=== PATIENT | male | born 1940 | race Caucasian/White ===

== ENCOUNTER 2017-01-07 20:17 | Inpatient (IN) | payer MEDICARE ==
[2017-01-07] VITALS (8 sets, daily range): BP systolic 143–178; BP diastolic 76–97; PULSE 92–111; RESP 24–38; TEMP 98.6; O2SAT 91–100
[~2017-01-07] VITALS: Ht 175.3 cm; Wt 88.6 kg
[~2017-01-07 20:17] MED LIST: 1-ME1LIQ PO; ASPI81TA82 PO; ATOR40TA49 PO; BUME1TAB PO; CARV12.52 PO; COUM2.5T PO; DIOV320T PO; GABA100C4 PO; GEMF600T PO; SPIR25TA PO
[2017-01-07] MEDS ORDERED: RESP: ALBUTEROL 2.5 MG/IPRATROPIUM 0.5 MG NEB (PRN) ONE (20:25)
[2017-01-07] MEDS ORDERED: SODIUM CHLORIDE 0.9% FLUSH 5 ML FLUSH IVF PRN ×2 (20:30)
[2017-01-07] MEDS ORDERED: DILTIAZEM INJ 125 MG in SODIUM CHLORIDE 0.9% INJ 100 ML IV SCH (20:30)
[2017-01-07] MEDS ORDERED: FUROSEMIDE 100 MG/10 ML VIAL IVP ONE (20:30)
[2017-01-07] MEDS ORDERED: NITROGLYCERIN 2% OINT 1 GM PACKET TOPICAL ONE (20:30)
[2017-01-07] MEDS: RESP: ALBUTEROL 2.5 MG/IPRATROPIUM 0.5 MG NEB (SCH) INH ×2 (20:36→20:37)
--- NOTE | 2017-01-07 20:37 | PD ---
HPI Chief Complaint: Respiratory Distress Time Seen by Provider: 20:25 Travel History International Travel<30 days: No Contact w/Intl Traveler<30days: No Traveled to known affect area: No History of Present Illness HPI The patient is a 76 year old male who presents to the [facility] emergency department with a history of shortness of breath that began abruptly 45 minutes prior to arrival. Upon ambulance services arrival the patient's O2 saturations were noted to be in the 70s. They attempted to place the patient on CPAP. They also attempted to place IV access. IV access was difficult to obtain, therefore a left intraosseous access was placed in his tibia. The patient after placement on CPAP had his O2 saturations improve up into the upper 80s. The patient was noted to have A. fib with RVR prior to arrival. The patient was given Cardizem 20 mg IV and his intraosseous access. The patient was also noted to have elevated blood pressure with a systolic in the 200s and was given sublingual nitroglycerin 2. According to ambulance services the patient did take his aspirin today as well as his anticoagulant. The patient arrives dyspneic, tripoding, mottled appearing with diaphoresis that according to ambulance services is improving. The patient is however awake and alert and able to move himself from the ambulance gurney to the hospital bed with assistance. The patient is having difficulty providing much history due to his conversational dyspnea, therefore his record was reviewed for further assistance. The patient's blood sugar prior to arrival was reportedly 207. PFSH Past Medical History Narrative Medical The patient's past medical history is significant for congestive heart failure, coronary artery disease status post coronary artery bypass grafting, history of cardiac stent placement, history of cerebrovascular accident, hyperlipidemia, history of chronically being anticoagulated on warfarin, history of COPD, history of prior tobacco use-with quitting 15 years ago, history of prostate cancer. Hx Anticoagulant Therapy: Yes Arthritis: No Asthma: No Autoimmune Disease: No Blood Disorders: No Anxiety: No Depression: No Heart Rhythm Problems: Yes Cancer: Yes (PROSTATE) Cardiac Catheterization: Yes Cardiovascular Problems: Yes High Cholesterol: Yes Chemotherapy: No Chest Pain: No Congestive Heart Failure: Yes COPD: Yes Cerebrovascular Accident: Yes (2014 - TIA) Diabetes: No Diminished Hearing: No Endocrine: No Gastrointestinal Disorders: No GERD: No Genitourinary: Yes (PROSTATE CA) Hepatitis: No Hiatal Hernia: No Hypertension: Yes Immune Disorder: No Kidney Stones: Yes (1960) Musculoskeletal: No Neurologic: Yes (DIZZY, STROKE) Psychiatric: No Reproductive: No Respiratory: Yes (COPD) Migraines: No Myocardial Infarction: Yes Radiation Therapy: Yes (prostate cancer 45 treatments) Renal Failure: No Seizures: No Sickle Cell Disease: No Sleep Apnea: No Thyroid Disease: No Ulcer: No Tetanus Vaccination: Unknown Influenza Vaccination: Yes Past Surgical History Narrative Surgical The patient's past surgical history is significant for prostate seed implants, hernia repair, stents placed in bilateral lower extremities related to peripheral arterial disease, coronary artery bypass grafting in 2007, history of coronary stent placement, bilateral Cataract surgery, history of dental extractions Abdominal Surgery: Yes AICD: No Arteriovenous Shunt: Yes (shunts placed in BLE for DVT) Cardiac Surgery: Yes (CABG) Coronary Stent: Yes Ear Surgery: No Endocrine Surgery: No Eye Surgery: Yes (BILAT CATARACT SX) Genitourinary Surgery: Yes (PROSTATE SEED IMPLANTS) Gynecologic Surgery: No Insulin Pump: No Joint Replacement: No Neurologic Surgery: No Oral Surgery: Yes (TEETH EXTRACTED) Pacemaker: No Thoracic Surgery: No Other Surgery: Yes Social History Alcohol Use: Yes (2 BEERS DAILY) Tobacco Use: No Substance Use: No Allergies-Medications (Allergen,Severity, Reaction): Coded Allergies: No Known Allergies (Verified , 01/07/17) Reported Meds & Prescriptions Reported Meds & Active Scripts Active Reported Warfarin 4 Mg Tab 4 Mg PO DAILY David Aspirin EC Low Dose (Aspirin) 81 Mg Tabdr Amlodipine (Amlodipine Besylate) 10 Mg Tab 10 Mg PO DAILY Carvedilol 25 Mg Tab 25 Mg PO BID Bumetanide 1 Mg Tab 1 Mg PO BID Uloric (Febuxostat) 80 Mg Tab Gemfibrozil 600 Mg Tab 600 Mg PO BIDAC Take 30 minutes prior to breakfast and dinner. Gabapentin 100 Mg Cap 100 Mg PO TID Valsartan 320 Mg Tab 320 Mg PO DAILY Atorvastatin (Atorvastatin Calcium) 40 Mg Tab 40 Mg PO HS Review of Systems Except as stated in HPI: all other systems reviewed are Neg General / Constitutional: No: Fever Eyes: No: Visual changes HENT: No: Headaches Cardiovascular: Positive: Chest Pain or Discomfort (chest tightness), Diaphoresis, Dyspnea on exertion Respiratory: Positive: Cough, Shortness of Breath Gastrointestinal: No: Abdominal Pain Genitourinary: No: Dysuria Musculoskeletal: No: Pain Skin: No Rash Neurologic: No: Weakness, Focal Abnormalities, Change in Mentation, Slurred Speech, Sensory Disturbance Psychiatric: No: Depression Endocrine: No: Polydipsia Hematologic/Lymphatic: No: Easy Bruising Physical Exam Narrative General: The patient is a well-developed well-nourished male, short of breath on arrival , tripoding, diaphoretic, conversational dyspnea noted. Head and Neck exam: Head is normocephalic atraumatic. Eyes: Pupils are equal round and reactive to light. Nose: Midline septum with pink mucous membranes Mouth: Dentition unremarkable. Moist mucus membranes. Posterior oropharynx is not erythematous. No tonsillar hypertrophy. Uvula midline. Airway patent. Neck: No palpable lymphadenopathy. No nuchal rigidity. No thyromegaly. Cardiovascular: Irregularly irregular with a rate in the low 100s, no murmurs, gallops, or rubs. The patient has intermittent pulse deficit to his extremity noted consistent with atrial fibrillation on simultaneous auscultation of heart and radial artery with palpation. Lungs: Crackles audible two thirds up the bases bilaterally with scattered rhonchi anteriorly, no wheezes are audible. He has retractions noted. He is tripoding. He has paroxysmal abdominal breathing. Abdomen: Soft, without tenderness to palpation in all 4 quadrants of the abdomen. No guarding, rebound, or rigidity. Normal bowel sounds are audible. Extremities: No clubbing or cyanosis. The patient has 1+ pitting edema bilateral lower extremities. 2+ pulses in all 4 extremities. Back: No costovertebral angle tenderness to palpation. Neurologic Exam: Cranial nerves 2-12 were intact on exam. Strength is 5/5 in all 4 extremities. No sensory deficits noted. Skin Exam: No rash noted. Intact skin that is moist related to diaphoresis. The patient's skin is slightly mottled. Data Data Last Documented VS Vital Signs Date Time Temp Pulse Resp B/P Pulse Ox O2 Delivery O2 Flow Rate FiO2 01/07/17 22:00 92 24 143/76 100 CPAP 100 01/07/17 20:24 98.6 Orders Albuterol-Ipratropium Neb (Duoneb Neb) (01/07/17 20:25) Complete Blood Count With Diff (01/07/17 20:25) Comprehensive Metabolic Panel (01/07/17 20:25) B-Type Natriuretic Peptide (01/07/17 20:25) Act Partial Throm Time (Ptt) (01/07/17 20:25) Prothrombin Time / Inr (Pt) (01/07/17 20:25) Magnesium (Mg) (01/07/17 20:25) Ckmb (Isoenzyme) Profile (01/07/17 20:25) Troponin I (01/07/17 20:25) Arterial Blood Gas (Abg) (01/07/17 20:25) Urinalysis - C+S If Indicated (01/07/17 20:25) Blood Culture (01/07/17 20:25) Iv Access Insert/Monitor (01/07/17 20:25) Electrocardiogram (01/07/17 20:25) Ecg Monitoring (01/07/17 20:25) Oximetry (01/07/17 20:25) Oxygen Administration (01/07/17 20:25) Chest, Single Ap (01/07/17 20:25) Urinary Catheter Insert/Apply (01/07/17 20:25) Sodium Chloride 0.9% Flush (Ns Flush) (01/07/17 20:30) Albuterol-Ipratropium Neb (Duoneb Neb) (01/07/17 20:30) Furosemide Inj (Lasix Inj) (01/07/17 20:30) Resp Bipap / Cpap Non Invas Vt (01/07/17 20:25) Lactic Acid (01/07/17 20:25) Diltiazem Inj (Cardizem Inj) (01/07/17 20:30) Sodium Chloride 0.9% Flush (Ns Flush) (01/07/17 20:30) Nitroglycerin 2% Oint (Nitroglycerin 2% (01/07/17 20:30) CKMB (01/07/17 20:30) CKMB% (01/07/17 20:30) Ceftriaxone Inj (Rocephin Inj) (01/07/17 22:30) Azithromycin Inj (Zithromax Inj) (01/07/17 22:30) Admit To Inpatient (01/07/17 ) Vital Signs (Adult) Q4H (01/07/17 22:52) Activity Oob With Assistance (01/07/17 22:52) Route Sales Specialist / Telemetry .CONTINUOUS (01/07/17 22:52) Intake + Output ANDREA.QSHIFT (01/07/17 22:52) Diet Heart Healthy (01/08/17 Breakfast) Sodium Chloride 0.9% Flush (Ns Flush) (01/07/17 23:00) Sodium Chloride 0.9% Flush (Ns Flush) (01/08/17 09:00) Comprehensive Metabolic Panel (01/08/17 06:00) Complete Blood Count With Diff (01/08/17 06:00) Creatine Kinase (Cpk) (01/08/17 02:30) Creatine Kinase (Cpk) (01/08/17 08:30) Troponin I (01/08/17 02:30) Troponin I (01/08/17 08:30) Electrocardiogram (01/08/17 02:30) Pt Request For Service (01/07/17 22:52) Case Management Consult (01/07/17 22:52) Naloxone Inj (Narcan Inj) (01/07/17 23:00) Inpatient Certification (01/07/17 ) Admit Order (Ed Use Only) (01/07/17 22:52) Labs Laboratory Tests Test 01/07/17 01/07/17 01/07/17 20:30 20:45 21:02 White Blood Count 12.9 TH/MM3 Red Blood Count 4.63 MIL/MM3 Hemoglobin 14.8 GM/DL Hematocrit 45.4 % Mean Corpuscular Volume 98.0 FL Mean Corpuscular Hemoglobin 31.9 PG Mean Corpuscular Hemoglobin 32.6 % Concent Red Cell Distribution Width 15.3 % Platelet Count 185 TH/MM3 Mean Platelet Volume 9.2 FL Neutrophils (%) (Auto) 62.4 % Lymphocytes (%) (Auto) 27.2 % Monocytes (%) (Auto) 8.4 % Eosinophils (%) (Auto) 1.3 % Basophils (%) (Auto) 0.7 % Neutrophils # (Auto) 8.0 TH/MM3 Lymphocytes # (Auto) 3.5 TH/MM3 Monocytes # (Auto) 1.1 TH/MM3 Eosinophils # (Auto) 0.2 TH/MM3 Basophils # (Auto) 0.1 TH/MM3 CBC Comment DIFF FINAL Differential Comment Prothrombin Time 14.0 SEC Prothromb Time International 1.3 RATIO Ratio Activated Partial 26.8 SEC Thromboplast Time Sodium Level 139 MEQ/L Potassium Level 4.2 MEQ/L Chloride Level 104 MEQ/L Carbon Dioxide Level 19.9 MEQ/L Anion Gap 15 MEQ/L Blood Urea Nitrogen 25 MG/DL Creatinine 2.12 MG/DL Estimat Glomerular Filtration 31 ML/MIN Rate Random Glucose 210 MG/DL Lactic Acid Level 6.8 mmol/L Calcium Level 9.3 MG/DL Magnesium Level 2.2 MG/DL Total Bilirubin 0.6 MG/DL Aspartate Amino Transf 23 U/L (AST/SGOT) Alanine Aminotransferase 25 U/L (ALT/SGPT) Alkaline Phosphatase 92 U/L Total Creatine Kinase 186 U/L Creatine Kinase MB 4.4 NG/ML Troponin I 0.04 NG/ML B-Type Natriuretic Peptide 761 PG/ML Total Protein 8.6 GM/DL Albumin 3.6 GM/DL Urine Color YELLOW Urine Turbidity HAZY Urine pH 6.0 Urine Specific [place] 1.012 Urine Protein 300 mg/dL Urine Glucose (UA) NEG mg/dL Urine Ketones NEG mg/dL Urine Occult Blood MOD Urine Nitrite NEG Urine Bilirubin NEG Urine Urobilinogen LESS THAN 2.0 MG/DL Urine Leukocyte Esterase NEG Urine RBC 36 /hpf Urine WBC 2 /hpf Urine Hyaline Casts 1 /lpf Microscopic Urinalysis Comment CULT NOT INDICATED Blood Gas Puncture Site LT RADIAL Blood Gas Patient Temperature 98.6 Blood Gas HCO3 18 mmol/L Blood Gas Base Excess -6.8 mmol/L Blood Gas Oxygen Saturation 95 % Arterial Blood pH 7.31 Arterial Blood Partial 38 mmHg Pressure CO2 Arterial Blood Partial 140 mmHG Pressure O2 Arterial Blood Oxygen Content 20.1 Vol % Arterial Blood 1.5 % Carboxyhemoglobin Arterial Blood Methemoglobin 2.1 % Blood Gas Hemoglobin 15.0 G/DL Oxygen Delivery Device NPPV Blood Gas Ventilator Setting IPAP14/[id number] Blood Gas Inspired Oxygen 100 % MDM Medical Decision Making Medical Screen Exam Complete: Yes Emergency Medical Condition: Yes Medical Record Reviewed: Yes Interpretation(s) Last Impressions Chest X-Ray 01/07/172024 Signed Impressions: Service Date/Time: Saturday, January 07, 2017 20:42 - CONCLUSION: Mild failure. Jose Rubio MD Differential Diagnosis Congestive heart failure exacerbation, versus COPD exacerbation versus combination of respiratory disorder, versus acute coronary syndrome, versus flash pulmonary edema, versus pulmonary embolism Narrative Course During the course of the patients emergency department visit, the patients history, examination, and differential diagnosis were reviewed with the patient. The patient had IV access obtained and blood work sent for analysis. The patient was placed on a gambling monitor with oximetry and blood pressure monitoring. An EKG was done on arrival. Respiratory therapy was available at the bedside to assist with this patient's care. The patient was placed on BiPAP at 14 over 5, 100% in order to increase his FiO2. This will be weaned as tolerated to maintain his O2 saturations at greater than or equal to 92%. The patient's heart rate was in the low 100s. The patient will have a Lopez catheter placed to gravity. The EKG done on arrival shows atrial fibrillation with RVR heart rate of 108 with intraventricular conduction delay that appears consistent with a left bundle branch block. From reviewing the patient's electronic medical record he does have a history of left bundle branch block. The patient was provided Lasix 60 mg IV, nitroglycerin 1 inch the chest wall, DuoNeb times. An ABG will be done. The patients laboratory studies were reviewed and remarkable for a CBC that shows a white count 12.9, hemoglobin 14.8, platelets 185 with 8.4 monocytes, CMP is remarkable for CO2 of 19.9, BUN 25, creatinine 2.12, glucose 210, CPK 186 , troponin I 0.04, BNP is 761, lactic acid is 6.8. Given the patient's fluid overload on examination, the patient was not started on any fluid bolus for this elevated lactic acid which I suspect is not related to sepsis but related to hypoxemia on room air prior to arrival. Therefore, this should improve with oxygenation. However given the patient's elevated white count which could also be related to a stress reaction from his hypoxemia the patient was given a one- time dose of Rocephin 1 g IV, Zithromax 500 IV for possible pneumonia. PT 14, INR 1.3, PTT 26.8, urinalysis shows 300 protein and moderate occult blood 36 RBCs, otherwise unremarkable Radiology studies were reviewed and remarkable for a chest x-ray that shows mild congestive heart failure. The patient was repeatedly reevaluated and had improvement in his oxygenation on BiPAP. The patient was slowly being weaned down on the BiPAP settings. His initial ABG on BiPAP shows a pH of 7.31, PCO2 38, PO2 140, methemoglobin 2.1, bicarbonate 18, base excess -6.8. The patients results were discussed with the patient, including the plan of care. I explained that further testing and/ or monitoring is indicated based on the patients history, examination, and/ or laboratory findings. Therefore, I recommended admission for additional evaluation. The patient expressed understanding and was agreeable with this plan. The patient was admitted to the hospital in guarded condition and [facility] Critical Care Narrative Aggregate critical care time was37 minutes. Time to perform other separately billable procedures was not included in the critical care time. My time did not include minutes spent treating any other patients simultaneously or on activities that did not directly contribute to the patient's treatment. The services I provided to this patient were to treat and/or prevent clinically significant deterioration that could result in: Respiratory failure, hypoxic encephalopathy, acute coronary syndrome I provided critical care services requiring my management, as noted below: Chart data review, documentation time, medication orders and management, vital sign assessments/reviewing monitor data, ordering and reviewing lab tests, ordering and interpreting/reviewing x-rays and diagnostic studies, care of the patient and discussion of the patient with the admitting physicians. Sepsis Criteria SIRS Criteria (2 or more): Heart rate over 90, RR > 20 or PaCO2 < 32, WBC > 95593, < 4000 or > 10% bands Severe Sepsis (+one): Lactate >2 Physician Communication Physician Communication The patient's case will be discussed with Dr. Barksdale. The patient's case was discussed with her. She did agree to admit the patient for further evaluation and treatment at this time. Diagnosis Primary Impression: CHF exacerbation Qualified Code: I50.9 - Acute on chronic congestive heart failure, unspecified congestive heart failure type Additional Impression: Hypoxemia Admitting Information Admitting Physician Requests: Admit Stephanie Encinas MD Jan 07, 2017 20:37
[2017-01-07 20:48] LABS: BASOPHIL # 0.1 TH/MM3 (0-0.2); BASOPHIL % 0.7 % (0.0-2.0); EOSINOPHIL # 0.2 TH/MM3 (0-0.4); EOSINOPHIL % 1.3 % (0.0-4.0); HEMATOCRIT 45.4 % (39.0-51.0); HEMO FLAGS DIFF FINAL; LYMPH % 27.2 % (9.0-44.0); LYMPHOCYTE # 3.5 TH/MM3 (1.0-4.8); MEAN CORPUSCULAR HEMOGLOBIN 31.9 PG (27.0-34.0); MEAN CORPUSCULAR HGB CONC 32.6 % (32.0-36.0); MONO % 8.4 % (0.0-8.0); NEUT % 62.4 % (16.0-70.0); PLATELET COUNT 185 TH/MM3 (150-450); RED BLOOD COUNT 4.63 MIL/MM3 (4.50-5.90); RED CELL DISTRIBUTION WIDTH 15.3 % (11.6-17.2); WHITE BLOOD COUNT 12.9 TH/MM3 (4.0-11.0)
[2017-01-07 21:00] LABS: APTT (PATIENT) 26.8 SEC (24.3-30.1); INTERNATIONAL NORMALIZED RATIO 1.3 RATIO
--- NOTE | 2017-01-07 21:03 | RADRPT ---
EXAM DATE/TIME: 01/07/2017 20:42 [facility] COMPARISON: CHEST SINGLE AP, July 04, 2016, 6:05. INDICATIONS : Shortness of breath. MEDICAL HISTORY : Hypertension. Hypercholesterolemia. Myocardial infarction. Prostate cancer. SURGICAL HISTORY : CABG. Coronary artery stent. Cardiac stent. ENCOUNTER: Initial ACUITY: 1 day PAIN SCORE: 0/10 LOCATION: Bilateral chest FINDINGS: Hazy opacities are seen of both mid and lower lungs with mild cardiomegaly. Mild failure is suspected . Small, bilateral pleural effusions are likely. I don't see a pneumothorax. Patient has had previous median sternotomy. CONCLUSION: Mild failure. Jose Rubio MD on January 07, 2017 at 21:01 Board Certified Radiologist. This report was verified electronically.
[2017-01-07 21:16] LABS: BLOOD, URINE MOD (NEG); COMMENT (UR) CULT NOT INDICATED; CULTURE IF INDICATED CULT NOT INDICATED; GLUCOSE,URINE NEG (NEG); HYALINE CAST, URINE 1 /lpf (RARE); KETONE, URINE NEG (NEG); NITRITE,URINE NEG (NEG); URINE COLOR YELLOW (YELLW/STRAW)
[2017-01-07 21:18] LABS: BLOOD GAS BASE EXCESS -6.8 mmol/L (-2-2); BLOOD GAS CARBOXYHEMOGLOBIN 1.5 % (0-4); BLOOD GAS HCO3 18 mmol/L (22-26); BLOOD GAS METHEMOGLOBIN 2.1 % (0-2); BLOOD GAS O2 HGB SATURATION 95 % (90-100); BLOOD GAS OXYGEN CONTENT 20.1 Vol % (12.0-20.0); BLOOD GAS PCO2 38 mmHg (38-42); BLOOD GAS PO2 140 mmHG (61-120); CRITICAL VALUE NO; FIO2 100 %; OXYGEN DEVICE NPPV; TEMP CORR TO 98.6; VENT SETTINGS IPAP14/EPAP5
[2017-01-07 21:19] LABS: DRAW SITE LT RADIAL; NUMBER OF ARTERIAL PUNCTURES 1; STAT YES; ULNAR PULSE PRESENT
[2017-01-07 21:37] LABS: ALKALINE PHOSPHATASE 92 U/L (45-117); ALT (GPT) 25 U/L (12-78); ANION GAP 15 MEQ/L (5-15); AST (GOT) 23 U/L (15-37); BICARBONATE 19.9 MEQ/L (21.0-32.0); BLOOD UREA NITROGEN 25 MG/DL (7-18); CHLORIDE 104 MEQ/L (98-107); CREATINE KINASE 186 U/L (39-308); GLOMERULAR FILTRATION RATE 31 ML/MIN (>89); MAGNESIUM 2.2 MG/DL (1.5-2.5); POTASSIUM 4.2 MEQ/L (3.5-5.1); SODIUM (NA) 139 MEQ/L (136-145); TOTAL BILIRUBIN ADULT 0.6 MG/DL (0.2-1.0)
[2017-01-07 21:49] LABS: CKMB 4.4 NG/ML (0.5-3.6)
[2017-01-07] MEDS ORDERED: cefTRIAXone INJ 1,000 MG in SODIUM CHLORIDE 0.9% INJ 100 ML IV ONE (22:30)
[2017-01-07] MEDS ORDERED: AZITHROMYCIN INJ 500 MG in SODIUM CHLOR 0.9% 250 ML INJ 250 ML IV ONE (22:30)
[2017-01-07] MEDS ORDERED: ASPI1TAB73 PO (22:34)
[2017-01-07] MEDS ORDERED: GABA100C4 PO (22:34)
[2017-01-07] MEDS ORDERED: BUME1TAB PO (22:34)
[2017-01-07] MEDS ORDERED: WARF-20 PO (22:34)
[2017-01-07] MEDS ORDERED: ULOR80TA2 (22:34)
[2017-01-07] MEDS ORDERED: CARV25TA PO (22:34)
[2017-01-07] MEDS ORDERED: VALS1TAB70 PO (22:34)
[2017-01-07] MEDS ORDERED: ATOR40TA16 PO (22:34)
[2017-01-07] MEDS ORDERED: AMLO10TA2 PO (22:34)
[2017-01-07] MEDS ORDERED: GEMF600T PO (22:34)
[2017-01-07] MEDS ORDERED: NALOXONE HCL 0.4 MG/ML AMP IV PRN (23:00)
[2017-01-08] VITALS (16 sets, daily range): BP systolic 74–149; BP diastolic 43–85; PULSE 34–120; RESP 12–30; TEMP 98–98.7; O2SAT 86–100
--- NOTE | 2017-01-08 02:57 | HHI.HP ---
[facility] Peng Weir MD Admission Diagnosis CHF exacerbation, Afib with RVR Diagnoses: Chief Complaint: Shortness of breath Travel History International Travel<30 Days: No Contact w/Intl Traveler <30 Da: No Traveled to Known Affected Are: No History of Present Illness History from patient, ER physician, ER physician, and review of medical records. Patient reported that he came to the hospital because he was severely short of breath yesterday. He states it was starting in the evening and he thought that taking a shower would make the breathing better so he went to the bathroom to take a shower. He status and as he got out of shower, he just was not able to catch her breath. He told his to call 911. Upon arrival by EMS, patient was in acute respiratory distress with hypoxia in the 80s. He was placed on C Pap, and was given Cardizem 20 mg IV by intraosseous for going into A. fib with RVR. Patient reports history of A. fib. also reports of history of CHF. He is requesting for home oxygen because this is likely third time this has happened. Patient states that he is compliant with his medications, salt intake, and water pills. He usually sees Dr. Madison for cardiology. He states that his doctor had retired and is now seen another physician at the same office. He reports he has not had any stress test or angiogram in the past 1 year. Patient also has history of COPD. However he quit smoking in [address] Madison advised him to do so prior to his CABG. Apart from the above, patient denies any recent fever/nausea/vomiting/diarrhea/ urinary burning or pain on urination. He denies any hematemesis/vomiting/melena/hematuria. Denies any syncopal episodes. Denies any palpitations in the past few days. He did have palpitations during this acute episode of respiratory distress. Denies any chest pains. However did report of ongoing chest tightness every time he exerts himself and walk around which is usually associated with shortness of breath on exertion as well. Review of Systems Except as stated in HPI: all other systems reviewed are Neg Past Family Social History Past Medical History Hypertension Hyperlipidemia CADstatus post CABG in 1999 Atrial fibrillation CHFEF of 35% COPD Chronic kidney disease History of CVA History of prostate CA Past Surgical History Cataract surgery CABG Bilateral lower extremity stents Radiation seed implants for prostate cancer Reported Medications Patient's medications listed in EMRreviewed. He stated that his did bring a list and this was gone through with the . Allergies: Coded Allergies: No Known Allergies (Verified , 01/07/17) Family History Reports family history of lung cancer in 3 of his brothers. Also reports of [place] which resulted in in 2 brothers. Social History Used to smoke cigarettes, quit in 1999. Denies any alcohol abuse or drug abuse. He does drink socially 1 or 2 shots of hard liquor small shots a day. Physical Exam Vital Signs Vital Signs Date Time Temp Pulse Resp B/P Pulse Ox O2 Delivery O2 Flow Rate FiO2 01/07/17 23:51 94 Nasal Cannula 4.00 01/07/17 22:00 92 24 143/76 100 CPAP 100 01/07/17 21:21 98 70 01/07/17 20:45 100 26 159/97 100 CPAP 100 01/07/17 20:33 106 36 178/91 96 CPAP 96 01/07/17 20:31 97 CPAP 100 01/07/17 20:31 38 96 CPAP 100 01/07/17 20:27 109 34 97 CPAP 100 01/07/17 20:24 98.6 111 36 91 01/07/17 20:20 96 100 Physical Exam GENERAL: This is a well-nourished, well-developed patient, still in somewhat of mild distress from acute dyspnea. Able to complete sentences although clearly has dyspnea during minimal exertion. SKIN: No rashes, ecchymoses or lesions. Cool and dry. HEAD: Atraumatic. Normocephalic. No temporal or scalp tenderness. EYES:No scleral icterus. No injection or drainage. ENT: Nose without bleeding, purulent drainage or septal hematoma. . Airway patent. NECK: Trachea midline. No JVD CARDIOVASCULAR: Regular rate and rhythm without murmurs, gallops, or rubs. RESPIRATORY: Clear to auscultation. Breath sounds equal bilaterally. No wheezes , rales, or rhonchi. GASTROINTESTINAL: Abdomen soft, non-tender, nondistended. No guarding. MUSCULOSKELETAL: Extremities without clubbing, cyanosis, or edema. . No calf tenderness. NEUROLOGICAL: Awake and alert. Motor and sensory grossly within normal limits. Normal speech. Laboratory Laboratory Tests Test 01/07/17 01/07/17 01/07/17 20:30 20:45 21:02 White Blood Count 12.9 Red Blood Count 4.63 Hemoglobin 14.8 Hematocrit 45.4 Mean Corpuscular Volume 98.0 Mean Corpuscular Hemoglobin 31.9 Mean Corpuscular Hemoglobin 32.6 Concent Red Cell Distribution Width 15.3 Platelet Count 185 Mean Platelet Volume 9.2 Neutrophils (%) (Auto) 62.4 Lymphocytes (%) (Auto) 27.2 Monocytes (%) (Auto) 8.4 Eosinophils (%) (Auto) 1.3 Basophils (%) (Auto) 0.7 Neutrophils # (Auto) 8.0 Lymphocytes # (Auto) 3.5 Monocytes # (Auto) 1.1 Eosinophils # (Auto) 0.2 Basophils # (Auto) 0.1 CBC Comment DIFF FINAL Differential Comment Prothrombin Time 14.0 Prothromb Time International 1.3 Ratio Activated Partial 26.8 Thromboplast Time Sodium Level 139 Potassium Level 4.2 Chloride Level 104 Carbon Dioxide Level 19.9 Anion Gap 15 Blood Urea Nitrogen 25 Creatinine 2.12 Estimat Glomerular Filtration 31 Rate Random Glucose 210 Lactic Acid Level 6.8 Calcium Level 9.3 Magnesium Level 2.2 Total Bilirubin 0.6 Aspartate Amino Transf 23 (AST/SGOT) Alanine Aminotransferase 25 (ALT/SGPT) Alkaline Phosphatase 92 Total Creatine Kinase 186 Creatine Kinase MB 4.4 Troponin I 0.04 B-Type Natriuretic Peptide 761 Total Protein 8.6 Albumin 3.6 Urine Color YELLOW Urine Turbidity HAZY Urine pH 6.0 Urine Specific [place] 1.012 Urine Protein 300 Urine Glucose (UA) NEG Urine Ketones NEG Urine Occult Blood MOD Urine Nitrite NEG Urine Bilirubin NEG Urine Urobilinogen LESS THAN 2.0 Urine Leukocyte Esterase NEG Urine RBC 36 Urine WBC 2 Urine Hyaline Casts 1 Microscopic Urinalysis Comment CULT NOT INDICATED Blood Gas Puncture Site LT RADIAL Blood Gas Patient Temperature 98.6 Blood Gas HCO3 18 Blood Gas Base Excess -6.8 Blood Gas Oxygen Saturation 95 Arterial Blood pH 7.31 Arterial Blood Partial 38 Pressure CO2 Arterial Blood Partial 140 Pressure O2 Arterial Blood Oxygen Content 20.1 Arterial Blood 1.5 Carboxyhemoglobin Arterial Blood Methemoglobin 2.1 Blood Gas Hemoglobin 15.0 Oxygen Delivery Device NPPV Blood Gas Ventilator Setting IPAP14/EPAP5 Blood Gas Inspired Oxygen 100 Date/Time Procedure Status Source Growth 01/07/17 20:30 Aerobic Blood Culture Received Blood Peripheral Pending 01/07/17 20:30 Anaerobic Blood Culture Received Blood Peripheral Pending Result Diagram: 01/07/17202901/07/172029 Imaging Last 48 hours Impressions Chest X-Ray 01/07/172024 Signed Impressions: Service Date/Time: Saturday, January 07, 2017 20:42 - CONCLUSION: Mild failure. Jose Rubio MD Assessment and Plan Problem List: (1) CHF exacerbation ICD Code: I50.9 Status: Acute (2) Hypoxemia ICD Code: R09.02 Status: Acute (3) Acute respiratory failure ICD Code: J96.00 Status: Acute Assessment and Plan Impression: Acute on chronic systolic heart failure Hypoxic respiratory failuresecondary to above Subtherapeutic INR Lactic acid acidosislikely due to respiratory distress from acute hypoxia and overload. No evidence of sepsis or bowel ischemia. Elevated BNP Hypertension Hyperlipidemia CADstatus post CABG in 1999 Atrial fibrillation CHFEF of 35% COPD Chronic kidney disease History of CVA History of prostate CA Plan: Patient was given Lasix 60 mg IV in ER. He was immediately placed on BiPAP upon arrival to ER as he was not doing well on C Pap. Continue Lasix at 40 mg IV every 12 hours. Input/output. Given that patient has chronic kidney disease, he may not diurese well. He might need additional BiPAP support. We'll continue to monitor. Nebulizers when necessary. Patient was also given Rocephin and azithromycin in ER. However his clinical picture is that of CHF exacerbation rather than sepsis. His lactic acid of 6.8 isn't highly due to respiratory distress causing demand ischemia. We will therefore not continue any antibiotics at this point. Repeat lactic acid in a.m. Serial cardiac enzymes and EKGs to rule out ischemic etiology. Yet again, expect that troponin will elevate due to his acute respiratory distress. Consult cardiology for possible ischemic workup. Start on Lovenox therapeutic dose 1 mg/kg subcutaneous every 24 hours given his renal function.. Continue Coumadin at home dose. Continue Cardizem drip. Adjust and taper off the dose once heart rate is controlled. Resume rest of his home medications. DVT prophylaxison Coumadin/Lovenox. GI prophylaxison pantoprazole. Discussed Condition With patient, ER MD, ACADEMIC PHYSICIAN Physician Certification 2 Midnight Certification Type: Admission for Inpatient Services Order for Inpatient Services The services are ordered in accordance with Medicare regulations or non- Medicare payer requirements, as applicable. In the case of services not specified as inpatient-only, they are appropriately provided as inpatient services in accordance with the 2-midnight benchmark. Estimated LOS (days): 2 days is the estimated time the patient will need to remain in the hospital, assuming treatment plan goals are met and no additional complications. Post-Hospital Plan: Home Problem Qualifiers (1) CHF exacerbation: Qualified Code: I50.9 - Acute on chronic congestive heart failure, unspecified congestive heart failure type Whitney Barksdale MD Jan 08, 2017 02:57
[2017-01-08 03:40] LABS: ALT (GPT) 20 U/L (12-78); ANION GAP 13 MEQ/L (5-15); AST (GOT) 13 U/L (15-37); BICARBONATE 21.2 MEQ/L (21.0-32.0); CHLORIDE 104 MEQ/L (98-107); GLOMERULAR FILTRATION RATE 27 ML/MIN (>89); POTASSIUM 4.4 MEQ/L (3.5-5.1); SODIUM (NA) 138 MEQ/L (136-145)
[2017-01-08 03:42] LABS: ALKALINE PHOSPHATASE 73 U/L (45-117); TOTAL BILIRUBIN ADULT 0.5 MG/DL (0.2-1.0)
[2017-01-08 04:05] LABS: BLOOD UREA NITROGEN 31 MG/DL (7-18)
[2017-01-08 04:15] LABS: AUTOMATED NEUTROPHIL # 9.8 TH/MM3 (1.8-7.7); BASOPHIL # 0.1 TH/MM3 (0-0.2); BASOPHIL % 0.6 % (0.0-2.0); HEMATOCRIT 41.4 % (39.0-51.0); HEMO FLAGS DIFF FINAL; LYMPH % 7.5 % (9.0-44.0); LYMPHOCYTE # 0.9 TH/MM3 (1.0-4.8); MEAN CELL VOLUME 94.6 FL (80.0-100.0); MEAN CORPUSCULAR HEMOGLOBIN 31.9 PG (27.0-34.0); MEAN CORPUSCULAR HGB CONC 33.7 % (32.0-36.0); MONO % 6.1 % (0.0-8.0); NEUT % 85.8 % (16.0-70.0); PLATELET COUNT 192 TH/MM3 (150-450); RED BLOOD COUNT 4.38 MIL/MM3 (4.50-5.90); RED CELL DISTRIBUTION WIDTH 15.2 % (11.6-17.2); WHITE BLOOD COUNT 11.4 TH/MM3 (4.0-11.0)
[2017-01-08] MEDS: GEMFIBROZIL 600 MG TAB PO SCH ×2 (07:51→16:00)
[2017-01-08] MEDS: ENOXAPARIN SODIUM 100 MG/ML SYRINGE SQ SCH (07:51)
[2017-01-08] MEDS ORDERED: CARVEDILOL 12.5 MG TAB PO SCH (09:00)
[2017-01-08] MEDS ORDERED: PANTOPRAZOLE SOD 40 MG DELAYED RELEASE TAB PO SCH (09:00)
--- NOTE | 2017-01-08 10:09 | EKG ---
Date Performed: 01/08/2017 Time Performed: 04:02:57 PTAGE: 76 years EKG: ATRIAL FIBRILLATION WITH RAPID VENTRICULAR RESPONSE LEFT BUNDLE BRANCH BLOCK ABNORMAL ECG PREVIOUS TRACING : 01/07/2017 20.24 No significant change from previous tracing noted. DOCTOR: Grant Yoder Interpretating Date/Time 01/08/2017 10:07:27
--- NOTE | 2017-01-08 11:39 | EKG ---
Date Performed: 01/07/2017 Time Performed: 20:24:59 PTAGE: 76 years EKG: ATRIAL FIBRILLATION WITH RAPID VENTRICULAR RESPONSE WITH ABERRANT CONDUCTION OR VENTRICULAR PREMATURE COMPLEXES LEFT BUNDLE BRANCH BLOCK ABNORMAL ECG PREVIOUS TRACING : 07/02/2016 21.08 Compared to previous tracing, atrial fibrillation has repla brittny Sinus rhythm . DOCTOR: Grant Yoder Interpretating Date/Time 01/08/2017 11:38:57
[2017-01-08] MEDS: FUROSEMIDE 40 MG/4 ML VIAL IV PUSH SCH ×2 (11:52→18:00)
[2017-01-08] MEDS: GABAPENTIN 100 MG CAP PO SCH ×3 (11:54→18:00)
[2017-01-08] MEDS: SODIUM CHLORIDE 0.9% FLUSH 5 ML FLUSH FLUSH SCH ×2 (11:55→21:00)
[2017-01-08] MEDS ORDERED: ATROPINE SULFATE 1 MG/10 ML SYRINGE ONE ×2 (13:29→14:05)
[2017-01-08] MEDS ORDERED: DOPamine INJ PREMIX 500 ML ONE (13:29)
--- NOTE | 2017-01-08 13:42 | HHI.PR ---
Subjective Remarks I saw the patient earlier as a follow up on CHF patient was feeling fatigue, he is on O2 nasal cannula, No chest pain, afebrile Patient is on bridging into coagulation with Coumadin and Lovenox, as well as twice a day iv Lasix Later on I was called patient is having severe hypotension systolic blood pressure 60 I wanted to stop Cardizem drip, hold all other antihypertensive as well as Lasix , and give to 250 cc bolus NS and transferred to ICU Objective Vitals Vital Signs Date Time Temp Pulse Resp B/P Pulse Ox O2 Delivery O2 Flow Rate FiO2 01/08/17 11:45 95 Nasal Cannula 2.00 01/08/17 11:45 98.7 96 20 135/85 96 01/08/17 09:30 97 Nasal Cannula 3.00 01/08/17 09:15 98.0 96 22 129/72 95 01/08/17 09:15 74 17 97 Nasal Cannula 3 01/08/17 09:15 95 Nasal Cannula 2.00 01/08/17 06:00 114 20 149/76 96 Nasal Cannula 4 01/08/17 04:00 99 20 140/73 95 Nasal Cannula 4 01/08/17 02:00 110 20 122/70 95 Nasal Cannula 4 01/08/17 00:00 112 22 116/68 100 CPAP 100 01/07/17 23:51 94 Nasal Cannula 4.00 01/07/17 22:00 92 24 143/76 100 CPAP 100 01/07/17 21:21 98 70 01/07/17 20:45 100 26 159/97 100 CPAP 100 01/07/17 20:33 106 36 178/91 96 CPAP 96 01/07/17 20:31 97 CPAP 100 01/07/17 20:31 38 96 CPAP 100 01/07/17 20:27 109 34 97 CPAP 100 01/07/17 20:24 98.6 111 36 91 01/07/17 20:20 96 100 Result Diagram: 01/08/1725401/08/17254 Imaging Last Impressions Chest X-Ray 01/07/172024 Signed Impressions: Service Date/Time: Saturday, January 07, 2017 20:42 - CONCLUSION: Mild failure. Jose Rubio MD Objective Remarks GENERAL: 76 years old male well-developed patient, in moderate distress due to low blood pressure dizziness and diaphoresis CARDIOVASCULAR: Regular tachycardia. RESPIRATORY: Fair entry bilaterally. No wheezes, rales, or rhonchi. GASTROINTESTINAL: Abdomen soft, non-tender, nondistended. Normal active bowel sounds MUSCULOSKELETAL: Extremities without clubbing, cyanosis, or edema. NEURO: Alert & Oriented x4 to person, place, time, situation. Moves all ext x4 A/P Problem List: (1) CHF exacerbation ICD Code: I50.9 Status: Acute (2) Hypoxemia ICD Code: R09.02 Status: Acute (3) Acute respiratory failure ICD Code: J96.00 Status: Acute Assessment and Plan Acute on chronic systolic heart failure Hypoxic respiratory failuresecondary to above Subtherapeutic INR Lactic acid acidosislikely due to respiratory distress from acute hypoxia and overload. No evidence of sepsis or bowel ischemia. Elevated BNP Hypertension Hyperlipidemia CADstatus post CABG in 1999 Atrial fibrillation CHFEF of 35% COPD Chronic kidney disease History of CVA History of prostate CA Plan: Patient initially started yesterday on Lasix iv, nebulizer o2 cardiac enzyme showed increase troponin from 0.04-0.2 He was on Cardizem drip and bridging Lovenox Coumadin for A. fib Also started on Rocephin and Zithromax for lobar pneumonia Patient initially had lactic acidosis level of 8 which is chronic to 2.7 today Severe hypertension dizziness and diaphoresis >> stop Cardizem drip, whole Lasix , amlodipine and Coreg. 250 cc bolus ns , transfer to ICU for close monitoring Patient seen by Dr. Page union organiser in the ICU, he started him on to Padmini in drip I consulted hangersmith and discussed with him, he graciously will take over care. Also discussed with the nurse on the [facility] Problem Qualifiers (1) CHF exacerbation: Qualified Code: I50.9 - Acute on chronic congestive heart failure, unspecified congestive heart failure type Zac David MD Jan 08, 2017 13:42
[2017-01-08] MEDS ORDERED: GLUCAGON 1 MG/ML VIAL ONE (14:11)
[2017-01-08] MEDS ORDERED: GLUCAGON 1 MG/ML VIAL IV PUSH STA (14:16)
[2017-01-08] MEDS ORDERED: INSULIN HUMAN REGULAR 1,000 UNITS/10 ML VIAL IV PUSH STA (14:18)
[2017-01-08] MEDS ORDERED: DEXTROSE 50% IN WATER 50 ML VIAL(D50) IV PUSH ONE (14:30)
[2017-01-08] MEDS ORDERED: CALCIUM GLUCONATE INJ 2 GM in DEXTROSE 5% IN WATER 100ML INJ 100 ML IV ONE ×2 (14:30)
--- NOTE | 2017-01-08 15:51 | PD.CONS ---
[facility] Service Critical Care Medicine Consult Requested By Dr. David Reason for Consult Hypotension, bradycardia Primary Care Physician Peng Weir MD History of Present Illness History of Present Illness 76-year-old male with a medical history significant for coronary artery disease status post previous CABG, CHF with EF 30-35%, atrial fibrillation, COPD who was brought to the ER on 01/07/17 with shortness of breath going on for about a day which had progressively gotten worse. He was brought to the ER by EMS with O2 sats in the 80s. He was placed on C Pap given 20 mg intraosseous Cardizem as he was in A. fib with RVR. He was a patient of Dr. Madison who is currently retired. He quit smoking in 1999 prior to his CABG. A she was admitted by hospitalist service started on a Cardizem for rate control and his Coreg was continued at 25 mg twice a day. He was also initiated on Lovenox 1 mg per KG every 24 hourly for anticoagulation in view of renal insufficiency. This afternoon patient became bradycardic with heart rate dropping to the 20s and hypotension for which he was evaluated by Dr. Page from cardiology, Cardizem drip was stopped and he was immediately transferred to the ICU. Critical care consult was requested by Dr. David, I evaluated the patient immediately on being notified. He had transcutaneous pacer pads on and was being paced at the time with the pacer rate set at 70/m which I subsequently decreased to 50/m. He was started on dopamine which I increased to 15 mics per KG per minute. I also ordered 5 units of glucose gone IV stat, 50 mL of 50% dextrose and 10 units of regular insulin IV stat as well as 2 g of IV calcium gluconate and a DuoNeb nebulizer treatment. His heart rate came up to the 70s A. fib. Spoke with Dr. Page from cardiology who felt that the bradycardia was possibly related to his medications including Coreg and Cardizem which were held. Patient was on a nonrebreather facemask. Apart from the above, patient denies any recent fever/nausea/vomiting/diarrhea/ urinary burning or pain on urination. He denied any hematemesis/vomiting/melena/hematuria. Denied any syncopal episodes. Denied any palpitations in the past few days. He did have palpitations during this acute episode of respiratory distress. Denied any chest pains. However did report of ongoing chest tightness every time he exerts himself and walk around which is usually associated with shortness of breath on exertion as well. ROS - General Review of Systems Except as stated in HPI: all other systems reviewed are Neg PFSH Past Family Social History Past Medical History Hypertension Hyperlipidemia CADstatus post CABG in 1999 Atrial fibrillation CHFEF of 35% COPD Chronic kidney disease History of CVA History of prostate CA Past Surgical History Cataract surgery CABG Bilateral lower extremity stents Radiation seed implants for prostate cancer Reported Medications Patient's medications listed in EMRreviewed. Current Medications Albuterol/ Ipratropium (Duoneb Neb) 2 ampule STK-MED ONCE .ROUTE ; Start at 20:25; Stop 01/07/17 at 20:26; Status DC IV Flush (NS Flush) 2 ml UNSCH PRN IVF FLUSH AFTER USING IV ACCESS; Start at 20:30; Stop 01/07/17 at 22:57; Status DC Albuterol/ Ipratropium (Duoneb Neb) 1 ampule Q15M INH Last administered on 20:37; Start 01/07/17 at 20:30; Stop 01/07/17 at 20:46; Status DC Furosemide 60 mg 60 mg ONCE ONCE IVP Last administered on 01/07/17 20:53; Start 01/07/17 at 20:30; Stop 01/07/17 at 20:31; Status DC Diltiazem HCl/ Sodium Chloride (Cardizem Inj/NS Inj) 125 ml @ 0 mls/hr TITRATE IV Last administered on 01/07/17 20:53; Start 01/07/17 at 20:30 IV Flush (NS Flush) 2 ml UNSCH PRN IVF FLUSH AFTER USING IV ACCESS; Start at 20:30; Stop 01/07/17 at 22:57; Status DC Nitroglycerin 1 inch 1 inch ONCE ONCE TOPICAL Last administered on 01/07/17 20 :53; Start 01/07/17 at 20:30; Stop 01/07/17 at 20:31; Status DC Ceftriaxone Sodium 1000 mg/ Sodium Chloride 100 ml @ 200 mls/hr ONCE ONCE IV Last administered on 01/07/17 23:09; Start 01/07/17 at 22:30; Stop 01/07/17 at 22: 59; Status DC Azithromycin/ Sodium Chloride (Zithromax Inj/ NS 250 ml Inj) 250 ml @ 250 mls/ hr ONCE ONCE IV Last administered on 01/07/17 23:10; Start 01/07/17 at 22:30; Stop 01/07/17 at 23:29; Status DC IV Flush (NS Flush) 2 ml UNSCH PRN FLUSH FLUSH AFTER USING IV ACCESS; Start 01/07/17 at 23:00 IV Flush (NS Flush) 2 ml BID FLUSH Last administered on 01/08/17 11:55; Start 01/08/17 at 09:00 Naloxone HCl (Narcan Inj) 0.4 mg UNSCH PRN IV SEE LABEL COMMENTS; Start at 23:00 Amlodipine Besylate (Norvasc) 10 mg DAILY PO Last administered on 01/08/17 11: 54; Start 01/08/17 at 09:00; Status Hold Atorvastatin Calcium (Lipitor) 40 mg HS PO ; Start 01/08/17 at 21:00 Carvedilol (Coreg) 25 mg BID PO Last administered on 01/08/17 11:53; Start 01/08 at 09:00; Status Hold Gabapentin (Neurontin) 100 mg TID PO Last administered on 01/08/17 11:54; Start 01/08/17 at 09:00 Gemfibrozil (Lopid) 600 mg BIDAC PO Last administered on 01/08/17 07:51; Start 01/08/17 at 07:00 Valsartan (Diovan) 320 mg DAILY PO ; Start 01/08/17 at 09:00; Status Hold Warfarin Sodium (Coumadin) 4 mg DAILY@16 PO ; Start 01/08/17 at 16:00 Furosemide (Lasix Inj) 40 mg BID@09,18 IV PUSH Last administered on 01/08/17 11 :52; Start 01/08/17 at 09:00; Status Hold Enoxaparin Sodium (Lovenox Inj) 90 mg Q24H SQ Last administered on 01/08/17 07: 51; Start 01/08/17 at 08:00 Pantoprazole Sodium (Protonix) 40 mg DAILY PO Last administered on 3/7/17at 11: 53; Start 01/08/17 at 09:00 Atropine Sulfate 1 mg 1 mg STK-MED ONCE .ROUTE ; Start 01/08/17 at 13:29; Stop at 13:30; Status DC Dopamine HCl/ Dextrose (DOPamine INJ PREMIX) 500 ml @ As Directed STK-MED ONCE .ROUTE ; Start 01/08/17 at 13:29; Stop 01/08/17 at 13:30; Status DC Atropine Sulfate (Atropine Inj) 1 mg STK-MED ONCE .ROUTE ; Start 01/08/17 at 14: 05; Stop 01/08/17 at 14:06; Status DC Glucagon (Glucagon Inj) 1 mg STK-MED ONCE .ROUTE ; Start 01/08/17 at 14:11; Stop 01/08/17 at 14:12; Status DC Glucagon (Glucagon Inj) 5 mg BOLUS STAT IV PUSH ; Start 01/08/17 at 14:16; Stop 01/08/17 at 14:19; Status DC Insulin Human Regular (NovoLIN R INJ) 10 units ONCE STAT IV PUSH ; Start at 14:18; Stop 01/08/17 at 14:22; Status DC Dextrose 50 ml 50 ml ONCE ONCE IV PUSH ; Start 01/08/17 at 14:30; Stop 01/08/17 at 14:31 Calcium Gluconate/ Dextrose (Calcium Gluconate Inj/D5W 100 ml Inj) 120 ml @ 120 mls/hr ONCE ONCE IV ; Start 01/08/17 at 14:30; Stop 01/08/17 at 15:29 Allergies: Coded Allergies: No Known Allergies (Verified , 01/07/17) Family History Reports family history of lung cancer in 3 of his brothers. Also reports of GA which resulted in in 2 brothers. Social History Used to smoke cigarettes, quit in 1999. Denies any alcohol abuse or drug abuse. He does drink socially 1 or 2 shots of hard liquor small shots a day. Physical Exam Vital Signs Vital Signs Date Time Temp Pulse Resp B/P Pulse Ox O2 Delivery O2 Flow Rate FiO2 01/08/17 11:45 95 Nasal Cannula 2.00 01/08/17 11:45 98.7 96 20 135/85 96 01/08/17 09:30 97 Nasal Cannula 3.00 01/08/17 09:15 98.0 96 22 129/72 95 01/08/17 09:15 74 17 97 Nasal Cannula 3 01/08/17 09:15 95 Nasal Cannula 2.00 01/08/17 06:00 114 20 149/76 96 Nasal Cannula 4 01/08/17 04:00 99 20 140/73 95 Nasal Cannula 4 01/08/17 02:00 110 20 122/70 95 Nasal Cannula 4 01/08/17 00:00 112 22 116/68 100 CPAP 100 01/07/17 23:51 94 Nasal Cannula 4.00 01/07/17 22:00 92 24 143/76 100 CPAP 100 01/07/17 21:21 98 70 01/07/17 20:45 100 26 159/97 100 CPAP 100 01/07/17 20:33 106 36 178/91 96 CPAP 96 01/07/17 20:31 97 CPAP 100 01/07/17 20:31 38 96 CPAP 100 01/07/17 20:27 109 34 97 CPAP 100 01/07/17 20:24 98.6 111 36 91 01/07/17 20:20 96 100 Physical Exam HEENT/Neuro: No pallor or icterus, tongue moist, MARCO, Awake alert oriented 3 , nonfocal grossly, moving all 4 extremities Neck: No JVD Chest/pulmonary: Good air entry bilaterally, scattered rhonchi, no wheezing Cardiovascular: S1-S2 irregularly irregular, no gallop or murmur GI/abdomen: Soft, nontender, bowel sounds present Extremities: Warm bilaterally, trace edema Laboratory Laboratory Tests Test 01/07/17 01/07/17 01/07/17 01/08/17 20:30 20:45 21:02 02:55 White Blood Count 12.9 11.4 Red Blood Count 4.63 4.38 Hemoglobin 14.8 13.9 Hematocrit 45.4 41.4 Mean Corpuscular Volume 98.0 94.6 Mean Corpuscular Hemoglobin 31.9 31.9 Mean Corpuscular Hemoglobin 32.6 33.7 Concent Red Cell Distribution Width 15.3 15.2 Platelet Count 185 192 Mean Platelet Volume 9.2 8.6 Neutrophils (%) (Auto) 62.4 85.8 Lymphocytes (%) (Auto) 27.2 7.5 Monocytes (%) (Auto) 8.4 6.1 Eosinophils (%) (Auto) 1.3 0.0 Basophils (%) (Auto) 0.7 0.6 Neutrophils # (Auto) 8.0 9.8 Lymphocytes # (Auto) 3.5 0.9 Monocytes # (Auto) 1.1 0.7 Eosinophils # (Auto) 0.2 0.0 Basophils # (Auto) 0.1 0.1 CBC Comment DIFF FINAL DIFF FINAL Differential Comment Prothrombin Time 14.0 Prothromb Time International 1.3 Ratio Activated Partial 26.8 Thromboplast Time Sodium Level 139 138 Potassium Level 4.2 4.4 Chloride Level 104 104 Carbon Dioxide Level 19.9 21.2 Anion Gap 15 13 Blood Urea Nitrogen 25 31 Creatinine 2.12 2.36 Estimat Glomerular Filtration 31 27 Rate Random Glucose 210 141 Lactic Acid Level 6.8 Calcium Level 9.3 9.3 Magnesium Level 2.2 Total Bilirubin 0.6 0.5 Aspartate Amino Transf 23 13 (AST/SGOT) Alanine Aminotransferase 25 20 (ALT/SGPT) Alkaline Phosphatase 92 73 Total Creatine Kinase 186 144 Creatine Kinase MB 4.4 Troponin I 0.04 0.21 B-Type Natriuretic Peptide 761 Total Protein 8.6 7.4 Albumin 3.6 3.4 Urine Color YELLOW Urine Turbidity HAZY Urine pH 6.0 Urine Specific [place] 1.012 Urine Protein 300 Urine Glucose (UA) NEG Urine Ketones NEG Urine Occult Blood MOD Urine Nitrite NEG Urine Bilirubin NEG Urine Urobilinogen LESS THAN 2.0 Urine Leukocyte Esterase NEG Urine RBC 36 Urine WBC 2 Urine Hyaline Casts 1 Microscopic Urinalysis Comment CULT NOT INDICATED Blood Gas Puncture Site LT RADIAL Blood Gas Patient Temperature 98.6 Blood Gas HCO3 18 Blood Gas Base Excess -6.8 Blood Gas Oxygen Saturation 95 Arterial Blood pH 7.31 Arterial Blood Partial 38 Pressure CO2 Arterial Blood Partial 140 Pressure O2 Arterial Blood Oxygen Content 20.1 Arterial Blood 1.5 Carboxyhemoglobin Arterial Blood Methemoglobin 2.1 Blood Gas Hemoglobin 15.0 Oxygen Delivery Device NPPV Blood Gas Ventilator Setting IPAP14/[id number] Blood Gas Inspired Oxygen 100 Test 01/08/17 11:29 Lactic Acid Level 2.6 Total Creatine Kinase 156 Troponin I 0.20 Date/Time Procedure Status Source Growth 01/07/17 20:30 Aerobic Blood Culture - Preliminary Resulted Blood Peripheral NO GROWTH IN 1 DAY 01/07/17 20:30 Anaerobic Blood Culture - Preliminary Resulted Blood Peripheral NO GROWTH IN 1 DAY Result Diagram: 01/08/1725401/08/17254 Imaging Last Impressions Chest X-Ray 01/07/172024 Signed Impressions: Service Date/Time: Saturday, January 07, 2017 20:42 - CONCLUSION: Mild failure. Jose Rubio MD Assessment and Plan Assessment and Plan 76-year-old male with: Acute respiratory failure Decompensated CHF A. fib with RVR on presentation Bradycardia Hypotension CAD COPD with possible exacerbation History of hypertension History of hyperlipidemia Chronic kidney disease History of CVA History of prostate CA Plan: Neuro: Follow neuro status. Avoid sedatives Cardiovascular: Hold all antihypertensives, Cardizem and Coreg. Patient given calcium gluconate 2 g IV piggyback, 5 units iv, d50 and 10 units of regular insulin iv push in view of bradycardia and hypotension thought to be secondary to Cardizem/Coreg. Also given DuoNeb nebulizer treatment to reverse bradycardia. Started on dopamine at 15 mics per KG per minute. Dr. Page from cardiology following. Received Lovenox 1 mg per KG subcutaneously this morning and ordered daily for anticoagulation for A. fib in the setting of renal insufficiency. Coumadin held in anticipation of procedures. Continue Lipitor and Lopid. Cycle cardiac enzymes. Pulmonary: Continue nonrebreather facemask O2. May require BiPAP if respiratory status declines and possibly endotracheal intubation if needed. DuoNeb nebulizer treatments as needed. We'll initiate Solu-Medrol 80 mg IV now and every 8 hourly. GI/liver: By mouth diet as tolerated Renal/: Strict intake output, monitor and replete electro lites, follow BUN/ creatinine. Diurese if blood pressure permits. ID: No antibiotics at this time. Endocrine: SSI for glycemic control Prophylaxis: PPI/SCDs. Lovenox 1 mg per KG subcutaneously every 24 hourly for anticoagulation and setting of renal insufficiency. Condition critical. Time spent on critical care excluding procedures 60 minutes Shant Teixeira MD Jan 08, 2017 15:47
[2017-01-08] MEDS ORDERED: WARFARIN SOD 4 MG TAB PO SCH (16:00)
[2017-01-08] MEDS ORDERED: ONDANSETRON HCL 4 MG/2 ML VIAL IV PUSH PRN (16:00)
--- NOTE | 2017-01-08 16:17 | RADRPT ---
EXAM DATE/TIME: 01/08/2017 15:44 [facility] COMPARISON: CHEST SINGLE AP, January 07, 2017, 20:42. INDICATIONS : Respiratory failure. MEDICAL HISTORY : Hypertension. Hypercholesterolemia. Myocardial infarction. Prostate cancer. SURGICAL HISTORY : CABG. Coronary artery stent. Cardiac stent. ENCOUNTER: Subsequent ACUITY: 2 weeks PAIN SCORE: 0/10 LOCATION: Bilateral chest FINDINGS: A single view of the chest demonstrates cardiomegaly with increased pulmonary vascularity and interst itial edema. Pulmonary edema has resolved. The cardiomediastinal contours are unremarkable. Osseous structures are intact. CONCLUSION: Cardiomegaly with interstitial edema. Floyd Khan MD on January 08, 2017 at 16:15 Board Certified Radiologist. This report was verified electronically.
--- NOTE | 2017-01-08 16:21 | MB ---
cc: DRISS TORRES DATE OF CONSULTATION January 08, 2017 REASON FOR CONSULTATION Heart failure exacerbation. HISTORY OF PRESENT ILLNESS 76-year-old male with a past medical history significant for ischemic cardiomyopathy, EF of 35%, CAD status post CABG and stents in the past, atrial fibrillation on chronic oral anticoagulation, hypertension, hyperlipidemia. He was admitted overnight with acute on chronic systolic heart failure exacerbation in the setting of dietary indiscretions. The patient reports he was in his usual state of health until yesterday when he developed acute onset of shortness of breath. He called EMS who found him with an oxygen sedation in the 70%. He was placed on C-PAP and was transferred to the emergency department. In the emergency department he was treated IV diuresis improvement of symptoms. He was also found in atrial fibrillation with RVR and was started on a Cardizem drip. This afternoon patient had episode of unresponsiveness and hypotension in the setting of severe bradycardia while standing up, ? vasovagal syncope, no signs of trauma. Rapid Response activated and the patient was transferred to the ICU. Currently he remains in afib rate control however, blood pressure in the low 70s. The patient was mentating appropriately. He is alert and oriented x 3. REVIEW OF SYSTEMS He denies chest pain, palpitations, shortness of breath, PND, diaphoresis, lightheadedness, nausea, vomiting, diarrhea, fever, abdominal pain. PAST MEDICAL HISTORY 1. Ischemic cardiomyopathy. LV systolic dysfunction with EF of 35%. Coronary artery disease status post coronary artery bypass grafting, history of stent placement. 2. CVA. 3. Hyperlipidemia. 4. Obesity. 5. Atrial fibrillation on chronic oral anticoagulation. 6. History of sick COPD. 7. Prostate cancer. PAST SURGICAL HISTORY 1. Hernia repair. 2. Coronary stents. 3. Coronary artery bypass grafting. 4. Cataract surgery. SOCIAL HISTORY He drinks two beers daily. He denies illicit drug use or tobacco abuse. ALLERGIES No known drug allergies. CARDIAC HOME MEDICATIONS 1. Norvasc 10 mg p.o. daily. 2. Aspirin 81 mg p.o. daily. 3. Lipitor 40 mg p.o. daily. 4. Bumex 1 mg p.o. daily. 5. Coreg 25 mg p.o. b.i.d. 6. Gemfibrozil 600 mg p.o. b.i.d. 7. Valsartan 320 mg p.o. daily. 8. Warfarin 4 mg p.o. daily. PHYSICAL EXAMINATION VITAL SIGNS: Temperature 98.6, respiratory rate 20, heart rate 96, blood pressure of 80/60. O2 sat 100% on NRB GENERAL: He is alert, awake, oriented x 3, in no acute distress. NECK: There is positive JVD, no carotid bruits. HEART: Irregularly irregular. No murmurs, rubs or gallops appreciated. LUNGS: Decreased inspiratory effort bilaterally with rales at bases. ABDOMEN: Soft, with positive bowel sounds. Distended. EXTREMITIES: There is +1 edema. Pulses throughout. DATA CBC - Hemoglobin 13, hematocrit 41, platelet count 192. INR of 1.3. Chemistries - Sodium 138, potassium 4.4, BUN 31 and creatinine 2.3 trending up from 2.1, lactic acid 2.3 down from 6.8 Troponin 0.21 and 0.20. BNP 761. Microbiology - Blood cultures with no growth to date. CHEST X-RAY Shows mild vascular congestion. Echocardiogram done on June of 2016 shows an EF of 35-40% with mild to moderate mitral regurgitation and pulmonary hypertension. ASSESSMENT AND PLAN 76-year-old male with known coronary artery disease, ischemic cardiomyopathy, low EF, presented with acute on chronic systolic heart failure in the setting of dietary indiscretions and uncontrolled blood pressure. He had an episode of what appears to be a vasovagal syncope. Heart rate controlled on the Cardizem drip. Currently he remains with low blood pressure; however, he is mentating appropriately. He has been transferred to the ICU for further management and evaluation. Troponin's have remained flat at 0.04 and 0.02 level, BNP of 761 and lactic acid now trending down. He does have apparently chronic kidney disease with a creatinine of 2.36. Continue rate control for afib and Coumadin; goal INR 2-3. Regarding his mildly elevated troponin's this is most likely due to the acute on chronic kidney disease and afib with RVR. I would not recommend any invasive cardiac test at this time. RECOMMENDATIONS 1. Agree with ICU care 2. Continue IV hydration and hemodynamic support with Dopamine given hypotension. 3. Strict input and outputs. 4. Daily weights. 5. Low-salt diet. 6. Discontinue Cardizem drip and Coreg . Resume Coreg when BP permits 7. Continue oral anticoagulation with warfarin, goal INR 2 to 3. 8. Hold ARB and Norvasc 9. Lexiscan stress test before discharge 10. LifeVest upon discharge, ICD placement in the near future 11. Consider PE work up Thank you for the opportunity to take part in the care of this patient. We will be available on a PRN basis further questions or concerns. Driss Torres MD APARTMENT PROPERTY MANAGER/SSB /1:39 PM /3:55 PM [email or web address]
[2017-01-08] MEDS: methylPREDNISolone SOD SUCC 40 MG/1 ML VIAL IV PUSH SCH ×2 (16:38→21:03)
[2017-01-08] MEDS ORDERED: RESP: ALBUTEROL 2.5 MG/IPRATROPIUM 0.5 MG NEB (PRN) NEB (17:00)
--- NOTE | 2017-01-08 17:04 | EC ---
Study Study Date:01/08/2017 STUDY CONCLUSIONS SUMMARY - Left ventricle: The cavity size was normal. Wall thickness was normal. Systolic function was moderately to severely reduced. The estimated ejection fraction was in the range of 30% to 35%. Diffuse hypokinesis. Akinesis of the apical myocardium. - Mitral valve: Mild regurgitation. - Tricuspid valve: Moderate regurgitation. - Pulmonary arteries: PA peak pressure: 43mm Hg (S). If LV function is below 40, please consider prescribing an ACEI or ARB or document rationale for non-use. PROCEDURE DATA STUDY STATUS: Elective. Procedure: Transthoracic echocardiography. Image quality was good. Scanning was performed from the parasternal, apical, and subcostal acoustic windows. Study completion: The patient tolerated the procedure well. Transthoracic echocardiography. M-mode, complete 2D, complete spectral Doppler, and color Doppler. Height: Height: 69in. Weight: Weight: 197.6lb. Body mass index: BMI: 29.2kg/m^2. Body surface area: BSA: 2.06m^2. Patient status: Inpatient. CARDIAC ANATOMY LEFT VENTRICLE: The cavity size was normal. Wall thickness was normal. Systolic function was moderately to severely reduced. The estimated ejection fraction was in the range of 30% to 35%. Diffuse hypokinesis. Regional wall motion abnormalities: Akinesis of the apical myocardium. AORTIC VALVE: Trileaflet; normal thickness leaflets. Doppler: Transvalvular velocity was within the normal range. There was no stenosis. No regurgitation. AORTA: Aortic root: The aortic root was normal in size. MITRAL VALVE: Structurally normal valve. Doppler: Transvalvular velocity was within the normal range. There was no evidence for stenosis. Mild regurgitation. Peak gradient: 5mm Hg (D). LEFT ATRIUM: The atrium was normal in size. RIGHT VENTRICLE: The cavity size was normal. Wall thickness was normal. PULMONIC VALVE: Doppler: Transvalvular velocity was within the normal range. There was no evidence for stenosis. No regurgitation. TRICUSPID VALVE: Structurally normal valve. Doppler: Transvalvular velocity was within the normal range. Moderate regurgitation. PULMONARY ARTERY: The main pulmonary artery was normal-sized. Systolic pressure was within the normal range. RIGHT ATRIUM: The atrium was normal in size. PERICARDIUM: There was no pericardial effusion. SYSTEMIC VEINS: Inferior vena cava: The vessel was normal in size. Patient weight: 197.6lb _Ejection fraction:_ 65-75% _Fractional shortening:_ 32% up to 5Kg 5-11.5Kg 11.6-22.9Kg 23-45Kg 45-57Kg Aortic Root 7-13 <17 13-22 17-27 17-27 LA diam 6-13 <23 24-38 33-47 37-40 RVID 10-17 7-15 7-15 7-18 8-17 LVIDd 12-22 <32 24-38 33-47 37-40 LVPW 2-4 3-6 5-7 6-8 7-8 IVS 2-4 3-6 5-7 6-8 7-8 BASIC MEASUREMENTS ADULT Normal Left ventricle LV internal dimension, ED, chordal level, *56 mm 43-52 PLAX LV internal dimension, ES, chordal level, *47.7 mm 23-38 PLAX Fractional shortening, chordal level, PLAX *15 % >29 LV posterior wall thickness, ED 9.66 mm IVS/LVPW ratio, ED 1.01 <1.3 Ventricular septum Septal thickness, ED 9.73 mm Aortic valve Leaflet separation 16 mm 15-26 Aorta Root diameter, ED 30 mm Left atrium Anterior-posterior dimension 44 mm Anterior-posterior dimension index 2.14 cm/m^2 <2.2 BASIC MEASUREMENTS ADULT Normal Aortic valve Leaflet separation 16 mm 15-26 DOPPLER MEASUREMENTS ADULT Normal Main pulmonary artery Pressure, S *43 mm Hg =30 Mitral valve Peak E-wave velocity 116 cm/s Deceleration time *98 ms 150-230 Peak gradient, D 5 mm Hg Tricuspid valve Regurgitant peak velocity 247 cm/s Peak RV-RA gradient, S 24 mm Hg Maximal regurgitant velocity 247 cm/s Systemic veins Estimated CVP 10 mm Hg Right ventricle RV pressure, S *46 mm Hg <30 Pulmonic valve Peak velocity, S 80.9 cm/s LEGEND: Mean values are shown as u=mean value. Asterisk (*) perez values outside specified normal range. Prepared and signed by Abraham Wiley [id number]
[2017-01-08 20:19] LABS: ALKALINE PHOSPHATASE 68 U/L (45-117); ALT (GPT) 22 U/L (12-78); ANION GAP 14 MEQ/L (5-15); AST (GOT) 24 U/L (15-37); BICARBONATE 17.7 MEQ/L (21.0-32.0); BLOOD UREA NITROGEN 39 MG/DL (7-18); CHLORIDE 103 MEQ/L (98-107); GLOMERULAR FILTRATION RATE 20 ML/MIN (>89); SODIUM (NA) 135 MEQ/L (136-145)
[2017-01-08 20:27] LABS: BLOOD GAS BASE EXCESS -5.9 mmol/L (-2-2); BLOOD GAS CARBOXYHEMOGLOBIN 1.1 % (0-4); BLOOD GAS HCO3 19 mmol/L (22-26); BLOOD GAS METHEMOGLOBIN 0.9 % (0-2); BLOOD GAS O2 HGB SATURATION 87 % (90-100); BLOOD GAS OXYGEN CONTENT 16.4 Vol % (12.0-20.0); BLOOD GAS PCO2 38 mmHg (38-42); BLOOD GAS PO2 64 mmHg (61-120); BLOOD GAS TOTAL HGB 13.4 G/DL (12.0-16.0); TEMP CORR TO 98.6
[2017-01-08 20:31] LABS: CRITICAL VALUE YES; DRAW SITE LT RADIAL; FIO2 100 %; LITER FLOW 15 L/M; NUMBER OF ARTERIAL PUNCTURES 1; OXYGEN DEVICE NONE REBREATHER; STAT YES; ULNAR PULSE PRESENT
[2017-01-08] MEDS: ATORVASTATIN 40 MG TAB PO SCH (21:00)
[2017-01-08] MEDS ORDERED: FUROSEMIDE 100 MG/10 ML VIAL IV PUSH ONE (22:15)
[2017-01-08] MEDS: DOBUTamine INJ 500 MG in DEXTROSE 5% IN WATER INJ 210 ML IV SCH ×2 (22:18)
[2017-01-09] VITALS (19 sets, daily range): BP systolic 103–129; BP diastolic 59–66; PULSE 101–120; RESP 14–31; TEMP 96.6–98; O2SAT 97–100
[2017-01-09] MEDS ORDERED: DOPamine INJ PREMIX 500 ML ONE (01:24)
[2017-01-09] MEDS ORDERED: DOPamine 800 MG/D5W PREMIX 500 ML IV SCH (01:45)
[2017-01-09 04:50] LABS: AUTOMATED NEUTROPHIL # 7.9 TH/MM3 (1.8-7.7); BASOPHIL % 0.5 % (0.0-2.0); EOSINOPHIL % 0.1 % (0.0-4.0); HEMATOCRIT 36.3 % (39.0-51.0); HEMO FLAGS DIFF FINAL; LYMPH % 6.7 % (9.0-44.0); LYMPHOCYTE # 0.6 TH/MM3 (1.0-4.8); MEAN CELL VOLUME 94.1 FL (80.0-100.0); MEAN CORPUSCULAR HEMOGLOBIN 31.7 PG (27.0-34.0); MEAN CORPUSCULAR HGB CONC 33.7 % (32.0-36.0); MONO % 1.5 % (0.0-8.0); NEUT % 91.2 % (16.0-70.0); PLATELET COUNT 132 TH/MM3 (150-450); RED BLOOD COUNT 3.85 MIL/MM3 (4.50-5.90); RED CELL DISTRIBUTION WIDTH 15.5 % (11.6-17.2); WHITE BLOOD COUNT 8.7 TH/MM3 (4.0-11.0)
[2017-01-09 04:59] LABS: ALKALINE PHOSPHATASE 60 U/L (45-117); ALT (GPT) 21 U/L (12-78); ANION GAP 12 MEQ/L (5-15); AST (GOT) 24 U/L (15-37); BICARBONATE 19.6 MEQ/L (21.0-32.0); BLOOD UREA NITROGEN 46 MG/DL (7-18); CHLORIDE 102 MEQ/L (98-107); GLOMERULAR FILTRATION RATE 22 ML/MIN (>89); SODIUM (NA) 134 MEQ/L (136-145); TOTAL BILIRUBIN ADULT 0.8 MG/DL (0.2-1.0)
[2017-01-09] MEDS: methylPREDNISolone SOD SUCC 40 MG/1 ML VIAL IV PUSH SCH ×3 (06:27→20:46)
[2017-01-09] MEDS: GEMFIBROZIL 600 MG TAB PO SCH ×2 (07:00→15:45)
[2017-01-09] MEDS: ENOXAPARIN SODIUM 100 MG/ML SYRINGE SQ SCH (08:00)
[2017-01-09] MEDS ORDERED: ROCURONIUM INJ 50 MG/5 ML VIAL ONE ×2 (08:27→08:28)
[2017-01-09] MEDS ORDERED: ETOMIDATE 40 MG/20 ML VIAL IV PUSH ONE (09:00)
[2017-01-09] MEDS ORDERED: SODIUM CHLOR 0.9% 1000 ML INJ 1,000 ML IV ONE (09:00)
[2017-01-09] MEDS: SODIUM CHLORIDE 0.9% FLUSH 5 ML FLUSH FLUSH SCH ×2 (09:00→20:47)
[2017-01-09] MEDS ORDERED: ROCURONIUM INJ 100 MG/10 ML VIAL IV ONE (09:00)
--- NOTE | 2017-01-09 09:27 | PD.PROCEDR ---
Procedure Note Procedure DATE: 01/09/2017 PROCEDURE: Orotracheal intubation INDICATION: Acute respiratory failure DETAILS OF PROCEDURE The patient was placed in optimal position and preoxygenated with 100% FiO2 via bag valve mask. At the start oxygen saturation was 100%. The patient was administered 100 g fentanyl IV and 20 mg etomidate IV and 50 mg rocuronium IV. I entered the oropharynx with a size 4 GVL glidescope blade and obtained a grade 2 view of the airway. On single attempt a size 8.0 cuffed endotracheal tube was passed through the vocal cords. Correct tube location was confirmed with end tidal CO2 detector and by auscultating over bilateral lung odom. The endotracheal tube was secured with adhesive tape at a depth of 24 cm at the lips. The patient was connected to the ventilator. The patient tolerated the procedure well without any apparent complications. Oxygen saturations were maintained greater than 95% all times. STAT chest x-ray pending at time of dictation. Del Jones MD Jan 09, 2017 09:27
--- NOTE | 2017-01-09 09:29 | PD.PROCEDR ---
Central Line Procedure REASON FOR PROCEDURE Central venous access PROCEDURE PERFORMED Central line placement: Right IJ CVL. Failed left IJ CVL CONSENT Informed consent for procedure was obtained. The risks and benefits of the procedure were discussed to include but limited to bleeding, clot formation, infection, and even . ANESTHESIA Local injection of 1% Lidocaine DESCRIPTION OF THE PROCEDURE The patient was placed in supine, mild Trendelenburg position. The area was exposed and cleansed with ChloraPrep, times two. Large sterile drape was used to cover the patient, with the site exposed, under sterile conditions including cap, face mask, sterile gown, and sterile gloves. On single attempt, the introducer needle was inserted with negative pressure in syringe and venous flash was obtained. The guide wire was then advanced to about 20 cm however unable to advance further. Procedure was stopped and pressure was placed for 5 minutes without hematoma. Right IJ was exposed and cleansed with ChloraPrep 3. Large sterile drape was used to cover the patient in the site exposed under sterile conditions using, face mask, sterile gown and gloves. On single attemp the introducer needle was inserted with negative pressure in syringe and venous flash was obtained. The guidewire was advanced without any restriction and the needle was removed. The dilator was used without any complications. Using Seldinger technique the triple-lumen catheter was advanced over the guide wire to a depth of 16 centimeters. The guide wire was removed. All ports were aspirated with dark venous blood return and flushed easily with sterile saline. All ports were capped. Antibiotic disc was placed around central line at puncture site. The central line was secured to the skin with two interrupted 2.0 silk sutures. The area was bandaged with sterile see-through central line bandage. RADIOLOGICAL DATA Ultrasound guidance was used to locate right IJ CVL. Doppler/color flow was used to confirm venous flow. COMPLICATIONS: No apparent complications ESTIMATED BLOOD LOSS: Less than 1 cc. Del Jones MD Jan 09, 2017 09:29
[2017-01-09] MEDS ORDERED: SODIUM CHLORIDE 0.9% FLUSH 5 ML FLUSH IVF PRN (09:30)
--- NOTE | 2017-01-09 09:37 | HHI.CCPN ---
Subjective Remarks/Hospital Course 76-year-old male with a medical history significant for coronary artery disease status post previous CABG, CHF with EF 30-35%, atrial fibrillation, COPD who was brought to the ER on 01/07/17 with shortness of breath going on for about a day which had progressively gotten worse. He was brought to the ER by EMS with O2 sats in the 80s. He was placed on C Pap given 20 mg intraosseous Cardizem as he was in A. fib with RVR. He was a patient of Dr. Madison who is currently retired. He quit smoking in 1999 prior to his CABG. A she was admitted by hospitalist service started on a Cardizem for rate control and his Coreg was continued at 25 mg twice a day. He was also initiated on Lovenox 1 mg per KG every 24 hourly for anticoagulation in view of renal insufficiency. This afternoon patient became bradycardic with heart rate dropping to the 20s and hypotension for which he was evaluated by Dr. Page from cardiology, Cardizem drip was stopped and he was immediately transferred to the ICU. Critical care consult was requested by Dr. David, I evaluated the patient immediately on being notified. He had transcutaneous pacer pads on and was being paced at the time with the pacer rate set at 70/m which I subsequently decreased to 50/m. He was started on dopamine which I increased to 15 mics per KG per minute. I also ordered 5 units of glucose gone IV stat, 50 mL of 50% dextrose and 10 units of regular insulin IV stat as well as 2 g of IV calcium gluconate and a DuoNeb nebulizer treatment. His heart rate came up to the 70s A. fib. Spoke with Dr. Page from cardiology who felt that the bradycardia was possibly related to his medications including Coreg and Cardizem which were held. Patient was on a nonrebreather facemask. Apart from the above, patient denies any recent fever/nausea/vomiting/diarrhea/ urinary burning or pain on urination. He denied any hematemesis/vomiting/melena/hematuria. Denied any syncopal episodes. Denied any palpitations in the past few days. He did have palpitations during this acute episode of respiratory distress. Denied any chest pains. However did report of ongoing chest tightness every time he exerts himself and walk around which is usually associated with shortness of breath on exertion as well. Subjective 01/09: Placed on dobutamine currently at 5 mcg/kg/m by overnight housefellow at reviewing echocardiogram. Somewhat diuresed. Currently with high O2 requirements hence electively intubated. CVP will be checked after central line placed. Objective Vital Signs Date Time Temp Pulse Resp B/P Pulse Ox O2 Delivery O2 Flow Rate FiO2 01/09/17 08:56 98 100 01/09/17 06:00 113 01/09/17 04:00 Bi-Pap 01/09/17 04:00 97.8 31 129/65 01/08/17 19:00 15.00 Intake and Output 01/08/17 01/08/17 01/09/17 08:00 16:00 00:00 Intake Total 150 ml 1181 ml Output Total 300 ml 250 ml Balance -150 ml 931 ml Result Diagram: 01/09/17 0348 01/09/17 0348 Other Results Microbiology Date/Time Procedure Status Source Growth 01/07/17 20:30 Aerobic Blood Culture - Preliminary Resulted Blood Peripheral NO GROWTH IN 1 DAY 01/07/17 20:30 Anaerobic Blood Culture - Preliminary Resulted Blood Peripheral NO GROWTH IN 1 DAY Imaging Last Impressions Chest X-Ray 01/08/17 0000 Signed Impressions: Service Date/Time: Sunday, January 08, 2017 15:44 - CONCLUSION: Cardiomegaly with interstitial edema. Floyd Khan MD Objective Remarks GENERAL: 76-year-old male, critically ill currently orotracheally intubated SKIN: Warm and dry. No rash HEAD: Atraumatic. Normocephalic. EYES: Pupils equal and round about 3 mm bilaterally and reactive. No scleral icterus. No injection or drainage. ENT: No nasal bleeding or discharge. Mucous membranes pink and moist. NECK: Trachea midline. No JVD. CARDIOVASCULAR: Tachycardia, IR. S1, S2 no S4.. RESPIRATORY: Diminished breath sounds in bases bilateral. Few crackles appreciated. Breath sounds equal bilaterally. GASTROINTESTINAL: Abdomen soft, non-tender, slightly protuberant. Hypoactive bowel sounds are appreciated MUSCULOSKELETAL: Extremities with trace lower extremity nonpitting edema NEUROLOGICAL: Currently seen after intubation. Prior was awake and alert and oriented 3. Moving all 4 x-rays to command. Strength equal symmetric. 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 Neuropathy Acetaminophen for fever Cardiovascular: Symptomatically bradycardia likely medication induced Acute systolic heart failure/ischemic cardiopathy - EF 30% History of hypertension History dyslipidemia Coronary artery disease status post CABG 1999 History bilateral lower extremity since secondary DVT Echocardiogram reveals EF 30-35%. Akinesis of the apical myocardium. EDEL 43 mmHg. Moderate TR. Hold all antihypertensives, Cardizem (on Norvasc 10 mg daily at home) and Coreg home dose 25 mg by mouth daily. Yesterday, Patient given calcium gluconate 2 g IV piggyback, 5 units iv, d50 and 10 units of regular insulin iv push in view of bradycardia and hypotension thought to be secondary to Cardizem/Coreg. Also given DuoNeb nebulizer treatment to reverse bradycardia. Started on dopamine at 15 mics per KG per minute. This was switched dobutamine currently at 5 mcg/kg/m which will be continued. Dr. Page from cardiology following. Recommended cessation of chest. Resume cord when clinically indicated. Will receive Lexiscan prior to discharge with likely LifeVest placement Received Lovenox 1 mg per KG subcutaneously this morning and ordered daily for anticoagulation for A. fib in the setting of renal insufficiency. Coumadin held in anticipation of procedures. Continue Lipitor at 40 mg daily and Lopid. Cycle cardiac enzymes currently trending downward. Likely demand ischemia in light of respiratory failure. Pulmonary: Acute hypoxemic respiratory failure COPD ACV 14/600/5/100 Ventilator bundle Bronchodilator therapy every 6 hours and as needed Spontaneous breathing trials daily Continue Solu-Medrol 80 mg IV now and every 8 hourly. Follow-up chest x-ray in a.m. GI/liver: Start tube feeds with Nepro goal 60 cc an hour Protonix for GI prophylaxis Colace/as needed Senokot for bowel regimen Renal/: Acute on chronic kidney disease stage IV History of nephrolithiasis History of prostate cancer status post radiation beads Strict intake output, monitor and replete electro lites, follow BUN/creatinine. 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 Monitor trends. Currently on full anticoagulated renal dosed Lovenox ID: No antibiotics at this time. Monitor for infection Endocrine: Gout SSI for glycemic control Holding Uloric 80 milligrams daily for gout MSK Morbid obesity Weight loss encouraged FEN Replace electrolytes as clinically indicated Prophylaxis: PPI/SCDs. Lovenox 1 mg per KG subcutaneously every 24 hourly for anticoagulation and setting of renal insufficiency. Critical Care: The total critical care time was 55 minutes. Time to perform other separately billable procedures was not included in the critical care time. Del Jones MD Jan 09, 2017 09:37 Prophylaxis: PPI/SCDs. Lovenox 1 mg per KG subcutaneously every 24 hourly for anticoagulation and setting of renal insufficiency. Del Jones MD Jan 09, 2017 09:37
[2017-01-09] MEDS ORDERED: ONDANSETRON HCL 4 MG/2 ML VIAL IV PRN (10:00)
[2017-01-09] MEDS ORDERED: CHLORHEXIDINE GLUCONATE 2 % 1 PACK (2 CLOTHS) TOP PRN (10:00)
[2017-01-09] MEDS ORDERED: MISCELLANEOUS NURSING INFORMATION XX SCH (10:00)
[2017-01-09] MEDS: FUROSEMIDE 40 MG/4 ML VIAL IV PUSH SCH ×2 (10:19→15:45)
[2017-01-09] MEDS: PANTOPRAZOLE SODIUM 40 MG VIAL IV PUSH SCH (10:20)
[2017-01-09] MEDS: PROPOFOL 1000 MG/100 ML INJ 100 ML IV SCH (10:20)
[2017-01-09] MEDS: fentaNYL DRIP 250 ML IV SCH (10:20)
[2017-01-09] MEDS: GABAPENTIN 100 MG CAP PO SCH ×3 (10:21→18:00)
[2017-01-09] MEDS: CHLORHEXIDINE 0.12% (ORAL KIT) 15 ML CUP MT SCH ×2 (10:21→20:00)
[2017-01-09] MEDS ORDERED: GLUCAGON 1 MG/ML VIAL OTHER PRN (10:30)
[2017-01-09] MEDS ORDERED: DEXTROSE 50% IN WATER 50 ML VIAL(D50) IV PUSH PRN (10:30)
--- NOTE | 2017-01-09 10:34 | RADRPT ---
EXAM DATE/TIME: 01/09/2017 09:34 [facility] COMPARISON: CHEST SINGLE AP, January 08, 2017, 15:44. INDICATIONS : Post intubation and central line placement. MEDICAL HISTORY : Hypertension. Hypercholesterolemia. Myocardial infarction. Prostate cancer. SURGICAL HISTORY : CABG. Coronary artery stent. ENCOUNTER: Initial ACUITY: 1 day PAIN SCORE: Non-responsive. LOCATION: Bilateral chest FINDINGS: Mild bibasilar consolidation and small pleural effusions again noted, not significantly changed. No p neumothorax. Patient is now intubated. Endotracheal tube tip is a 3 cm above the emilia. There is a right internal jugular central venous catheter now present as well, tip in the superior vena cava. Changes of median sternotomy and CABG again noted. Heart size stable, upper limits of normal. CONCLUSION: 1. Appropriate endotracheal tube and right IJ central venous catheter positions as above. No pneumoth orax or other acute complication. 2. Mild bibasilar consolidation and small effusions not significantly changed. Jose Rubio MD on January 09, 2017 at 10:31 Board Certified Radiologist. This report was verified electronically.
[2017-01-09] MEDS: INSULIN NovoLIN REGULAR SUPPLEMENTAL SCALE SQ SCH ×3 (11:00→20:56)
[2017-01-09] MEDS ORDERED: RESP: ALBUTEROL 2.5 MG/IPRATROPIUM 0.5 MG NEB (PRN) NEB (11:00)
[2017-01-09] MEDS ORDERED: SENNOSIDES SYRUP 8.8 MG/5 ML CUP G-TUBE PRN (11:00)
[2017-01-09 11:43] LABS: BLOOD GAS BASE EXCESS -6.7 mmol/L (-2-2); BLOOD GAS CARBOXYHEMOGLOBIN 0.8 % (0-4); BLOOD GAS HCO3 18 mmol/L (22-26); BLOOD GAS METHEMOGLOBIN 0.8 % (0-2); BLOOD GAS O2 HGB SATURATION 98 % (90-100); BLOOD GAS OXYGEN CONTENT 15.9 Vol % (12.0-20.0); BLOOD GAS PCO2 34 mmHg (38-42); BLOOD GAS PO2 322 mmHg (61-120); BLOOD GAS TOTAL HGB 10.9 G/DL (12.0-16.0); CRITICAL VALUE NO; DRAW SITE RT RADIAL; FIO2 100 %; NUMBER OF ARTERIAL PUNCTURES 1; OXYGEN DEVICE VENTILATOR; STAT NO; TEMP CORR TO 98.6; ULNAR PULSE PRESENT
[2017-01-09] MEDS: RESP: ALBUTEROL 2.5 MG/IPRATROPIUM 0.5 MG NEB (SCH) NEB ×3 (11:57→19:34)
--- NOTE | 2017-01-09 13:10 | RADRPT ---
EXAM DATE/TIME: 01/09/2017 11:34 [facility] COMPARISON: No previous studies available for comparison. INDICATIONS : Increased BUN/Creatinine. MEDICAL HISTORY : Myocardial infarction. Hypercholesterolemia. Chronic obstructive pulmonary disease. CHF. Hypertension . Emphysema. Kidney stones. Prostate cancer. Measles. Radiation therapy. SURGICAL HISTORY : CABG. Coronary artery stent. Cardiac cath. ENCOUNTER: Initial ACUITY: 1 day PAIN SCORE: Nonresponsive. LOCATION: Bilateral flank MEASUREMENTS: RIGHT KIDNEY: 13.2 x 4.8 x 7.1 cm LEFT KIDNEY: 12.0 x 5.1 x 6.2 cm FINDINGS: RIGHT KIDNEY: Renal cortex is normal in thickness and echotexture. No hydronephrosis, stone, or mass. LEFT KIDNEY: Renal cortex is normal in thickness and echotexture. 2 cm cyst upper pole. No hydronephrosis, stone, or solid mass. BLADDER: Decompressed with a Lopez catheter, grossly unremarkable. CONCLUSION: 1. No obstructive uropathy or other acute abnormality seen of either kidney. No perceptible parenchym al changes. 2. Simple, benign appearing left renal cyst. 3. Urinary bladder decompressed with a Lopez catheter and is grossly unremarkable. Jose Rubio MD on January 09, 2017 at 13:08 Board Certified Radiologist. This report was verified electronically.
[2017-01-09] MEDS: DOBUTamine INJ 500 MG in DEXTROSE 5% IN WATER INJ 210 ML IV SCH ×2 (13:16)
--- NOTE | 2017-01-09 17:24 | PD.CARD.PN ---
Subjective Subjective Remarks overnight events noted hypoxic and tachypneic this am intubated CVP 5 Telemetry afib Objective Medications Current Medications Medications (Trade) Dose Ordered Sig/Ximena Route Start Time Stop Time Status Last Admin (Cardizem Inj/NS Inj) 125 ml @ 0 mls/hr TITRATE IV 01/07/17 20:30 Hold 01/07/17 20:53 (NS Flush) 2 ml UNSCH PRN FLUSH 01/07/17 23:00 (NS Flush) 2 ml BID FLUSH 01/08/17 09:00 01/08/17 21:00 (Narcan Inj) 0.4 mg UNSCH PRN IV 01/07/17 23:00 (Norvasc) 10 mg DAILY PO 01/08/17 09:00 Hold 01/08/17 11:54 (Lipitor) 40 mg HS PO 01/08/17 21:00 (Coreg) 25 mg BID PO 01/08/17 09:00 Hold 01/08/17 11:53 (Neurontin) 100 mg TID PO 01/08/17 09:00 01/09/17 15:45 (Lopid) 600 mg BIDAC PO 01/08/17 07:00 01/09/17 15:45 (Diovan) 320 mg DAILY PO 01/08/17 09:00 Hold (Lasix Inj) 40 mg BID@09,18 IV PUSH 01/08/17 09:00 01/09/17 15:45 (Lovenox Inj) 90 mg Q24H SQ 01/08/17 08:00 01/09/17 08:00 Methylprednisolone Sodium Succinate 80 mg 80 mg Q8HR IV PUSH 01/08/17 17:00 01/09/17 15:44 Dobutamine HCl 500 mg/Dextrose 250 ml @ 6.75 mls/hr CONTINUOUS IV 01/08/17 22:00 01/09/17 13:16 (DOPamine INJ PREMIX) 500 ml @ 0 mls/hr TITRATE IV 01/09/17 01:45 01/09/17 01:52 Chlorhexidine Gluconate 15 ml 15 ml BID@08,20 MT 01/09/17 09:00 01/09/17 10:21 Propofol 100 ml @ 0 mls/hr TITRATE IV 01/09/17 09:00 01/09/17 10:20 (fentaNYL DRIP) 250 ml @ 0 mls/hr TITRATE IV 01/09/17 09:00 01/09/17 10:20 (NS Flush) DAILY IVF 01/10/17 09:00 (NS Flush) UNSCH PRN IVF 01/09/17 09:30 (Protonix Inj) 40 mg Q24H IV PUSH 01/09/17 11:00 01/09/17 10:20 (Zofran Inj) 4 mg Q6H PRN IV 01/09/17 10:00 (Colace) 100 mg BID PO 01/09/17 21:00 (Senna Liq) 17.6 mg Q12H PRN G-TUBE 01/09/17 11:00 Miscellaneous Information 1 Q361D XX 01/09/17 10:00 01/09/17 10:00 (Chlorhexidine 2% Cloth) 3 pack Taper DAILY@04 TOP 01/10/17 04:00 01/06/18 03:59 (Chlorhexidine 2% Cloth) 3 pack UNSCH PRN TOP 01/09/17 10:00 (D50w (Vial) Inj) 25 ml UNSCH PRN IV PUSH 01/09/17 10:30 (Glucagon Inj) 1 mg UNSCH PRN OTHER 01/09/17 10:30 Vital Signs / I&O Vital Signs Date Time Temp Pulse Resp B/P Pulse Ox O2 Delivery O2 Flow Rate FiO2 01/09/17 16:47 99 80 01/09/17 16:00 115 01/09/17 16:00 98.0 113 14 103/64 100 01/09/17 16:00 80 01/09/17 15:00 104 01/09/17 14:00 120 01/09/17 12:00 80 01/09/17 12:00 106 01/09/17 12:00 97.9 110 14 123/60 01/09/17 11:55 99 80 01/09/17 10:00 118 01/09/17 09:00 116 01/09/17 09:00 100 01/09/17 08:56 98 100 01/09/17 08:00 Bi-Pap 50 01/09/17 08:00 98.0 110 22 125/66 100 01/09/17 08:00 110 01/09/17 06:00 113 01/09/17 04:00 Bi-Pap 50 01/09/17 04:00 114 01/09/17 04:00 97.8 114 31 129/65 99 01/09/17 02:00 110 01/09/17 00:00 99 60 01/09/17 00:00 Bi-Pap 60 01/09/17 00:00 101 01/09/17 00:00 97.7 101 24 128/59 100 01/08/17 22:00 99 01/08/17 21:30 95 100 01/08/17 21:00 Bi-Pap 85 01/08/17 20:00 98.3 103 30 118/74 89 01/08/17 20:00 114 01/08/17 19:00 89 Non-Rebreather 15.00 100 01/08/17 18:00 98.1 120 24 112/57 91 I/O 01/08/17 01/08/17 01/08/17 01/09/17 01/09/17 01/09/17 07:00 15:00 23:00 07:00 15:00 23:00 Intake Total 1331 ml 320 ml 1263 ml Output Total 550 ml 800 ml 450 ml Balance 781 ml -480 ml 813 ml Intake Oral 240 ml 100 ml IV Total 1091 ml 220 ml 1263 ml Output Urine Total 550 ml 800 ml 450 ml Stool Total 0 ml Physical Exam GENERAL: Sedated, intubated, in no acute distress SKIN: Warm and dry. HEAD: Normocephalic. EYES: No scleral icterus. No injection or drainage. NECK: Supple, trachea midline. No JVD or lymphadenopathy. CARDIOVASCULAR: Irregular rate and rhythm without murmurs, gallops, or rubs. RESPIRATORY: Vented. Breath sounds equal bilaterally GASTROINTESTINAL: Abdomen soft, non-tender, nondistended. EXTREMITIES: No cyanosis, or edema. Laboratory Laboratory Tests Test 01/08/17 01/08/17 01/08/17 01/09/17 19:40 20:13 21:07 03:48 Sodium Level 135 MEQ/L 134 MEQ/L Potassium Level 5.0 MEQ/L 5.0 MEQ/L Chloride Level 103 MEQ/L 102 MEQ/L Carbon Dioxide Level 17.7 MEQ/L 19.6 MEQ/L Anion Gap 14 MEQ/L 12 MEQ/L Blood Urea Nitrogen 39 MG/DL 46 MG/DL Creatinine 3.10 MG/DL 2.83 MG/DL Estimat Glomerular Filtration 20 ML/MIN 22 ML/MIN Rate Random Glucose 157 MG/DL 160 MG/DL Calcium Level 8.9 MG/DL 9.0 MG/DL Total Bilirubin 1.0 MG/DL 0.8 MG/DL Aspartate Amino Transf 24 U/L 24 U/L (AST/SGOT) Alanine Aminotransferase 22 U/L 21 U/L (ALT/SGPT) Alkaline Phosphatase 68 U/L 60 U/L Troponin I 0.13 NG/ML B-Type Natriuretic Peptide 182 PG/ML Total Protein 7.4 GM/DL 7.3 GM/DL Albumin 3.2 GM/DL 3.0 GM/DL Blood Gas Puncture Site LT RADIAL Blood Gas Patient Temperature 98.6 Blood Gas HCO3 19 mmol/L Blood Gas Base Excess -5.9 mmol/L Blood Gas Oxygen Saturation 87 % Arterial Blood pH 7.32 Arterial Blood Partial 38 mmHg Pressure CO2 Arterial Blood Partial 64 mmHg Pressure O2 Arterial Blood Oxygen Content 16.4 Vol % Arterial Blood 1.1 % Carboxyhemoglobin Arterial Blood Methemoglobin 0.9 % Blood Gas Hemoglobin 13.4 G/DL Oxygen Delivery Device NONE REBREATHER Blood Gas Liter Flow 15 L/M Blood Gas Inspired Oxygen 100 % Nasal Screen MRSA (PCR) NEGATIVE White Blood Count 8.7 TH/MM3 Red Blood Count 3.85 MIL/MM3 Hemoglobin 12.2 GM/DL Hematocrit 36.3 % Mean Corpuscular Volume 94.1 FL Mean Corpuscular Hemoglobin 31.7 PG Mean Corpuscular Hemoglobin 33.7 % Concent Red Cell Distribution Width 15.5 % Platelet Count 132 TH/MM3 Mean Platelet Volume 9.0 FL Neutrophils (%) (Auto) 91.2 % Lymphocytes (%) (Auto) 6.7 % Monocytes (%) (Auto) 1.5 % Eosinophils (%) (Auto) 0.1 % Basophils (%) (Auto) 0.5 % Neutrophils # (Auto) 7.9 TH/MM3 Lymphocytes # (Auto) 0.6 TH/MM3 Monocytes # (Auto) 0.1 TH/MM3 Eosinophils # (Auto) 0.0 TH/MM3 Basophils # (Auto) 0.0 TH/MM3 CBC Comment DIFF FINAL Differential Comment Hematology Comments Test 01/09/17 01/09/17 11:30 14:02 Blood Gas Puncture Site RT RADIAL Blood Gas Patient Temperature 98.6 Blood Gas HCO3 18 mmol/L Blood Gas Base Excess -6.7 mmol/L Blood Gas Oxygen Saturation 98 % Arterial Blood pH 7.34 Arterial Blood Partial 34 mmHg Pressure CO2 Arterial Blood Partial 322 mmHg Pressure O2 Arterial Blood Oxygen Content 15.9 Vol % Arterial Blood 0.8 % Carboxyhemoglobin Arterial Blood Methemoglobin 0.8 % Blood Gas Hemoglobin 10.9 G/DL Oxygen Delivery Device VENTILATOR Blood Gas Inspired Oxygen 100 % Urine Eosinophils NONE SEEN /HPF Urine Random Creatinine 75.4 MG/DL Urine Random Sodium 61 MEQ/L Imaging Last Impressions Chest X-Ray 01/09/17 0925 Signed Impressions: Service Date/Time: Monday, January 09, 2017 09:34 - CONCLUSION: 1. Appropriate endotracheal tube and right IJ central venous catheter positions as above. No pneumothorax or other acute complication. 2. Mild bibasilar consolidation and small effusions not significantly changed. Jose Rubio MD Renal Ultrasound 01/09/17 0000 Signed Impressions: Service Date/Time: Monday, January 09, 2017 11:34 - CONCLUSION: 1. No obstructive uropathy or other acute abnormality seen of either kidney. No perceptible parenchymal changes. 2. Simple, benign appearing left renal cyst. 3. Urinary bladder decompressed with a Lopez catheter and is grossly unremarkable. Jose Rubio MD Assessment and Plan Problem List: (1) Hypoxia Assessment and Plan: Critically ill Respiratory status worsen this AM CVP-5 Chest Xray not much congestion ? PE. Consider LE venous US to r/o DVT and V/Q scan to r/o PE Restart Coreg 25mg PO BID (2) SIRS (systemic inflammatory response syndrome) (3) Coronary artery disease (4) Hypertension (5) RAQUEL (acute kidney injury) (6) CHF (congestive heart failure) Abraham Wiley MD Jan 09, 2017 17:24
--- NOTE | 2017-01-09 18:46 | EKG ---
Date Performed: 01/08/2017 Time Performed: 14:14:30 PTAGE: 76 years EKG: atrial fibrillation LBBB Inferior/lateral ST-T changes are probably due to ventricular hype rtrophy Abnormal ECG PREVIOUS TRACING : 01/08/2017 04.02 DOCTOR: Abraham Wiley Interpretating Date/Time 01/09/2017 18:41:36
--- NOTE | 2017-01-09 19:12 | RADRPT ---
EXAM DATE/TIME: 01/09/2017 17:44 [facility] COMPARISON: No previous studies available for comparison. INDICATIONS : Bilateral leg edema. MEDICAL HISTORY : Myocardial infarction. Congestive heart failure. Hypercholesterolemia. CAD. Carcinoma, prostate. CVA. Irregular heartbeat. HTN. COPD. Emphysema. Dyspnea. Renal calculi. DVT. Anxiety. Substance use. Anti coagulant therapy. SURGICAL HISTORY : CABGCoronary artery stent. Bilateral cataract surgery. AV shunt. Cardiac cath. Radiation therapy. Pro state seed implants. ENCOUNTER: Subsequent ACUITY: 1 day PAIN SCORE: Non-responsive LOCATION: Bilateral leg. TECHNIQUE: Venous ultrasound of the left and right leg was performed from the inguinal ligament to the proximal calf. Real-time, color Doppler and spectral tracing, compression and augmentation techniques were us ed. FINDINGS: RIGHT LEG: There is normal compressibility of the deep venous system from the inguinal region to the proximal ca lf. No echogenic clot is seen in the lumen of the common femoral, femoral, popliteal, and posterior tibial veins. LEFT LEG: There is normal compressibility of the deep venous system from the inguinal region to the proximal ca lf. No echogenic clot is seen in the lumen of the common femoral, femoral, popliteal, and posterior tibial veins. CONCLUSION: No DVT in either lower extremity. Floyd Khan MD on January 09, 2017 at 19:10 Board Certified Radiologist. This report was verified electronically.
[2017-01-09] MEDS: DOCUSATE SODIUM 100 MG CAP PO SCH (20:45)
[2017-01-09] MEDS: ATORVASTATIN 40 MG TAB PO SCH (20:46)
[2017-01-09 21:00] LABS: BLOOD GAS VENOUS BASE EXCESS -4.1 mmol/L (-2-2); BLOOD GAS VENOUS HCO3 21 mmol/L (22-26); BLOOD GAS VENOUS O2 CONTENT 12.1 Vol % (9.0-17.0); BLOOD GAS VENOUS O2 HGB SAT 75 % (70-76); BLOOD GAS VENOUS PCO2 43 mmHg (44-48); BLOOD GAS VENOUS PO2 48 mmHg (35-40); BLOOD GAS VENOUS pH 7.31 (7.360-7.400); TEMP CORR TO 98.6
[2017-01-09] MEDS ORDERED: CARVEDILOL 12.5 MG TAB PO SCH (21:00)
[2017-01-09 21:01] LABS: CRITICAL VALUE YES; OXYGEN DEVICE VENTILATOR
[2017-01-09 21:02] LABS: DRAW SITE LINE; FIO2 60 %; STAT NO
[2017-01-09] MEDS ORDERED: TERBUTALINE INJ 1 MG/ML AMP SQ PRN (23:15)
[2017-01-09] MEDS ORDERED: PHENYLEPHRINE 40 MG/D5W 496 ML ADMIX IV SCH ×2 (23:15)
[2017-01-10] VITALS (19 sets, daily range): BP systolic 91–128; BP diastolic 51–59; PULSE 75–114; RESP 14–17; TEMP 96.8–98.3; O2SAT 92–100
[2017-01-10] MEDS: PROPOFOL 1000 MG/100 ML INJ 100 ML IV SCH ×5 (02:14→16:04)
[2017-01-10] MEDS: DOBUTamine INJ 500 MG in DEXTROSE 5% IN WATER INJ 210 ML IV SCH ×2 (02:14)
[2017-01-10] MEDS: CHLORHEXIDINE GLUCONATE 2 % 1 PACK (2 CLOTHS) TOP SCH (03:27)
[2017-01-10] MEDS: RESP: ALBUTEROL 2.5 MG/IPRATROPIUM 0.5 MG NEB (SCH) NEB ×3 (03:30→20:58)
[2017-01-10 04:16] LABS: AUTOMATED NEUTROPHIL # 9.5 TH/MM3 (1.8-7.7); BASOPHIL % 0.1 % (0.0-2.0); HEMATOCRIT 33.6 % (39.0-51.0); HEMO FLAGS DIFF FINAL; INTERNATIONAL NORMALIZED RATIO 1.6 RATIO; LYMPHOCYTE # 0.3 TH/MM3 (1.0-4.8); MEAN CELL VOLUME 94.4 FL (80.0-100.0); MEAN CORPUSCULAR HGB CONC 33.8 % (32.0-36.0); MONO % 2.9 % (0.0-8.0); PLATELET COUNT 142 TH/MM3 (150-450); PROTHROMBIN TIME - PATIENT 17.7 SEC (9.8-11.6); RED BLOOD COUNT 3.55 MIL/MM3 (4.50-5.90); RED CELL DISTRIBUTION WIDTH 15.1 % (11.6-17.2); WHITE BLOOD COUNT 10.1 TH/MM3 (4.0-11.0)
[2017-01-10 04:49] LABS: ALKALINE PHOSPHATASE 52 U/L (45-117); ALT (GPT) 15 U/L (12-78); ANION GAP 12 MEQ/L (5-15); AST (GOT) 10 U/L (15-37); BLOOD UREA NITROGEN 56 MG/DL (7-18); CHLORIDE 102 MEQ/L (98-107); GLOMERULAR FILTRATION RATE 22 ML/MIN (>89); MAGNESIUM 2.2 MG/DL (1.5-2.5); POTASSIUM 4.3 MEQ/L (3.5-5.1); SODIUM (NA) 136 MEQ/L (136-145); TOTAL BILIRUBIN ADULT 0.3 MG/DL (0.2-1.0)
[2017-01-10 04:50] LABS: CREATINE KINASE 77 U/L (39-308)
[2017-01-10] MEDS: methylPREDNISolone SOD SUCC 40 MG/1 ML VIAL IV PUSH SCH ×3 (05:39→23:09)
[2017-01-10] MEDS: GEMFIBROZIL 600 MG TAB PO SCH ×2 (05:40→16:03)
[2017-01-10] MEDS: INSULIN NovoLIN REGULAR SUPPLEMENTAL SCALE SQ SCH ×4 (05:40→23:21)
--- NOTE | 2017-01-10 07:10 | HHI.CCPN ---
Subjective Remarks/Hospital Course 76-year-old male with a medical history significant for coronary artery disease status post previous CABG, CHF with EF 30-35%, atrial fibrillation, COPD who was brought to the ER on 01/07/17 with shortness of breath going on for about a day which had progressively gotten worse. He was brought to the ER by EMS with O2 sats in the 80s. He was placed on C Pap given 20 mg intraosseous Cardizem as he was in A. fib with RVR. He was a patient of Dr. Madsion who is currently retired. He quit smoking in 1999 prior to his CABG. A she was admitted by hospitalist service started on a Cardizem for rate control and his Coreg was continued at 25 mg twice a day. He was also initiated on Lovenox 1 mg per KG every 24 hourly for anticoagulation in view of renal insufficiency. This afternoon patient became bradycardic with heart rate dropping to the 20s and hypotension for which he was evaluated by Dr. Page from cardiology, Cardizem drip was stopped and he was immediately transferred to the ICU. Critical care consult was requested by Dr. David, I evaluated the patient immediately on being notified. He had transcutaneous pacer pads on and was being paced at the time with the pacer rate set at 70/m which I subsequently decreased to 50/m. He was started on dopamine which I increased to 15 mics per KG per minute. I also ordered 5 units of glucose gone IV stat, 50 mL of 50% dextrose and 10 units of regular insulin IV stat as well as 2 g of IV calcium gluconate and a DuoNeb nebulizer treatment. His heart rate came up to the 70s A. fib. Spoke with Dr. Page from cardiology who felt that the bradycardia was possibly related to his medications including Coreg and Cardizem which were held. Patient was on a nonrebreather facemask. Apart from the above, patient denies any recent fever/nausea/vomiting/diarrhea/ urinary burning or pain on urination. He denied any hematemesis/vomiting/melena/hematuria. Denied any syncopal episodes. Denied any palpitations in the past few days. He did have palpitations during this acute episode of respiratory distress. Denied any chest pains. However did report of ongoing chest tightness every time he exerts himself and walk around which is usually associated with shortness of breath on exertion as well. 01/09: Placed on dobutamine currently at 5 mcg/kg/m by overnight supervisor rough end at reviewing echocardiogram. Somewhat diuresed. Currently with high O2 requirements hence electively intubated. CVP will be checked after central line placed. Subjective 01/10: Afebrile. Dopamine currently at 2.5 mcg/kg/m. CVP around 10. FiO2 down to 50%. We'll try spontaneous breathing trial today. VQ scan pending. Dopplers legs negative DVT Objective Vital Signs Date Time Temp Pulse Resp B/P Pulse Ox O2 Delivery O2 Flow Rate FiO2 01/10/17 06:00 114 01/10/17 04:44 94 60 01/10/17 04:00 97.9 14 117/57 01/09/17 08:00 Bi-Pap 01/08/17 19:00 15.00 Intake and Output 01/09/17 01/09/17 01/10/17 08:00 16:00 00:00 Intake Total 320 ml 1263 ml 273 ml Output Total 800 ml 450 ml 585.0 ml Balance -480 ml 813 ml -312.0 ml Result Diagram: 01/10/17 0355 01/10/17 0355 Other Results Microbiology Date/Time Procedure Status Source Growth 01/07/17 20:30 Aerobic Blood Culture - Preliminary Resulted Blood Peripheral NO GROWTH IN 2 DAYS 01/07/17 20:30 Anaerobic Blood Culture - Preliminary Resulted Blood Peripheral NO GROWTH IN 2 DAYS Imaging Last Impressions Chest X-Ray 01/09/17 0925 Signed Impressions: Service Date/Time: Monday, January 09, 2017 09:34 - CONCLUSION: 1. Appropriate endotracheal tube and right IJ central venous catheter positions as above. No pneumothorax or other acute complication. 2. Mild bibasilar consolidation and small effusions not significantly changed. Jose Rubio MD Renal Ultrasound 01/09/17 0000 Signed Impressions: Service Date/Time: Monday, January 09, 2017 11:34 - CONCLUSION: 1. No obstructive uropathy or other acute abnormality seen of either kidney. No perceptible parenchymal changes. 2. Simple, benign appearing left renal cyst. 3. Urinary bladder decompressed with a Lopez catheter and is grossly unremarkable. Jose Rubio MD Lower Extremity Ultrasound 01/09/17 0000 Signed Impressions: Service Date/Time: Monday, January 09, 2017 17:44 - CONCLUSION: No DVT in either lower extremity. Floyd Khan MD Objective Remarks GENERAL: 76-year-old male, critically ill currently orotracheally intubated SKIN: Warm and dry. No rash HEAD: Atraumatic. Normocephalic. EYES: Pupils equal and round about 3 mm bilaterally and reactive. No scleral icterus. No injection or drainage. ENT: No nasal bleeding or discharge. Mucous membranes pink and moist. NECK: Trachea midline. No JVD. CARDIOVASCULAR: Tachycardia, IR. S1, S2 no S4. Without appreciable murmur. RESPIRATORY: Diminished breath sounds in bases bilaterally. Few crackles appreciated. Breath sounds equal bilaterally. GASTROINTESTINAL: Abdomen soft, non-tender, slightly protuberant. Hypoactive bowel sounds are appreciated MUSCULOSKELETAL: Extremities with trace lower extremity nonpitting edema NEUROLOGICAL: Arousable on the ventilator. Squeezes and command. Vascular Central Line Catheter: Yes Assessment to: Continue Date of Insertion: Jan 09, 2017 Line: Central Venous Catheter Side: Right Location: Internal, Jugular A/P Assessment and Plan Neuro/Psych: History of CVA/TIA 2013 without residual effect Peripheral neuropathy Currently in propofol at 35 mcg/kg/m/fentanyl 75 g an hour drips for sedation/ analgesia while intubated Goal of RASS -2 Daily sedation vacation Continue Neurontin 100 mg by mouth 3 times a day. Neuropathy Acetaminophen for fever Cardiovascular: Symptomatically bradycardia likely medication induced Acute systolic heart failure/ischemic cardiopathy - EF 30% History of hypertension History dyslipidemia Coronary artery disease status post CABG 1999 History bilateral lower extremity since secondary DVT Echocardiogram reveals EF 30-35%. Akinesis of the apical myocardium. EDEL 43 mmHg. Moderate TR. RV normal Cardizem (on Norvasc 10 mg daily at home) currently on hold Coreg home dose 25 mg by mouth daily has been switched 12.5 mg twice a day by cardiology yesterday. We'll start on 6.25 twice a day today with borderline blood pressures 3/7, Patient given calcium gluconate 2 g IV piggyback, 5 units iv, d50 and 10 units of regular insulin iv push in view of bradycardia and hypotension thought to be secondary to Cardizem/Coreg. Also given DuoNeb nebulizer treatment to reverse bradycardia. Initially Started on dopamine at 15 mics per KG per minute. This was switched dobutamine currently at 2. 5 mcg/kg/m which will be weaned off and Cosmo- Synephrine will be used if needed to maintain MAP greater than 65 Dr. Page from cardiology following. Recommended cessation of Cardizem. Resume cord when indicated. Will receive Lexiscan prior to discharge with likely LifeVest placement Received Lovenox 1 mg per KG subcutaneously this morning and ordered daily for anticoagulation for A. fib in the setting of renal insufficiency. Coumadin held in anticipation of procedures. INR currently 1.6 Continue Lipitor at 40 mg daily and Lopid 60 mg twice a day. Cycle cardiac enzymes currently trending downward. Likely demand ischemia in light of respiratory failure. Pulmonary: Acute hypoxemic respiratory failure COPD ACV 14/600/5/100 Ventilator bundle Bronchodilator therapy every 6 hours and as needed Spontaneous breathing trials daily Continue Solu-Medrol 60 mg IV now and every 8 hourly. VQ scan ordered for today. Negative Dopplers for thrombus and lower extremities. Check upper extremities today GI/liver: Start tube feeds with Nepro goal 60 cc an hour currently at 20 cc an hour Protonix for GI prophylaxis Colace/as needed Senokot for bowel regimen Reglan prokinetic agent 5 every 8 Renal/: Acute on chronic kidney disease stage IV History of nephrolithiasis History of prostate cancer status post radiation beads Strict intake output, monitor and replete electro lites, follow BUN/creatinine. Currently on Lasix 40 mg IV twice a day Renal ultrasound negative hydronephrosis. Negative urine eosinophils HEME: Normocytic anemia Thrombocytopenia History bilateral lower extremity DVT on chronic Coumadin 4 mill grams daily History of prostate cancer Follow CBC daily. Monitor trends. Currently on full anticoagulated renal dosed Lovenox ID: No antibiotics at this time. Monitor for infection Endocrine: Gout SSI for glycemic control Holding Uloric 80 milligrams daily for gout MSK Morbid obesity Weight loss encouraged FEN Replace electrolytes as clinically indicated Prophylaxis: PPI/SCDs. Lovenox 1 mg per KG subcutaneously every 24 hourly for anticoagulation and setting of renal insufficiency. Critical Care: The total critical care time was 35 minutes. Time to perform other separately billable procedures was not included in the critical care time. Del Jones MD Jan 10, 2017 07:10
[2017-01-10] MEDS: CARVEDILOL 6.25 MG TAB PO SCH ×2 (07:54→19:49)
[2017-01-10] MEDS: GABAPENTIN 100 MG CAP PO SCH ×3 (07:54→18:12)
[2017-01-10] MEDS: FUROSEMIDE 40 MG/4 ML VIAL IV PUSH SCH ×2 (07:54→18:13)
[2017-01-10] MEDS: METOCLOPRAMIDE HCL 10 MG/2 ML VIAL IV PUSH SCH ×3 (07:57→23:09)
[2017-01-10] MEDS: CHLORHEXIDINE 0.12% (ORAL KIT) 15 ML CUP MT SCH ×2 (07:58→20:00)
[2017-01-10] MEDS: SODIUM CHLORIDE 0.9% FLUSH 5 ML FLUSH FLUSH SCH ×2 (07:58→19:50)
[2017-01-10] MEDS: ENOXAPARIN SODIUM 100 MG/ML SYRINGE SQ SCH (07:58)
[2017-01-10] MEDS: SODIUM CHLORIDE 0.9% FLUSH 5 ML FLUSH IVF SCH (07:59)
[2017-01-10] MEDS: POLYETHYLENE GLYCOL 17 GM PKG PO SCH (08:01)
[2017-01-10] MEDS: DOCUSATE SODIUM 100 MG CAP PO SCH ×2 (08:01→19:49)
[2017-01-10] MEDS: fentaNYL DRIP 250 ML IV SCH (08:16)
[2017-01-10] MEDS: PANTOPRAZOLE SODIUM 40 MG VIAL IV PUSH SCH (10:38)
[2017-01-10] MEDS: SENNOSIDES SYRUP 8.8 MG/5 ML CUP G-TUBE SCH ×2 (10:38→23:09)
--- NOTE | 2017-01-10 11:56 | RADRPT ---
EXAM DATE/TIME: 01/10/2017 11:06 [facility] COMPARISON: No previous studies available for comparison. INDICATIONS : Dyspnea. Atrial fibrillation. Patient vented. DOSE: 8.6 mCi Tc99m MAA IV 1.4 mCi Tc99m DTPA aerosol MEDICAL HISTORY : Chronic obstructive pulmonary disease. Myocardial infarction. Congestive heart failure. SURGICAL HISTORY : CABG Coronary artery stent. ENCOUNTER: Initial ACUITY: 1 day PAIN SCALE: 0/10 LOCATION: chest TECHNIQUE: Following five minutes of tidal breathing of DTPA aerosol, planar images of the lungs were performed in eight projections. The patient was then injected with MAA, and eight-view perfusion scan was perf ormed. FINDINGS: There is a homogeneous pattern of aerosol delivery to the periphery of both lungs except for some celia nting at the costophrenic angles The perfusion lung scan demonstrates a homogenous pattern of uptake in both lungs, except for some bl unting at the costophrenic angles. No segmental or subsegmental defects are seen. CONCLUSION: 1. Low probability for pulmonary embolus. Tommy Page MD on January 10, 2017 at 11:53 Board Certified Radiologist. This report was verified electronically.
--- NOTE | 2017-01-10 12:34 | EKG ---
Date Performed: 01/09/2017 Time Performed: 22:28:32 PTAGE: 76 years EKG: Ventricular response is excellerated since prior tracing Abnormal ECG PREVIOUS TRACING : 01/08/2017 14.14 DOCTOR: Reinier Encinas Interpretating Date/Time 01/10/2017 12:33:15
[2017-01-10] MEDS: ATORVASTATIN 40 MG TAB PO SCH (19:49)
--- NOTE | 2017-01-10 21:39 | RADRPT ---
EXAM DATE/TIME: 01/10/2017 16:47 [facility] COMPARISON: No previous studies available for comparison. INDICATIONS : Bilateral upper extremity edema. MEDICAL HISTORY : Myocardial infarction. Hypercholesterolemia. Chronic obstructive pulmonary disease. Transient ischemi c attack. Coronary artery disease. Congestive heart failure. Anticoagulant therapy. Hypertension. Emp hysema. Prostate cancer. SURGICAL HISTORY : CABG Shunts in legs. Cardiac catheterization. Coronary stent. ENCOUNTER: Initial ACUITY: 1 day PAIN SCORE: Non-responsive LOCATION: Bilateral arms. FINDINGS: RIGHT UPPER EXTREMITY: Clot is seen in the right cephalic vein proximal to the PIC line insertion. Other venous tributaries of the right upper extremity are patent. LEFT UPPER EXTREMITY: There is spontaneous flow documented in the brachial, basilic, cephalic, axillary, and subclavian vei ns. The vessels are compressible and augmentation response is documented. No filling defects are se en. The flow is phasic with respiration. Direction of flow in the jugular vein is caudal. CONCLUSION: Right cephalic vein thrombosis. Negative on the left. Jose Rubio MD on January 10, 2017 at 21:36 Board Certified Radiologist. This report was verified electronically.
[2017-01-11] VITALS (18 sets, daily range): BP systolic 99–125; BP diastolic 59–71; PULSE 77–96; RESP 14; TEMP 96.3–98.3; O2SAT 93–95
[2017-01-11] MEDS: RESP: ALBUTEROL 2.5 MG/IPRATROPIUM 0.5 MG NEB (SCH) NEB ×3 (03:07→15:51)
[2017-01-11] MEDS: CHLORHEXIDINE GLUCONATE 2 % 1 PACK (2 CLOTHS) TOP SCH (04:00)
--- NOTE | 2017-01-11 04:33 | RADRPT ---
EXAM DATE/TIME: 01/11/2017 03:31 [facility] COMPARISON: CHEST SINGLE AP, January 09, 2017, 9:34. INDICATIONS : Evaluate for respiratory failure. MEDICAL HISTORY : Hypertension. Hypercholesterolemia. Myocardial infarction. SURGICAL HISTORY : CABG. Coronary artery stent. ENCOUNTER: Subsequent ACUITY: 4 - 6 days PAIN SCORE: Non-responsive. LOCATION: chest FINDINGS: Endotracheal tube tip is 1.2 cm above the emilia. Gastric tube traverses the [id number]. Right i nternal jugular catheter tip projects over the mid superior vena cava. Hazy bilateral lower lung [place] with loss of delineation of the right hemidiaphragm. There is also consolidation in the media l left lower lobe. Prior median sternotomy. CONCLUSION: 1. ET tube is 1.2 cm above the emilia and needs to be withdrawn at least 1 cm. 2. Increased prominence of consolidative infiltrates left lower lobe and right pleural effusion. Abimael Del Toro MD on January 11, 2017 at 4:30 Board Certified Radiologist. This report was verified electronically.
[2017-01-11 04:47] LABS: AUTOMATED NEUTROPHIL # 7.3 TH/MM3 (1.8-7.7); BASOPHIL % 0.1 % (0.0-2.0); HEMATOCRIT 34.7 % (39.0-51.0); HEMO FLAGS DIFF FINAL; LYMPH % 4.2 % (9.0-44.0); LYMPHOCYTE # 0.3 TH/MM3 (1.0-4.8); MEAN CELL VOLUME 95.1 FL (80.0-100.0); MEAN CORPUSCULAR HEMOGLOBIN 31.4 PG (27.0-34.0); MONO % 2.8 % (0.0-8.0); NEUT % 92.9 % (16.0-70.0); PLATELET COUNT 142 TH/MM3 (150-450); RED BLOOD COUNT 3.65 MIL/MM3 (4.50-5.90); RED CELL DISTRIBUTION WIDTH 15.3 % (11.6-17.2); WHITE BLOOD COUNT 7.8 TH/MM3 (4.0-11.0)
[2017-01-11 05:15] LABS: BICARBONATE 25.4 MEQ/L (21.0-32.0); MAGNESIUM 2.6 MG/DL (1.5-2.5)
[2017-01-11] MEDS: SODIUM CHLORIDE 0.9% FLUSH 5 ML FLUSH FLUSH PRN (05:15)
[2017-01-11] MEDS: methylPREDNISolone SOD SUCC 40 MG/1 ML VIAL IV PUSH SCH ×3 (05:15→21:45)
[2017-01-11] MEDS: INSULIN NovoLIN REGULAR SUPPLEMENTAL SCALE SQ SCH ×3 (05:34→17:56)
[2017-01-11] MEDS: METOCLOPRAMIDE HCL 10 MG/2 ML VIAL IV PUSH SCH ×3 (06:30→22:42)
[2017-01-11] MEDS: GEMFIBROZIL 600 MG TAB PO SCH ×2 (06:30→17:00)
[2017-01-11] MEDS: FUROSEMIDE 40 MG/4 ML VIAL IV PUSH SCH ×3 (07:49→21:45)
[2017-01-11] MEDS: CARVEDILOL 6.25 MG TAB PO SCH ×2 (07:50→20:43)
[2017-01-11] MEDS: GABAPENTIN 100 MG CAP PO SCH ×3 (07:50→17:39)
--- NOTE | 2017-01-11 07:50 | HHI.CCPN ---
Subjective Remarks/Hospital Course 76-year-old male with a medical history significant for coronary artery disease status post previous CABG, CHF with EF 30-35%, atrial fibrillation, COPD who was brought to the ER on 01/07/17 with shortness of breath going on for about a day which had progressively gotten worse. He was brought to the ER by EMS with O2 sats in the 80s. He was placed on C Pap given 20 mg intraosseous Cardizem as he was in A. fib with RVR. He was a patient of Dr. Madison who is currently retired. He quit smoking in 1999 prior to his CABG. A she was admitted by hospitalist service started on a Cardizem for rate control and his Coreg was continued at 25 mg twice a day. He was also initiated on Lovenox 1 mg per KG every 24 hourly for anticoagulation in view of renal insufficiency. This afternoon patient became bradycardic with heart rate dropping to the 20s and hypotension for which he was evaluated by Dr. Page from cardiology, Cardizem drip was stopped and he was immediately transferred to the ICU. Critical care consult was requested by Dr. David, I evaluated the patient immediately on being notified. He had transcutaneous pacer pads on and was being paced at the time with the pacer rate set at 70/m which I subsequently decreased to 50/m. He was started on dopamine which I increased to 15 mics per KG per minute. I also ordered 5 units of glucose gone IV stat, 50 mL of 50% dextrose and 10 units of regular insulin IV stat as well as 2 g of IV calcium gluconate and a DuoNeb nebulizer treatment. His heart rate came up to the 70s A. fib. Spoke with Dr. Page from cardiology who felt that the bradycardia was possibly related to his medications including Coreg and Cardizem which were held. Patient was on a nonrebreather facemask. Apart from the above, patient denies any recent fever/nausea/vomiting/diarrhea/ urinary burning or pain on urination. He denied any hematemesis/vomiting/melena/hematuria. Denied any syncopal episodes. Denied any palpitations in the past few days. He did have palpitations during this acute episode of respiratory distress. Denied any chest pains. However did report of ongoing chest tightness every time he exerts himself and walk around which is usually associated with shortness of breath on exertion as well. 01/09: Placed on dobutamine currently at 5 mcg/kg/m by overnight cpc at reviewing echocardiogram. Somewhat diuresed. Currently with high O2 requirements hence electively intubated. CVP will be checked after central line placed. 01/10: Afebrile. Dobutamine currently at 2.5 mcg/kg/m. CVP around 10. FiO2 down to 50%. We'll try spontaneous breathing trial today. VQ scan pending. Dopplers legs negative DVT Subjective 01/11: Afebrile. Off dobutamine. CVP normal. FiO2 down to 50%. Will reattempt spontaneous pain trials today. VQ scan negative. Doppler right extremity with cephalic vein thrombosis. Objective Vital Signs Date Time Temp Pulse Resp B/P Pulse Ox O2 Delivery O2 Flow Rate FiO2 01/11/17 07:23 94 45 01/11/17 06:00 77 01/11/17 04:00 96.3 14 100/64 01/09/17 08:00 Bi-Pap 01/08/17 19:00 15.00 Intake and Output 01/10/17 01/10/17 01/11/17 08:00 16:00 00:00 Intake Total 409 ml 358 ml 322 ml Output Total 560.0 ml 825.0 ml 500.0 ml Balance -151.0 ml -467.0 ml -178.0 ml Result Diagram: 01/11/17 0415 01/11/17 0415 Other Results Microbiology Date/Time Procedure Status Source Growth 01/07/17 20:30 Aerobic Blood Culture - Preliminary Resulted Blood Peripheral NO GROWTH IN 3 DAYS 01/07/17 20:30 Anaerobic Blood Culture - Preliminary Resulted Blood Peripheral NO GROWTH IN 3 DAYS Imaging Last Impressions Chest X-Ray 01/11/17 0600 Signed Impressions: Service Date/Time: Wednesday, January 11, 2017 03:31 - CONCLUSION: 1. ET tube is 1.2 cm above the emilia and needs to be withdrawn at least 1 cm. 2. Increased prominence of consolidative infiltrates left lower lobe and right pleural effusion. Abimael Del Toro MD Upper Extremity Ultrasound 01/10/17 0000 Signed Impressions: Service Date/Time: January 16:47 - CONCLUSION: Right cephalic vein thrombosis. Negative on the left. Jose Rubio MD Renal Ultrasound 01/09/17 Signed Impressions: Service Date/Time: Monday, January 09, 2017 11:34 - CONCLUSION: 1. No obstructive uropathy or other acute abnormality seen of either kidney. No perceptible parenchymal changes. 2. Simple, benign appearing left renal cyst. 3. Urinary bladder decompressed with a Lopez catheter and is grossly unremarkable. Jose Rubio MD Lung Scan-V Nuclear Medicine 01/09/17 Signed Impressions: Service Date/Time: January 11:06 - CONCLUSION: 1. Low probability for pulmonary embolus. Tommy Page MD Lower Extremity Ultrasound 01/09/17 Signed Impressions: Service Date/Time: Monday, January 09, 2017 17:44 - CONCLUSION: No DVT in either lower extremity. Floyd Khan MD Objective Remarks GENERAL: 76-year-old male, critically ill currently orotracheally intubated SKIN: Warm and dry. No rash HEAD: Atraumatic. Normocephalic. EYES: Pupils equal and round about 3 mm bilaterally and reactive. No scleral icterus. No injection or drainage. ENT: No nasal bleeding or discharge. Mucous membranes pink and moist. NECK: Trachea midline. No JVD. CARDIOVASCULAR: IRR. S1, S2 no S4. Without appreciable murmur. RESPIRATORY: Diminished breath sounds in bases bilaterally. Few crackles appreciated. Breath sounds equal bilaterally. GASTROINTESTINAL: Abdomen soft, non-tender, slightly protuberant. Hypoactive bowel sounds are appreciated MUSCULOSKELETAL: Extremities with trace lower extremity nonpitting edema NEUROLOGICAL: Arousable on the ventilator. Squeezes and command. Urinary Catheter: Yes Assessment to: Continue Lopez insert reason: Prolonged Immobilization Vascular Central Line Catheter: Yes Assessment to: Continue Date of Insertion: Jan 09, 2017 Line: Central Venous Catheter Side: Right Location: Internal, Jugular A/P Assessment and Plan Neuro/Psych: History of CVA/TIA 2013 without residual effect Peripheral neuropathy Currently in propofol at 30 mcg/kg/m/fentanyl 75 g an hour drips for sedation/ analgesia while intubated Goal of RASS -2 Daily sedation vacation Continue Neurontin 100 mg by mouth 3 times a day. Neuropathy Acetaminophen for fever Cardiovascular: Symptomatically bradycardia likely medication induced - resolved Acute systolic heart failure/ischemic cardiopathy - EF 30% History of hypertension History dyslipidemia Coronary artery disease status post CABG 1999 History bilateral lower extremity since secondary DVT Echocardiogram reveals EF 30-35%. Akinesis of the apical myocardium. EDEL 43 mmHg. Moderate TR. RV normal Cardizem (on Norvasc 10 mg daily at home) currently on hold Coreg home dose 25 mg by mouth daily has been switched 12.5 mg twice a day by cardiology yesterday. Continue on 6.25 twice a day today with borderline blood pressures 01/08, Patient given calcium gluconate 2 g IV piggyback, 5 units iv, d50 and 10 units of regular insulin iv push in view of bradycardia and hypotension thought to be secondary to Cardizem/Coreg. Also given DuoNeb nebulizer treatment to reverse bradycardia. Initially Started on dopamine at 15 mics per KG per minute. This was switched dobutamine currently at 2. 5 mcg/kg/m which will be weaned off and Cosmo- Synephrine will be used if needed to maintain MAP greater than 65. This is been weaned to off. Dr. Page from cardiology following. Recommended cessation of Cardizem. Resume Coreg when indicated. Will receive Lexiscan prior to discharge with likely LifeVest placement Received Lovenox 1 mg per KG subcutaneously and ordered daily for anticoagulation for A. fib in the setting of renal insufficiency. Switched to heparin drip today 01/11 Coumadin held in anticipation of procedures. INR currently 1.6. Will restart Coumadin today. Continue Lipitor at 40 mg daily and Lopid 60 mg twice a day for dyslipidemia. Cycle cardiac enzymes currently trending downward. Likely demand ischemia in light of respiratory failure. Pulmonary: Acute hypoxemic respiratory failure COPD [facility] /11/08/44 Ventilator bundle Bronchodilator therapy every 6 hours and as needed Spontaneous breathing trials daily Continue Solu-Medrol 60 mg IV now and every 8 hourly. VQ scan hourly for PE negative Dopplers for thrombus in lower lower extremities. Right upper extremity with cephalic vein thrombus/superficial We'll consult pulmonology as this does not seem to be exclusively cardiac etiology for his hypoxemic respiratory failure. Negative PE. No signs of infection. Continue diuresis GI/liver: Continue tube feeds with Nepro goal 60 cc an hour Protonix for GI prophylaxis Colace and Senokot twice a day for bowel regimen Add MiraLAX and lactulose today. 1 dose Relistor. Reglan prokinetic agent 5 every 8 Renal/: Acute on chronic kidney disease stage IV History of nephrolithiasis History of prostate cancer status post radiation beads Strict intake output, monitor and replete electro lites, follow BUN/creatinine. Currently on Lasix 40 mg IV 3 times a day Renal ultrasound negative hydronephrosis. Negative urine eosinophils HEME: Normocytic anemia Thrombocytopenia History bilateral lower extremity DVT on chronic Coumadin 4 mill grams daily History of prostate cancer Follow CBC daily. Monitor trends. Currently on full anticoagulated renal dosed Lovenox ID: No antibiotics at this time. Monitor for infection Endocrine: Gout SSI for glycemic control Holding Uloric 80 milligrams daily for gout MSK Morbid obesity Weight loss encouraged FEN Replace electrolytes as clinically indicated Prophylaxis: PPI/SCDs. Lovenox 1 mg per KG subcutaneously every 24 hourly for anticoagulation and setting of renal insufficiency secondary to heparin drip and resume Coumadin Critical Care: The total critical care time was 35 minutes. Time to perform other separately billable procedures was not included in the critical care time. Del Jones MD Jan 11, 2017 07:50
[2017-01-11] MEDS: POLYETHYLENE GLYCOL 17 GM PKG PO SCH ×3 (07:51→20:42)
[2017-01-11] MEDS: PROPOFOL 1000 MG/100 ML INJ 100 ML IV SCH ×3 (07:51→20:43)
[2017-01-11] MEDS: DOCUSATE SODIUM 100 MG CAP PO SCH ×2 (07:51→20:43)
[2017-01-11] MEDS: fentaNYL DRIP 250 ML IV SCH (07:52)
[2017-01-11] MEDS: SODIUM CHLORIDE 0.9% FLUSH 5 ML FLUSH FLUSH SCH ×2 (07:52→20:43)
[2017-01-11] MEDS: SODIUM CHLORIDE 0.9% FLUSH 5 ML FLUSH IVF SCH (07:52)
[2017-01-11] MEDS: CHLORHEXIDINE 0.12% (ORAL KIT) 15 ML CUP MT SCH ×2 (07:52→20:00)
[2017-01-11] MEDS ORDERED: METHYLNALTREXONE BROMIDE 12 MG/0.6 ML VIAL SQ ONE (08:00)
[2017-01-11 09:27] LABS: MEAN CELL VOLUME 95.8 FL (80.0-100.0); MEAN CORPUSCULAR HEMOGLOBIN 31.9 PG (27.0-34.0); MEAN CORPUSCULAR HGB CONC 33.3 % (32.0-36.0); PLATELET COUNT 144 TH/MM3 (150-450); RED BLOOD COUNT 3.65 MIL/MM3 (4.50-5.90); RED CELL DISTRIBUTION WIDTH 15.1 % (11.6-17.2); REVIEW FLAG FINAL; WHITE BLOOD COUNT 7.5 TH/MM3 (4.0-11.0)
[2017-01-11 09:35] LABS: APTT (PATIENT) 30.8 SEC (24.3-30.1); INTERNATIONAL NORMALIZED RATIO 1.5 RATIO; PROTHROMBIN TIME - PATIENT 16.8 SEC (9.8-11.6)
[2017-01-11] MEDS: HEPARIN-D5W INJ 250 ML IV SCH (10:08)
[2017-01-11] MEDS: LACTULOSE SYRUP 20 GM/30 ML CUP PO SCH ×4 (10:09→20:42)
[2017-01-11] MEDS: SENNOSIDES SYRUP 8.8 MG/5 ML CUP G-TUBE SCH ×2 (10:26→22:42)
[2017-01-11] MEDS: PANTOPRAZOLE SODIUM 40 MG VIAL IV PUSH SCH (10:27)
[2017-01-11] MEDS ORDERED: RESP: ALBUTEROL 2.5 MG/IPRATROPIUM 0.5 MG NEB (SCH) NEB (14:00)
[2017-01-11] MEDS ORDERED: WARFARIN SOD 4 MG TAB PO SCH (16:00)
[2017-01-11] MEDS: AZITHROMYCIN INJ 500 MG in SODIUM CHLOR 0.9% 250 ML INJ 250 ML IV SCH (18:32)
[2017-01-11] MEDS: ATORVASTATIN 40 MG TAB PO SCH (20:43)
--- NOTE | 2017-01-11 20:47 | MB ---
cc: LUIS DANIEL GOLDMAN DATE OF CONSULTATION: 01/11/2017. REASON FOR CONSULTATION: Respiratory distress with pulmonary edema. HISTORY OF PRESENT ILLNESS: This is a 76-year-old white male with a past history of coronary artery disease, previous CABG and history of atrial fibrillation as well as COPD who was brought to the emergency room with shortness of breath and orthopnea. The patient apparently had low oxygen saturations and was placed on C-PAP but failed to improve. The patient was then seen by the hospitalist and was also started on a Cardizem drip for atrial fibrillation with rapid ventricular response. He however became bradycardic and hypotensive and was seen by critical care. He had to have a transcutaneous pacer placed and he was started on dopamine and had be given calcium gluconate and IV insulin. The patient went into progressive respiratory failure in spite of being on BiPAP and now has been intubated and placed on ventilator support which he has been on for the past 48 hours. He is sedated but he is still awake and somewhat restless. His chest x-ray following intubation had shown bilateral patchy infiltrates. His O2 sats have improved to 95% on 45% FIO2. The patient is also receiving IV Lasix 40 mg every 8 hours and has been placed on Solu-Medrol 60 mg IV every 8 hours and on antibiotic coverage as well. He is not running any fevers. The ET tube is in good position. PAST MEDICAL HISTORY: The patient's past history has been significant for: 1. Coronary artery disease as mentioned above. 2. History of hypertension. 3. Atrial fibrillation. 4. COPD. 5. Chronic kidney disease. 6. History of CVA. 7. Past history of prostate cancer. 8. Coronary artery bypass grafting in 1999. 9. He has peripheral vascular disease with stenting. 10. He received radiation therapy for prostate cancer. HABITS: The patient was a prior smoker of one pack per day for over 25 years and drinks alcohol moderately. FAMILY HISTORY: His family history is significant for lung cancer in three brothers as well as heart disease. REVIEW OF SYSTEMS: The patient is intubated and on ventilator support. He is unable to respond. PHYSICAL EXAMINATION: GENERAL: This is a moderately obese elderly man is intubated and somewhat restless but awake. VITAL SIGNS: Blood pressure is 145/80, pulse 96, respirations 20, temperature 98.6. HEAD, EYES, EARS, NOSE, THROAT: Head normocephalic. The pupils are reactive and equal. Tongue is clear. Ears have no inflammation. NECK: The neck is supple. No venous distention. No thyromegaly. CHEST: Distant breath sounds with scattered basilar crackles with wheezes bilaterally. HEART: Heart sounds are regular. S1 and S2. No murmur. ABDOMEN: Abdomen soft and obese without masses. No organomegaly or tenderness. The bowel sounds are active. EXTREMITIES: Decreased pulses. No edema. NEUROLOGIC: Reflexes are 1+. The patient does withdraw. He is partially sedated and the neuro exam is not completed. SKIN: Dry and warm. IMPRESSION: 1. Chronic systolic heart failure. 2. Respiratory failure with probable basilar pneumonia. 3. He has hypertension. 4. Hyperlipidemia. 5. Atrial fibrillation with rapid ventricular response. 6. COPD with chronic bronchitis and emphysema. 7. History of CVA. PLAN: 1. The patient has been started on Lasix every 8 hours which we will continue. 2. Nebulized DuoNeb solution added q.6 h while awake and Solu-Medrol will be continued at 60 mg every 8 hours. 3. We will also get a culture and Gram stain from the tracheal aspirate. 4. Place him on Zithromax 500 milligrams daily. 5. Repeat chest x-ray to be done. 6. If his clinical condition is stabilized, we could wean him to C-PAP over the next 24 hours and consider extubation. Thank you Dr. Jones for this consultation. MD VIDA Quinn/PATRICIA /5:59 PM /8:33 PM
[2017-01-11 23:02] LABS: APTT (PATIENT) 79.1 SEC (24.3-30.1)
[2017-01-11 23:26] LABS: BLOOD, URINE NEG (NEG); GLUCOSE,URINE NEG (NEG); HYALINE CAST, URINE 2 /lpf (RARE); KETONE, URINE NEG (NEG); MUCUS URINE FEW /lpf (OCC); NITRITE,URINE NEG (NEG); URINE COLOR LIGHT-YELLOW (YELLW/STRAW)
[2017-01-11 23:27] LABS: COMMENT (UR) CATH-CULT NOT IND; CULTURE IF INDICATED CATH CULTURE NOT IND
[2017-01-12] VITALS (18 sets, daily range): BP systolic 99–150; BP diastolic 55–73; PULSE 74–108; RESP 14; TEMP 97.6–98.3; O2SAT 90–95
[2017-01-12] MEDS: HEPARIN-D5W INJ 250 ML IV SCH (00:19)
[2017-01-12] MEDS: PROPOFOL 1000 MG/100 ML INJ 100 ML IV SCH ×5 (02:43→20:11)
[2017-01-12] MEDS: CHLORHEXIDINE GLUCONATE 2 % 1 PACK (2 CLOTHS) TOP SCH (04:00)
[2017-01-12] MEDS: methylPREDNISolone SOD SUCC 40 MG/1 ML VIAL IV PUSH SCH ×3 (04:49→21:13)
[2017-01-12] MEDS: FUROSEMIDE 40 MG/4 ML VIAL IV PUSH SCH ×3 (04:49→21:13)
[2017-01-12 05:21] LABS: PROTHROMBIN TIME - PATIENT 22.4 SEC (9.8-11.6)
[2017-01-12 05:25] LABS: AUTOMATED NEUTROPHIL # 7.5 TH/MM3 (1.8-7.7); BASOPHIL % 0.1 % (0.0-2.0); LYMPH % 2.7 % (9.0-44.0); LYMPHOCYTE # 0.2 TH/MM3 (1.0-4.8); MEAN CORPUSCULAR HEMOGLOBIN 31.7 PG (27.0-34.0); MEAN CORPUSCULAR HGB CONC 33.3 % (32.0-36.0); MONO % 4.8 % (0.0-8.0); NEUT % 92.4 % (16.0-70.0); PLATELET COUNT 158 TH/MM3 (150-450); RED BLOOD COUNT 3.79 MIL/MM3 (4.50-5.90); RED CELL DISTRIBUTION WIDTH 15.4 % (11.6-17.2); WHITE BLOOD COUNT 8.1 TH/MM3 (4.0-11.0)
[2017-01-12 05:33] LABS: HEMO FLAGS DIFF FINAL
[2017-01-12] MEDS: GEMFIBROZIL 600 MG TAB PO SCH ×2 (05:50→16:37)
[2017-01-12] MEDS: METOCLOPRAMIDE HCL 10 MG/2 ML VIAL IV PUSH SCH ×3 (05:50→23:19)
[2017-01-12] MEDS: INSULIN NovoLIN REGULAR SUPPLEMENTAL SCALE SQ SCH ×5 (06:00→23:19)
--- NOTE | 2017-01-12 06:04 | RADRPT ---
EXAM DATE/TIME: 01/12/2017 03:38 [facility] COMPARISON: CHEST SINGLE AP, January 11, 2017, 3:31. INDICATIONS : Respiratory failure. MEDICAL HISTORY : Hypertension. Hypercholesterolemia. Myocardial infarction. SURGICAL HISTORY : CABG. Carotid stent. ENCOUNTER: Subsequent ACUITY: 4 - 6 days PAIN SCORE: Non-responsive. LOCATION: Bilateral chest FINDINGS: Endotracheal tube tip well above the emilia. Gastric tube versus the [id number]. Right internal jugular catheter tip projects over the proximal superior vena cava. There is persistent infiltrates in the lower lungs, left greater than right, similar in appearance to prior examination. The upper l ungs are clear. CONCLUSION: Persistent bilateral lower lung infiltrates. Abimael Del Toro MD on January 12, 2017 at 6:02 Board Certified Radiologist. This report was verified electronically.
[2017-01-12 06:08] LABS: ALKALINE PHOSPHATASE 62 U/L (45-117); ALT (GPT) 16 U/L (12-78); ANION GAP 13 MEQ/L (5-15); AST (GOT) 14 U/L (15-37); BLOOD UREA NITROGEN 72 MG/DL (7-18); CHLORIDE 105 MEQ/L (98-107); CREATINE KINASE 402 U/L (39-308); GLOMERULAR FILTRATION RATE 31 ML/MIN (>89); MAGNESIUM 2.6 MG/DL (1.5-2.5); SODIUM (NA) 142 MEQ/L (136-145); TOTAL BILIRUBIN ADULT 0.3 MG/DL (0.2-1.0)
[2017-01-12 06:27] LABS: APTT (PATIENT) 96.6 SEC (24.3-30.1)
[2017-01-12] MEDS: RESP: ALBUTEROL 2.5 MG/IPRATROPIUM 0.5 MG NEB (SCH) NEB ×3 (07:31→19:34)
[2017-01-12 07:32] LABS: CKMB 1.7 NG/ML (0.5-3.6)
[2017-01-12] MEDS: CHLORHEXIDINE 0.12% (ORAL KIT) 15 ML CUP MT SCH ×2 (08:00→20:00)
[2017-01-12] MEDS: GABAPENTIN 100 MG CAP PO SCH ×3 (08:27→16:36)
[2017-01-12] MEDS: DOCUSATE SODIUM 100 MG CAP PO SCH ×2 (08:27→20:12)
[2017-01-12] MEDS: CARVEDILOL 6.25 MG TAB PO SCH ×2 (08:27→20:12)
[2017-01-12] MEDS: LACTULOSE SYRUP 20 GM/30 ML CUP PO SCH ×4 (08:31→20:12)
[2017-01-12] MEDS: POLYETHYLENE GLYCOL 17 GM PKG PO SCH ×2 (08:31→20:12)
[2017-01-12] MEDS: SODIUM CHLORIDE 0.9% FLUSH 5 ML FLUSH FLUSH SCH ×2 (09:00→20:12)
[2017-01-12] MEDS: SODIUM CHLORIDE 0.9% FLUSH 5 ML FLUSH IVF SCH (09:00)
[2017-01-12] MEDS: SENNOSIDES SYRUP 8.8 MG/5 ML CUP G-TUBE SCH ×2 (11:00→23:00)
[2017-01-12] MEDS: PANTOPRAZOLE SODIUM 40 MG VIAL IV PUSH SCH (11:34)
[2017-01-12 13:38] LABS: APTT (PATIENT) 81.2 SEC (24.3-30.1)
--- NOTE | 2017-01-12 14:17 | HHI.CCPN ---
Subjective Remarks/Hospital Course 76-year-old male with a medical history significant for coronary artery disease status post previous CABG, CHF with EF 30-35%, atrial fibrillation, COPD who was brought to the ER on 01/07/17 with shortness of breath going on for about a day which had progressively gotten worse. He was brought to the ER by EMS with O2 sats in the 80s. He was placed on C Pap given 20 mg intraosseous Cardizem as he was in A. fib with RVR. He was a patient of Dr. Madison who is currently retired. He quit smoking in 1999 prior to his CABG. A she was admitted by hospitalist service started on a Cardizem for rate control and his Coreg was continued at 25 mg twice a day. He was also initiated on Lovenox 1 mg per KG every 24 hourly for anticoagulation in view of renal insufficiency. This afternoon patient became bradycardic with heart rate dropping to the 20s and hypotension for which he was evaluated by Dr. Page from cardiology, Cardizem drip was stopped and he was immediately transferred to the ICU. Critical care consult was requested by Dr. David, I evaluated the patient immediately on being notified. He had transcutaneous pacer pads on and was being paced at the time with the pacer rate set at 70/m which I subsequently decreased to 50/m. He was started on dopamine which I increased to 15 mics per KG per minute. I also ordered 5 units of glucose gone IV stat, 50 mL of 50% dextrose and 10 units of regular insulin IV stat as well as 2 g of IV calcium gluconate and a DuoNeb nebulizer treatment. His heart rate came up to the 70s A. fib. Spoke with Dr. Page from cardiology who felt that the bradycardia was possibly related to his medications including Coreg and Cardizem which were held. Patient was on a nonrebreather facemask. Apart from the above, patient denies any recent fever/nausea/vomiting/diarrhea/ urinary burning or pain on urination. He denied any hematemesis/vomiting/melena/hematuria. Denied any syncopal episodes. Denied any palpitations in the past few days. He did have palpitations during this acute episode of respiratory distress. Denied any chest pains. However did report of ongoing chest tightness every time he exerts himself and walk around which is usually associated with shortness of breath on exertion as well. 01/09: Placed on dobutamine currently at 5 mcg/kg/m by overnight rate manager at reviewing echocardiogram. Somewhat diuresed. Currently with high O2 requirements hence electively intubated. CVP will be checked after central line placed. 01/10: Afebrile. Dobutamine currently at 2.5 mcg/kg/m. CVP around 10. FiO2 down to 50%. We'll try spontaneous breathing trial today. VQ scan pending. Dopplers legs negative DVT 01/11: Afebrile. Off dobutamine. CVP normal. FiO2 down to 50%. Will reattempt spontaneous breathing trials today. VQ scan negative. Doppler right extremity with cephalic vein thrombosis. Subjective 01/12: FiO2 of 45%. Lasted 15 minutes on spontaneous breathing trials today. Becomes tachycardic and tachypnea. 3 bowel movements last night. Tolerating tube feeds Objective Vital Signs Date Time Temp Pulse Resp B/P Pulse Ox O2 Delivery O2 Flow Rate FiO2 01/12/17 13:12 91 45 01/12/17 12:00 86 01/12/17 12:00 97.7 14 150/73 01/09/17 08:00 Bi-Pap 01/08/17 19:00 15.00 Intake and Output 01/11/17 01/11/17 01/12/17 08:00 16:00 00:00 Intake Total 622 ml 856 ml 975 ml Output Total 550.0 ml 750.0 ml 725 ml Balance 72.0 ml 106.0 ml 250 ml Result Diagram: 01/12/17 0455 01/12/17 0455 Other Results Microbiology Date/Time Procedure Status Source Growth 01/12/17 05:02 Stool Occult Blood ([facility]) Received Stool Stool Pending 01/11/17 11:47 Aerobic Blood Culture - Preliminary Resulted Blood Peripheral NO GROWTH IN 1 DAY 01/11/17 11:47 Anaerobic Blood Culture - Preliminary Resulted Blood Peripheral NO GROWTH IN 1 DAY 01/07/17 20:30 Aerobic Blood Culture - Final Complete Blood Peripheral NO GROWTH IN 5 DAYS 01/07/17 20:30 Anaerobic Blood Culture - Final Complete Blood Peripheral NO GROWTH IN 5 DAYS Imaging Last Impressions Chest X-Ray 01/11/17 0600 Signed Impressions: Service Date/Time: Wednesday, January 11, 2017 03:31 - CONCLUSION: 1. ET tube is 1.2 cm above the emilia and needs to be withdrawn at least 1 cm. 2. Increased prominence of consolidative infiltrates left lower lobe and right pleural effusion. Abimael Del Toro MD Upper Extremity Ultrasound 01/10/17 Signed Impressions: Service Date/Time: January 16:47 - CONCLUSION: Right cephalic vein thrombosis. Negative on the left. Jose Rubio MD Renal Ultrasound 01/09/17 Signed Impressions: Service Date/Time: Monday, January 09, 2017 11:34 - CONCLUSION: 1. No obstructive uropathy or other acute abnormality seen of either kidney. No perceptible parenchymal changes. 2. Simple, benign appearing left renal cyst. 3. Urinary bladder decompressed with a Lopez catheter and is grossly unremarkable. Jose Rubio MD Lung Scan-V Nuclear Medicine 01/09/17 Signed Impressions: Service Date/Time: January 11:06 - CONCLUSION: 1. Low probability for pulmonary embolus. Tommy Page MD Lower Extremity Ultrasound 01/09/17 Signed Impressions: Service Date/Time: Monday, January 09, 2017 17:44 - CONCLUSION: No DVT in either lower extremity. Floyd Khan MD Objective Remarks GENERAL: 76-year-old male, critically ill currently orotracheally intubated SKIN: Warm and dry. No rash HEAD: Atraumatic. Normocephalic. EYES: Pupils equal and round about 3 mm bilaterally and reactive. No scleral icterus. No injection or drainage. ENT: No nasal bleeding or discharge. Mucous membranes pink and moist. NECK: Trachea midline. No JVD. CARDIOVASCULAR: IRR. S1, S2 no S4. Without appreciable murmur. RESPIRATORY: Diminished breath sounds in bases bilaterally. Few crackles appreciated. Breath sounds equal bilaterally. GASTROINTESTINAL: Abdomen soft, non-tender, slightly protuberant. Hypoactive bowel sounds are appreciated MUSCULOSKELETAL: Extremities with trace lower extremity nonpitting edema NEUROLOGICAL: Arousable on the ventilator. Squeezes hand to command. Date of Insertion: Jan 09, 2017 Line: Central Venous Catheter Side: Right Location: Internal, Jugular A/P Assessment and Plan Neuro/Psych: History of CVA/TIA 2013 without residual effect Peripheral neuropathy Currently in propofol at 30 mcg/kg/m/fentanyl 75 g an hour drips for sedation/ analgesia while intubated Goal of RASS -2 Daily sedation vacation Continue Neurontin 100 mg by mouth 3 times a day. Neuropathy Acetaminophen for fever Cardiovascular: Symptomatically bradycardia likely medication induced - resolved Acute systolic heart failure/ischemic cardiopathy - EF 30% History of hypertension History dyslipidemia Coronary artery disease status post CABG 1999 History bilateral lower extremity since secondary DVT Echocardiogram reveals EF 30-35%. Akinesis of the apical myocardium. EDEL 43 mmHg. Moderate TR. RV normal Cardizem (on Norvasc 10 mg daily at home) currently on hold Coreg home dose 25 mg by mouth daily has been switched 12.5 mg twice a day by cardiology yesterday. Continue on 6.25 twice a day today with borderline blood pressures 01/08, Patient given calcium gluconate 2 g IV piggyback, 5 units iv, d50 and 10 units of regular insulin iv push in view of bradycardia and hypotension thought to be secondary to Cardizem/Coreg. Also given DuoNeb nebulizer treatment to reverse bradycardia. Initially Started on dopamine at 15 mics per KG per minute. This was switched dobutamine currently at 2. 5 mcg/kg/m which will be weaned off and Cosmo- Synephrine will be used if needed to maintain MAP greater than 65. This is been weaned to off as well Dr. Page from cardiology following. Recommended cessation of Cardizem. Resume Coreg when indicated. Will receive Lexiscan prior to discharge with likely LifeVest placement Received Lovenox 1 mg per KG subcutaneously and ordered daily for anticoagulation for A. fib in the setting of renal insufficiency. Switched to heparin drip 01/11 in discontinued 01/12 Coumadin held in anticipation of procedures. Restarted Coumadin last night. It INR currently 2.0 Continue Lipitor at 40 mg daily and Lopid 60 mg twice a day for dyslipidemia. Cycle cardiac enzymes currently trending downward. Likely demand ischemia in light of respiratory failure. Pulmonary: Acute hypoxemic respiratory failure COPD [facility] /11/08/44 Ventilator bundle Bronchodilator therapy every 6 hours and as needed Spontaneous breathing trials daily Continue Solu-Medrol 40 mg IV now and every 8 hourly. VQ scan hourly for PE negative Dopplers for thrombus in lower lower extremities. Right upper extremity with cephalic vein thrombus/superficial We'll consult pulmonology as this does not seem to be exclusively cardiac etiology for his hypoxemic respiratory failure. Negative PE. No signs of infection. Continue diuresis GI/liver: Continue tube feeds with Nepro goal 60 cc an hour Protonix for GI prophylaxis Colace and Senokot twice a day for bowel regimen Added MiraLAX and lactulose Reglan prokinetic agent 5 every 8 Renal/: Acute on chronic kidney disease stage IV History of nephrolithiasis History of prostate cancer status post radiation beads Strict intake output, monitor and replete electro lites, follow BUN/creatinine. Currently on Lasix 40 mg IV 3 times a day Renal ultrasound negative hydronephrosis. Negative urine eosinophils HEME: Normocytic anemia Thrombocytopenia History bilateral lower extremity DVT on chronic Coumadin 4 mill grams daily History of prostate cancer Follow CBC daily. Monitor trends. Currently on full anticoagulated renal dosed Lovenox ID: No antibiotics at this time. Monitor for infection Endocrine: Gout SSI for glycemic control Holding Uloric 80 milligrams daily for gout MSK Morbid obesity Weight loss encouraged FEN Hypokalemia Replace electrolytes as clinically indicated Prophylaxis: PPI/SCDs. Coumadin 2 mg daily. INR currently therapeutic Critical Care: The total critical care time was 35 minutes. Time to perform other separately billable procedures was not included in the critical care time. Del Jones MD Jan 12, 2017 14:17
[2017-01-12] MEDS: POTASSIUM CHLOR 40 MEQ PREMIX 100 ML IV SCH ×2 (14:49→17:49)
[2017-01-12] MEDS: AZITHROMYCIN INJ 500 MG in SODIUM CHLOR 0.9% 250 ML INJ 250 ML IV SCH (16:37)
[2017-01-12] MEDS: WARFARIN SOD 2 MG TAB PO SCH (16:37)
--- NOTE | 2017-01-12 18:57 | HHI.PR ---
Subjective Remarks Sedated and on vent support . Failed T bar trial. On FIO2 45 %. Objective Vital Signs Date Time Temp Pulse Resp B/P Pulse Ox O2 Delivery O2 Flow Rate FiO2 01/12/17 18:00 86 01/12/17 17:59 93 40 01/12/17 16:00 45 01/12/17 16:00 86 01/12/17 16:00 98.3 74 14 99/58 90 01/12/17 14:00 86 01/12/17 13:12 91 45 01/12/17 12:00 86 01/12/17 12:00 45 01/12/17 12:00 97.7 86 14 150/73 91 01/12/17 11:38 45 01/12/17 10:00 95 01/12/17 08:00 97.6 94 14 119/55 94 01/12/17 08:00 45 01/12/17 08:00 94 01/12/17 07:40 94 45 01/12/17 06:00 98 01/12/17 04:31 94 45 01/12/17 04:00 45 01/12/17 04:00 97.9 108 14 115/65 93 01/12/17 04:00 108 01/12/17 02:00 108 01/12/17 00:43 95 45 01/12/17 00:00 45 01/12/17 00:00 98.1 98 14 106/63 94 01/12/17 00:00 98 01/11/17 22:00 94 01/11/17 21:13 94 45 01/11/17 20:00 98.1 96 14 99/68 95 01/11/17 20:00 45 01/11/17 20:00 96 I/O 01/11/17 01/11/17 01/11/17 01/12/17 01/12/17 01/12/17 07:00 15:00 23:00 07:00 15:00 23:00 Intake Total 622 ml 856 ml 975 ml 948 ml 1082 ml Output Total 550 ml 750 ml 725 ml 1000 ml 900 ml Balance 72 ml 106 ml 250 ml -52 ml 182 ml IV Total 169 ml 239 ml 522 ml 302 ml 385 ml Tube Feeding 333 ml 497 ml 393 ml 526 ml 577 ml Other 120 ml 120 ml 60 ml 120 ml 120 ml Output Urine Total 550 ml 750 ml 725 ml 1000 ml 900 ml Tube Feeding Residual Discard 0 ml 0 ml 0 ml # Bowel Movements 0 0 1 2 0 Result Diagram: 01/12/175 01/12/175 Objective Remarks GENERAL: This is a moderately obese elderly man is intubated and somewhat restless but awake. HEAD, EYES, EARS, NOSE, THROAT: Head normocephalic. The pupils are reactive and equal. Tongue is clear. Ears have no inflammation. NECK: The neck is supple. No venous distention. No thyromegaly. CHEST: Distant breath sounds with scattered basilar crackles with wheezes bilaterally. HEART: Heart sounds are Irregular. S1 and S2. No murmur. ABDOMEN: Abdomen soft and obese without masses. No organomegaly or tenderness. The bowel sounds are active. EXTREMITIES: Decreased pulses. No edema. NEUROLOGIC: Reflexes are 1+. The patient does withdraw. He is partially sedated and the neuro exam is not completed. SKIN: Dry and warm. Assessment and Plan Assessment and Plan IMPRESSION: 1. Chronic systolic heart failure. 2. Respiratory failure with probable basilar pneumonia. 3. He has hypertension. 4. Hyperlipidemia. 5. Atrial fibrillation with rapid ventricular response. 6. COPD with chronic bronchitis and emphysema. 7. History of CVA. Plan : 1. Cont Weaning FIo2 and increase PEEP to 8. 2. Nebs qid , Duoneb. 3. Antibiotics as ordered. 4. Reduce sedation. 5. CPAP in am. 6. Tube feeds at 55 CC. 7. CBC,BMP,ABG in am Gin Tran MD Jan 12, 2017 18:57
[2017-01-12] MEDS: ATORVASTATIN 40 MG TAB PO SCH (20:12)
[2017-01-13] VITALS (18 sets, daily range): BP systolic 14–181; BP diastolic 68–96; PULSE 92–129; RESP 14–25; TEMP 97.7–98.3; O2SAT 91–97
[2017-01-13] MEDS: fentaNYL DRIP 250 ML IV SCH (00:42)
[2017-01-13] MEDS: PROPOFOL 1000 MG/100 ML INJ 100 ML IV SCH (00:42)
[2017-01-13] MEDS: CHLORHEXIDINE GLUCONATE 2 % 1 PACK (2 CLOTHS) TOP SCH (03:27)
[2017-01-13] MEDS: RESP: ALBUTEROL 2.5 MG/IPRATROPIUM 0.5 MG NEB (SCH) NEB ×4 (03:36→19:57)
[2017-01-13] MEDS: methylPREDNISolone SOD SUCC 40 MG/1 ML VIAL IV PUSH SCH ×3 (04:20→20:57)
[2017-01-13] MEDS: FUROSEMIDE 40 MG/4 ML VIAL IV PUSH SCH ×3 (04:20→20:58)
[2017-01-13 04:48] LABS: INTERNATIONAL NORMALIZED RATIO 3.4 RATIO; PROTHROMBIN TIME - PATIENT 39.9 SEC (9.8-11.6)
[2017-01-13 04:49] LABS: AUTOMATED NEUTROPHIL # 7.2 TH/MM3 (1.8-7.7); BASOPHIL % 0.3 % (0.0-2.0); HEMATOCRIT 35.8 % (39.0-51.0); HEMO FLAGS DIFF FINAL; LYMPH % 3.9 % (9.0-44.0); LYMPHOCYTE # 0.3 TH/MM3 (1.0-4.8); MEAN CELL VOLUME 95.3 FL (80.0-100.0); MEAN CORPUSCULAR HEMOGLOBIN 31.7 PG (27.0-34.0); MEAN CORPUSCULAR HGB CONC 33.3 % (32.0-36.0); MONO % 4.4 % (0.0-8.0); NEUT % 91.4 % (16.0-70.0); PLATELET COUNT 151 TH/MM3 (150-450); RED BLOOD COUNT 3.76 MIL/MM3 (4.50-5.90); RED CELL DISTRIBUTION WIDTH 15.5 % (11.6-17.2); WHITE BLOOD COUNT 7.9 TH/MM3 (4.0-11.0)
[2017-01-13 05:30] LABS: ALKALINE PHOSPHATASE 60 U/L (45-117); ALT (GPT) 18 U/L (12-78); ANION GAP 11 MEQ/L (5-15); AST (GOT) 12 U/L (15-37); BICARBONATE 27.2 MEQ/L (21.0-32.0); BLOOD UREA NITROGEN 80 MG/DL (7-18); CHLORIDE 107 MEQ/L (98-107); GLOMERULAR FILTRATION RATE 32 ML/MIN (>89); MAGNESIUM 2.7 MG/DL (1.5-2.5); SODIUM (NA) 145 MEQ/L (136-145); TOTAL BILIRUBIN ADULT 0.2 MG/DL (0.2-1.0)
[2017-01-13] MEDS: INSULIN NovoLIN REGULAR SUPPLEMENTAL SCALE SQ SCH ×3 (05:37→17:23)
[2017-01-13] MEDS: GEMFIBROZIL 600 MG TAB PO SCH ×2 (05:37→16:17)
[2017-01-13] MEDS: METOCLOPRAMIDE HCL 10 MG/2 ML VIAL IV PUSH SCH ×3 (05:37→21:36)
--- NOTE | 2017-01-13 06:06 | RADRPT ---
EXAM DATE/TIME: 01/13/2017 03:55 [facility] COMPARISON: CHEST SINGLE AP, January 12, 2017, 3:38. INDICATIONS : Evaluate for pneumonia. MEDICAL HISTORY : Hypertension. Hypercholesterolemia. Myocardial infarction. SURGICAL HISTORY : CABG. Carotid stent. ENCOUNTER: Subsequent ACUITY: 4 - 6 days PAIN SCORE: Non-responsive. LOCATION: Bilateral chest FINDINGS: Endotracheal tube tip well above the emilia. Gastric tube traverses the [id number]. There is per sistent lower lung infiltrates with increasing consolidation at the left base and partial consolidati on in the right lower lung. There is loss of delineation of both hemidiaphragms. CONCLUSION: Persistent bilateral lower lung infiltrates, increased when compared to prior. Abimael Del Toro MD on January 13, 2017 at 6:04 Board Certified Radiologist. This report was verified electronically.
--- NOTE | 2017-01-13 07:32 | HHI.CCPN ---
Subjective Remarks/Hospital Course 76-year-old male with a medical history significant for coronary artery disease status post previous CABG, CHF with EF 30-35%, atrial fibrillation, COPD who was brought to the ER on 01/07/17 with shortness of breath going on for about a day which had progressively gotten worse. He was brought to the ER by EMS with O2 sats in the 80s. He was placed on C Pap given 20 mg intraosseous Cardizem as he was in A. fib with RVR. He was a patient of Dr. Madison who is currently retired. He quit smoking in 1999 prior to his CABG. A she was admitted by hospitalist service started on a Cardizem for rate control and his Coreg was continued at 25 mg twice a day. He was also initiated on Lovenox 1 mg per KG every 24 hourly for anticoagulation in view of renal insufficiency. This afternoon patient became bradycardic with heart rate dropping to the 20s and hypotension for which he was evaluated by Dr. Page from cardiology, Cardizem drip was stopped and he was immediately transferred to the ICU. Critical care consult was requested by Dr. David, I evaluated the patient immediately on being notified. He had transcutaneous pacer pads on and was being paced at the time with the pacer rate set at 70/m which I subsequently decreased to 50/m. He was started on dopamine which I increased to 15 mics per KG per minute. I also ordered 5 units of glucose gone IV stat, 50 mL of 50% dextrose and 10 units of regular insulin IV stat as well as 2 g of IV calcium gluconate and a DuoNeb nebulizer treatment. His heart rate came up to the 70s A. fib. Spoke with Dr. Page from cardiology who felt that the bradycardia was possibly related to his medications including Coreg and Cardizem which were held. Patient was on a nonrebreather facemask. Apart from the above, patient denies any recent fever/nausea/vomiting/diarrhea/ urinary burning or pain on urination. He denied any hematemesis/vomiting/melena/hematuria. Denied any syncopal episodes. Denied any palpitations in the past few days. He did have palpitations during this acute episode of respiratory distress. Denied any chest pains. However did report of ongoing chest tightness every time he exerts himself and walk around which is usually associated with shortness of breath on exertion as well. 01/09: Placed on dobutamine currently at 5 mcg/kg/m by overnight deputy head at reviewing echocardiogram. Somewhat diuresed. Currently with high O2 requirements hence electively intubated. CVP will be checked after central line placed. 01/10: Afebrile. Dobutamine currently at 2.5 mcg/kg/m. CVP around 10. FiO2 down to 50%. We'll try spontaneous breathing trial today. VQ scan pending. Dopplers legs negative DVT 01/11: Afebrile. Off dobutamine. CVP normal. FiO2 down to 50%. Will reattempt spontaneous breathing trials today. VQ scan negative. Doppler right extremity with cephalic vein thrombosis. Subjective 01/12: FiO2 of 45%. Lasted 15 minutes on spontaneous breathing trials today. Becomes tachycardic and tachypnea. 3 bowel movements last night. Tolerating tube feeds 01/13: Increase Coreg to 25 po bid. Add po cardizem,. Objective Vital Signs Date Time Temp Pulse Resp B/P Pulse Ox O2 Delivery O2 Flow Rate FiO2 01/13/17 07:18 40 01/13/17 07:18 92 01/13/17 06:00 104 01/13/17 04:00 97.7 14 118/72 01/09/17 08:00 Bi-Pap Intake and Output 01/12/17 01/12/17 01/13/17 08:00 16:00 00:00 Intake Total 948 ml 1082 ml 1211 ml Output Total 1000 ml 900 ml 450 ml Balance -52 ml 182 ml 761 ml Result Diagram: 01/13/17 0428 01/13/17 0428 Other Results Microbiology Date/Time Procedure Status Source Growth 01/12/17 05:02 Stool Occult Blood ([facility]) - Final Complete Stool Stool HEMOCCULT NEGATIVE 01/12/17 17:35 Influenza Types A,B Antigen ([facility]) - Final Complete Nasal Aspirate NEGATIVE FOR FLU A AND B ANTIGEN.... Imaging Last Impressions Chest X-Ray 01/11/17 0600 Signed Impressions: Service Date/Time: Wednesday, January 11, 2017 03:31 - CONCLUSION: 1. ET tube is 1.2 cm above the emilia and needs to be withdrawn at least 1 cm. 2. Increased prominence of consolidative infiltrates left lower lobe and right pleural effusion. Abimael Del Toro MD Upper Extremity Ultrasound 01/10/17 Signed Impressions: Service Date/Time: January 16:47 - CONCLUSION: Right cephalic vein thrombosis. Negative on the left. Jose Rubio MD Renal Ultrasound 01/09/17 Signed Impressions: Service Date/Time: Monday, January 09, 2017 11:34 - CONCLUSION: 1. No obstructive uropathy or other acute abnormality seen of either kidney. No perceptible parenchymal changes. 2. Simple, benign appearing left renal cyst. 3. Urinary bladder decompressed with a Lopez catheter and is grossly unremarkable. Jose Rubio MD Lung Scan-V Nuclear Medicine 01/09/17 Signed Impressions: Service Date/Time: January 11:06 - CONCLUSION: 1. Low probability for pulmonary embolus. Tommy Page MD Lower Extremity Ultrasound 01/09/17 Signed Impressions: Service Date/Time: Monday, January 09, 2017 17:44 - CONCLUSION: No DVT in either lower extremity. Floyd Khan MD Objective Remarks GENERAL: 76-year-old male, critically ill currently orotracheally intubated SKIN: Warm and dry. No rash HEAD: Atraumatic. Normocephalic. EYES: Pupils equal and round about 3 mm bilaterally and reactive. No scleral icterus. No injection or drainage. ENT: No nasal bleeding or discharge. Mucous membranes pink and moist. NECK: Trachea midline. No JVD. CARDIOVASCULAR: IRR. S1, S2 no S4. Without appreciable murmur. RESPIRATORY: Diminished breath sounds in bases bilaterally. Few crackles appreciated. Breath sounds equal bilaterally. GASTROINTESTINAL: Abdomen soft, non-tender, slightly protuberant. Hypoactive bowel sounds are appreciated MUSCULOSKELETAL: Extremities with trace lower extremity nonpitting edema NEUROLOGICAL: Arousable on the ventilator. Squeezes hand to command. Date of Insertion: Jan 09, 2017 Line: Central Venous Catheter Side: Right Location: Internal, Jugular A/P Assessment and Plan Neuro/Psych: History of CVA/TIA 2013 without residual effect Peripheral neuropathy Currently in propofol at 30 mcg/kg/m/fentanyl 75 g an hour drips for sedation/ analgesia while intubated Goal of RASS -2 Daily sedation vacation Continue Neurontin 100 mg by mouth 3 times a day. Neuropathy Acetaminophen for fever Cardiovascular: Symptomatically bradycardia likely medication induced - resolved Acute systolic heart failure/ischemic cardiopathy - EF 30% History of hypertension History dyslipidemia Coronary artery disease status post CABG 1999 History bilateral lower extremity since secondary DVT Echocardiogram reveals EF 30-35%. Akinesis of the apical myocardium. EDEL 43 mmHg. Moderate TR. RV normal Cardizem (on Norvasc 10 mg daily at home) currently on hold Coreg home dose 25 mg by mouth daily has been switched 12.5 mg twice a day by cardiology yesterday. Continue on 6.25 twice a day today with borderline blood pressures 01/08, Patient given calcium gluconate 2 g IV piggyback, 5 units iv, d50 and 10 units of regular insulin iv push in view of bradycardia and hypotension thought to be secondary to Cardizem/Coreg. Also given DuoNeb nebulizer treatment to reverse bradycardia. Initially Started on dopamine at 15 mics per KG per minute. This was switched dobutamine currently at 2. 5 mcg/kg/m which will be weaned off and Cosmo- Synephrine will be used if needed to maintain MAP greater than 65. This is been weaned to off as well Dr. Page from cardiology following. Recommended cessation of Cardizem. Resume Coreg when indicated. Will receive Lexiscan prior to discharge with likely LifeVest placement Received Lovenox 1 mg per KG subcutaneously and ordered daily for anticoagulation for A. fib in the setting of renal insufficiency. Switched to heparin drip 01/11 in discontinued 01/12 Coumadin held in anticipation of procedures. Restarted Coumadin last night. It INR currently 2.0 Continue Lipitor at 40 mg daily and Lopid 60 mg twice a day for dyslipidemia. Cycle cardiac enzymes currently trending downward. Likely demand ischemia in light of respiratory failure. Pulmonary: Acute hypoxemic respiratory failure COPD [facility] 14500/11/08/44 Ventilator bundle Bronchodilator therapy every 6 hours and as needed Spontaneous breathing trials daily Continue Solu-Medrol 40 mg IV now and every 8 hourly. VQ scan hourly for PE negative Dopplers for thrombus in lower lower extremities. Right upper extremity with cephalic vein thrombus/superficial We'll consult pulmonology as this does not seem to be exclusively cardiac etiology for his hypoxemic respiratory failure. Negative PE. No signs of infection. Continue diuresis GI/liver: Continue tube feeds with Nepro goal 60 cc an hour Protonix for GI prophylaxis Colace and Senokot twice a day for bowel regimen Added MiraLAX and lactulose Reglan prokinetic agent 5 every 8 Renal/: Acute on chronic kidney disease stage IV History of nephrolithiasis History of prostate cancer status post radiation beads Strict intake output, monitor and replete electro lites, follow BUN/creatinine. Currently on Lasix 40 mg IV 3 times a day Renal ultrasound negative hydronephrosis. Negative urine eosinophils HEME: Normocytic anemia Thrombocytopenia History bilateral lower extremity DVT on chronic Coumadin 4 mill grams daily History of prostate cancer Follow CBC daily. Monitor trends. Currently on full anticoagulated renal dosed Lovenox ID: No antibiotics at this time. Monitor for infection Endocrine: Gout SSI for glycemic control Holding Uloric 80 milligrams daily for gout MSK Morbid obesity Weight loss encouraged FEN Hypokalemia Replace electrolytes as clinically indicated Prophylaxis: PPI/SCDs. Coumadin 2 mg daily. INR currently therapeutic Overall impression: REmains in heart failure. Critically ill with poor rate control. Critical Care 34 mins Domingo Milligan MD Jan 13, 2017 07:31
[2017-01-13] MEDS: CARVEDILOL 12.5 MG TAB PO SCH ×2 (08:00→20:58)
[2017-01-13] MEDS: CHLORHEXIDINE 0.12% (ORAL KIT) 15 ML CUP MT SCH ×2 (08:00→20:00)
[2017-01-13] MEDS: SODIUM CHLORIDE 0.9% FLUSH 5 ML FLUSH IVF SCH (09:00)
[2017-01-13] MEDS: POLYETHYLENE GLYCOL 17 GM PKG PO SCH ×2 (09:00→20:59)
[2017-01-13] MEDS: GABAPENTIN 100 MG CAP PO SCH ×3 (09:00→16:17)
[2017-01-13] MEDS: DOCUSATE SODIUM 100 MG CAP PO SCH ×2 (09:00→20:59)
[2017-01-13] MEDS: LACTULOSE SYRUP 20 GM/30 ML CUP PO SCH ×4 (09:00→20:59)
[2017-01-13] MEDS ORDERED: CARVEDILOL 12.5 MG TAB PO SCH (09:00)
[2017-01-13] MEDS: DILTIAZEM HCL 30 MG TAB PO SCH ×4 (09:00→20:58)
[2017-01-13] MEDS: SODIUM CHLORIDE 0.9% FLUSH 5 ML FLUSH FLUSH SCH ×2 (09:00→20:58)
[2017-01-13] MEDS: SENNOSIDES SYRUP 8.8 MG/5 ML CUP G-TUBE SCH ×2 (11:00→22:24)
[2017-01-13] MEDS: METOPROLOL TARTRATE 5 MG/5 ML VIAL IV PUSH PRN ×3 (11:00→21:36)
[2017-01-13] MEDS: PANTOPRAZOLE SODIUM 40 MG VIAL IV PUSH SCH (11:39)
[2017-01-13] MEDS ORDERED: DIGOXIN 0.5 MG/2 ML VIAL IV PUSH ONE ×2 (13:00→15:00)
--- NOTE | 2017-01-13 16:20 | HHI.PR ---
Subjective Remarks Extubated and on o2 40 % FIO2. No resp distress. Objective Vital Signs Date Time Temp Pulse Resp B/P Pulse Ox O2 Delivery O2 Flow Rate FiO2 01/13/17 14:00 129 01/13/17 12:00 129 01/13/17 12:00 98.1 127 20 135/96 97 01/13/17 10:11 92 01/13/17 10:00 129 01/13/17 09:51 92 Partial Rebreather 01/13/17 08:00 98.0 126 15 144/83 92 01/13/17 08:00 104 01/13/17 08:00 40 01/13/17 07:18 40 01/13/17 07:18 92 40 01/13/17 06:00 104 01/13/17 04:09 93 40 01/13/17 04:00 45 01/13/17 04:00 100 01/13/17 04:00 97.7 100 14 118/72 94 01/13/17 02:00 104 01/13/17 01:24 93 40 01/13/17 00:00 97.8 104 14 117/68 94 01/13/17 00:00 45 01/13/17 00:00 104 01/12/17 22:00 96 01/12/17 20:00 45 01/12/17 20:00 100 01/12/17 20:00 97.8 100 14 101/59 92 01/12/17 19:20 92 40 01/12/17 18:00 86 01/12/17 17:59 93 40 I/O 01/12/17 01/12/17 01/12/17 01/13/17 01/13/17 01/13/17 07:00 15:00 23:00 07:00 15:00 23:00 Intake Total 948 ml 1082 ml 1211 ml 801 ml 199 ml Output Total 1000 ml 900 ml 450 ml 800 ml 1150 ml Balance -52 ml 182 ml 761 ml 1 ml -951 ml IV Total 302 ml 385 ml 640 ml 186 ml 19 ml Tube Feeding 526 ml 577 ml 511 ml 495 ml 60 ml Other 120 ml 120 ml 60 ml 120 ml 120 ml Output Urine Total 1000 ml 900 ml 450 ml 800 ml 1150 ml # Bowel Movements 2 0 1 0 3 Result Diagram: 01/13/178 01/13/17427 Objective Remarks GENERAL: This is a moderately obese elderly man is awake.On a ventimask. HEAD, EYES, EARS, NOSE, THROAT: Head normocephalic. The pupils are reactive and equal. Tongue is clear. Ears clear. NECK: The neck is supple. No venous distention. No thyromegaly. CHEST: Distant breath sounds with scattered basilar crackles with wheezes bilaterally. HEART: Heart sounds are Irregular. S1 and S2. No murmur. ABDOMEN: Abdomen soft and obese without masses. No organomegaly or tenderness. The bowel sounds are active. EXTREMITIES: Decreased pulses. No edema. NEUROLOGIC: Reflexes are 1+. No gross deficits. SKIN: Dry and warm. Assessment and Plan Assessment and Plan IMPRESSION: 1. Chronic systolic heart failure. 2. Respiratory failure with probable basilar pneumonia. 3. He has hypertension. 4. Hyperlipidemia. 5. Atrial fibrillation with rapid ventricular response. 6. COPD with chronic bronchitis and emphysema. 7. History of CVA. Plan : 1. Cont Weaning FIo2 and switch to N/C 5L. 2. Nebs qid , Duoneb. 3. Antibiotics as ordered. 4. Reduce sedation. 5. Bipap at HS 12/5 if he desats. 6. Tube feeds at 55 CC. 7. CBC,BMP CXR in am 8. Taper solumedrol to 40 mg bid Gin Tran MD Jan 13, 2017 16:20
[2017-01-13] MEDS: AZITHROMYCIN INJ 500 MG in SODIUM CHLOR 0.9% 250 ML INJ 250 ML IV SCH (17:24)
[2017-01-13] MEDS: ATORVASTATIN 40 MG TAB PO SCH (20:58)
[2017-01-14] VITALS (13 sets, daily range): BP systolic 155–166; BP diastolic 69–85; PULSE 78–115; RESP 18–26; TEMP 97.3–98.6; O2SAT 92–98
[2017-01-14] MEDS: RESP: ALBUTEROL 2.5 MG/IPRATROPIUM 0.5 MG NEB (SCH) NEB ×4 (03:20→21:03)
[2017-01-14] MEDS: CHLORHEXIDINE GLUCONATE 2 % 1 PACK (2 CLOTHS) TOP SCH (03:26)
[2017-01-14 04:24] LABS: MEAN CELL VOLUME 94.6 FL (80.0-100.0); MEAN CORPUSCULAR HEMOGLOBIN 31.6 PG (27.0-34.0); MEAN CORPUSCULAR HGB CONC 33.4 % (32.0-36.0); PLATELET COUNT 166 TH/MM3 (150-450); RED BLOOD COUNT 4.22 MIL/MM3 (4.50-5.90); RED CELL DISTRIBUTION WIDTH 15.2 % (11.6-17.2); REVIEW FLAG FINAL; WHITE BLOOD COUNT 8.6 TH/MM3 (4.0-11.0)
[2017-01-14 04:35] LABS: INTERNATIONAL NORMALIZED RATIO 2.9 RATIO; PROTHROMBIN TIME - PATIENT 33.4 SEC (9.8-11.6)
[2017-01-14 04:50] LABS: BICARBONATE 28.3 MEQ/L (21.0-32.0); POTASSIUM 4.1 MEQ/L (3.5-5.1)
[2017-01-14] MEDS: FUROSEMIDE 40 MG/4 ML VIAL IV PUSH SCH ×3 (05:15→21:03)
[2017-01-14] MEDS: INSULIN NovoLIN REGULAR SUPPLEMENTAL SCALE SQ SCH ×5 (05:44→23:13)
[2017-01-14] MEDS: GEMFIBROZIL 600 MG TAB PO SCH ×2 (05:45→16:06)
[2017-01-14] MEDS: METOCLOPRAMIDE HCL 10 MG/2 ML VIAL IV PUSH SCH ×3 (05:45→23:13)
[2017-01-14] MEDS: METOPROLOL TARTRATE 5 MG/5 ML VIAL IV PUSH PRN (07:44)
[2017-01-14] MEDS: GABAPENTIN 100 MG CAP PO SCH ×3 (08:18→17:33)
[2017-01-14] MEDS: CARVEDILOL 12.5 MG TAB PO SCH ×2 (08:18→21:02)
[2017-01-14] MEDS: methylPREDNISolone SOD SUCC 40 MG/1 ML VIAL IV PUSH SCH (08:18)
[2017-01-14] MEDS: DILTIAZEM HCL 30 MG TAB PO SCH ×4 (08:18→21:02)
[2017-01-14] MEDS: CHLORHEXIDINE 0.12% (ORAL KIT) 15 ML CUP MT SCH ×2 (08:19→20:00)
[2017-01-14] MEDS: SODIUM CHLORIDE 0.9% FLUSH 5 ML FLUSH FLUSH SCH ×2 (08:19→21:00)
[2017-01-14] MEDS: LACTULOSE SYRUP 20 GM/30 ML CUP PO SCH ×4 (08:19→21:00)
[2017-01-14] MEDS: SODIUM CHLORIDE 0.9% FLUSH 5 ML FLUSH IVF SCH (08:19)
[2017-01-14] MEDS: POLYETHYLENE GLYCOL 17 GM PKG PO SCH ×2 (08:19→21:00)
[2017-01-14] MEDS ORDERED: DIGOXIN 0.5 MG/2 ML VIAL IV PUSH SCH (08:45)
--- NOTE | 2017-01-14 08:52 | PD.TRANSFR ---
Transfer Summary Admission Date Jan 07, 2017 at 22:55 Transfer Date: Jan 15, 2017 Admitting Diagnosis CHF exacerbation, Afib with RVR Diagnoses: (1) CHF exacerbation Diagnosis: Principal (2) Hypoxemia Diagnosis: Principal (3) Acute respiratory failure Diagnosis: Principal Significant Findings Admitted with fluid overload. Chronic systolic heaert failure, made worse by RVR. Required intubation. Extubated 01/13. Nimodipine continued at 10 mg/day. Coreg continued, now at 25 mg bid. Coumadin continued for a-fib. Valsartan restarted 01/14. Digoxin added for rate control - not scheduled. Cardizem added for rate control 30 mg qid. GNR in sputum, but no fever or wbc elevation. Dr. Aleshia Krishnamurthy following. Check with Cardiology about possible need for Lexiscan and Lifevest arrangements prior to discharge due to low EF, CAD. Objective Vital Signs Date Time Temp Pulse Resp B/P Pulse Ox O2 Delivery O2 Flow Rate FiO2 01/14/17 08:30 96 Venturi Mask 50 01/14/17 06:00 100 01/14/17 04:00 97.6 26 166/69 01/13/17 19:57 6.00 Intake and Output 01/13/17 01/13/17 01/14/17 08:00 16:00 00:00 Intake Total 801 ml 199 ml 150 ml Output Total 800 ml 1150 ml 1900 ml Balance 1 ml -951 ml -1750 ml Result Diagram: 01/14/17 0411 01/14/17 0411 Other Results Microbiology Date/Time Procedure Status Source Growth 01/12/17 05:02 Stool Occult Blood ([facility]) - Final Complete Stool Stool HEMOCCULT NEGATIVE 01/12/17 16:15 Legionella Antigen - Final Complete Urine Catheterized Urine PRESUMPTIVE NEGATIVE FOR LEGIONELLA P... 01/12/17 16:15 Streptococcus pneumoniae Antigen (M - Final Complete Urine Catheterized Urine PRESUMPTIVE NEGATIVE FOR STREPTOCOCCU... 01/12/17 17:35 Influenza Types A,B Antigen ([facility]) - Final Complete Nasal Aspirate NEGATIVE FOR FLU A AND B ANTIGEN.... Imaging Last Impressions Chest X-Ray 01/11/17 0600 Signed Impressions: Service Date/Time: Wednesday, January 11, 2017 03:31 - CONCLUSION: 1. ET tube is 1.2 cm above the emilia and needs to be withdrawn at least 1 cm. 2. Increased prominence of consolidative infiltrates left lower lobe and right pleural effusion. Abimael Del Toro MD Upper Extremity Ultrasound 01/10/17 Signed Impressions: Service Date/Time: January 16:47 - CONCLUSION: Right cephalic vein thrombosis. Negative on the left. Jose Rubio MD Renal Ultrasound 01/09/17 Signed Impressions: Service Date/Time: Monday, January 09, 2017 11:34 - CONCLUSION: 1. No obstructive uropathy or other acute abnormality seen of either kidney. No perceptible parenchymal changes. 2. Simple, benign appearing left renal cyst. 3. Urinary bladder decompressed with a Lopez catheter and is grossly unremarkable. Jose Rubio MD Lung Scan-V Nuclear Medicine 01/09/17 Signed Impressions: Service Date/Time: January 11:06 - CONCLUSION: 1. Low probability for pulmonary embolus. Tommy Page MD Lower Extremity Ultrasound 01/09/17 Signed Impressions: Service Date/Time: Monday, January 09, 2017 17:44 - CONCLUSION: No DVT in either lower extremity. Floyd Khan MD Objective Remarks GENERAL: 76-year-old male, critically ill currently orotracheally intubated SKIN: Warm and dry. No rash HEAD: Atraumatic. Normocephalic. EYES: Pupils equal and round about 3 mm bilaterally and reactive. No scleral icterus. No injection or drainage. ENT: No nasal bleeding or discharge. Mucous membranes pink and moist. NECK: Trachea midline. No JVD. CARDIOVASCULAR: IRR. S1, S2 no S4. Without appreciable murmur. RESPIRATORY: Diminished breath sounds in bases bilaterally. Few crackles appreciated. Breath sounds equal bilaterally. GASTROINTESTINAL: Abdomen soft, non-tender, slightly protuberant. Hypoactive bowel sounds are appreciated MUSCULOSKELETAL: Extremities with trace lower extremity nonpitting edema NEUROLOGICAL: Arousable on the ventilator. Squeezes hand to command. Date of Insertion: Jan 09, 2017 Line: Central Venous Catheter Side: Right Location: Internal, Jugular A/P Assessment and Plan Neuro/Psych: History of CVA/TIA 2013 without residual effect Peripheral neuropathy Currently in propofol at 30 mcg/kg/m/fentanyl 75 g an hour drips for sedation/ analgesia while intubated Goal of RASS -2 Daily sedation vacation Continue Neurontin 100 mg by mouth 3 times a day. Neuropathy Acetaminophen for fever Cardiovascular: Symptomatically bradycardia likely medication induced - resolved Acute systolic heart failure/ischemic cardiopathy - EF 30% History of hypertension History dyslipidemia Coronary artery disease status post CABG 1999 History bilateral lower extremity since secondary DVT Echocardiogram reveals EF 30-35%. Akinesis of the apical myocardium. EDEL 43 mmHg. Moderate TR. RV normal Cardizem (on Norvasc 10 mg daily at home) currently on hold Coreg home dose 25 mg by mouth daily has been switched 12.5 mg twice a day by cardiology yesterday. Continue on 6.25 twice a day today with borderline blood pressures 01/08, Patient given calcium gluconate 2 g IV piggyback, 5 units iv, d50 and 10 units of regular insulin iv push in view of bradycardia and hypotension thought to be secondary to Cardizem/Coreg. Also given DuoNeb nebulizer treatment to reverse bradycardia. Initially Started on dopamine at 15 mics per KG per minute. This was switched dobutamine currently at 2. 5 mcg/kg/m which will be weaned off and Cosmo- Synephrine will be used if needed to maintain MAP greater than 65. This is been weaned to off as well Dr. Page from cardiology following. Recommended cessation of Cardizem. Resume Coreg when indicated. Will receive Lexiscan prior to discharge with likely LifeVest placement Received Lovenox 1 mg per KG subcutaneously and ordered daily for anticoagulation for A. fib in the setting of renal insufficiency. Switched to heparin drip 01/11 in discontinued 01/12 Coumadin held in anticipation of procedures. Restarted Coumadin last night. It INR currently 2.0 Continue Lipitor at 40 mg daily and Lopid 60 mg twice a day for dyslipidemia. Cycle cardiac enzymes currently trending downward. Likely demand ischemia in light of respiratory failure. Pulmonary: Acute hypoxemic respiratory failure COPD [facility] 14/11/08/44 Ventilator bundle Bronchodilator therapy every 6 hours and as needed Spontaneous breathing trials daily Continue Solu-Medrol 40 mg IV now and every 8 hourly. VQ scan hourly for PE negative Dopplers for thrombus in lower lower extremities. Right upper extremity with cephalic vein thrombus/superficial We'll consult pulmonology as this does not seem to be exclusively cardiac etiology for his hypoxemic respiratory failure. Negative PE. No signs of infection. Continue diuresis GI/liver: Continue tube feeds with Nepro goal 60 cc an hour Protonix for GI prophylaxis Colace and Senokot twice a day for bowel regimen Added MiraLAX and lactulose Reglan prokinetic agent 5 every 8 Renal/: Acute on chronic kidney disease stage IV History of nephrolithiasis History of prostate cancer status post radiation beads Strict intake output, monitor and replete electro lites, follow BUN/creatinine. Currently on Lasix 40 mg IV 3 times a day Renal ultrasound negative hydronephrosis. Negative urine eosinophils HEME: Normocytic anemia Thrombocytopenia History bilateral lower extremity DVT on chronic Coumadin 4 mill grams daily History of prostate cancer Follow CBC daily. Monitor trends. Currently on full anticoagulated renal dosed Lovenox ID: No antibiotics at this time. Monitor for infection Endocrine: Gout SSI for glycemic control Holding Uloric 80 milligrams daily for gout MSK Morbid obesity Weight loss encouraged FEN Hypokalemia Replace electrolytes as clinically indicated Prophylaxis: PPI/SCDs. Coumadin 2 mg daily. INR currently therapeutic Overall impression: REmains in heart failure. Critically ill with poor rate control. Critical Care 34 mins Domingo Milligan MD Jan 14, 2017 08:52
[2017-01-14] MEDS: DOCUSATE SODIUM 100 MG CAP PO SCH ×2 (09:00→21:00)
[2017-01-14] MEDS: VALSARTAN 160 MG TAB PO SCH (09:48)
[2017-01-14] MEDS: SENNOSIDES SYRUP 8.8 MG/5 ML CUP G-TUBE SCH ×2 (09:48→21:03)
--- NOTE | 2017-01-14 11:19 | PD.CARD.PN ---
Subjective Subjective Remarks no complaints no overnight events Objective Medications Current Medications Medications (Trade) Dose Ordered Sig/Ximena Route Start Time Stop Time Status Last Admin (Cardizem Inj/NS Inj) 125 ml @ 0 mls/hr TITRATE IV 01/07/17 20:30 Hold 01/07/17 20:53 (NS Flush) 2 ml UNSCH PRN FLUSH 01/07/17 23:00 01/11/17 05:15 (NS Flush) 2 ml BID FLUSH 01/08/17 09:00 01/14/17 08:19 (Narcan Inj) 0.4 mg UNSCH PRN IV 01/07/17 23:00 (Norvasc) 10 mg DAILY PO 01/08/17 09:00 Hold 01/08/17 11:54 (Lipitor) 40 mg HS PO 01/08/17 21:00 01/13/17 20:58 (Neurontin) 100 mg TID PO 01/08/17 09:00 01/14/17 08:18 (Lopid) 600 mg BIDAC PO 01/08/17 07:00 01/14/17 05:45 (Diovan) 320 mg DAILY PO 01/08/17 09:00 01/14/17 09:48 Chlorhexidine Gluconate 15 ml 15 ml BID@08,20 MT 01/09/17 09:00 01/14/17 08:19 Propofol 100 ml @ 0 mls/hr TITRATE IV 01/09/17 09:00 01/13/17 00:42 (fentaNYL DRIP) 250 ml @ 0 mls/hr TITRATE IV 01/09/17 09:00 01/13/17 00:42 (NS Flush) DAILY IVF 01/10/17 09:00 01/14/17 08:19 (NS Flush) UNSCH PRN IVF 01/09/17 09:30 (Protonix Inj) 40 mg Q24H IV PUSH 01/09/17 11:00 01/13/17 11:39 (Zofran Inj) 4 mg Q6H PRN IV 01/09/17 10:00 (Colace) 100 mg BID PO 01/09/17 21:00 01/11/17 07:51 Miscellaneous Information 1 Q361D XX 01/09/17 10:00 01/09/17 10:00 (Chlorhexidine 2% Cloth) 3 pack Taper DAILY@04 TOP 01/10/17 04:00 01/06/18 03:59 01/14/17 03:26 (Chlorhexidine 2% Cloth) 3 pack UNSCH PRN TOP 01/09/17 10:00 (D50w (Vial) Inj) 25 ml UNSCH PRN IV PUSH 01/09/17 10:30 Glucagon 1 mg 1 mg UNSCH PRN OTHER 01/09/17 10:30 (Neosynephrine Inj/D5W 500 ml Inj) 500 ml @ 0 mls/hr TITRATE IV 01/09/17 23:15 01/10/17 10:16 (Brethine Inj) 1 mg UNSCH PRN SQ 01/09/17 23:15 (Senna Liq) 17.6 mg Q12H G-TUBE 01/10/17 11:00 01/11/17 22:42 (Reglan Inj) 5 mg Q8H IV PUSH 01/10/17 07:00 01/14/17 05:45 Insulin Human Regular 1 1 Q6HR SQ 01/10/17 12:00 01/14/17 05:44 (Coumadin Consult Pharmacy) 0 ml @ 0 mls/hr UNSCH OTHER 01/11/17 07:45 (Lasix Inj) 40 mg Q8HR IV PUSH 01/11/17 14:00 01/14/17 05:15 (Miralax) 17 gm BID PO 01/11/17 09:00 01/11/17 20:42 Lactulose 30 ml 30 ml QID PO 01/11/17 09:00 01/11/17 20:42 (Zithromax Inj/ NS 250 ml Inj) 250 ml @ 250 mls/hr Q24H IV 01/11/17 18:15 01/13/17 17:24 (Coumadin) 2 mg DAILY@1600 PO 01/12/17 16:00 Hold 01/12/17 16:37 (Cardizem) 30 mg QID PO 01/13/17 09:00 01/14/17 08:18 (Coreg) 25 mg Q12HR PO 01/13/17 08:00 01/14/17 08:18 (Lopressor Inj) 5 mg Q4H PRN IV PUSH 01/13/17 10:30 01/14/17 07:44 (SoluMEDROL INJ) 40 mg BID IV PUSH 01/13/17 21:00 01/14/17 08:18 (Lanoxin Inj) 0.125 mg ONCE IV PUSH 01/14/17 08:45 01/15/17 08:44 01/14/17 09:48 Vital Signs / I&O Vital Signs Date Time Temp Pulse Resp B/P Pulse Ox O2 Delivery O2 Flow Rate FiO2 01/14/17 10:00 96 01/14/17 08:30 96 Venturi Mask 50 01/14/17 08:00 115 01/14/17 08:00 97.9 92 25 157/85 95 01/14/17 06:00 100 01/14/17 04:00 91 01/14/17 04:00 97.6 91 26 166/69 96 01/14/17 02:00 78 01/14/17 00:00 97.7 96 20 156/81 92 01/14/17 00:00 96 01/13/17 22:00 92 01/13/17 20:00 112 01/13/17 20:00 98.3 112 16 181/90 91 01/13/17 19:57 91 Venturi Mask 6.00 50 01/13/17 18:00 129 01/13/17 16:00 129 01/13/17 16:00 98.3 104 25 156/89 92 01/13/17 14:00 129 01/13/17 12:00 129 01/13/17 12:00 98.1 127 20 135/96 97 I/O 01/13/17 01/13/17 01/13/17 01/14/17 01/14/17 01/14/17 07:00 15:00 23:00 07:00 15:00 23:00 Intake Total 801 ml 199 ml 150 ml 600 ml Output Total 800 ml 1150 ml 1900 ml 1875 ml Balance 1 ml -951 ml -1750 ml -1275 ml Intake Oral 150 ml 600 ml IV Total 186 ml 19 ml 0 ml 0 ml Tube Feeding 495 ml 60 ml Other 120 ml 120 ml Output Urine Total 800 ml 1150 ml 1900 ml 1875 ml # Bowel Movements 0 3 5 0 Physical Exam GENERAL: Awake, alert, oriented in no acute distress SKIN: Warm and dry. HEAD: Normocephalic. EYES: No scleral icterus. No injection or drainage. NECK: Supple, trachea midline. No JVD or lymphadenopathy. CARDIOVASCULAR: Irregular rate and rhythm without murmurs, gallops, or rubs. RESPIRATORY: Breath sounds equal bilaterally GASTROINTESTINAL: Abdomen soft, non-tender, nondistended. EXTREMITIES: No cyanosis, or edema. Laboratory Laboratory Tests Test 01/14/17 04:11 White Blood Count 8.6 TH/MM3 Red Blood Count 4.22 MIL/MM3 Hemoglobin 13.3 GM/DL Hematocrit 40.0 % Mean Corpuscular Volume 94.6 FL Mean Corpuscular Hemoglobin 31.6 PG Mean Corpuscular Hemoglobin 33.4 % Concent Red Cell Distribution Width 15.2 % Platelet Count 166 TH/MM3 Mean Platelet Volume 9.4 FL Prothrombin Time 33.4 SEC Prothromb Time International 2.9 RATIO Ratio Sodium Level 146 MEQ/L Potassium Level 4.1 MEQ/L Chloride Level 106 MEQ/L Carbon Dioxide Level 28.3 MEQ/L Anion Gap 12 MEQ/L Blood Urea Nitrogen 92 MG/DL Creatinine 2.05 MG/DL Estimat Glomerular Filtration 32 ML/MIN Rate Random Glucose 158 MG/DL Calcium Level 7.6 MG/DL Imaging Last Impressions Chest X-Ray 01/13/17 0600 Signed Impressions: Service Date/Time: Friday, January 13, 2017 03:55 - CONCLUSION: Persistent bilateral lower lung infiltrates, increased when compared to prior. Abimael Del Toro MD Upper Extremity Ultrasound 01/10/17 0000 Signed Impressions: Service Date/Time: January 16:47 - CONCLUSION: Right cephalic vein thrombosis. Negative on the left. Jose Rubio MD Renal Ultrasound 01/09/17 0000 Signed Impressions: Service Date/Time: Monday, January 09, 2017 11:34 - CONCLUSION: 1. No obstructive uropathy or other acute abnormality seen of either kidney. No perceptible parenchymal changes. 2. Simple, benign appearing left renal cyst. 3. Urinary bladder decompressed with a Lopez catheter and is grossly unremarkable. Jose Rubio MD Lung Scan- Nuclear Medicine 01/09/17 0000 Signed Impressions: Service Date/Time: January 11:06 - CONCLUSION: 1. Low probability for pulmonary embolus. Tommy Page MD Lower Extremity Ultrasound 01/09/17 0000 Signed Impressions: Service Date/Time: Monday, January 09, 2017 17:44 - CONCLUSION: No DVT in either lower extremity. Floyd Khan MD Assessment and Plan Problem List: (1) Coronary artery disease Assessment and Plan: Afebrile and hemodynamically stable Extubated Creat trending down however not optimal. Not a [facility] candidate as this time Continue medical management Outpatient follow up. Sign off (2) Hypoxia (3) SIRS (systemic inflammatory response syndrome) (4) Hypertension (5) RAQUEL (acute kidney injury) (6) CHF (congestive heart failure) Abraham Wiley MD Jan 14, 2017 11:19
[2017-01-14] MEDS: PANTOPRAZOLE SODIUM 40 MG VIAL IV PUSH SCH (12:02)
[2017-01-14] MEDS: AZITHROMYCIN INJ 500 MG in SODIUM CHLOR 0.9% 250 ML INJ 250 ML IV SCH (17:25)
--- NOTE | 2017-01-14 19:05 | HHI.PR ---
Subjective Remarks Extubated and now on N/C at 5L.. No resp distress. Has some cough . Good output. Objective Vital Signs Date Time Temp Pulse Resp B/P Pulse Ox O2 Delivery O2 Flow Rate FiO2 01/14/17 16:00 97.9 85 20 155/70 97 01/14/17 15:23 98 Nasal Cannula 5.00 01/14/17 14:00 86 01/14/17 12:00 98.6 87 18 165/74 97 01/14/17 12:00 87 01/14/17 10:00 96 01/14/17 08:30 96 Venturi Mask 50 01/14/17 08:00 115 01/14/17 08:00 97.9 92 25 157/85 95 01/14/17 06:00 100 01/14/17 04:00 91 01/14/17 04:00 97.6 91 26 166/69 96 01/14/17 02:00 78 01/14/17 00:00 97.7 96 20 156/81 92 01/14/17 00:00 96 01/13/17 22:00 92 01/13/17 20:00 112 01/13/17 20:00 98.3 112 16 181/90 91 01/13/17 19:57 91 Venturi Mask 6.00 50 I/O 01/13/17 01/13/17 01/13/17 01/14/17 01/14/17 01/14/17 07:00 15:00 23:00 07:00 15:00 23:00 Intake Total 801 ml 199 ml 150 ml 600 ml 700 ml Output Total 800 ml 1150 ml 1900 ml 1875 ml 1575 ml Balance 1 ml -951 ml -1750 ml -1275 ml -875 ml Intake Oral 150 ml 600 ml 700 ml IV Total 186 ml 19 ml 0 ml 0 ml 0 ml Tube Feeding 495 ml 60 ml Other 120 ml 120 ml Output Urine Total 800 ml 1150 ml 1900 ml 1875 ml 1575 ml # Bowel Movements 0 3 5 0 0 Result Diagram: 01/14/1741001/14/17410 Objective Remarks GENERAL: This is a moderately obese elderly man is awake.On O2. HEAD, EYES, EARS, NOSE, THROAT: Head normocephalic. The pupils are reactive and equal. Ears clear. NECK: The neck is supple. No venous distention. No thyromegaly. CHEST: Distant breath sounds with scattered basilar crackles with wheezes bilaterally. HEART: Heart sounds are Irregular. S1 and S2. No murmur. ABDOMEN: Abdomen soft and obese without masses. No organomegaly or tenderness. The bowel sounds are active. EXTREMITIES: Decreased pulses. Mild edema. NEUROLOGIC: Reflexes are 1+. No gross deficits. SKIN: Dry and warm. Assessment and Plan Assessment and Plan IMPRESSION: 1. Chronic systolic heart failure. 2. Respiratory failure with probable basilar pneumonia. 3. He has hypertension. 4. Hyperlipidemia. 5. Atrial fibrillation with rapid ventricular response. 6. COPD with chronic bronchitis and emphysema. 7. History of CVA. Plan : 1. Cont Weaning FIo2 to N/C 4 L. 2. Nebs qid , Duoneb. 3. Antibiotics as ordered. 4. Up with help. 5. D/C Bipap 6. Soft diet. 7. CBC,BMP in am 8.D/C graysonumedrGin Munson MD Jan 14, 2017 19:05
[2017-01-14] MEDS: predniSONE 10 MG TAB PO SCH (21:02)
[2017-01-14] MEDS: ATORVASTATIN 40 MG TAB PO SCH (21:02)
[2017-01-14] MEDS ORDERED: ZOLPIDEM TARTRATE 5 MG TAB PO ONE (23:45)
[2017-01-15] VITALS (11 sets, daily range): BP systolic 107–162; BP diastolic 60–78; PULSE 79–101; RESP 12–22; TEMP 96.4–98.6; O2SAT 94–98
[2017-01-15] MEDS: RESP: ALBUTEROL 2.5 MG/IPRATROPIUM 0.5 MG NEB (SCH) NEB ×4 (03:34→21:28)
[2017-01-15] MEDS: CHLORHEXIDINE GLUCONATE 2 % 1 PACK (2 CLOTHS) TOP SCH (04:00)
[2017-01-15] MEDS: INSULIN NovoLIN REGULAR SUPPLEMENTAL SCALE SQ SCH ×4 (06:00→23:06)
[2017-01-15] MEDS: GEMFIBROZIL 600 MG TAB PO SCH ×2 (06:29→16:02)
[2017-01-15] MEDS: METOCLOPRAMIDE HCL 10 MG/2 ML VIAL IV PUSH SCH ×3 (06:29→22:00)
[2017-01-15] MEDS: FUROSEMIDE 40 MG/4 ML VIAL IV PUSH SCH ×3 (06:29→22:00)
[2017-01-15] MEDS: CHLORHEXIDINE 0.12% (ORAL KIT) 15 ML CUP MT SCH ×2 (08:00→20:00)
[2017-01-15] MEDS: VALSARTAN 160 MG TAB PO SCH (08:16)
[2017-01-15] MEDS: GABAPENTIN 100 MG CAP PO SCH ×3 (08:16→17:35)
[2017-01-15] MEDS: LACTULOSE SYRUP 20 GM/30 ML CUP PO SCH ×4 (08:16→21:00)
[2017-01-15] MEDS: DOCUSATE SODIUM 100 MG CAP PO SCH ×2 (08:16→21:00)
[2017-01-15] MEDS: POLYETHYLENE GLYCOL 17 GM PKG PO SCH ×2 (08:16→21:00)
[2017-01-15] MEDS: DILTIAZEM HCL 30 MG TAB PO SCH ×4 (08:17→21:00)
[2017-01-15] MEDS: predniSONE 10 MG TAB PO SCH (08:17)
[2017-01-15] MEDS: CARVEDILOL 12.5 MG TAB PO SCH ×2 (08:18→21:00)
[2017-01-15] MEDS: SODIUM CHLORIDE 0.9% FLUSH 5 ML FLUSH IVF SCH (08:18)
[2017-01-15] MEDS: SODIUM CHLORIDE 0.9% FLUSH 5 ML FLUSH FLUSH SCH ×2 (08:19→21:00)
[2017-01-15 09:18] LABS: INTERNATIONAL NORMALIZED RATIO 1.8 RATIO; PROTHROMBIN TIME - PATIENT 20.5 SEC (9.8-11.6)
[2017-01-15] MEDS: SENNOSIDES SYRUP 8.8 MG/5 ML CUP G-TUBE SCH ×2 (11:00→21:31)
[2017-01-15] MEDS: PANTOPRAZOLE SODIUM 40 MG VIAL IV PUSH SCH (11:37)
--- NOTE | 2017-01-15 14:47 | HHI.PR ---
Subjective Remarks f/u for respiratory failure patient's niece at bedside. patient continues to feel SOB but stated he has improved some. Denied any cough. remains afebrile. per patient worked with PT in AM and could not get up. Objective Vitals Vital Signs Date Time Temp Pulse Resp B/P Pulse Ox O2 Delivery O2 Flow Rate FiO2 01/15/17 12:00 97.4 89 16 140/63 97 01/15/17 09:36 101 01/15/17 09:19 95 Nasal Cannula 5.00 01/15/17 08:00 96.4 90 20 162/67 97 01/15/17 05:23 98.2 88 22 127/78 96 01/15/17 03:36 98 Nasal Cannula 5.00 01/15/17 00:41 98.6 79 20 129/73 94 01/14/17 22:26 97.3 82 20 158/72 97 01/14/17 20:00 87 01/14/17 16:00 97.9 85 20 155/70 97 01/14/17 15:23 98 Nasal Cannula 5.00 I/O 01/14/17 01/14/17 01/14/17 01/15/17 01/15/17 01/15/17 07:00 15:00 23:00 07:00 15:00 23:00 Intake Total 600 ml 700 ml 840 ml 850 ml Output Total 1875 ml 1575 ml 2400 ml 2200 ml Balance -1275 ml -875 ml -1560 ml -1350 ml Intake Oral 600 ml 700 ml 840 ml 850 ml IV Total 0 ml 0 ml Output Urine Total 1875 ml 1575 ml 2400 ml 2200 ml # Bowel Movements 0 0 0 0 Result Diagram: 01/14/17 04101/14/17 041 Objective Remarks GENERAL: NAD but does have increase WOB NECK: Supple, trachea midline. No JVD or lymphadenopathy. CARDIOVASCULAR: Regular rate and rhythm without murmurs, gallops, or rubs. RESPIRATORY: Breath sounds equal bilaterally. No accessory muscle use. GASTROINTESTINAL: Abdomen soft, non-tender, nondistended. Medications and IVs Current Medications Albuterol/ Ipratropium (Duoneb Neb) 2 ampule STK-MED ONCE .ROUTE ; Start at 20:25; Stop 01/07/17 at 20:26; Status DC IV Flush (NS Flush) 2 ml UNSCH PRN IVF FLUSH AFTER USING IV ACCESS; Start at 20:30; Stop 01/07/17 at 22:57; Status DC Albuterol/ Ipratropium (Duoneb Neb) 1 ampule Q15M INH Last administered on 20:37; Start 01/07/17 at 20:30; Stop 01/07/17 at 20:46; Status DC Furosemide 60 mg 60 mg ONCE ONCE IVP Last administered on 01/07/17 20:53; Start 01/07/17 at 20:30; Stop 01/07/17 at 20:31; Status DC Diltiazem HCl/ Sodium Chloride (Cardizem Inj/NS Inj) 125 ml @ 0 mls/hr TITRATE IV Last administered on 01/07/17 20:53; Start 01/07/17 at 20:30; Status Hold IV Flush (NS Flush) 2 ml UNSCH PRN IVF FLUSH AFTER USING IV ACCESS; Start at 20:30; Stop 01/07/17 at 22:57; Status DC Nitroglycerin 1 inch 1 inch ONCE ONCE TOPICAL Last administered on 01/07/17 20 :53; Start 01/07/17 at 20:30; Stop 01/07/17 at 20:31; Status DC Ceftriaxone Sodium 1000 mg/ Sodium Chloride 100 ml @ 200 mls/hr ONCE ONCE IV Last administered on 01/07/17 23:09; Start 01/07/17 at 22:30; Stop 01/07/17 at 22: 59; Status DC Azithromycin/ Sodium Chloride (Zithromax Inj/ NS 250 ml Inj) 250 ml @ 250 mls/ hr ONCE ONCE IV Last administered on 01/07/17 23:10; Start 01/07/17 at 22:30; Stop 01/07/17 at 23:29; Status DC IV Flush (NS Flush) 2 ml UNSCH PRN FLUSH FLUSH AFTER USING IV ACCESS Last administered on 01/11/17 05:15; Start 01/07/17 at 23:00 IV Flush (NS Flush) 2 ml BID FLUSH Last administered on 01/14/17 21:00; Start 01/08/17 at 09:00 Naloxone HCl (Narcan Inj) 0.4 mg UNSCH PRN IV SEE LABEL COMMENTS; Start at 23:00 Amlodipine Besylate (Norvasc) 10 mg DAILY PO Last administered on 01/08/17 11: 54; Start 01/08/17 at 09:00; Status Hold Atorvastatin Calcium (Lipitor) 40 mg HS PO Last administered on 01/14/17 21:02 ; Start 01/08/17 at 21:00 Carvedilol (Coreg) 25 mg BID PO Last administered on 01/08/17 11:53; Start 01/08 at 09:00; Stop 01/09/17 at 17:34; Status DC Gabapentin (Neurontin) 100 mg TID PO Last administered on 01/15/17 12:44; Start 01/08/17 at 09:00 Gemfibrozil (Lopid) 600 mg BIDAC PO Last administered on 01/15/17 06:29; Start 01/08/17 at 07:00 Valsartan (Diovan) 320 mg DAILY PO Last administered on 01/15/17 08:16; Start 01/08/17 at 09:00 Warfarin Sodium (Coumadin) 4 mg DAILY@16 PO ; Start 01/08/17 at 16:00; Stop at 16:00; Status DC Furosemide (Lasix Inj) 40 mg BID@09,18 IV PUSH Last administered on 01/11/17 07:49; Start 01/08/17 at 09:00; Stop 01/11/17 at 07:58; Status DC Enoxaparin Sodium (Lovenox Inj) 90 mg Q24H SQ Last administered on 01/10/17 07: 58; Start 01/08/17 at 08:00; Stop 01/11/17 at 07:46; Status DC Pantoprazole Sodium (Protonix) 40 mg DAILY PO Last administered on 01/08/17 11: 53; Start 01/08/17 at 09:00; Stop 01/09/17 at 09:36; Status DC Atropine Sulfate 1 mg 1 mg STK-MED ONCE .ROUTE ; Start 01/08/17 at 13:29; Stop at 13:30; Status DC Dopamine HCl/ Dextrose (DOPamine INJ PREMIX) 500 ml @ As Directed STK-MED ONCE .ROUTE ; Start 01/08/17 at 13:29; Stop 01/08/17 at 13:30; Status DC Atropine Sulfate (Atropine Inj) 1 mg STK-MED ONCE .ROUTE ; Start 01/08/17 at 14: 05; Stop 01/08/17 at 14:06; Status DC Glucagon (Glucagon Inj) 1 mg STK-MED ONCE .ROUTE ; Start 01/08/17 at 14:11; Stop 01/08/17 at 14:12; Status DC Glucagon (Glucagon Inj) 5 mg BOLUS STAT IV PUSH Last administered on 01/08/17 14:16; Start 01/08/17 at 14:16; Stop 01/08/17 at 14:19; Status DC Insulin Human Regular (NovoLIN R INJ) 10 units ONCE STAT IV PUSH Last administered on 01/08/17 14:18; Start 01/08/17 at 14:18; Stop 01/08/17 at 14:22; Status DC Dextrose 50 ml 50 ml ONCE ONCE IV PUSH Last administered on 01/08/17 14:30; Start 01/08/17 at 14:30; Stop 01/08/17 at 14:31; Status DC Calcium Gluconate/ Dextrose (Calcium Gluconate Inj/D5W 100 ml Inj) 120 ml @ 120 mls/hr ONCE ONCE IV Last administered on 01/08/17 14:30; Start 01/08/17 at 14:30; Stop 01/08/17 at 15:29; Status DC Ondansetron HCl (Zofran Inj) 4 mg Q6HR PRN IV PUSH nausea/ vomiting; Start 01/08 at 16:00; Stop 01/09/17 at 10:17; Status DC Methylprednisolone Sodium Succinate (SoluMEDROL INJ) 80 mg Q8HR IV PUSH Last administered on 01/10/17 05:39; Start 01/08/17 at 17:00; Stop 01/10/17 at 07:36; Status DC Albuterol/ Ipratropium 1 ampule 1 ampule Q4HR NEB PRN NEB wheezing; Start at 17:00; Stop 01/12/17 at 14:15; Status DC Dobutamine HCl/ Dextrose (Dobutrex Inj/ D5W Inj) 250 ml @ 6.75 mls/hr CONTINUOUS IV Last administered on 01/10/17 02:14; Start 01/08/17 at 22:00; Stop 01/11/17 at 07:58; Status DC Furosemide 80 mg 80 mg ONCE ONCE IV PUSH Last administered on 01/09/17 00:32; Start 01/08/17 at 22:15; Stop 01/08/17 at 22:16; Status DC Dopamine HCl/ Dextrose 500 ml @ As Directed STK-MED ONCE .ROUTE ; Start at 01:24; Stop 01/09/17 at 01:25; Status DC Dopamine HCl/ Dextrose (DOPamine INJ PREMIX) 500 ml @ 0 mls/hr TITRATE IV Last administered on 01/09/17 01:52; Start 01/09/17 at 01:45; Stop 01/11/17 at 07:59; Status DC Fentanyl Citrate (fentaNYL INJ) 100 mcg ONCE ONCE IV PUSH Last administered on 01/09/17 10:12; Start 01/09/17 at 09:00; Stop 01/09/17 at 09:01; Status DC Etomidate (Amidate Inj) 40 mg ONCE ONCE IV PUSH Last administered on 01/09/17 10:11; Start 01/09/17 at 09:00; Stop 01/09/17 at 09:01; Status DC Rocuronium [place] (Zemuron Inj) 100 mg BOLUS ONCE IV ; Start 01/09/17 at 09:00 ; Stop 01/09/17 at 09:01; Status DC Chlorhexidine Gluconate 15 ml 15 ml BID@08,20 MT Last administered on 08:19; Start 01/09/17 at 09:00 Propofol 100 ml @ 0 mls/hr TITRATE IV Last administered on 01/13/17 00:42; Start 01/09/17 at 09:00 Fentanyl Citrate 250 ml @ 0 mls/hr TITRATE IV Last administered on 01/13/17 00 :42; Start 01/09/17 at 09:00 Sodium Chloride (NS 1000 ml Inj) 1,000 ml @ 999 mls/hr BOLUS ONCE IV Last administered on 01/09/17 10:20; Start 01/09/17 at 09:00; Stop 01/09/17 at 10:00; Status DC Rocuronium [place] (Zemuron Inj) 50 mg STK-MED ONCE .ROUTE Last administered on 01/09/17 10:11; Start 01/09/17 at 08:27; Stop 01/09/17 at 08:28; Status DC Rocuronium [place] (Zemuron Inj) 50 mg STK-MED ONCE .ROUTE ; Start 01/09/17 at 08 :28; Stop 01/09/17 at 08:29; Status DC IV Flush (NS Flush) DAILY IVF Last administered on 01/15/17 08:18; Start 01/10 at 09:00 IV Flush (NS Flush) UNSCH PRN IVF SEE PROTOCOL; Start 01/09/17 at 09:30 Pantoprazole Sodium (Protonix Inj) 40 mg Q24H IV PUSH Last administered on 01/15 11:37; Start 01/09/17 at 11:00 Albuterol/ Ipratropium (Duoneb Neb) 1 ampule Q6HR NEB NEB Last administered on 01/15/17 09:17; Start 01/09/17 at 11:00 Albuterol/ Ipratropium (Duoneb Neb) 1 ampule Q2HR NEB PRN NEB dyspnea; Start at 11:00 Ondansetron HCl (Zofran Inj) 4 mg Q6H PRN IV NAUSEA OR VOMITING Last administered on 01/14/17 17:21; Start 01/09/17 at 10:00 Docusate Sodium (Colace) 100 mg BID PO Last administered on 01/15/17 08:16; Start 01/09/17 at 21:00 Sennosides (Senna Liq) 17.6 mg Q12H PRN G-TUBE CONSTIPATION; Start 01/09/17 at 11:00; Stop 01/10/17 at 06:57; Status DC Miscellaneous Information 1 Q361D XX Last administered on 01/09/17 10:00; Start 01/09/17 at 10:00 Chlorhexidine Gluconate (Chlorhexidine 2% Cloth) Taper DAILY@04 TOP Last administered on 01/14/17 03:26; Start 01/10/17 at 04:00; Stop 01/06/18 at 03:59 Chlorhexidine Gluconate (Chlorhexidine 2% Cloth) 3 pack UNSCH PRN TOP HYGIENIC CARE; Start 01/09/17 at 10:00 Dextrose (D50w (Vial) Inj) 25 ml UNSCH PRN IV PUSH HYPOGLYCEMIA-SEE COMMENTS; Start 01/09/17 at 10:30 Glucagon (Glucagon Inj) 1 mg UNSCH PRN OTHER HYPOGLYCEMIA-SEE COMMENTS; Start 01/09/17 at 10:30 Insulin Human Regular (NovoLIN R SUPPLEMENTAL SCALE) 1 ACHS SLIDING SCALE SQ Last administered on 01/10/17 05:40; Start 01/09/17 at 11:00; Stop 01/10/17 at 07: 12; Status DC Carvedilol 12.5 mg 12.5 mg Q12HR PO Last administered on 01/09/17 20:46; Start 01/09/17 at 21:00; Stop 01/10/17 at 07:12; Status DC Phenylephrine HCl/ Dextrose (Neosynephrine Inj/D5W 500 ml Inj) 500 ml @ 0 mls/ hr TITRATE IV Last administered on 01/10/17 10:16; Start 01/09/17 at 23:15 Terbutaline Sulfate (Brethine Inj) 1 mg UNSCH PRN SQ FOR EXTRAVASATION PROTOCOL ; Start 01/09/17 at 23:15 Sennosides (Senna Liq) 17.6 mg Q12H G-TUBE Last administered on 01/11/17 22: 42; Start 01/10/17 at 11:00 Metoclopramide HCl (Reglan Inj) 5 mg Q8H IV PUSH Last administered on 06:29; Start 01/10/17 at 07:00 Polyethylene Glycol (Miralax) 17 gm DAILY PO Last administered on 01/11/17 07: 51; Start 01/10/17 at 09:00; Stop 01/11/17 at 07:59; Status DC Carvedilol (Coreg) 6.25 mg Q12HR PO Last administered on 01/12/17 20:12; Start 01/10/17 at 09:00; Stop 01/13/17 at 07:23; Status DC Insulin Human Regular (NovoLIN R SUPPLEMENTAL SCALE) 1 Q6HR SQ Last administered on 01/14/17 12:01; Start 01/10/17 at 12:00 Methylprednisolone Sodium Succinate 60 mg 60 mg Q8HR IV PUSH Last administered on 01/12/17 13:08; Start 01/10/17 at 14:00; Stop 01/12/17 at 14:15; Status DC Heparin Sodium/ Dextrose 250 ml @ 0 mls/hr TITRATE IV Last administered on 01/12 00:19; Start 01/11/17 at 08:00; Stop 01/12/17 at 14:18; Status DC Pharmacy Profile Note (Coumadin Consult Pharmacy) 0 ml @ 0 mls/hr UNSCH OTHER ; Start 01/11/17 at 07:45 Furosemide (Lasix Inj) 40 mg Q8HR IV PUSH Last administered on 01/15/17 06:29 ; Start 01/11/17 at 14:00 Polyethylene Glycol (Miralax) 17 gm BID PO Last administered on 01/15/17 08:16 ; Start 01/11/17 at 09:00 Lactulose (Lactulose Liq) 30 ml QID PO Last administered on 01/15/17 08:16; Start 01/11/17 at 09:00 Methylnaltrexone [place] (Relistor Inj) 12 mg ONCE ONCE SQ Last administered on 01/11/17 10:26; Start 01/11/17 at 08:00; Stop 01/11/17 at 08:09; Status DC Warfarin Sodium (Coumadin) 4 mg DAILY@16 PO Last administered on 01/11/17 17: 00; Start 01/11/17 at 16:00; Stop 01/12/17 at 08:32; Status DC Patient Medication Teaching (Coumadin Booklet) 1 ONCE ONCE XX Last administered on 01/11/17 16:00; Start 01/11/17 at 16:00; Stop 01/11/17 at 16:01 ; Status DC Albuterol/ Ipratropium 1 ampule 1 ampule Q6HR WHILE AWAKE NEB NEB Last administered on 01/11/17 21:13; Start 01/11/17 at 14:00; Stop 01/12/17 at 14:15 ; Status DC Azithromycin/ Sodium Chloride (Zithromax Inj/ NS 250 ml Inj) 250 ml @ 250 mls/ hr Q24H IV Last administered on 01/14/17 17:25; Start 01/11/17 at 18:15; Stop 01/15/17 at 14:34; Status DC Warfarin Sodium 2 mg 2 mg DAILY@1600 PO Last administered on 01/12/17 16:37; Start 01/12/17 at 16:00 Potassium Chloride (KCl 40 Meq Premix Inj) 100 ml @ 25 mls/hr Q4H IV Last administered on 01/12/17 17:49; Start 01/12/17 at 15:00; Stop 01/12/17 at 22:59 ; Status DC Methylprednisolone Sodium Succinate (SoluMEDROL INJ) 40 mg Q8HR IV PUSH Last administered on 01/13/17 13:43; Start 01/12/17 at 22:00; Stop 01/13/17 at 16:22 ; Status DC Carvedilol (Coreg) 25 mg Q12HR PO ; Start 01/13/17 at 09:00; Stop 01/13/17 at 09 :00; Status DC Diltiazem HCl (Cardizem) 30 mg QID PO Last administered on 01/15/17 12:44; Start 01/13/17 at 09:00 Carvedilol (Coreg) 25 mg Q12HR PO Last administered on 01/15/17 08:18; Start 01/13/17 at 08:00 Metoprolol Tartrate (Lopressor Inj) 5 mg Q4H PRN IV PUSH Pulse > 110 Last administered on 01/14/17 07:44; Start 01/13/17 at 10:30 Digoxin (Lanoxin Inj) 0.25 mg ONCE ONCE IV PUSH Last administered on 12:48; Start 01/13/17 at 13:00; Stop 01/13/17 at 13:01; Status DC Digoxin (Lanoxin Inj) 0.25 mg ONCE ONCE IV PUSH Last administered on 13:43; Start 01/13/17 at 15:00; Stop 01/13/17 at 15:01; Status DC Methylprednisolone Sodium Succinate (SoluMEDROL INJ) 40 mg BID IV PUSH Last administered on 01/14/17 08:18; Start 01/13/17 at 21:00; Stop 01/14/17 at 19:06 ; Status DC Digoxin (Lanoxin Inj) 0.125 mg ONCE IV PUSH Last administered on 01/14/17 09: 48; Start 01/14/17 at 08:45; Stop 01/15/17 at 08:44; Status DC Prednisone (Deltasone) 10 mg BID PO Last administered on 01/15/17 08:17; Start 01/14/17 at 21:00 Zolpidem Tartrate (Ambien) 5 mg ONCE ONCE PO Last administered on 01/14/17t 23 :59; Start 01/14/17 at 23:45; Stop 01/14/17 at 23:46; Status DC Levofloxacin (Levaquin) 750 mg Q48H PO ; Start 01/15/17 at 14:45; Status UNV Date of Insertion: Jan 09, 2017 Line: Central Venous Catheter Side: Right Location: Internal, Jugular A/P Problem List: (1) CHF exacerbation ICD Code: I50.9 Status: Acute (2) Hypoxemia ICD Code: R09.02 Status: Acute (3) Acute respiratory failure ICD Code: J96.00 Status: Acute Assessment and Plan Acute hypoxemic respiratory failure COPD s/p extubation. VQ scan PE negative Dopplers for thrombus in lower lower extremities. Right upper extremity with cephalic vein thrombus/superficial maybe due to PNA + sputum growing Strenotrophomanes sensitive to only Bactrim and Levaquin. d/c azithromycin and start PO levaquin. avoud Bactrim due to renal failure. Bronchodilator therapy every 6 hours and as needed solumedrol d/c today by Classics Professor. Pulm ff. History of CVA/TIA 2013 without residual effect Peripheral neuropathy Continue Neurontin 100 mg by mouth 3 times a day. Symptomatically bradycardia likely medication induced - resolved Acute systolic heart failure/ischemic cardiopathy - EF 30% History of hypertension History dyslipidemia Coronary artery disease status post CABG 1999 History bilateral lower extremity since secondary DVT Echocardiogram reveals EF 30-35%. Akinesis of the apical myocardium. EDEL 43 mmHg. Moderate TR. RV normal Cardizem (on Norvasc 10 mg daily at home) currently on hold Coreg home dose 25 mg by mouth daily has been switched 12.5 mg twice a day by cardiology yesterday. Continue on 6.25 twice a day today with borderline blood pressures /7, Patient given calcium gluconate 2 g IV piggyback, 5 units iv, d50 and 10 units of regular insulin iv push in view of bradycardia and hypotension thought to be secondary to Cardizem/Coreg. Also given DuoNeb nebulizer treatment to reverse bradycardia. Initially Started on dopamine at 15 mics per KG per minute. This was switched dobutamine currently at 2. 5 mcg/kg/m which will be weaned off and Cosmo- Synephrine will be used if needed to maintain MAP greater than 65. This is been weaned to off as well Dr. Page from cardiology following. Recommended cessation of Cardizem. Resume Coreg when indicated. Mechanical Maintenance Worker signed off. Received Lovenox 1 mg per KG subcutaneously and ordered daily for anticoagulation for A. fib in the setting of renal insufficiency. Switched to heparin drip 01/11 in discontinued 01/12 Coumadin held in anticipation of procedures. Restarted Coumadin last night. It INR currently 2.0 Continue Lipitor at 40 mg daily and Lopid 60 mg twice a day for dyslipidemia. Cycle cardiac enzymes currently trending downward. Likely demand ischemia in light of respiratory failure. Acute on chronic kidney disease stage IV History of nephrolithiasis History of prostate cancer status post radiation beads Strict intake output, monitor and replete electro lites, follow BUN/creatinine. Currently on Lasix 40 mg IV 3 times a day Renal ultrasound negative hydronephrosis. Negative urine eosinophils Normocytic anemia Thrombocytopenia History bilateral lower extremity DVT on chronic Coumadin 4 mill grams daily History of prostate cancer Follow CBC daily. Monitor trends. Currently on full anticoagulated renal dosed Lovenox Gout Holding Uloric 80 milligrams daily for gout Morbid obesity Weight loss encouraged Hypokalemia Replace electrolytes as clinically indicated DVT prophylaxis -on coumadin Discharge Planning patient continues to have increase WOB. antibiotics changed and need to continue to monitor. Problem Qualifiers (1) CHF exacerbation: Qualified Code: I50.9 - Acute on chronic congestive heart failure, unspecified congestive heart failure type Yaima Gonzalez MD Jan 15, 2017 14:47
[2017-01-15] MEDS: LEVOFLOXACIN 750 MG TAB PO SCH (16:02)
[2017-01-15] MEDS: WARFARIN SOD 2 MG TAB PO SCH (16:03)
--- NOTE | 2017-01-15 19:03 | HHI.PR ---
Subjective Remarks Better today. .Denies wheezing.. Has some cough . Good output. Able to sit up. Objective Vital Signs Date Time Temp Pulse Resp B/P Pulse Ox O2 Delivery O2 Flow Rate FiO2 01/15/17 16:00 97.6 85 12 119/61 97 01/15/17 15:28 95 Nasal Cannula 4.00 01/15/17 12:00 97.4 89 16 140/63 97 01/15/17 09:36 101 01/15/17 09:19 95 Nasal Cannula 5.00 01/15/17 08:00 96.4 90 20 162/67 97 01/15/17 05:23 98.2 88 22 127/78 96 01/15/17 03:36 98 Nasal Cannula 5.00 01/15/17 00:41 98.6 79 20 129/73 94 01/14/17 22:26 97.3 82 20 158/72 97 01/14/17 20:00 87 I/O 01/14/17 01/14/17 01/14/17 01/15/17 01/15/17 01/15/17 07:00 15:00 23:00 07:00 15:00 23:00 Intake Total 600 ml 700 ml 840 ml 850 ml 2000 ml Output Total 1875 ml 1575 ml 2400 ml 2200 ml 1650 ml Balance -1275 ml -875 ml -1560 ml -1350 ml 350 ml Intake Oral 600 ml 700 ml 840 ml 850 ml 2000 ml IV Total 0 ml 0 ml Output Urine Total 1875 ml 1575 ml 2400 ml 2200 ml 1650 ml # Bowel Movements 0 0 0 0 8 Result Diagram: 01/14/1741001/14/17410 Objective Remarks GENERAL: This is a moderately obese elderly man is awake.On O2. HEAD, EYES, EARS, NOSE, THROAT: Head normocephalic. The pupils are reactive and equal. Ears clear. NECK: The neck is supple. No venous distention. No thyromegaly. CHEST: Distant breath sounds with scattered basilar crackles with occ wheezes bilaterally. HEART: Heart sounds are Irregular. S1 and S2. No murmur. ABDOMEN: Abdomen soft and obese without masses. No organomegaly or tenderness. The bowel sounds are active. EXTREMITIES: Decreased pulses. No edema. NEUROLOGIC: Reflexes are 1+. No gross deficits. SKIN: Dry and warm. Assessment and Plan Assessment and Plan IMPRESSION: 1. Chronic systolic heart failure. 2. Respiratory failure with probable basilar pneumonia. 3. He has hypertension. 4. Hyperlipidemia. 5. Atrial fibrillation with rapid ventricular response. 6. COPD with chronic bronchitis and emphysema. 7. History of CVA. Plan : 1. Cont Weaning FIo2 to N/C 3 L. 2. Nebs qid , Duoneb. 3. Chest X ray in am 4. Up with help. 5. PFT in am 6. Soft diet. 7. CBC,BMP in am 8. Taper Prednisone to 10 mg daily. Gin Tran MD Jan 15, 2017 19:03
[2017-01-15] MEDS: ATORVASTATIN 40 MG TAB PO SCH (21:00)
[2017-01-16] VITALS (12 sets, daily range): BP systolic 97–143; BP diastolic 52–78; PULSE 80–100; RESP 18–20; TEMP 97.4–97.6; O2SAT 96–99
[2017-01-16] MEDS: CHLORHEXIDINE GLUCONATE 2 % 1 PACK (2 CLOTHS) TOP SCH (04:00)
[2017-01-16] MEDS: RESP: ALBUTEROL 2.5 MG/IPRATROPIUM 0.5 MG NEB (SCH) NEB ×2 (04:22→12:00)
[2017-01-16] MEDS: FUROSEMIDE 40 MG/4 ML VIAL IV PUSH SCH (05:47)
[2017-01-16] MEDS: GEMFIBROZIL 600 MG TAB PO SCH ×2 (05:47→14:45)
[2017-01-16] MEDS: INSULIN NovoLIN REGULAR SUPPLEMENTAL SCALE SQ SCH ×3 (05:47→16:58)
[2017-01-16] MEDS: METOCLOPRAMIDE HCL 10 MG/2 ML VIAL IV PUSH SCH ×2 (05:47→14:46)
[2017-01-16 06:14] LABS: HEMATOCRIT 38.3 % (39.0-51.0); MEAN CELL VOLUME 94.1 FL (80.0-100.0); MEAN CORPUSCULAR HEMOGLOBIN 31.4 PG (27.0-34.0); MEAN CORPUSCULAR HGB CONC 33.4 % (32.0-36.0); PLATELET COUNT 130 TH/MM3 (150-450); RED BLOOD COUNT 4.07 MIL/MM3 (4.50-5.90); RED CELL DISTRIBUTION WIDTH 15.1 % (11.6-17.2); REVIEW FLAG FINAL; WHITE BLOOD COUNT 7.5 TH/MM3 (4.0-11.0)
[2017-01-16 06:17] LABS: INTERNATIONAL NORMALIZED RATIO 2.6 RATIO; PROTHROMBIN TIME - PATIENT 29.9 SEC (9.8-11.6)
--- NOTE | 2017-01-16 07:08 | RADRPT ---
EXAM DATE/TIME: 01/16/2017 06:01 [facility] COMPARISON: CHEST SINGLE AP, January 13, 2017, 3:55. INDICATIONS : Pneumonia. MEDICAL HISTORY : Hypertension. Hypercholesterolemia. Myocardial infarction. SURGICAL HISTORY : CABG. ENCOUNTER: Subsequent ACUITY: 4 - 6 days PAIN SCORE: 1/10 LOCATION: Bilateral chest FINDINGS: Right IJ line is present with tip overlapping the expected region of the SVC. The other lines and tub es have been removed. There is improvement in the aeration of the lungs with minimal left lung base a telectasis and possible tiny effusion remaining. No definite pneumothorax is seen for technique. CONCLUSION: Improvement in the aeration of the lungs. Katherine Richard MD on January 16, 2017 at 7:06 Board Certified Radiologist. This report was verified electronically.
[2017-01-16 07:26] LABS: BICARBONATE 31.5 MEQ/L (21.0-32.0); POTASSIUM 3.7 MEQ/L (3.5-5.1)
[2017-01-16] MEDS: CHLORHEXIDINE 0.12% (ORAL KIT) 15 ML CUP MT SCH ×2 (08:00→20:00)
[2017-01-16] MEDS: SODIUM CHLORIDE 0.9% FLUSH 5 ML FLUSH FLUSH SCH ×2 (08:38→21:30)
[2017-01-16] MEDS: DILTIAZEM HCL 30 MG TAB PO SCH ×2 (08:42→12:00)
[2017-01-16] MEDS: DOCUSATE SODIUM 100 MG CAP PO SCH ×2 (08:42→21:00)
[2017-01-16] MEDS: VALSARTAN 160 MG TAB PO SCH (08:42)
[2017-01-16] MEDS: GABAPENTIN 100 MG CAP PO SCH ×3 (08:42→17:23)
[2017-01-16] MEDS: predniSONE 10 MG TAB PO SCH (08:42)
[2017-01-16] MEDS: SODIUM CHLORIDE 0.9% FLUSH 5 ML FLUSH IVF SCH (08:42)
[2017-01-16] MEDS: CARVEDILOL 12.5 MG TAB PO SCH ×2 (08:42→21:30)
[2017-01-16] MEDS: LACTULOSE SYRUP 20 GM/30 ML CUP PO SCH ×2 (08:47→11:58)
[2017-01-16] MEDS: POLYETHYLENE GLYCOL 17 GM PKG PO SCH ×2 (08:47→21:00)
[2017-01-16] MEDS: SENNOSIDES SYRUP 8.8 MG/5 ML CUP G-TUBE SCH ×2 (11:00→23:00)
[2017-01-16] MEDS: PANTOPRAZOLE SODIUM 40 MG VIAL IV PUSH SCH (12:00)
--- NOTE | 2017-01-16 13:03 | HHI.PR ---
Subjective Remarks Improved and has no wheezing.. Has some cough . Good output. On antibiotics PO. Objective Vital Signs Date Time Temp Pulse Resp B/P Pulse Ox O2 Delivery O2 Flow Rate FiO2 01/16/17 12:05 97.4 84 20 97/52 96 01/16/17 12:00 98 Nasal Cannula 4.00 01/16/17 08:53 100 01/16/17 08:03 97.6 86 20 101/78 99 01/16/17 06:58 83 01/16/17 04:45 97.5 95 20 132/62 97 01/16/17 04:25 98 Nasal Cannula 4.00 01/16/17 00:51 97.4 97 20 143/68 97 01/15/17 21:00 120/60 01/15/17 20:00 98.0 80 20 107/63 96 01/15/17 16:00 97.6 85 12 119/61 97 01/15/17 15:28 95 Nasal Cannula 4.00 I/O 01/15/17 01/15/17 01/15/17 01/16/17 01/16/17 01/16/17 07:00 15:00 23:00 07:00 15:00 23:00 Intake Total 850 ml 2000 ml 550 ml 1200 ml Output Total 2200 ml 1650 ml 400 ml 1450 ml Balance -1350 ml 350 ml 150 ml -250 ml Intake Oral 850 ml 2000 ml 550 ml 1200 ml Output Urine Total 2200 ml 1650 ml 400 ml 1450 ml # Bowel Movements 0 8 2 0 Result Diagram: 01/16/17 0550 01/16/17 0645 Objective Remarks GENERAL: This is a moderately obese elderly man is awake.On O2. HEAD, EYES, EARS, NOSE, THROAT: Head normocephalic. The pupils are reactive and equal. Ears clear. NECK: The neck is supple. No venous distention. No thyromegaly. CHEST: Distant breath sounds with scattered basilar crackles .. HEART: Heart sounds are Irregular. S1 and S2. No murmur. ABDOMEN: Abdomen soft and obese without masses. No organomegaly or tenderness. The bowel sounds are active. EXTREMITIES: Decreased pulses. No edema. NEUROLOGIC: Reflexes are 1+. No gross deficits. SKIN: Dry and warm. Assessment and Plan Assessment and Plan IMPRESSION: 1. Chronic systolic heart failure. 2. Respiratory failure with probable basilar pneumonia. 3. He has hypertension. 4. Hyperlipidemia. 5. Atrial fibrillation with rapid ventricular response. 6. COPD with chronic bronchitis and emphysema. 7. History of CVA. Plan : 1. Cont Weaning FIo2 to N/C 3 L. 2. Nebs qid , Duoneb. 3. PT evaluation. 4. Continue diuretic daily 5. PFT in am 6. Soft diet. 7.BMP in am 8. Prednisone to 10 mg daily. Gin Tran MD Jan 16, 2017 13:03
[2017-01-16] MEDS ORDERED: PANT40TA3 PO (16:41)
[2017-01-16] MEDS ORDERED: CARD120C4 PO (16:41)
[2017-01-16] MEDS ORDERED: PRED10 PO (16:41)
[2017-01-16] MEDS ORDERED: LEVA750T PO (16:41)
[2017-01-16] MEDS ORDERED: FURO40TA PO (16:41)
[2017-01-16] MEDS ORDERED: WARF4TAB52 PO (16:42)
--- NOTE | 2017-01-16 16:58 | HHI.PR ---
Subjective Remarks f/u for SOB/PNA patient stated breathing has improved a lot. Denied any SOB or cough. remains afebrile. He has no complaints. Objective Vitals Vital Signs Date Time Temp Pulse Resp B/P Pulse Ox O2 Delivery O2 Flow Rate FiO2 01/16/17 12:05 97.4 84 20 97/52 96 01/16/17 12:00 98 Nasal Cannula 4.00 01/16/17 08:53 100 01/16/17 08:03 97.6 86 20 101/78 99 01/16/17 06:58 83 01/16/17 04:45 97.5 95 20 132/62 97 01/16/17 04:25 98 Nasal Cannula 4.00 01/16/17 00:51 97.4 97 20 143/68 97 01/15/17 21:00 120/60 01/15/17 20:00 98.0 80 20 107/63 96 I/O 01/15/17 01/15/17 01/15/17 01/16/17 01/16/17 01/16/17 07:00 15:00 23:00 07:00 15:00 23:00 Intake Total 850 ml 2000 ml 550 ml 1200 ml 16 ml Output Total 2200 ml 1650 ml 400 ml 1450 ml Balance -1350 ml 350 ml 150 ml -250 ml 16 ml Intake Oral 850 ml 2000 ml 550 ml 1200 ml IV Total 16 ml Output Urine Total 2200 ml 1650 ml 400 ml 1450 ml # Bowel Movements 0 8 2 0 Result Diagram: 01/16/17 0550 01/16/17 0645 Objective Remarks GENERAL: in NAD NECK: Supple, trachea midline. No JVD or lymphadenopathy. CARDIOVASCULAR: Regular rate and rhythm without murmurs, gallops, or rubs. RESPIRATORY: Breath sounds equal bilaterally. No accessory muscle use. GASTROINTESTINAL: Abdomen soft, non-tender, nondistended. Medications and IVs Current Medications Albuterol/ Ipratropium (Duoneb Neb) 2 ampule STK-MED ONCE .ROUTE ; Start at 20:25; Stop 01/07/17 at 20:26; Status DC IV Flush (NS Flush) 2 ml UNSCH PRN IVF FLUSH AFTER USING IV ACCESS; Start at 20:30; Stop 01/07/17 at 22:57; Status DC Albuterol/ Ipratropium (Duoneb Neb) 1 ampule Q15M INH Last administered on 20:37; Start 01/07/17 at 20:30; Stop 01/07/17 at 20:46; Status DC Furosemide 60 mg 60 mg ONCE ONCE IVP Last administered on 01/07/17 20:53; Start 01/07/17 at 20:30; Stop 01/07/17 at 20:31; Status DC Diltiazem HCl/ Sodium Chloride (Cardizem Inj/NS Inj) 125 ml @ 0 mls/hr TITRATE IV Last administered on 01/07/17 20:53; Start 01/07/17 at 20:30; Status Hold IV Flush (NS Flush) 2 ml UNSCH PRN IVF FLUSH AFTER USING IV ACCESS; Start at 20:30; Stop 01/07/17 at 22:57; Status DC Nitroglycerin 1 inch 1 inch ONCE ONCE TOPICAL Last administered on 01/07/17 20 :53; Start 01/07/17 at 20:30; Stop 01/07/17 at 20:31; Status DC Ceftriaxone Sodium 1000 mg/ Sodium Chloride 100 ml @ 200 mls/hr ONCE ONCE IV Last administered on 01/07/17 23:09; Start 01/07/17 at 22:30; Stop 01/07/17 at 22: 59; Status DC Azithromycin/ Sodium Chloride (Zithromax Inj/ NS 250 ml Inj) 250 ml @ 250 mls/ hr ONCE ONCE IV Last administered on 01/07/17 23:10; Start 01/07/17 at 22:30; Stop 01/07/17 at 23:29; Status DC IV Flush (NS Flush) 2 ml UNSCH PRN FLUSH FLUSH AFTER USING IV ACCESS Last administered on 01/11/17 05:15; Start 01/07/17 at 23:00 IV Flush (NS Flush) 2 ml BID FLUSH Last administered on 01/15/17 21:00; Start 01/08/17 at 09:00 Naloxone HCl (Narcan Inj) 0.4 mg UNSCH PRN IV SEE LABEL COMMENTS; Start at 23:00 Amlodipine Besylate (Norvasc) 10 mg DAILY PO Last administered on 01/08/17 11: 54; Start 01/08/17 at 09:00; Status Hold Atorvastatin Calcium (Lipitor) 40 mg HS PO Last administered on 01/15/17 21:00 ; Start 01/08/17 at 21:00 Carvedilol (Coreg) 25 mg BID PO Last administered on 01/08/17 11:53; Start 01/08 at 09:00; Stop 01/09/17 at 17:34; Status DC Gabapentin (Neurontin) 100 mg TID PO Last administered on 01/16/17 12:00; Start 01/08/17 at 09:00 Gemfibrozil (Lopid) 600 mg BIDAC PO Last administered on 01/16/17 14:45; Start 01/08/17 at 07:00 Valsartan (Diovan) 320 mg DAILY PO Last administered on 01/16/17 08:42; Start 01/08/17 at 09:00 Warfarin Sodium (Coumadin) 4 mg DAILY@16 PO ; Start 01/08/17 at 16:00; Stop at 16:00; Status DC Furosemide (Lasix Inj) 40 mg BID@09,18 IV PUSH Last administered on 01/11/17 07:49; Start 01/08/17 at 09:00; Stop 01/11/17 at 07:58; Status DC Enoxaparin Sodium (Lovenox Inj) 90 mg Q24H SQ Last administered on 01/10/17 07: 58; Start 01/08/17 at 08:00; Stop 01/11/17 at 07:46; Status DC Pantoprazole Sodium (Protonix) 40 mg DAILY PO Last administered on 01/08/17 11: 53; Start 01/08/17 at 09:00; Stop 01/09/17 at 09:36; Status DC Atropine Sulfate 1 mg 1 mg STK-MED ONCE .ROUTE ; Start 01/08/17 at 13:29; Stop at 13:30; Status DC Dopamine HCl/ Dextrose (DOPamine INJ PREMIX) 500 ml @ As Directed STK-MED ONCE .ROUTE ; Start 01/08/17 at 13:29; Stop 01/08/17 at 13:30; Status DC Atropine Sulfate (Atropine Inj) 1 mg STK-MED ONCE .ROUTE ; Start 01/08/17 at 14: 05; Stop 01/08/17 at 14:06; Status DC Glucagon (Glucagon Inj) 1 mg STK-MED ONCE .ROUTE ; Start 01/08/17 at 14:11; Stop 01/08/17 at 14:12; Status DC Glucagon (Glucagon Inj) 5 mg BOLUS STAT IV PUSH Last administered on 01/08/17 14:16; Start 01/08/17 at 14:16; Stop 01/08/17 at 14:19; Status DC Insulin Human Regular (NovoLIN R INJ) 10 units ONCE STAT IV PUSH Last administered on 01/08/17 14:18; Start 01/08/17 at 14:18; Stop 01/08/17 at 14:22; Status DC Dextrose 50 ml 50 ml ONCE ONCE IV PUSH Last administered on 01/08/17 14:30; Start 01/08/17 at 14:30; Stop 01/08/17 at 14:31; Status DC Calcium Gluconate/ Dextrose (Calcium Gluconate Inj/D5W 100 ml Inj) 120 ml @ 120 mls/hr ONCE ONCE IV Last administered on 01/08/17 14:30; Start 01/08/17 at 14:30; Stop 01/08/17 at 15:29; Status DC Ondansetron HCl (Zofran Inj) 4 mg Q6HR PRN IV PUSH nausea/ vomiting; Start 01/08 at 16:00; Stop 01/09/17 at 10:17; Status DC Methylprednisolone Sodium Succinate (SoluMEDROL INJ) 80 mg Q8HR IV PUSH Last administered on 01/10/17 05:39; Start 01/08/17 at 17:00; Stop 01/10/17 at 07:36; Status DC Albuterol/ Ipratropium 1 ampule 1 ampule Q4HR NEB PRN NEB wheezing; Start at 17:00; Stop 01/12/17 at 14:15; Status DC Dobutamine HCl/ Dextrose (Dobutrex Inj/ D5W Inj) 250 ml @ 6.75 mls/hr CONTINUOUS IV Last administered on 01/10/17 02:14; Start 01/08/17 at 22:00; Stop 01/11/17 at 07:58; Status DC Furosemide 80 mg 80 mg ONCE ONCE IV PUSH Last administered on 01/09/17 00:32; Start 01/08/17 at 22:15; Stop 01/08/17 at 22:16; Status DC Dopamine HCl/ Dextrose 500 ml @ As Directed STK-MED ONCE .ROUTE ; Start at 01:24; Stop 01/09/17 at 01:25; Status DC Dopamine HCl/ Dextrose (DOPamine INJ PREMIX) 500 ml @ 0 mls/hr TITRATE IV Last administered on 01/09/17 01:52; Start 01/09/17 at 01:45; Stop 01/11/17 at 07:59; Status DC Fentanyl Citrate (fentaNYL INJ) 100 mcg ONCE ONCE IV PUSH Last administered on 01/09/17 10:12; Start 01/09/17 at 09:00; Stop 01/09/17 at 09:01; Status DC Etomidate (Amidate Inj) 40 mg ONCE ONCE IV PUSH Last administered on 01/09/17 10:11; Start 01/09/17 at 09:00; Stop 01/09/17 at 09:01; Status DC Rocuronium [place] (Zemuron Inj) 100 mg BOLUS ONCE IV ; Start 01/09/17 at 09:00 ; Stop 01/09/17 at 09:01; Status DC Chlorhexidine Gluconate 15 ml 15 ml BID@08,20 MT Last administered on 08:19; Start 01/09/17 at 09:00 Propofol 100 ml @ 0 mls/hr TITRATE IV Last administered on 01/13/17 00:42; Start 01/09/17 at 09:00 Fentanyl Citrate 250 ml @ 0 mls/hr TITRATE IV Last administered on 01/13/17 00 :42; Start 01/09/17 at 09:00 Sodium Chloride (NS 1000 ml Inj) 1,000 ml @ 999 mls/hr BOLUS ONCE IV Last administered on 01/09/17 10:20; Start 01/09/17 at 09:00; Stop 01/09/17 at 10:00; Status DC Rocuronium [place] (Zemuron Inj) 50 mg STK-MED ONCE .ROUTE Last administered on 01/09/17 10:11; Start 01/09/17 at 08:27; Stop 01/09/17 at 08:28; Status DC Rocuronium [place] (Zemuron Inj) 50 mg STK-MED ONCE .ROUTE ; Start 01/09/17 at 08 :28; Stop 01/09/17 at 08:29; Status DC IV Flush (NS Flush) DAILY IVF Last administered on 01/16/17 08:42; Start 01/10 at 09:00 IV Flush (NS Flush) UNSCH PRN IVF SEE PROTOCOL; Start 01/09/17 at 09:30 Pantoprazole Sodium (Protonix Inj) 40 mg Q24H IV PUSH Last administered on 01/16 12:00; Start 01/09/17 at 11:00 Albuterol/ Ipratropium (Duoneb Neb) 1 ampule Q6HR NEB NEB Last administered on 01/16/17 12:00; Start 01/09/17 at 11:00; Stop 01/16/17 at 14:14; Status DC Albuterol/ Ipratropium (Duoneb Neb) 1 ampule Q2HR NEB PRN NEB dyspnea; Start at 11:00 Ondansetron HCl (Zofran Inj) 4 mg Q6H PRN IV NAUSEA OR VOMITING Last administered on 01/14/17 17:21; Start 01/09/17 at 10:00 Docusate Sodium (Colace) 100 mg BID PO Last administered on 01/15/17 21:00; Start 01/09/17 at 21:00 Sennosides (Senna Liq) 17.6 mg Q12H PRN G-TUBE CONSTIPATION; Start 01/09/17 at 11:00; Stop 01/10/17 at 06:57; Status DC Miscellaneous Information 1 Q361D XX Last administered on 01/09/17 10:00; Start 01/09/17 at 10:00 Chlorhexidine Gluconate (Chlorhexidine 2% Cloth) Taper DAILY@04 TOP Last administered on 01/14/17 03:26; Start 01/10/17 at 04:00; Stop 01/06/18 at 03:59 Chlorhexidine Gluconate (Chlorhexidine 2% Cloth) 3 pack UNSCH PRN TOP HYGIENIC CARE; Start 01/09/17 at 10:00 Dextrose (D50w (Vial) Inj) 25 ml UNSCH PRN IV PUSH HYPOGLYCEMIA-SEE COMMENTS; Start 01/09/17 at 10:30 Glucagon (Glucagon Inj) 1 mg UNSCH PRN OTHER HYPOGLYCEMIA-SEE COMMENTS; Start 01/09/17 at 10:30 Insulin Human Regular (NovoLIN R SUPPLEMENTAL SCALE) 1 ACHS SLIDING SCALE SQ Last administered on 01/10/17 05:40; Start 01/09/17 at 11:00; Stop 01/10/17 at 07: 12; Status DC Carvedilol 12.5 mg 12.5 mg Q12HR PO Last administered on 01/09/17 20:46; Start 01/09/17 at 21:00; Stop 01/10/17 at 07:12; Status DC Phenylephrine HCl/ Dextrose (Neosynephrine Inj/D5W 500 ml Inj) 500 ml @ 0 mls/ hr TITRATE IV Last administered on 01/10/17 10:16; Start 01/09/17 at 23:15 Terbutaline Sulfate (Brethine Inj) 1 mg UNSCH PRN SQ FOR EXTRAVASATION PROTOCOL ; Start 01/09/17 at 23:15 Sennosides (Senna Liq) 17.6 mg Q12H G-TUBE Last administered on 01/11/17 22: 42; Start 01/10/17 at 11:00 Metoclopramide HCl (Reglan Inj) 5 mg Q8H IV PUSH Last administered on 14:46; Start 01/10/17 at 07:00 Polyethylene Glycol (Miralax) 17 gm DAILY PO Last administered on 01/11/17 07: 51; Start 01/10/17 at 09:00; Stop 01/11/17 at 07:59; Status DC Carvedilol (Coreg) 6.25 mg Q12HR PO Last administered on 01/12/17 20:12; Start 01/10/17 at 09:00; Stop 01/13/17 at 07:23; Status DC Insulin Human Regular (NovoLIN R SUPPLEMENTAL SCALE) 1 Q6HR SQ Last administered on 01/14/17 12:01; Start 01/10/17 at 12:00 Methylprednisolone Sodium Succinate 60 mg 60 mg Q8HR IV PUSH Last administered on 01/12/17 13:08; Start 01/10/17 at 14:00; Stop 01/12/17 at 14:15; Status DC Heparin Sodium/ Dextrose 250 ml @ 0 mls/hr TITRATE IV Last administered on 01/12 00:19; Start 01/11/17 at 08:00; Stop 01/12/17 at 14:18; Status DC Pharmacy Profile Note (Coumadin Consult Pharmacy) 0 ml @ 0 mls/hr UNSCH OTHER ; Start 01/11/17 at 07:45 Furosemide (Lasix Inj) 40 mg Q8HR IV PUSH Last administered on 01/16/17 05:47 ; Start 01/11/17 at 14:00; Stop 01/16/17 at 13:05; Status DC Polyethylene Glycol (Miralax) 17 gm BID PO Last administered on 01/15/17 08:16 ; Start 01/11/17 at 09:00 Lactulose (Lactulose Liq) 30 ml QID PO Last administered on 01/15/17 08:16; Start 01/11/17 at 09:00 Methylnaltrexone [place] (Relistor Inj) 12 mg ONCE ONCE SQ Last administered on 01/11/17 10:26; Start 01/11/17 at 08:00; Stop 01/11/17 at 08:09; Status DC Warfarin Sodium (Coumadin) 4 mg DAILY@16 PO Last administered on 01/11/17 17: 00; Start 01/11/17 at 16:00; Stop 01/12/17 at 08:32; Status DC Patient Medication Teaching (Coumadin Booklet) 1 ONCE ONCE XX Last administered on 01/11/17 16:00; Start 01/11/17 at 16:00; Stop 01/11/17 at 16:01 ; Status DC Albuterol/ Ipratropium 1 ampule 1 ampule Q6HR WHILE AWAKE NEB NEB Last administered on 01/11/17 21:13; Start 01/11/17 at 14:00; Stop 01/12/17 at 14:15 ; Status DC Azithromycin/ Sodium Chloride (Zithromax Inj/ NS 250 ml Inj) 250 ml @ 250 mls/ hr Q24H IV Last administered on 01/14/17 17:25; Start 01/11/17 at 18:15; Stop 01/15/17 at 14:34; Status DC Warfarin Sodium 2 mg 2 mg DAILY@1600 PO Last administered on 01/15/17 16:03; Start 01/12/17 at 16:00; Status Hold Potassium Chloride (KCl 40 Meq Premix Inj) 100 ml @ 25 mls/hr Q4H IV Last administered on 01/12/17 17:49; Start 01/12/17 at 15:00; Stop 01/12/17 at 22:59 ; Status DC Methylprednisolone Sodium Succinate (SoluMEDROL INJ) 40 mg Q8HR IV PUSH Last administered on 01/13/17 13:43; Start 01/12/17 at 22:00; Stop 01/13/17 at 16:22 ; Status DC Carvedilol (Coreg) 25 mg Q12HR PO ; Start 01/13/17 at 09:00; Stop 01/13/17 at 09 :00; Status DC Diltiazem HCl (Cardizem) 30 mg QID PO Last administered on 01/16/17 12:00; Start 01/13/17 at 09:00 Carvedilol (Coreg) 25 mg Q12HR PO Last administered on 01/16/17 08:42; Start 01/13/17 at 08:00 Metoprolol Tartrate (Lopressor Inj) 5 mg Q4H PRN IV PUSH Pulse > 110 Last administered on 01/14/17 07:44; Start 01/13/17 at 10:30 Digoxin (Lanoxin Inj) 0.25 mg ONCE ONCE IV PUSH Last administered on 12:48; Start 01/13/17 at 13:00; Stop 01/13/17 at 13:01; Status DC Digoxin (Lanoxin Inj) 0.25 mg ONCE ONCE IV PUSH Last administered on 13:43; Start 01/13/17 at 15:00; Stop 01/13/17 at 15:01; Status DC Methylprednisolone Sodium Succinate (SoluMEDROL INJ) 40 mg BID IV PUSH Last administered on 01/14/17 08:18; Start 01/13/17 at 21:00; Stop 01/14/17 at 19:06 ; Status DC Digoxin (Lanoxin Inj) 0.125 mg ONCE IV PUSH Last administered on 01/14/17 09: 48; Start 01/14/17 at 08:45; Stop 01/15/17 at 08:44; Status DC Prednisone (Deltasone) 10 mg BID PO Last administered on 01/15/17 08:17; Start 01/14/17 at 21:00; Stop 01/15/17 at 19:02; Status DC Zolpidem Tartrate (Ambien) 5 mg ONCE ONCE PO Last administered on 01/14/17 23 :59; Start 01/14/17 at 23:45; Stop 01/14/17 at 23:46; Status DC Levofloxacin (Levaquin) 750 mg Q48H PO Last administered on 01/15/17 16:02; Start 01/15/17 at 16:00 Prednisone (Deltasone) 10 mg DAILY PO Last administered on 01/16/17 08:42; Start 01/16/17 at 09:00 Furosemide (Lasix Inj) 40 mg BID IV PUSH ; Start 01/16/17 at 21:00 Date of Insertion: Jan 09, 2017 Line: Central Venous Catheter Side: Right Location: Internal, Jugular A/P Problem List: (1) CHF exacerbation ICD Code: I50.9 Status: Acute (2) Hypoxemia ICD Code: R09.02 Status: Acute (3) Acute respiratory failure ICD Code: J96.00 Status: Acute Assessment and Plan Acute hypoxemic respiratory failure COPD -s/p extubation. -VQ scan PE negative Dopplers for thrombus in lower lower extremities. Right upper extremity with cephalic vein thrombus/superficial -most likely due to PNA + sputum growing Strenotrophomanes sensitive to only Bactrim and Levaquin. patient was on azithromycin that was d/c yesterday. Patient will need 10 days of Levaquin start day was 01/15. -Bronchodilator therapy every 6 hours and as needed -on [id number] mg po daily. -Pulm ff. History of CVA/TIA 2013 without residual effect Peripheral neuropathy -Continue Neurontin 100 mg by mouth 3 times a day. Symptomatically bradycardia likely medication induced - resolved Acute systolic heart failure/ischemic cardiopathy - EF 30% History of hypertension History dyslipidemia Coronary artery disease status post CABG 1999 History bilateral lower extremity since secondary DVT -Echocardiogram reveals EF 30-35%. Akinesis of the apical myocardium. EDEL 43 mmHg. Moderate TR. RV normal -on coreg, cardizem, valsartan and lasix -Continue Lipitor at 40 mg daily and Lopid 60 mg twice a day for dyslipidemia. -on coumadin. 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 -Renal ultrasound negative hydronephrosis. Negative urine eosinophils -continue lasix. 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 Gout Holding Uloric 80 milligrams daily for gout due to ARF. Morbid obesity Weight loss encouraged Hypokalemia Replace electrolytes as clinically indicated DVT prophylaxis -on coumadin Discharge Planning Patient respiratory status is improving. Most likely can be d/c to SNF tomorrow. d/w case management. Problem Qualifiers (1) CHF exacerbation: Qualified Code: I50.9 - Acute on chronic congestive heart failure, unspecified congestive heart failure type Yaima Gonzalez MD Jan 16, 2017 16:58 Problem Qualifiers (1) CHF exacerbation: Qualified Code: I50.9 - Acute on chronic congestive heart failure, unspecified congestive heart failure type Yaima Gonzalez MD Jan 16, 2017 16:58
[2017-01-16] MEDS: FUROSEMIDE 40 MG TAB PO SCH (17:23)
[2017-01-16] MEDS: DILTIAZEM-CD 120 MG CAP ER PO SCH (17:23)
[2017-01-16] MEDS ORDERED: FUROSEMIDE 40 MG/4 ML VIAL IV PUSH SCH (21:00)
[2017-01-16] MEDS: ATORVASTATIN 40 MG TAB PO SCH (21:30)
[2017-01-16 22:46] LABS: BICARBONATE 31.6 MEQ/L (21.0-32.0); POTASSIUM 4.1 MEQ/L (3.5-5.1)
[2017-01-17] VITALS: BP 134/57; PULSE 79; RESP 18; TEMP 97.5; O2SAT 95
[2017-01-17] MEDS: SODIUM CHLORIDE 0.9% FLUSH 5 ML FLUSH FLUSH PRN ×2 (00:32→06:07)
[2017-01-17] MEDS: METOCLOPRAMIDE HCL 10 MG/2 ML VIAL IV PUSH SCH ×3 (00:32→14:48)
[2017-01-17] MEDS: CHLORHEXIDINE GLUCONATE 2 % 1 PACK (2 CLOTHS) TOP SCH (04:00)
[2017-01-17 04:18] VITALS: BP 123/58; PULSE 76; RESP 18; TEMP 97.8; O2SAT 97
[2017-01-17] MEDS: INSULIN NovoLIN REGULAR SUPPLEMENTAL SCALE SQ SCH ×3 (06:00→11:45)
[2017-01-17] MEDS: GEMFIBROZIL 600 MG TAB PO SCH ×2 (06:08→14:48)
[2017-01-17 07:00] LABS: HEMATOCRIT 38.4 % (39.0-51.0); MEAN CELL VOLUME 94.2 FL (80.0-100.0); MEAN CORPUSCULAR HEMOGLOBIN 31.1 PG (27.0-34.0); PLATELET COUNT 138 TH/MM3 (150-450); RED BLOOD COUNT 4.07 MIL/MM3 (4.50-5.90); RED CELL DISTRIBUTION WIDTH 14.8 % (11.6-17.2); REVIEW FLAG FINAL; WHITE BLOOD COUNT 7.3 TH/MM3 (4.0-11.0)
[2017-01-17 07:07] LABS: INTERNATIONAL NORMALIZED RATIO 2.1 RATIO; PROTHROMBIN TIME - PATIENT 23.7 SEC (9.8-11.6)
[2017-01-17 07:20] LABS: BICARBONATE 30.4 MEQ/L (21.0-32.0); POTASSIUM 3.9 MEQ/L (3.5-5.1)
[2017-01-17] MEDS: CHLORHEXIDINE 0.12% (ORAL KIT) 15 ML CUP MT SCH (07:57)
[2017-01-17] MEDS: SODIUM CHLORIDE 0.9% FLUSH 5 ML FLUSH FLUSH SCH (07:57)
[2017-01-17 08:00] VITALS: BP 111/61; PULSE 78; RESP 20; TEMP 97.8; O2SAT 96
[2017-01-17] MEDS: SODIUM CHLORIDE 0.9% FLUSH 5 ML FLUSH IVF SCH (08:05)
[2017-01-17] MEDS: POLYETHYLENE GLYCOL 17 GM PKG PO SCH (08:06)
[2017-01-17] MEDS: predniSONE 10 MG TAB PO SCH (08:06)
[2017-01-17] MEDS: DOCUSATE SODIUM 100 MG CAP PO SCH (08:06)
[2017-01-17] MEDS: GABAPENTIN 100 MG CAP PO SCH ×2 (08:06→12:10)
[2017-01-17] MEDS: FUROSEMIDE 40 MG TAB PO SCH (08:06)
[2017-01-17] MEDS: DILTIAZEM-CD 120 MG CAP ER PO SCH (08:06)
[2017-01-17] MEDS: CARVEDILOL 12.5 MG TAB PO SCH (08:06)
[2017-01-17] MEDS: VALSARTAN 160 MG TAB PO SCH (08:06)
[2017-01-17] MEDS ORDERED: PANTOPRAZOLE SOD 40 MG DELAYED RELEASE TAB PO SCH (09:00)
--- NOTE | 2017-01-17 09:36 | HHI.PR ---
Subjective Remarks Follow-up acute hypoxic respiratory failure/symptomatic bradycardia 01/17/17-patient seen and examined me currently stable and on nasal cannula oxygen without any significant complaint of shortness of breath or chest pain. Afebrile. Is discussed with insurance case manager regarding discharge disposition. Objective Vitals Vital Signs Date Time Temp Pulse Resp B/P Pulse Ox O2 Delivery O2 Flow Rate FiO2 01/17/17 08:00 Nasal Cannula 3.00 01/17/17 04:18 97.8 76 18 123/58 97 01/17/17 00:00 97.5 79 18 134/57 95 01/17/17 00:00 Nasal Cannula 4.00 Humidified 01/16/17 20:39 80 01/16/17 20:00 97.5 88 18 111/58 98 01/16/17 20:00 Nasal Cannula 4.00 Humidified 01/16/17 18:20 96 Nasal Cannula 4.00 01/16/17 16:29 97.5 80 19 108/56 96 01/16/17 12:05 97.4 84 20 97/52 96 01/16/17 12:00 98 Nasal Cannula 4.00 I/O 01/16/17 01/16/17 01/16/17 01/17/17 01/17/17 01/17/17 07:00 15:00 23:00 07:00 15:00 23:00 Intake Total 1200 ml 556 ml 1640 ml Output Total 1450 ml 1000 ml 2000 ml Balance -250 ml -444 ml -360 ml Intake Oral 1200 ml 540 ml 1640 ml IV Total 16 ml Output Urine Total 1450 ml 1000 ml 2000 ml # Bowel Movements 0 0 1 Result Diagram: 01/17/1762401/17/1725 Imaging Last Impressions Chest X-Ray 01/16/17 06 Signed Impressions: Service Date/Time: Monday, January 16, 2017 06:01 - CONCLUSION: Improvement in the aeration of the lungs. Katherine Richard MD Upper Extremity Ultrasound 01/10/17 0000 Signed Impressions: Service Date/Time: January 16:47 - CONCLUSION: Right cephalic vein thrombosis. Negative on the left. Jose Rubio MD Renal Ultrasound 01/09/17 0000 Signed Impressions: Service Date/Time: Monday, January 09, 2017 11:34 - CONCLUSION: 1. No obstructive uropathy or other acute abnormality seen of either kidney. No perceptible parenchymal changes. 2. Simple, benign appearing left renal cyst. 3. Urinary bladder decompressed with a Lopez catheter and is grossly unremarkable. Jose Rubio MD Lung Scan-[facility] Nuclear Medicine 01/09/17 0000 Signed Impressions: Service Date/Time: January 11:06 - CONCLUSION: 1. Low probability for pulmonary embolus. Tommy Page MD Lower Extremity Ultrasound 01/09/17 0000 Signed Impressions: Service Date/Time: Monday, January 09, 2017 17:44 - CONCLUSION: No DVT in either lower extremity. Floyd Khan MD Objective Remarks GENERAL: NAD SKIN: Warm and dry. HEAD: Normocephalic. EYES: No scleral icterus. No injection or drainage. NECK: Supple, trachea midline. No JVD or lymphadenopathy. CARDIOVASCULAR: Regular rate and rhythm without murmurs, gallops, or rubs. RESPIRATORY: Breath sounds decrease bilaterally. No accessory muscle use. GASTROINTESTINAL: Abdomen soft, non-tender, nondistended. MUSCULOSKELETAL: No cyanosis, or edema. BACK: Nontender without obvious deformity. No CVA tenderness. Procedures none Date of Insertion: Jan 09, 2017 Line: Central Venous Catheter Side: Right Location: Internal, Jugular A/P Problem List: (1) CHF exacerbation ICD Code: I50.9 Status: Acute (2) Hypoxemia ICD Code: R09.02 Status: Acute (3) Acute respiratory failure ICD Code: J96.00 Status: Acute (4) Chronic anticoagulation ICD Code: Z79.01 Status: Chronic (5) Hypertension ICD Code: I10 Status: Chronic (6) Hypoxia ICD Code: R09.02 Status: Acute Assessment and Plan 76 years old man with Acute hypoxemic respiratory failure COPD HCAP -s/p extubation. -VQ scan PE negative Dopplers for thrombus in lower lower extremities. Right upper extremity with cephalic vein thrombus/superficial - + sputum growing Strenotrophomanes sensitive to only Bactrim and Levaquin. Currently on Levaquin 10 days total (end date 01/24). -Bronchodilator therapy every 6 hours and as needed -Continue [id number] mg po daily. -Pulm ff. History of CVA/TIA 2013 without residual effect Peripheral neuropathy -Continue Neurontin 100 mg by mouth 3 times a day. Symptomatically bradycardia likely medication induced - resolved Acute systolic heart failure/ischemic cardiopathy - EF 30% History of hypertension History dyslipidemia Coronary artery disease status post CABG 1999 History bilateral lower extremity since secondary DVT -Echocardiogram reveals EF 30-35%. Akinesis of the apical myocardium. EDEL 43 mmHg. Moderate TR. RV normal -on Coreg, Cardizem, valsartan and Lasix -Continue Lipitor at 40 mg daily and Lopid 60 mg twice a day for dyslipidemia. -on Coumadin. 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 Negative urine eosinophils -continue Lasix. 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 Gout Holding Uloric 80 milligrams daily for gout due to ARF. Morbid obesity Weight loss encouraged Hypokalemia-resolved DVT prophylaxis -on Coumadin Problem Qualifiers (1) CHF exacerbation: Qualified Code: I50.9 - Acute on chronic congestive heart failure, unspecified congestive heart failure type Floyd Willis MD Jan 17, 2017 09:36
--- NOTE | 2017-01-17 09:40 | HHI.DS ---
Discharge Summary Admission Date Jan 07, 2017 at 22:55 Discharge Date: Jan 17, 2017 Admitting Diagnosis CHF exacerbation, Afib with RVR (1) CHF exacerbation ICD Code: I50.9 (2) Hypoxemia ICD Code: R09.02 (3) Acute respiratory failure ICD Code: J96.00 (4) Chronic anticoagulation ICD Code: Z79.01 (5) Hypertension ICD Code: I10 (6) Hypoxia ICD Code: R09.02 Procedures none Brief History - From Admission History from patient, ER physician, ER physician, and review of medical records. Patient reported that he came to the hospital because he was severely short of breath yesterday. He states it was starting in the evening and he thought that taking a shower would make the breathing better so he went to the bathroom to take a shower. He status and as he got out of shower, he just was not able to catch her breath. He told his to call 911. Upon arrival by EMS, patient was in acute respiratory distress with hypoxia in the 80s. He was placed on C Pap, and was given Cardizem 20 mg IV by intraosseous for going into A. fib with RVR. Patient reports history of A. fib. also reports of history of CHF. He is requesting for home oxygen because this is likely third time this has happened. Patient states that he is compliant with his medications, salt intake, and water pills. He usually sees Dr. Madison for cardiology. He states that his doctor had retired and is now seen another physician at the same office. He reports he has not had any stress test or angiogram in the past 1 year. Patient also has history of COPD. However he quit smoking in [address] Madison advised him to do so prior to his CABG. Apart from the above, patient denies any recent fever/nausea/vomiting/diarrhea/ urinary burning or pain on urination. He denies any hematemesis/vomiting/melena/hematuria. Denies any syncopal episodes. Denies any palpitations in the past few days. He did have palpitations during this acute episode of respiratory distress. Denies any chest pains. However did report of ongoing chest tightness every time he exerts himself and walk around which is usually associated with shortness of breath on exertion as well. CBC/BMP: 01/17/1762401/17/17624 Significant Findings Laboratory Tests Test 01/15/17 01/16/17 01/16/17 01/16/17 08:26 05:50 06:45 21:40 Prothrombin Time 20.5 SEC 29.9 SEC (9.8-11.6) (9.8-11.6) Red Blood Count 4.07 MIL/MM3 (4.50-5.90) Hemoglobin 12.8 GM/DL (13.0-17.0) Hematocrit 38.3 % (39.0-51.0) Platelet Count 130 TH/MM3 (150-450) Chloride Level 96 MEQ/L 97 MEQ/L (98-107) (98-107) Blood Urea Nitrogen 90 MG/DL (7-18) 93 MG/DL (7-18) Creatinine 1.85 MG/DL 2.08 MG/DL (0.60-1.30) (0.60-1.30) Estimat Glomerular Filtration 36 ML/MIN (>89) 31 ML/MIN (>89) Rate Calcium Level 7.6 MG/DL 8.1 MG/DL (8.5-10.1) (8.5-10.1) Test 01/17/17 06:25 Red Blood Count 4.07 MIL/MM3 (4.50-5.90) Hemoglobin 12.7 GM/DL (13.0-17.0) Hematocrit 38.4 % (39.0-51.0) Platelet Count 138 TH/MM3 (150-450) Prothrombin Time 23.7 SEC (9.8-11.6) Chloride Level 97 MEQ/L (98-107) Blood Urea Nitrogen 92 MG/DL (7-18) Creatinine 1.87 MG/DL (0.60-1.30) Estimat Glomerular Filtration 35 ML/MIN (>89) Rate Calcium Level 8.3 MG/DL (8.5-10.1) Imaging Last Impressions Chest X-Ray 01/16/17 0600 Signed Impressions: Service Date/Time: Monday, January 16, 2017 06:01 - CONCLUSION: Improvement in the aeration of the lungs. Katherine Richard MD Upper Extremity Ultrasound 01/10/17 0000 Signed Impressions: Service Date/Time: January 16:47 - CONCLUSION: Right cephalic vein thrombosis. Negative on the left. Jose Rubio MD Renal Ultrasound 01/09/17 0000 Signed Impressions: Service Date/Time: Monday, January 09, 2017 11:34 - CONCLUSION: 1. No obstructive uropathy or other acute abnormality seen of either kidney. No perceptible parenchymal changes. 2. Simple, benign appearing left renal cyst. 3. Urinary bladder decompressed with a Lopez catheter and is grossly unremarkable. Jose Rubio MD Lung Scan-VQ Nuclear Medicine 01/09/17 0000 Signed Impressions: Service Date/Time: January 11:06 - CONCLUSION: 1. Low probability for pulmonary embolus. Tommy Page MD Lower Extremity Ultrasound 01/09/17 0000 Signed Impressions: Service Date/Time: Monday, January 09, 2017 17:44 - CONCLUSION: No DVT in either lower extremity. Floyd Khan MD PE at Discharge GENERAL: NAD SKIN: Warm and dry. HEAD: Normocephalic. EYES: No scleral icterus. No injection or drainage. NECK: Supple, trachea midline. No JVD or lymphadenopathy. CARDIOVASCULAR: Regular rate and rhythm without murmurs, gallops, or rubs. RESPIRATORY: Breath sounds decrease bilaterally. No accessory muscle use. GASTROINTESTINAL: Abdomen soft, non-tender, nondistended. MUSCULOSKELETAL: No cyanosis, or edema. BACK: Nontender without obvious deformity. No CVA tenderness. Hospital Course Acute hypoxemic respiratory failure COPD HCAP -s/p extubation. -VQ scan PE negative Dopplers for thrombus in lower lower extremities. Right upper extremity with cephalic vein thrombus/superficial - + sputum growing Strenotrophomanes sensitive to only Bactrim and Levaquin. Currently on Levaquin 10 days total (end date 01/24). -Bronchodilator therapy every 6 hours and as needed -Continue [id number] mg po daily. -Pulm ff. History of CVA/TIA 2013 without residual effect Peripheral neuropathy -Continue Neurontin 100 mg by mouth 3 times a day. Symptomatically bradycardia likely medication induced - resolved Acute systolic heart failure/ischemic cardiopathy - EF 30% History of hypertension History dyslipidemia Coronary artery disease status post CABG 1999 History bilateral lower extremity since secondary DVT -Echocardiogram reveals EF 30-35%. Akinesis of the apical myocardium. EDEL 43 mmHg. Moderate TR. RV normal -on Coreg, Cardizem, valsartan and Lasix -Continue Lipitor at 40 mg daily and Lopid 60 mg twice a day for dyslipidemia. -on Coumadin. 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 Negative urine eosinophils -continue Lasix. 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 Gout Holding Uloric 80 milligrams daily for gout due to ARF. Morbid obesity Weight loss encouraged Hypokalemia-resolved DVT prophylaxis -on Coumadin Pt Condition on Discharge: Stable Discharge Disposition: Discharge to SNF Discharge Time: > 30 minutes Discharge Instructions DIET: Follow Instructions for: Heart Healthy Diet, Diabetic Diet Activities you can perform: Regular-No Restrictions Follow up Referrals: PCP Follow-up - 2-3 Days New Orders: PT/INR - Next Day New Medications: Warfarin (Warfarin) 1 Mg Tab 1 MG PO DAILY recheck in 2-3 days. Goal INR 2-3. Blood Clot Prevention #3 Ref 0 TAB Diltiazem CD 24 HR (Cardizem CD 24 HR) 120 Mg Caper 120 MG PO DAILY atrial fibrillation #30 Ref 0 CAP Furosemide (Furosemide) 40 Mg Tab 40 MG PO BID@09,18 CHF #60 Ref 0 TAB Levofloxacin (Levaquin) 750 Mg Tab 750 MG PO Q48H pneumonia #4 Ref 0 TAB Pantoprazole (Pantoprazole) 40 Mg Tab 40 MG PO DAILY gastritis #30 Ref 0 TAB Prednisone (Prednisone) 10 Mg Tab 10 MG PO DAILY copd #3 Ref 0 TAB Continued Medications: Aspirin DR (David Aspirin EC Low Dose) 81 Mg Tabdr Atorvastatin (Atorvastatin) 40 Mg Tab 40 MG PO HS Cholesterol Management #30 Ref 0 TAB Carvedilol (Carvedilol) 25 Mg Tab 25 MG PO BID #60 Ref 0 TAB Gabapentin (Gabapentin) 100 Mg Cap 100 MG PO TID #90 Ref 0 CAP Gemfibrozil (Gemfibrozil) 600 Mg Tab 600 MG PO BIDAC Take 30 minutes prior to breakfast and dinner. #60 Ref 0 TAB Valsartan (Valsartan) 320 Mg Tab 320 MG PO DAILY #30 Ref 0 TAB Discontinued Medications: Amlodipine (Amlodipine) 10 Mg Tab 10 MG PO DAILY Blood Pressure Management #30 Ref 0 TAB Bumetanide (Bumetanide) 1 Mg Tab 1 MG PO BID #60 Ref 0 TAB Febuxostat (Uloric) 80 Mg Tab Warfarin (Warfarin) 4 Mg Tab 4 MG PO DAILY Blood Clot Prevention #30 Ref 0 TAB Floyd Willis MD Jan 17, 2017 09:40
[2017-01-17 09:45] VITALS: PULSE 76
[2017-01-17] MEDS: SENNOSIDES SYRUP 8.8 MG/5 ML CUP G-TUBE SCH (10:39)
[2017-01-17 11:40] VITALS: O2SAT 97
[2017-01-17 12:00] VITALS: BP 130/58; PULSE 77; RESP 20; TEMP 97.3; O2SAT 95
--- NOTE | 2017-01-17 13:07 | HHI.PR ---
Subjective Remarks Much better Will have life west today. Has no cough . Good output. Objective Vital Signs Date Time Temp Pulse Resp B/P Pulse Ox O2 Delivery O2 Flow Rate FiO2 01/17/17 09:45 76 01/17/17 08:00 97.8 78 20 111/61 96 01/17/17 08:00 Nasal Cannula 3.00 01/17/17 04:18 97.8 76 18 123/58 97 01/17/17 00:00 97.5 79 18 134/57 95 01/17/17 00:00 Nasal Cannula 4.00 Humidified 01/16/17 20:39 80 01/16/17 20:00 97.5 88 18 111/58 98 01/16/17 20:00 Nasal Cannula 4.00 Humidified 01/16/17 18:20 96 Nasal Cannula 4.00 01/16/17 16:29 97.5 80 19 108/56 96 I/O 01/16/17 01/16/17 01/16/17 01/17/17 01/17/17 01/17/17 07:00 15:00 23:00 07:00 15:00 23:00 Intake Total 1200 ml 556 ml 1640 ml Output Total 1450 ml 1000 ml 2000 ml Balance -250 ml -444 ml -360 ml Intake Oral 1200 ml 540 ml 1640 ml IV Total 16 ml Output Urine Total 1450 ml 1000 ml 2000 ml # Bowel Movements 0 0 1 Result Diagram: 01/17/1762401/17/17624 Objective Remarks GENERAL: This is a moderately obese elderly man is awake.On O2. HEAD, EYES, EARS, NOSE, THROAT: Head normocephalic. The pupils are reactive and equal. Ears clear. NECK: The neck is supple. No venous distention. No thyromegaly. CHEST: Distant breath sounds with basilar crackles .. HEART: Heart sounds are Irregular. S1 and S2. No murmur. ABDOMEN: Abdomen soft and obese without masses. No organomegaly or tenderness. The bowel sounds are active. EXTREMITIES: Decreased pulses. No edema. NEUROLOGIC: Reflexes are 1+. No gross deficits. SKIN: Dry and warm. Assessment and Plan Assessment and Plan IMPRESSION: 1. Chronic systolic heart failure. 2. Respiratory failure with probable basilar pneumonia. 3. He has hypertension. 4. Hyperlipidemia. 5. Atrial fibrillation with rapid ventricular response. 6. COPD with chronic bronchitis and emphysema. 7. History of CVA. Plan : 1. Cont Weaning O2 to N/C 3 L. 2. Nebs qid , Duoneb. 3. PT evaluation. 4. Continue diuretic daily 5. PFT in am 6. Soft diet. 7. To rehab in am 8. Prednisone 10 mg daily for 1 week. Gin Tran MD Jan 17, 2017 13:07
[2017-01-17] MEDS: WARFARIN SOD 2 MG TAB PO SCH (14:48)
[2017-01-17] MEDS: LEVOFLOXACIN 750 MG TAB PO SCH (14:48)
[2017-01-18 16:00] VITALS: BP 144/70; PULSE 82; RESP 18; TEMP 98.3; O2SAT 96
--- NOTE | 2017-01-25 11:33 | RSPPFT ---
DATE OF PROCEDURE: 01/15/17 COMMENTS: Spirometry demonstrates an FEV1 of 1.0 at 33% of predicted, FVC of 1.2 at 33%, FEF 25-75 at 31% of predicted. Spirometry indicates severe restriction. Post-bronchodilator study demonstrated no significant change. Lung volumes were not completed. Flow volume loops suggest a restrictive pattern. IMPRESSION: 1. Severe restrictive disease. 2. Additional mild to moderate obstructive disease. 3. Minimal response to use of bronchodilator.
== END 2017-01-17 17:05 | DRG 207 ==
LOC: NEPE 20:17 → NEDA 22:55 → NEDH 01-08 02:57 → HCIN 01-08 09:14 → N03A 01-08 13:41 → N04A 01-14 15:00
PROVIDERS: ADMIT Hospitalist; ATTEND Hospitalist
PROC: 5A09457 Assistance with Respiratory Ventilation, 24-96 Consecutive Hours, Continuous Positive Airway Pressure (ICD-10-PCS; principal; 2017-01-07)
PROC: 0T9B70Z Drainage of Bladder with Drainage Device, Via Natural or Artificial Opening (ICD-10-PCS; 2017-01-07)
PROC: 5A1955Z Respiratory Ventilation, Greater than 96 Consecutive Hours (ICD-10-PCS; 2017-01-09)
PROC: 0BH17EZ Insertion of Endotracheal Airway into Trachea, Via Natural or Artificial Opening (ICD-10-PCS; 2017-01-09)
PROC: 05HM33Z Insertion of Infusion Device into Right Internal Jugular Vein, Percutaneous Approach (ICD-10-PCS; 2017-01-11)
DX: J96.01 Acute respiratory failure with hypoxia (principal); I50.23 Acute on chronic systolic (congestive) heart failure; J18.1 Lobar pneumonia, unspecified organism; E87.2 Acidosis; D69.6 Thrombocytopenia, unspecified; I24.8 Other forms of acute ischemic heart disease; N18.4 Chronic kidney disease, stage 4 (severe); N17.9 Acute kidney failure, unspecified; I27.2 Other secondary pulmonary hypertension; I48.91 Unspecified atrial fibrillation; J44.0 Chronic obstructive pulmonary disease with (acute) lower respiratory infection; I82.619 Acute embolism and thrombosis of superficial veins of unspecified upper extremity; I25.5 Ischemic cardiomyopathy; J44.9 Chronic obstructive pulmonary disease, unspecified; R00.1 Bradycardia, unspecified; I95.9 Hypotension, unspecified; G62.9 Polyneuropathy, unspecified; I44.7 Left bundle-branch block, unspecified; I25.10 Atherosclerotic heart disease of native coronary artery without angina pectoris; Z95.1 Presence of aortocoronary bypass graft; Z95.5 Presence of coronary angioplasty implant and graft; Z86.718 Personal history of other venous thrombosis and embolism; Z85.46 Personal history of malignant neoplasm of prostate; I25.2 Old myocardial infarction; I12.9 Hypertensive chronic kidney disease with stage 1 through stage 4 chronic kidney disease, or unspecified chronic kidney disease; E78.5 Hyperlipidemia, unspecified; Z86.73 Personal history of transient ischemic attack (TIA), and cerebral infarction without residual deficits; Z92.3 Personal history of irradiation; Z87.891 Personal history of nicotine dependence; Z87.442 Personal history of urinary calculi; Z79.01 Long term (current) use of anticoagulants; E78.00 Pure hypercholesterolemia, unspecified; Z80.1 Family history of malignant neoplasm of trachea, bronchus and lung; Z82.49 Family history of ischemic heart disease and other diseases of the circulatory system; T44.7X5A Adverse effect of beta-adrenoreceptor antagonists, initial encounter; T46.1X5A Adverse effect of calcium-channel blockers, initial encounter; Y92.239 Unspecified place in hospital as the place of occurrence of the external cause; I34.0 Nonrheumatic mitral (valve) insufficiency; I73.9 Peripheral vascular disease, unspecified; E66.9 Obesity, unspecified; D64.9 Anemia, unspecified; E87.6 Hypokalemia; M10.9 Gout, unspecified
CPT/HCPCS: 31500; 36600; 51702; 71010; 76775; 76937; 78582; 80048; 80053; 81001; 82272; 82550; 82552; 82570; 82805; 82948; 83605; 83735; 83880; 84100; 84300; 84484; 85025; 85027; 85610; 85730; 87040; 87070; 87077; 87186; 87205; 87449; 87641; 87804; 93005; 93306; 93970; 94002; 94003; 94060; 94640; 94664; 96374; 96375; A9540; A9567; C9113; J0456; J0461; J0610; J0696; J1160; J1250; J1265; J1610; J1644; J1650; J1815; J1940; J2212; J2370; J2405; J2765; J2920; J3010; J3480; J7030; J7050; J7060; J7512

== ENCOUNTER 2017-01-22 16:24 | Observation (INO) | payer MEDICARE ==
[~2017-01-22] VITALS: Ht 177.8 cm; Wt 86.0 kg
[~2017-01-22 16:24] MED LIST changes: -1-ME1LIQ PO; +ASPI1TAB73 PO; -ASPI81TA82 PO; +ATOR40TA16 PO; -ATOR40TA49 PO; -BUME1TAB PO; +CARD120C4 PO; -CARV12.52 PO; +CARV25TA PO; -COUM2.5T PO; -DIOV320T PO; +FURO40TA PO; +LEVA750T PO; +PANT40TA3 PO; +PRED10 PO; -SPIR25TA PO; +VALS1TAB70 PO; +WARF4TAB52 PO
[2017-01-22 18:20] VITALS: BP 103/54; PULSE 78; RESP 18; TEMP 98.1
--- NOTE | 2017-01-22 19:05 | PD ---
HPI Chief Complaint: Abnormal Results Time Seen by Provider: 19:05 Travel History International Travel<30 days: No Contact w/Intl Traveler<30days: No Traveled to known affect area: No History of Present Illness HPI 76-year-old male with a history of CHF, CAD, CABG, CVA, hyperlipidemia, A. fib, COPD, anticoagulated on warfarin is brought to the emergency department from his [facility] facility for increased creatinine and INR. The patient was recently admitted to our hospital for acute respiratory failure and CHF exacerbation and was discharged to a [facility] facility 4 days ago. The patient states that he is feeling well and he has no complaints. He denies any chest pain, shortness of breath, difficulty breathing, swelling of the extremities, headache, lightheadedness, dizziness, nausea, vomiting, abdominal pain, bloody stool, black stool. States that he did have a mild nosebleed today that resolved on its own. States he is urinating without difficulty. States he is eating and drinking well. No other complaints. PFSH Past Medical History Hx Anticoagulant Therapy: Yes Arthritis: No Asthma: No Atrial Fibrillation: Yes Autoimmune Disease: No Blood Disorders: No Anxiety: Yes (WITH SOB) Depression: No Heart Rhythm Problems: Yes Cancer: Yes (PROSTATE) Cardiac Catheterization: Yes Cardiovascular Problems: Yes High Cholesterol: Yes Chemotherapy: No Chest Pain: No Congestive Heart Failure: Yes COPD: Yes Cerebrovascular Accident: Yes (2013 - ) Diabetes: No Diminished Hearing: Yes ([place]) Endocrine: No Gastrointestinal Disorders: No GERD: No Genitourinary: Yes (PROSTATE CA) Hepatitis: No Hiatal Hernia: No Heparin Induced Thrombocytopen: No Hypertension: Yes Immune Disorder: No Kidney Stones: Yes (1960) Medical other: Yes (CAD) Musculoskeletal: No Neurologic: Yes (DIZZY, STROKE) Psychiatric: No Reproductive: No Respiratory: Yes (COPD) Migraines: No Myocardial Infarction: Yes Radiation Therapy: Yes (prostate cancer 45 treatments) Renal Failure: No Seizures: No Sickle Cell Disease: No Sleep Apnea: No Thyroid Disease: No Ulcer: No Past Surgical History Abdominal Surgery: Yes AICD: No Arteriovenous Shunt: Yes (shunts placed in BLE for DVT) Cardiac Surgery: Yes (CABG 1999) Coronary Stent: Yes Ear Surgery: No Endocrine Surgery: No Eye Surgery: Yes (BILAT CATARACT SX) Genitourinary Surgery: Yes (PROSTATE SEED IMPLANTS) Gynecologic Surgery: No Insulin Pump: No Joint Replacement: No Neurologic Surgery: No Oral Surgery: Yes (TEETH EXTRACTED) Pacemaker: No Thoracic Surgery: No Other Surgery: Yes Social History Alcohol Use: No Tobacco Use: No Substance Use: No Allergies-Medications (Allergen,Severity, Reaction): Coded Allergies: No Known Allergies (Verified , 01/07/17) Reported Meds & Prescriptions Reported Meds & Active Scripts Active Warfarin 1 Mg Tab 1 Mg PO DAILY recheck in 2-3 days. Goal INR 2-3. Pantoprazole (Pantoprazole Sodium) 40 Mg Tab 40 Mg PO DAILY Levaquin (Levofloxacin) 750 Mg Tab 750 Mg PO Q48H Furosemide 40 Mg Tab 40 Mg PO BID@,18 Cardizem CD 24 HR (Diltiazem CD 24 HR) 120 Mg Caper 120 Mg PO DAILY Reported David Aspirin EC Low Dose (Aspirin) 81 Mg Tabdr 81 Mg PO DAILY Carvedilol 25 Mg Tab 25 Mg PO BID Hold if SBP <100 or DBP <60 Gemfibrozil 600 Mg Tab 600 Mg PO BIDAC Take 30 minutes prior to breakfast and dinner. Gabapentin 100 Mg Cap 100 Mg PO TID Valsartan 320 Mg Tab 320 Mg PO DAILY Atorvastatin (Atorvastatin Calcium) 40 Mg Tab 40 Mg PO HS Review of Systems Except as stated in HPI: all other systems reviewed are Neg Physical Exam Narrative GENERAL: Well-nourished and well-developed pleasant elderly male patient in no acute distress who is nontoxic appearing. SKIN: Warm and dry. HEAD: Normocephalic and atraumatic. EYES: No injection, drainage, or hyphema noted. PERRLA. EOMI. ENT: No nasal drainage noted. Oropharynx is clear. NECK: Supple and the trachea is midline. CARDIOVASCULAR: Regular rate and rhythm. RESPIRATORY: Breath sounds are equal bilaterally with no accessory muscle use, wheezing, rhonchi, or crackles. GASTROINTESTINAL: Abdomen is soft, non-tender, and nondistended. MUSCULOSKELETAL: No obvious deformities, swelling, cyanosis, or ecchymosis is present throughout the upper and lower extremities. Patient has full range of motion without any signs of neurovascular compromise. NEUROLOGICAL: Awake, alert, and oriented. Normal speech and gait. Cranial nerves are grossly intact. Data Data Last Documented VS Vital Signs Date Time Temp Pulse Resp B/P Pulse Ox O2 Delivery O2 Flow Rate FiO2 01/22/17 21:18 64 18 Nasal Cannula 3 01/22/17 21:18 108/60 96 01/22/17 18:20 98.1 Orders Complete Blood Count With Diff (01/22/17 19:02) Comprehensive Metabolic Panel (01/22/17 19:02) Prothrombin Time / Inr (Pt) (01/22/17 19:02) Act Partial Throm Time (Ptt) (01/22/17 19:02) Chest, Single Ap (01/22/17 19:02) Ecg Monitoring (01/22/17 19:02) Iv Access Insert/Monitor (01/22/17 19:02) Oximetry (01/22/17 19:02) Sodium Chloride 0.9% Flush (Ns Flush) (01/22/17 19:15) B-Type Natriuretic Peptide (01/22/17 19:02) Electrocardiogram (01/22/17 19:02) Admit Order (Ed Use Only) (01/22/17 21:19) Labs Laboratory Tests Test 01/22/17 20:05 White Blood Count 8.5 TH/MM3 Red Blood Count 3.96 MIL/MM3 Hemoglobin 12.3 GM/DL Hematocrit 36.6 % Mean Corpuscular Volume 92.6 FL Mean Corpuscular Hemoglobin 31.1 PG Mean Corpuscular Hemoglobin 33.5 % Concent Red Cell Distribution Width 15.3 % Platelet Count 137 TH/MM3 Mean Platelet Volume 9.7 FL Neutrophils (%) (Auto) 82.8 % Lymphocytes (%) (Auto) 6.8 % Monocytes (%) (Auto) 7.5 % Eosinophils (%) (Auto) 2.0 % Basophils (%) (Auto) 0.9 % Neutrophils # (Auto) 7.0 TH/MM3 Lymphocytes # (Auto) 0.6 TH/MM3 Monocytes # (Auto) 0.6 TH/MM3 Eosinophils # (Auto) 0.2 TH/MM3 Basophils # (Auto) 0.1 TH/MM3 CBC Comment DIFF FINAL Differential Comment Prothrombin Time 47.4 SEC Prothromb Time International 4.0 RATIO Ratio Activated Partial 47.7 SEC Thromboplast Time Sodium Level 134 MEQ/L Potassium Level 4.8 MEQ/L Chloride Level 98 MEQ/L Carbon Dioxide Level 24.6 MEQ/L Anion Gap 11 MEQ/L Blood Urea Nitrogen 122 MG/DL Creatinine 3.62 MG/DL Estimat Glomerular Filtration 17 ML/MIN Rate Random Glucose 91 MG/DL Calcium Level 8.5 MG/DL Total Bilirubin 0.3 MG/DL Aspartate Amino Transf 24 U/L (AST/SGOT) Alanine Aminotransferase 18 U/L (ALT/SGPT) Alkaline Phosphatase 95 U/L B-Type Natriuretic Peptide 323 PG/ML Total Protein 6.7 GM/DL Albumin 2.6 GM/DL MDM Medical Decision Making Medical Screen Exam Complete: Yes Emergency Medical Condition: Yes Differential Diagnosis Acute renal failure versus acute on chronic kidney renal failure versus supratherapeutic INR versus electrolyte abnormality Narrative Course 76-year-old male is brought to the emergency department from his [facility] facility for evaluation of elevated creatinine and INR. Patient is afebrile, vital signs are stable. The only complaint the patient has is that he had a mild nosebleed earlier today that resolved on its own. The labs that the facility sent over shows that the patient's creatinine is 3 and his INR is 3.5. IV access is obtained, labs were drawn and sent. Chest x-ray shows slight bibasilar atelectasis. CBC shows mild anemia with a hemoglobin of 12.3, hematocrit 36.6. CMP shows elevated creatinine of 3.62, BUN 122, GFR 17. This is elevated from the patient's previous lab values at our facility. Coags show INR is supratherapeutic at 4.0. Patient does not appear volume overloaded, does not need emergent dialysis. He will be kept under observation here in the hospital to see a green chain marker for acute on chronic renal failure. I discussed the case with my attending physician Dr. Lou who is aware of the patients history, physical examination findings, and treatment plan. 1100PM After the patient was already admitted a urine study was performed and showed the patient is retaining 650 cc urine and therefore she believes this is the cause of his worsening renal function. A Lopez catheter has been placed and Dr. Barksdale is requesting the patient be discharged and transported back to his [facility] facility. I discussed this with Natalie in charge of the facility and he agrees to accept the patient back. Physician Communication Physician Communication I spoke with Miguel Angel GOODMAN for Dr. Leung [facility] why this patient was sent to the ED. He reports the patient was sent in because his Cr has tripled over the past 5 days and he does not have resources at the facility to take care of acute renal failure as the patient would not be able to see a green chain marker at the facility and he would like him evaluated for possible need for dialysis. I spoke with Dr. Apolonia VIERA regarding patient and discussion I had with MAXINE who sent the patient and she agrees to accept the patient under observation. Diagnosis Primary Impression: Acute on chronic renal failure Additional Impressions: Supratherapeutic INR Urinary retention Patient Instructions: General Instructions Additional Instructions: Lopez catheter care. Repeat BMP in the a.m. Follow-up with your Primary Care Physician. Return to the ED for any acute worsening of symptoms. Med/Other Pt SpecificInfo: No Change to Meds Disposition: 03 DISCHARGE TO SNF Condition: Stable Mariza Zaman Jan 22, 2017 19:05
[2017-01-22] MEDS ORDERED: SODIUM CHLORIDE 0.9% FLUSH 10 ML FLUSH IVF PRN (19:15)
[2017-01-22 20:20] LABS: BASOPHIL # 0.1 TH/MM3 (0-0.2); BASOPHIL % 0.9 % (0.0-2.0); EOSINOPHIL # 0.2 TH/MM3 (0-0.4); HEMATOCRIT 36.6 % (39.0-51.0); HEMO FLAGS DIFF FINAL; LYMPH % 6.8 % (9.0-44.0); LYMPHOCYTE # 0.6 TH/MM3 (1.0-4.8); MEAN CELL VOLUME 92.6 FL (80.0-100.0); MEAN CORPUSCULAR HEMOGLOBIN 31.1 PG (27.0-34.0); MEAN CORPUSCULAR HGB CONC 33.5 % (32.0-36.0); MONO % 7.5 % (0.0-8.0); NEUT % 82.8 % (16.0-70.0); PLATELET COUNT 137 TH/MM3 (150-450); RED BLOOD COUNT 3.96 MIL/MM3 (4.50-5.90); RED CELL DISTRIBUTION WIDTH 15.3 % (11.6-17.2); WHITE BLOOD COUNT 8.5 TH/MM3 (4.0-11.0)
[2017-01-22 20:22] VITALS: RESP 20
[2017-01-22 20:26] LABS: APTT (PATIENT) 47.7 SEC (24.3-30.1); PROTHROMBIN TIME - PATIENT 47.4 SEC (9.8-11.6)
--- NOTE | 2017-01-22 20:29 | RADRPT ---
EXAM DATE/TIME: 01/22/2017 19:19 [facility] COMPARISON: CHEST SINGLE AP, January 16, 2017, 6:01. INDICATIONS : Short of breath. MEDICAL HISTORY : Stroke. Myocardial infarction. Hyperthyroidism. Congestive heart failure. COPD. Prostate cancer. SURGICAL HISTORY : CABG. Coronary artery stent. ENCOUNTER: Initial ACUITY: 1 day PAIN SCORE: 0/10 LOCATION: Bilateral chest FINDINGS: Slight bibasilar atelectasis is seen. There is evidence for prior median sternotomy. Heart and medias tinum are unremarkable for technique. CONCLUSION: Slight bibasilar atelectasis. Katherine Richard MD on January 22, 2017 at 20:27 Board Certified Radiologist. This report was verified electronically.
[2017-01-22 20:42] LABS: ANION GAP 11 MEQ/L (5-15); AST (GOT) 24 U/L (15-37); BICARBONATE 24.6 MEQ/L (21.0-32.0); BLOOD UREA NITROGEN 122 MG/DL (7-18); CHLORIDE 98 MEQ/L (98-107); GLOMERULAR FILTRATION RATE 17 ML/MIN (>89); POTASSIUM 4.8 MEQ/L (3.5-5.1); SODIUM (NA) 134 MEQ/L (136-145)
[2017-01-22 20:45] LABS: ALKALINE PHOSPHATASE 95 U/L (45-117); ALT (GPT) 18 U/L (12-78); TOTAL BILIRUBIN ADULT 0.3 MG/DL (0.2-1.0)
[2017-01-22 21:18] VITALS: BP 108/60; PULSE 64; RESP 20; O2SAT 96
[2017-01-22] MEDS ORDERED: NALOXONE HCL 0.4 MG/ML AMP IV PRN (21:30)
[2017-01-22] MEDS ORDERED: SODIUM CHLORIDE 0.9% FLUSH 10 ML FLUSH IV FLUSH PRN (21:30)
[2017-01-22 22:30] VITALS: BP 100/62; PULSE 66; RESP 20; O2SAT 96
[2017-01-23] VITALS (7 sets, daily range): BP systolic 81–183; BP diastolic 51–76; PULSE 65–86; RESP 16–20; TEMP 95.6–97.8; O2SAT 95–98
--- NOTE | 2017-01-23 03:48 | PD ---
Data Data Last Documented VS Vital Signs Date Time Temp Pulse Resp B/P Pulse Ox O2 Delivery O2 Flow Rate FiO2 01/23/17 03:37 78 20 114/76 96 Nasal Cannula 2 01/22/17 18:20 98.1 Orders Complete Blood Count With Diff (01/22/17 19:02) Comprehensive Metabolic Panel (01/22/17 19:02) Prothrombin Time / Inr (Pt) (01/22/17 19:02) Act Partial Throm Time (Ptt) (01/22/17 19:02) Chest, Single Ap (01/22/17 19:02) Ecg Monitoring (01/22/17 19:02) Iv Access Insert/Monitor (01/22/17 19:02) Oximetry (01/22/17 19:02) Sodium Chloride 0.9% Flush (Ns Flush) (01/22/17 19:15) B-Type Natriuretic Peptide (01/22/17 19:02) Electrocardiogram (01/22/17 19:02) Vital Signs (Adult) Q4H (01/22/17 21:24) Activity Oob With Assistance (01/22/17 21:24) Document Processor / Telemetry .CONTINUOUS (01/22/17 21:24) Intake + Output ANDREA.QSHIFT (01/22/17 21:24) Sodium Chloride 0.9% Flush (Ns Flush) (01/22/17 21:30) Sodium Chloride 0.9% Flush (Ns Flush) (01/23/17 09:00) Heparin Inj (Heparin Inj) (01/23/17 06:00) Naloxone Inj (Narcan Inj) (01/22/17 21:30) Aspirin Ec (Ecotrin Ec) (01/23/17 09:00) Atorvastatin (Lipitor) (01/23/17 21:00) Diltiazem Cd (Cardizem Cd) (01/23/17 09:00) Pantoprazole (Protonix) (01/23/17 09:00) Captopril (Capoten) (01/23/17 09:00) Bladder Scan PRN (01/22/17 21:53) (Hub Use Only)Inp Phy Cons/Ref (01/22/17 ) Urinary Catheter Management ANDREA.Q8H (01/22/17 22:43) Type And Screen (01/23/17 03:28) Complete Blood Count With Diff (01/23/17 03:37) Basic Metabolic Panel (Bmp) (01/23/17 03:37) Occult Blood (Hemoccult) Stool (01/23/17 04:12) Consult Gastroenterology (01/23/17 ) Labs Laboratory Tests Test 01/22/17 01/23/17 01/23/17 20:05 03:25 03:55 White Blood Count 8.5 TH/MM3 8.4 TH/MM3 Red Blood Count 3.96 MIL/MM3 3.70 MIL/MM3 Hemoglobin 12.3 GM/DL 11.5 GM/DL Hematocrit 36.6 % 34.4 % Mean Corpuscular Volume 92.6 FL 93.1 FL Mean Corpuscular Hemoglobin 31.1 PG 31.2 PG Mean Corpuscular Hemoglobin 33.5 % 33.5 % Concent Red Cell Distribution Width 15.3 % 15.0 % Platelet Count 137 TH/MM3 133 TH/MM3 Mean Platelet Volume 9.7 FL 9.4 FL Neutrophils (%) (Auto) 82.8 % 81.4 % Lymphocytes (%) (Auto) 6.8 % 7.8 % Monocytes (%) (Auto) 7.5 % 8.6 % Eosinophils (%) (Auto) 2.0 % 1.9 % Basophils (%) (Auto) 0.9 % 0.3 % Neutrophils # (Auto) 7.0 TH/MM3 6.8 TH/MM3 Lymphocytes # (Auto) 0.6 TH/MM3 0.7 TH/MM3 Monocytes # (Auto) 0.6 TH/MM3 0.7 TH/MM3 Eosinophils # (Auto) 0.2 TH/MM3 0.2 TH/MM3 Basophils # (Auto) 0.1 TH/MM3 0.0 TH/MM3 CBC Comment DIFF FINAL DIFF FINAL Differential Comment Prothrombin Time 47.4 SEC Prothromb Time International 4.0 RATIO Ratio Activated Partial 47.7 SEC Thromboplast Time Sodium Level 134 MEQ/L 138 MEQ/L Potassium Level 4.8 MEQ/L 4.6 MEQ/L Chloride Level 98 MEQ/L 104 MEQ/L Carbon Dioxide Level 24.6 MEQ/L 22.0 MEQ/L Anion Gap 11 MEQ/L 12 MEQ/L Blood Urea Nitrogen 122 MG/DL 117 MG/DL Creatinine 3.62 MG/DL 3.13 MG/DL Estimat Glomerular Filtration 17 ML/MIN 20 ML/MIN Rate Random Glucose 91 MG/DL 78 MG/DL Calcium Level 8.5 MG/DL 8.7 MG/DL Total Bilirubin 0.3 MG/DL Aspartate Amino Transf 24 U/L (AST/SGOT) Alanine Aminotransferase 18 U/L (ALT/SGPT) Alkaline Phosphatase 95 U/L B-Type Natriuretic Peptide 323 PG/ML Total Protein 6.7 GM/DL Albumin 2.6 GM/DL Blood Type O POSITIVE Antibody Screen NEGATIVE MDM Medical Record Reviewed: Yes Supervised Visit with LARISSA: Yes Narrative Course I, Dr. Lou, have reviewed the advance practice practitioner's documentation and am in agreement, met with the patient face to face, made the diagnosis, and the medical decision making was done by me. *My assessment and Findings: CBC & BMP Diagram 01/22/17 20:05 BNP 323 Albumin 2.6 with LFTs otherwise normal INR 4.0 Was called to bedside as the patient had hematochezia. On rectal exam there is charles blood in the diapers. No mass or significant internal hemorrhoid burden on rectal exam. INR is 4.0. The heart rate is about 80 and the blood pressure is 113/70. Patient has no complaints at this time. He denies abdominal pain, dizziness, palpitation, headache or symptom of acute anemia otherwise. No record of colonoscopy here. Pt denies knowledge of prior colonoscopy. His INR is 4.0. Additionally he has acute kidney injury. Repeat BMP and CBC ordered. Type and screen was sent off. Patient will be admitted for monitoring and serial blood work. d/w Dr Barksdale. Repeat Hgb 11.5 down from 12.3 from 6 hours earlier, platelets/WBCs essentially unchanged Diagnosis Primary Impression: Acute on chronic renal failure Additional Impressions: Supratherapeutic INR Urinary retention Admitting Information Admitting Physician Requests: Observation Disposition: 63 [facility] CARE HOME ACUTE CARE Condition: Stable Esvin Lou MD Jan 23, 2017 03:48
[2017-01-23 04:09] LABS: AUTOMATED NEUTROPHIL # 6.8 TH/MM3 (1.8-7.7); BASOPHIL % 0.3 % (0.0-2.0); EOSINOPHIL # 0.2 TH/MM3 (0-0.4); EOSINOPHIL % 1.9 % (0.0-4.0); HEMATOCRIT 34.4 % (39.0-51.0); HEMO FLAGS DIFF FINAL; LYMPH % 7.8 % (9.0-44.0); LYMPHOCYTE # 0.7 TH/MM3 (1.0-4.8); MEAN CELL VOLUME 93.1 FL (80.0-100.0); MEAN CORPUSCULAR HEMOGLOBIN 31.2 PG (27.0-34.0); MEAN CORPUSCULAR HGB CONC 33.5 % (32.0-36.0); MONO % 8.6 % (0.0-8.0); NEUT % 81.4 % (16.0-70.0); PLATELET COUNT 133 TH/MM3 (150-450); WHITE BLOOD COUNT 8.4 TH/MM3 (4.0-11.0)
[2017-01-23 04:24] LABS: POTASSIUM 4.6 MEQ/L (3.5-5.1)
--- NOTE | 2017-01-23 05:01 | HHI.HP ---
[facility] Service [facility] Primary Care Physician Peng Weir MD Admission Diagnosis Acute on Chronic Renal Failure, Supratherapeutic INR Diagnoses: (1) GI bleed (2) Urinary retention (3) Supratherapeutic INR (4) Acute on chronic renal failure Chief Complaint: difficulty urinating Travel History International Travel<30 Days: No Contact w/Intl Traveler <30 Da: No Traveled to Known Affected Are: No History of Present Illness History from shelter transfer notes, ER physician communication, and review of medical records. Patient initially came into the emergency room because he was sent by the shelter physician for abnormal labs. Which reveals mild acute on chronic renal failure. Patient was recently discharged from our hospital a few days ago. When this admission was given to me for this reason, I had initially refused admission because the renal failure is likely from dehydration in this patient with EF of 35%. Therefore the plan was to hydrate patient orally, and to send him back to his shelter 4 hydration orally. However as per ER communication, shelter physician export sales assistant feels that patient needed to be evaluated by a real property evaluator in the hospital because they would take about 1 week to have a nephrology consultation as sent outpatient. They were uncomfortable to have patient waiting until a real property evaluator evaluation for a creatinine of 3.19. Therefore I told ER provider at that time to check for the urinary retention as the cause of renal failure. I then ordered for a bladder scan. The bladder scan revealed more than 650 cc of urine. Therefore Lopez catheter was placed. I then discussed the case again with ER provider and the supervising physician that patient should be discharged back to the nursing facility and to the care of their doctor for management of acute urinary retention in a 76 years old gentleman with recent hospitalization and BPH causing mild renal failure. They have agreed for discharge same the patient for this matter. However a few hours later when the nurse was preparing to discharge the patient and clean in the patient up in the emergency room, she noted that patient was having small amount of bright red blood clots in his rectum. At that time they have plans to get history from the patient and patient revealed that he has been having blood clots in his stool. He states that his shelter staff was aware of it. He stated this is probably a third time it happened. The nurse had saved these samples by his bedside. ER physician therefore called me back again before admission off rectal bleeding. Patient is on Coumadin at the nursing facility. INR is 4.0. I came to see patient at the bedside. The amount of blood clots in the specimen cup is quite minimal. Patient himself reports that he has been having trouble urinating and has been urinating less and less for the past 3-4 days. However he denies any fevers/nausea/vomiting/diarrhea. He denies any abdominal pains associated with this. denies any chest pain/ shortness of breath/focal weakness. Again, he himself noted that there was some blood clot in his stool for the past few days. Review of Systems Except as stated in HPI: all other systems reviewed are Neg Past Family Social History Past Medical History Hypertension Hyperlipidemia CADstatus post CABG in 1999 Atrial fibrillation CHFEF of 30-35% on 01/08/17 COPD Chronic kidney disease History of CVA History of prostate CA . Past Surgical History Cataract surgery CABG Bilateral lower extremity stents Radiation seed implants for prostate cancer . Reported Medications Reported Meds & Active Scripts Active Warfarin 1 Mg Tab 1 Mg PO DAILY recheck in 2-3 days. Goal INR 2-3. Pantoprazole (Pantoprazole Sodium) 40 Mg Tab 40 Mg PO DAILY Levaquin (Levofloxacin) 750 Mg Tab 750 Mg PO Q48H Furosemide 40 Mg Tab 40 Mg PO BID@,18 Cardizem CD 24 HR (Diltiazem CD 24 HR) 120 Mg Caper 120 Mg PO DAILY Reported David Aspirin EC Low Dose (Aspirin) 81 Mg Tabdr 81 Mg PO DAILY Carvedilol 25 Mg Tab 25 Mg PO BID Hold if SBP <100 or DBP <60 Gemfibrozil 600 Mg Tab 600 Mg PO BIDAC Take 30 minutes prior to breakfast and dinner. Gabapentin 100 Mg Cap 100 Mg PO TID Valsartan 320 Mg Tab 320 Mg PO DAILY Atorvastatin (Atorvastatin Calcium) 40 Mg Tab 40 Mg PO HS . Allergies: Coded Allergies: No Known Allergies (Verified , 01/07/17) Active Ordered Medications Current Medications Sodium Chloride (NS Flush) 2 ml UNSCH PRN IVF FLUSH AFTER USING IV ACCESS; Start 01/22/17 at 19:15; Stop 01/22/17 at 21:30; Status DC Sodium Chloride (NS Flush) 2 ml UNSCH PRN IV FLUSH FLUSH AFTER USING IV ACCESS ; Start 01/22/17 at 21:30 Sodium Chloride (NS Flush) 2 ml BID IV FLUSH ; Start 01/23/17 at 09:00 Heparin Sodium (Porcine) (Heparin Inj) 5,000 units Q8H SQ ; Start 01/23/17 at 06 :00; Stop 01/23/17 at 06:00; Status DC Naloxone HCl (Narcan Inj) 0.4 mg UNSCH PRN IV SEE LABEL COMMENTS; Start at 21:30 Aspirin (Ecotrin Ec) 81 mg DAILY PO ; Start 01/23/17 at 09:00; Stop 01/23/17 at 09:00; Status DC Atorvastatin Calcium (Lipitor) 40 mg HS PO ; Start 01/23/17 at 21:00 Captopril (Capoten) 12.5 mg BID PO ; Start 01/23/17 at 09:00 Diltiazem HCl (Cardizem Cd) 120 mg DAILY PO ; Start 01/23/17 at 09:00 Pantoprazole Sodium (Protonix) 40 mg DAILY PO ; Start 01/23/17 at 09:00 . Family History 2 brothers from lung/throat cancer . Social History Used to smoke cigarettes, quit in 1999. Denies any alcohol abuse or drug abuse. He does drink socially 1 or 2 shots of hard liquor small shots a day. Was getting rehab at facility after 01/17/17 discharge from hospital; lived at home independently prior to 01/08/17 hospitalization. . Physical Exam Vital Signs Vital Signs Date Time Temp Pulse Resp B/P Pulse Ox O2 Delivery O2 Flow Rate FiO2 01/23/17 03:37 78 20 114/76 96 Nasal Cannula 2 01/22/17 22:30 66 20 100/62 96 Nasal Cannula 2 01/22/17 21:18 64 18 Nasal Cannula 3 01/22/17 21:18 64 20 108/60 96 Nasal Cannula 2 01/22/17 20:22 20 01/22/17 18:24 78 18 Nasal Cannula 3 01/22/17 18:20 98.1 78 18 103/54 Physical Exam GENERAL: This is a pleasant elderly male patient, in no apparent distress but who appears weaker than when I saw him last on 01/08/17. SKIN: No rashes, ecchymoses or lesions. Cool and dry. HEAD: Atraumatic. Normocephalic. EYES: No scleral icterus. No injection or drainage. ENT: Nose without bleeding, purulent drainage. NECK: Trachea midline. No JVD or lymphadenopathy. CARDIOVASCULAR: Regular rate and rhythm without murmurs, gallops, or rubs. RESPIRATORY: Clear to auscultation. Breath sounds equal bilaterally. No wheezes , rales, or rhonchi. GASTROINTESTINAL: Abdomen soft, non-tender, nondistended. No guarding. Dark maroon blood clots seen in specimen cups at bedside; from rectum per nursing MUSCULOSKELETAL: Extremities without clubbing, cyanosis, or edema. No calf tenderness. NEUROLOGICAL: Awake and alert. Motor and sensory grossly within normal limits. Normal speech. . Laboratory Laboratory Tests Test 01/22/17 01/23/17 01/23/17 20:05 03:25 03:55 White Blood Count 8.5 8.4 Red Blood Count 3.96 3.70 Hemoglobin 12.3 11.5 Hematocrit 36.6 34.4 Mean Corpuscular Volume 92.6 93.1 Mean Corpuscular Hemoglobin 31.1 31.2 Mean Corpuscular Hemoglobin 33.5 33.5 Concent Red Cell Distribution Width 15.3 15.0 Platelet Count 137 133 Mean Platelet Volume 9.7 9.4 Neutrophils (%) (Auto) 82.8 81.4 Lymphocytes (%) (Auto) 6.8 7.8 Monocytes (%) (Auto) 7.5 8.6 Eosinophils (%) (Auto) 2.0 1.9 Basophils (%) (Auto) 0.9 0.3 Neutrophils # (Auto) 7.0 6.8 Lymphocytes # (Auto) 0.6 0.7 Monocytes # (Auto) 0.6 0.7 Eosinophils # (Auto) 0.2 0.2 Basophils # (Auto) 0.1 0.0 CBC Comment DIFF FINAL DIFF FINAL Differential Comment Prothrombin Time 47.4 Prothromb Time International 4.0 Ratio Activated Partial 47.7 Thromboplast Time Sodium Level 134 138 Potassium Level 4.8 4.6 Chloride Level 98 104 Carbon Dioxide Level 24.6 22.0 Anion Gap 11 12 Blood Urea Nitrogen 122 117 Creatinine 3.62 3.13 Estimat Glomerular Filtration 17 20 Rate Random Glucose 91 78 Calcium Level 8.5 8.7 Total Bilirubin 0.3 Aspartate Amino Transf 24 (AST/SGOT) Alanine Aminotransferase 18 (ALT/SGPT) Alkaline Phosphatase 95 B-Type Natriuretic Peptide 323 Total Protein 6.7 Albumin 2.6 Blood Type O POSITIVE Antibody Screen NEGATIVE Result Diagram: 01/23/17 0355 01/23/17 0355 Imaging Last Impressions Chest X-Ray 01/22/17 1902 Signed Impressions: Service Date/Time: Sunday, January 22, 2017 19:19 - CONCLUSION: Slight bibasilar atelectasis. Katherine Richard MD . Assessment and Plan Problem List: (1) GI bleed ICD Code: K92.2 Status: Acute (2) Urinary retention ICD Code: R33.9 Status: Acute (3) Supratherapeutic INR ICD Code: R79.1 Status: Acute (4) Acute on chronic renal failure ICD Code: N17.9 Status: Acute Assessment and Plan Mr. Pal is a 76 y/o male with a history of prostate CA, hypertension, hyperlipidemia, CAD s/p CABG, CHF with EF of 35%, atrial fibrillation, COPD, chronic kidney disease, and CVA who presented to the emergency room due to difficulty urinating with abnormal kidney function blood tests resulted at a local SNF. Patient was initially supposed to be discharged back to the nursing facility after there was evidence of urinary retention of more than 650 cc on bladder scan. His Lopez catheter was placed in ER. However while preparing for discharge a few hours later, patient's nurse noted the patient was having blood clots in his stool per rectum. No diarrhea. Amount of blood clot is quite minimal. Patient however is on Coumadin, with INR of 4.0. GI bleed - Stool for occult blood - consult gastroenterology - Hgb dropped from 12.3 to 11.5 in 8 hours - check serial H&H q6h - transfuse if needed - monitor VS q4h Supratherapeutic INR - INR 4.0 - hold coumadin; anticoagulants - recheck PT/INR in a.m. Acute on chronic renal failure - related to urinary retention - Lopez catheter inserted - BUN 117, Creatinine 3.13, eGFR 20 - consult urology - monitor intake and output qshift - avoid nephrotoxins Hydrate patient orally. No IV hydration as patient has severe cardiomyopathy with EF of 30% requiring LifeVest. DVT prophylaxis - SCDs Written by Haydee Greene, acting as scribe for Dr. Barksdale on 01/23/17 at 05:01. . Discussed Condition With ER physician, RN, and patient . Haydee Greene Jan 23, 2017 05:01 Whitney Barksdale MD Jan 23, 2017 07:39
[2017-01-23] MEDS ORDERED: HEPARIN SODIUM - SQ 10,000 UNITS/ML VIAL SQ SCH (06:00)
[2017-01-23] MEDS ORDERED: ASPIRIN EC 81 MG TABEC PO SCH (09:00)
[2017-01-23] MEDS ORDERED: ACETAMINOPHEN 325 MG TAB PO PRN (09:15)
[2017-01-23] MEDS ORDERED: DOCUSATE SODIUM 50 MG/SENNA 8.6 MG TAB PO PRN (09:15)
[2017-01-23] MEDS ORDERED: ONDANSETRON HCL 4 MG/2 ML VIAL IV PRN (09:15)
--- NOTE | 2017-01-23 09:20 | HHI.PR ---
Subjective Remarks Follow-up coagulopathy/GI bleed /acute on chronic kidney disease stage IV 01/23/17-patient seen and examined and well known to me with discharge on with INR of 2.1 and Bun/Cr 92/1.87 grams with respectively INR 4.0 and BUn/ Cr 122/3.62 along with positive guaiac stool from a local nursing facility Objective Vitals Vital Signs Date Time Temp Pulse Resp B/P Pulse Ox O2 Delivery O2 Flow Rate FiO2 01/23/17 08:51 96.4 82 16 105/53 97 01/23/17 07:15 76 18 98 Nasal Cannula 2 01/23/17 07:15 18 98 Nasal Cannula 2 01/23/17 07:15 97.8 82 17 183/74 98 Nasal Cannula 2 01/23/17 03:37 78 20 114/76 96 Nasal Cannula 2 01/22/17 22:30 66 20 100/62 96 Nasal Cannula 2 01/22/17 21:18 64 18 Nasal Cannula 3 01/22/17 21:18 64 20 108/60 96 Nasal Cannula 2 01/22/17 20:22 20 01/22/17 18:24 78 18 Nasal Cannula 3 01/22/17 18:20 98.1 78 18 103/54 I/O 01/22/17 01/22/17 01/22/17 01/23/17 01/23/17 01/23/17 07:00 15:00 23:00 07:00 15:00 23:00 Output Total 1000 ml Balance -1000 ml Output Urine Total 1000 ml Bladder Scan Volume Amount 650 ml # Voids 0 # Bowel Movements 1 Result Diagram: 01/23/17 0355 01/23/17 0355 Imaging Last Impressions Chest X-Ray 01/22/17 190 Signed Impressions: Service Date/Time: Sunday, January 22, 2017 19:19 - CONCLUSION: Slight bibasilar atelectasis. Katherine Richard MD Objective Remarks GENERAL: NAD SKIN: Warm and dry. HEAD: Normocephalic. EYES: No scleral icterus. No injection or drainage. NECK: Supple, trachea midline. No JVD or lymphadenopathy. CARDIOVASCULAR: Regular rate and rhythm without murmurs, gallops, or rubs. RESPIRATORY: Breath sounds equal bilaterally. No accessory muscle use. GASTROINTESTINAL: Abdomen soft, non-tender, nondistended. MUSCULOSKELETAL: No cyanosis, or edema. BACK: Nontender without obvious deformity. No CVA tenderness. A/P Problem List: (1) GI bleed ICD Code: K92.2 Status: Acute (2) Urinary retention ICD Code: R33.9 Status: Acute (3) Supratherapeutic INR ICD Code: R79.1 Status: Acute (4) Acute on chronic renal failure ICD Code: N17.9 Status: Acute Assessment and Plan 76-year-old man with GI bleed: H&H appear to be stable. GI has been consulted. Continue with PPI and serial H&H monitoring. Supra therapeutic INR: Continue to hold Coumadin and monitor INR/PT History of bilateral BLE DVT chronic Coumadin: Secondary to supra therapeutic INR, will hold Coumadin and monitor INR Acute on chronic renal failure stage IV- related to urinary retention history of prostate cancer as well as nephrolithiasis: Urology consulted secondary to urinary retention however will consult nephrology. Patient with history of subjective to myopathy with LifeVest for which IV hydration appear to be contraindicated. Onto BUN/creatinine and avoid all nephrotoxic drugs. Systolic heart failure/ischemic cardiopathy - EF 30% History of hypertension History dyslipidemia Coronary artery disease status post CABG 1999 History bilateral lower extremity since secondary DVT -Echocardiogram reveals EF 30-35%. Akinesis of the apical myocardium. EDEL 43 mmHg. Moderate TR. RV normal -Continue Coreg, Cardizem, valsartan and Lasix -Continue Lipitor at 40 mg daily and Lopid 60 mg twice a day for dyslipidemia. -Life vest in place DVT prophylaxis: Bilateral SCDs Floyd Willis MD Jan 23, 2017 09:20
--- NOTE | 2017-01-23 09:58 | EKG ---
Date Performed: 01/22/2017 Time Performed: 19:51:40 PTAGE: 76 years EKG: ATRIAL FIBRILLATION LEFT BUNDLE BRANCH BLOCK ABNORMAL ECG PREVIOUS TRACING : 01/09/2017 22.28 DOCTOR: Rick Joyce Interpretating Date/Time 01/23/2017 09:57:15
[2017-01-23] MEDS: DILTIAZEM-CD 120 MG CAP ER PO SCH (10:06)
[2017-01-23] MEDS: CAPTOPRIL 12.5 MG TAB PO SCH ×2 (10:06→21:00)
[2017-01-23] MEDS: SODIUM CHLORIDE 0.9% FLUSH 10 ML FLUSH IV FLUSH SCH ×2 (10:07→21:00)
[2017-01-23] MEDS: PANTOPRAZOLE SOD 40 MG DELAYED RELEASE TAB PO SCH (10:09)
--- NOTE | 2017-01-23 13:30 | MB ---
cc: ORIANA SPARKS MD DATE OF CONSULTATION 01/23/2017 REASON FOR CONSULTATION 1. Acute urinary retention 2. History of prostate cancer status post external beam radiation therapy three years ago. HISTORY OF PRESENT ILLNESS The patient is a 76-year-old male with a history of prostate cancer status post external beam radiation therapy. He was sent by the halfway physician due to acute on chronic renal failure. During work up in the ER, the patient was found to have a full bladder with the bladder scan revealing 650 cc of urine. A Lopez catheter was placed and approximately 700 mL of urine was returned. The patient did feel immediately better. According to the patient, the patient had trouble urinating for the last two to three days where she would get a stronger urge to urinate, but could not go. He developed significant lower abdominal pain. He does have baseline moderate lower urinary tract symptoms including nocturia two to three times, a weak stream, occasional dribbling. He denies hematuria or dysuria. He also thinks he had a kidney stone in the remote past. He is not sure who his urologist he has seen in the past, but he was taken care of by Dr. Rose, radiation oncologist for his prostate cancer. He currently denies abdominal pain, flank pain, fevers, chills, nausea, or vomiting at this time. However, he is somewhat disoriented and out of it at this time. REVIEW OF SYSTEMS See HPI otherwise all systems reviewed are otherwise negative. PAST MEDICAL HISTORY Significant for: 1. Hypertension 2. Hyperlipidemia 3. Coronary artery disease 4. Atrial fibrillation 5. CHF 6. COPD 7. History of prostate cancer. 8. History of stroke. 9. Chronic kidney disease PAST SURGICAL HISTORY 1. He has had cataract surgery. 2. CABG 3. Radiation seed implants for prostate cancer 4. Bilateral lower extremity stents REPORTED MEDICATIONS Include: 1. Coumadin 2. Pantoprazole 3. Levaquin 4. Furosemide 5. Cardizem 6. Aspirin 7. Atorvastatin 8. Valsartan 9. Gabapentin ALLERGIES No known drug allergies. FAMILY HISTORY Negative for urolithiasis. SOCIAL HISTORY History of tobacco use, he quit in 1999. Denies any illicit drug or alcohol abuse. He does drink socially one to two shots of hard liquor a day. He lived independently prior to hospitalization on 01/08/2017. PHYSICAL EXAMINATION VITAL SIGNS: Temperature 96.4, pulse 82, respiration 16, BP 105/93, sat 99% on room air. GENERAL: He is awake, alert and alert, but was somewhat sleepy. He is pleasant and cooperative, appears his stated age. HEAD: Normocephalic, atraumatic. NECK: Supple. Trachea is midline. No JVD. LUNGS: Clear to auscultation bilaterally. No wheezes, rales or rhonchi. CARDIOVASCULAR: Regular rate and rhythm. No murmurs, gallops or rubs. ABDOMEN: Soft, obese, nontender and nondistended. Positive bowel sounds. GENITOURINARY: His penis is uncircumcised. Testes are descended bilaterally, normal in size and consistently. Lopez catheter is draining clear yellow urine. EXTREMITIES: Nontender. No clubbing, cyanosis or edema. PSYCH: Normal affect. SKIN: No ulcers or rashes. LABORATORY DATA White count 8.4, hemoglobin 11.5, hematocrit 34.4, platelet count 133. Sodium 138, potassium 4.6, chloride 104, bicarb 22, BUN 117, creatinine 3.13, glucose 78. ASSESSMENT AND PLAN The patient is a 76-year-old male with a history of prostate cancer status post external beam radiation therapy who presents with acute urinary retention. PLAN Recommend continuing the Lopez catheter for a minimum of five days and then can void trial. If he is discharged prior to five days, he can have void trials as an outpatient. Recommend continuing Flomax 0.4 mg p.o. daily. Would hold off on checking a PSA at this time due to his acute urinary retention as it can falsely elevate his PSA. Agree with nephrology consult due to acute on chronic renal failure, however a component of that could be from obstructive uropathy for his urinary retention. Thank you for this consulted. MD LENARD Lamar/APRIL /1:02 PM /1:16 PM
--- NOTE | 2017-01-23 15:14 | PD.CONS ---
HPI History of Present Illness This is a 76 year old male who was brought to the ER for evaluation of abnormal labs with mild acute on chronic renal failure. He was evaluated and was going to be discharged back to the rehab facility, but the patient was noted to have some rectal bleeding and therefore admitted for observation. The patient is awake, alert. He reports that he did not actually see the bleeding, but was told that he had red blood mixed within his stool. The nurse reports that he had 2 episodes today with a small soft bowel movement, mixed with a small amount of dark red blood. The patient denies any hx of prior GI bleeding and denies any nausea, vomiting, abdominal pain, reflux/heartburn, constipation, diarrhea. He has not noticed any rectal bleeding before. Of note, he is on Coumadin and came in with an INR of 4.0. He was recently hospitalized for coronary artery disease and CHF. He was not a candidate for [facility] at that time because of his renal failure. The patient reports that he had a Life Vest placed about 3 weeks ago per cardiology. He currently is wearing this. He denies any hx of PUD. He had a colonoscopy many years ago and reports that he had polyps removed. He does not know if he has a hx of diverticulosis. He does have a hx of prostate cancer and has underwent radiation for this. He does not take NSAIDs. (Winnie Estrada) PFSH Past Medical History Hypertension Hyperlipidemia CAD Atrial fibrillation CHF, life vest in place COPD Chronic kidney disease History of CVA History of prostate CA Colon polyps Past Surgical History Cataract surgery CABG Bilateral lower extremity stents Radiation seed implants for prostate cancer (Winnie Estrada) Coded Allergies: No Known Allergies (Verified , 01/07/17) Medications Allergies Coded Allergies Type Severity Reaction Last Updated Verified No Known Allergies 01/07/17 Yes Active Scripts Medications Dose Route/Sig Days Date Category Dose Instructions Warfarin 1 Mg Tab 1 Mg PO DAILY 01/16/17 Rx recheck in 2-3 days. Goal INR 2-3. Pantoprazole (Pantoprazole Sodium) 40 Mg Tab 40 Mg PO DAILY 01/16/17 Rx Levaquin (Levofloxacin) 750 Mg Tab 750 Mg PO Q48H 01/16/17 Rx Furosemide 40 Mg Tab 40 Mg PO BID@09,18 01/16/17 Rx Cardizem CD 24 HR (Diltiazem CD 24 HR) 120 Mg Caper 120 Mg PO DAILY 01/16/17 Rx David Aspirin EC Low Dose (Aspirin) 81 Mg Tabdr 81 Mg PO DAILY 01/07/17 Reported Carvedilol 25 Mg Tab 25 Mg PO BID 01/07/17 Reported Hold if SBP <100 or DBP <60 Gemfibrozil 600 Mg Tab 600 Mg PO BIDAC 01/07/17 Reported Take 30 minutes prior to breakfast and dinner. Gabapentin 100 Mg Cap 100 Mg PO TID 01/07/17 Reported Valsartan 320 Mg Tab 320 Mg PO DAILY 01/07/17 Reported Atorvastatin (Atorvastatin Calcium) 40 Mg Tab 40 Mg PO HS 01/07/17 Reported Family History 2 brothers from lung/throat cancer . Social History Used to smoke cigarettes, quit in 1999. Denies any alcohol abuse or drug abuse. He does drink socially (Winnie Estrada) Review of Systems Constitutional: COMPLAINS OF: Fatigue, DENIES: Fever, Weight loss, Chills Respiratory: COMPLAINS OF: Shortness of breath, DENIES: Cough Cardiovascular: COMPLAINS OF: Lower Extremity Edema, DENIES: Chest pain Gastrointestinal: COMPLAINS OF: Bloody stools, DENIES: Abdominal pain, Black stools, Constipation, Diarrhea, Nausea, Vomiting, Swelling of Abdomen, Heartburn , Hematemesis Integumentary: DENIES: Abnormal pigmentation Hematologic/lymphatic: DENIES: Bruising Neurologic: DENIES: Headache Psychiatric: DENIES: Confusion (Winnie Estrada) GI Exam Vitals I&O Vital Signs Date Time Temp Pulse Resp B/P Pulse Ox O2 Delivery O2 Flow Rate FiO2 01/23/17 13:31 96.6 77 17 109/55 95 01/23/17 08:51 96.4 82 16 105/53 97 01/23/17 07:15 76 18 98 Nasal Cannula 2 01/23/17 07:15 18 98 Nasal Cannula 2 01/23/17 07:15 97.8 82 17 183/74 98 Nasal Cannula 2 01/23/17 03:37 78 20 114/76 96 Nasal Cannula 2 01/22/17 22:30 66 20 100/62 96 Nasal Cannula 2 01/22/17 21:18 64 18 Nasal Cannula 3 01/22/17 21:18 64 20 108/60 96 Nasal Cannula 2 01/22/17 20:22 20 01/22/17 18:24 78 18 Nasal Cannula 3 01/22/17 18:20 98.1 78 18 103/54 I/O 01/22/17 01/22/17 01/22/17 01/23/17 01/23/17 01/23/17 07:00 15:00 23:00 07:00 15:00 23:00 Output Total 1000 ml Balance -1000 ml Output Urine Total 1000 ml Bladder Scan Volume Amount 650 ml # Voids 0 # Bowel Movements 1 Imaging Last Impressions Chest X-Ray 01/22/17 1902 Signed Impressions: Service Date/Time: Sunday, January 22, 2017 19:19 - CONCLUSION: Slight bibasilar atelectasis. Katherine Richard MD Laboratory Test 01/22/17 01/23/17 01/23/17 20:05 03:25 03:55 White Blood Count 8.5 TH/MM3 8.4 TH/MM3 Red Blood Count 3.96 MIL/MM3 3.70 MIL/MM3 Hemoglobin 12.3 GM/DL 11.5 GM/DL Hematocrit 36.6 % 34.4 % Mean Corpuscular Volume 92.6 FL 93.1 FL Mean Corpuscular Hemoglobin 31.1 PG 31.2 PG Mean Corpuscular Hemoglobin 33.5 % 33.5 % Concent Red Cell Distribution Width 15.3 % 15.0 % Platelet Count 137 TH/MM3 133 TH/MM3 Mean Platelet Volume 9.7 FL 9.4 FL Neutrophils (%) (Auto) 82.8 % 81.4 % Lymphocytes (%) (Auto) 6.8 % 7.8 % Monocytes (%) (Auto) 7.5 % 8.6 % Eosinophils (%) (Auto) 2.0 % 1.9 % Basophils (%) (Auto) 0.9 % 0.3 % Neutrophils # (Auto) 7.0 TH/MM3 6.8 TH/MM3 Lymphocytes # (Auto) 0.6 TH/MM3 0.7 TH/MM3 Monocytes # (Auto) 0.6 TH/MM3 0.7 TH/MM3 Eosinophils # (Auto) 0.2 TH/MM3 0.2 TH/MM3 Basophils # (Auto) 0.1 TH/MM3 0.0 TH/MM3 CBC Comment DIFF FINAL DIFF FINAL Differential Comment Prothrombin Time 47.4 SEC Prothromb Time International 4.0 RATIO Ratio Activated Partial 47.7 SEC Thromboplast Time Sodium Level 134 MEQ/L 138 MEQ/L Potassium Level 4.8 MEQ/L 4.6 MEQ/L Chloride Level 98 MEQ/L 104 MEQ/L Carbon Dioxide Level 24.6 MEQ/L 22.0 MEQ/L Anion Gap 11 MEQ/L 12 MEQ/L Blood Urea Nitrogen 122 MG/DL 117 MG/DL Creatinine 3.62 MG/DL 3.13 MG/DL Estimat Glomerular Filtration 17 ML/MIN 20 ML/MIN Rate Random Glucose 91 MG/DL 78 MG/DL Calcium Level 8.5 MG/DL 8.7 MG/DL Total Bilirubin 0.3 MG/DL Aspartate Amino Transf 24 U/L (AST/SGOT) Alanine Aminotransferase 18 U/L (ALT/SGPT) Alkaline Phosphatase 95 U/L B-Type Natriuretic Peptide 323 PG/ML Total Protein 6.7 GM/DL Albumin 2.6 GM/DL Blood Type O POSITIVE Antibody Screen NEGATIVE Date/Time Procedure Status Source Growth 01/23/17 04:50 Stool Occult Blood (MA[facility]SA) - Final Complete Stool Stool HEMOCCULT POSITIVE Physical Examination HEENT: Normocephalic; atraumatic; no jaundice. CHEST: CTA CARDIAC: Diminished. Shallow, even. ABDOMEN: Soft, nondistended, nontender; no hepatosplenomegaly; bowel sounds are present in all four quadrants. EXTREMITIES: BLE edema. SKIN: Multiple ecchymotic areas [employer]QU[employer]ULT[employer] WORKER: No focal deficits; alert and oriented times three. (Winnie Estrada) Assessment and Plan Plan ASSESSMENT: - Hematochezia. Sent to ER for evaluation of acute on chronic renal failure. He was going to be d/c'd back to rehab but had a small amount of dark red blood mixed within his stool. He did not see this. The nurse today reports two small bowel movements, each with a very small amount of dark red blood. He is on coumadin and his INR was 4.0. This has not been rechecked. He was recently hospitalized for CAD/CHF, but not a candidate for [facility] because of his renal failure. A Life Vest was placed and is currently on patient. He reports that he has not had GI bleeding and his last colonoscopy was many years ago. He does have a hx of prostate cancer and was treated with radiation in the past. He is not stable for any endoscopies at this time. - Anemia, blood loss. Stable 11.5/34.4. - Coagulopathy, Coumadin Toxicity. INR 4.0 on admission. on hold. Will recheck. - CAD/CHF. Recent hospitalization for CAD/CHF, but not a candidate for [facility] because of his renal failure. A Life Vest was placed and is currently on patient. - Acute on chronic renal failure. Creat 3.13. Per renal PLAN: - Clear liquids - PPI - Stat PT/INR - Monitor HH - Transfuse as necessary - Supportive care - Pt not stable for any endoscopic procedures - Further recommendations to follow based on results of above - Pt seen and examined by Dr. modi and myself and this note is written on her behalf (Winnie Estrada) Physician Comments seen, examined agree with above clear liquid diet ct abdomen/pelvis if active bleeding , bleeding scan (Mar Modi MD) Winnie Estrada Jan 23, 2017 15:14 Mar Modi MD Jan 23, 2017 17:20
[2017-01-23 16:01] LABS: HEMATOCRIT 36.7 % (39.0-51.0); REVIEW FLAG FINAL
[2017-01-23] MEDS ORDERED: DIATRIZOATE MEGLUM/DIATRIZOATE SOD 9 ML CUP PO ONE (18:00)
[2017-01-23] MEDS: ATORVASTATIN 40 MG TAB PO SCH (22:29)
[2017-01-23] MEDS ORDERED: PILL SPLITTER OTHER PRN (23:00)
[2017-01-24] VITALS (8 sets, daily range): BP systolic 87–118; BP diastolic 51–58; PULSE 69–88; RESP 18–20; TEMP 96.1–98.2; O2SAT 95–99
[2017-01-24 00:16] LABS: HEMATOCRIT 34.5 % (39.0-51.0); REVIEW FLAG FINAL
[2017-01-24 00:25] LABS: INTERNATIONAL NORMALIZED RATIO 3.3 RATIO; PROTHROMBIN TIME - PATIENT 37.9 SEC (9.8-11.6)
--- NOTE | 2017-01-24 05:56 | MB ---
cc: MARY ROSADO MD DATE OF CONSULTATION 01/23/2017 REASON FOR CONSULTATION Elevated BUN and creatinine for evaluation. HISTORY OF PRESENT ILLNESS This is a 76-year-old male WHO was transferred here from the nursing facility because of elevated BUN and creatinine. The patient is not a very good historian and he does not know exactly why he was sent but he was sent mainly, according to the notes, because of abnormal BUN and creatinine and elevated INR. The patient was found to have a BUN of 120, creatinine of 3.6 and the INR was 4.0. Previously, looking back, it looks like the patient had a creatinine of 1.8 to 2.0 most of the time. He was recently admitted and was discharged on January 17 but I do not see any nephrology notes during his recent hospitalizations. The patient is not a very good historian. Most of the history was taken from the patient's chart according to which he lives in a nursing facility. The patient has low ejection fraction and initial workup showed that he also has urinary retention about 650 cc of urine in the bladder and a Lopez catheter was inserted and the patient was also seen by the Urology. Initially he had some blood that cane but it is improving. Also he had some blood in the rectum and it was found when he was in the emergency department last night. PAST MEDICAL HISTORY 1. Ischemic heart disease. 2. Congestive heart failure. 3. Atrial fibrillation. 4. Hypertension. 5. Hyperlipidemia. 6. Chronic obstructive pulmonary disease. 7. History of cerebrovascular accident. 8. History of prostate cancer. PAST SURGICAL HISTORY 1. Cataract surgery. 2. Coronary artery bypass grafting. 3. Radiation, seed implant for prostate cancer. REVIEW OF SYSTEMS The patient denied any headache, dizziness or blurring of vision. No shortness of breath, no chest pain. No palpitation. No nausea or vomiting, No abdominal pain. He has no dysuria or hematuria. He has some blood in the stool and according to him he had this before also. There is no known history of any nonsteroidal anti-inflammatory drugs but he was not furosemide twice a day in the nursing facility. SOCIAL HISTORY The patient lives in a nursing facility. He has a past history of smoking, stopped in 1999. There is no history of heavy alcoholism. FAMILY HISTORY Noncontributory. ALLERGIES No known drug allergies. CURRENT MEDICATIONS 1. Capoten 12.5 mg b.i.d. 2. Diltiazem 120 mg once a day. 3. Protonix 40 mg once a day. 4. Lipitor 40 mg q.h.s. 5. Narcan p.r.n. 6. Zofran p.r.n. 7. Jennifer-Colace p.r.n. PHYSICAL EXAMINATION GENERAL: On examination the patient is awake, alert and oriented x 2. VITAL SIGNS: His last blood pressure was 89/52, temperature 97.8. The lowest recorded blood pressure during this admission is a 81/51. His blood pressure was better before and it has dropped now. His Capoten was not give in the evening. Temperature is 97.8, oxygen saturation 95-96%. HEENT: Pupils equal. Reactive to light. Nonicteric sclerae. Conjunctivae pale. NECK: Supple. JVD is not elevated. LUNGS: The patient has bilateral decreased air entry with scattered wheezing. HEART: S1, S2. Regular rate and rhythm. ABDOMEN: Soft, lax. There is no tenderness. Bowel sounds positive. EXTREMITIES: There is a mild edema in the legs. INVESTIGATION WBC count is 8.4, hemoglobin 11.8, platelet count of 133. Sodium was 138, potassium 4.6, chloride 104, bicarb 22, BUN 117, creatinine 3.1. Calcium 8.7, AST and ALT normal. BNP was 323. Total protein 6.7. Albumin of 2.6. INR 4.0. Urinalysis showing no protein but this was done during last admission. IMAGING STUDIES The patient had a chest x-ray done yesterday which shows that he has bibasilar atelectasis. ASSESSMENT AND PLAN 1. Chronic kidney disease, acute kidney injury 1. Coumadin toxicity. 2. GI bleeding 3. Obstructive uropathy. 4. History of congestive heart failure and ischemic heart disease. The patient has chronic kidney disease with minimal proteinuria, most likely has hypertensive or renovascular disease and developed acute kidney injury. Acute kidney injury is a combination of prerenal versus obstructive uropathy and now his blood pressures is on the lower side. We will decrease the Capoten and he is also on diltiazem. The creatinine has started improving already; his baseline seems to be close to 2.0. Agree with holding the diuretics at present. The patient will be seen by GI for the GI bleeding and follow the INR level. Thank you for this consultation and I will follow the patient while he is in the hospital. MD FARHAN CoburnJ/SSB /10:35 PM /5:35 AM
[2017-01-24 06:18] LABS: INTERNATIONAL NORMALIZED RATIO 3.5 RATIO; PROTHROMBIN TIME - PATIENT 40.4 SEC (9.8-11.6)
[2017-01-24] MEDS: SODIUM CHLORIDE 0.9% FLUSH 10 ML FLUSH IV FLUSH SCH ×2 (09:00→21:00)
[2017-01-24] MEDS: DILTIAZEM-CD 120 MG CAP ER PO SCH (10:24)
[2017-01-24] MEDS: PANTOPRAZOLE SOD 40 MG DELAYED RELEASE TAB PO SCH (10:24)
--- NOTE | 2017-01-24 10:53 | HHI.PR ---
Subjective Remarks Follow-up coagulopathy/GI bleed /acute on chronic kidney disease stage IV 01/23/17-patient seen and examined and well known to me with discharge on with INR of 2.1 and Bun/Cr 92/1.87 grams with respectively INR 4.0 and BUn/ Cr 122/3.62 along with positive guaiac stool from a local nursing facility 01/24/17-patient seen and examined; INR 3.5 and patient reported some blood in his stool last night otherwise stable this morning. Objective Vitals Vital Signs Date Time Temp Pulse Resp B/P Pulse Ox O2 Delivery O2 Flow Rate FiO2 01/24/17 07:43 96.6 75 18 118/56 98 01/24/17 06:26 98.2 88 18 94/56 97 01/24/17 01:33 97.8 88 18 98/56 97 01/23/17 21:45 65 01/23/17 20:03 97.8 86 18 89/52 96 01/23/17 15:59 95.6 73 17 81/51 95 01/23/17 13:31 96.6 77 17 109/55 95 I/O 01/23/17 01/23/17 01/23/17 01/24/17 01/24/17 01/24/17 07:00 15:00 23:00 07:00 15:00 23:00 Intake Total 1000 ml Output Total 1000 ml 200 ml Balance -1000 ml 800 ml Intake Oral 1000 ml Output Urine Total 1000 ml 200 ml # Voids 0 # Bowel Movements 1 12 1 Result Diagram: 01/23/17 2345 01/23/17 0355 Objective Remarks GENERAL: NAD SKIN: Warm and dry. HEAD: Normocephalic. EYES: No scleral icterus. No injection or drainage. NECK: Supple, trachea midline. No JVD or lymphadenopathy. CARDIOVASCULAR: Regular rate and rhythm without murmurs, gallops, or rubs. RESPIRATORY: Breath sounds equal bilaterally. No accessory muscle use. GASTROINTESTINAL: Abdomen soft, non-tender, nondistended. MUSCULOSKELETAL: No cyanosis, or edema. BACK: Nontender without obvious deformity. No CVA tenderness. A/P Problem List: (1) GI bleed ICD Code: K92.2 Status: Acute (2) Urinary retention ICD Code: R33.9 Status: Acute (3) Supratherapeutic INR ICD Code: R79.1 Status: Acute (4) Acute on chronic renal failure ICD Code: N17.9 Status: Acute Assessment and Plan 76-year-old man with GI bleed: H&H appear to be stable. Appreciate input from GI however patient's not stable for any panendoscopy at this point. Continue with PPI and serial H& H monitoring. Supra therapeutic INR: Continue to hold Coumadin and monitor INR/PT History of bilateral BLE DVT chronic Coumadin: Secondary to supra therapeutic INR, continue to hold Coumadin and monitor INR Acute on chronic renal failure stage IV- related to urinary retention history of prostate cancer as well as nephrolithiasis: Appreciate input from Urology as well as nephrology. Patient with history of ischemic cardiomyopathy with LifeVest for which IV hydration appear to be contraindicated. Continue BUN/ creatinine and avoid all nephrotoxic drugs. Systolic heart failure/ischemic cardiopathy - EF 30% History of hypertension History dyslipidemia Coronary artery disease status post CABG 1999 History bilateral lower extremity since secondary DVT -Echocardiogram reveals EF 30-35%. Akinesis of the apical myocardium. EDEL 43 mmHg. Moderate TR. RV normal -Continue Coreg, Cardizem, valsartan and Lasix -Continue Lipitor at 40 mg daily and Lopid 60 mg twice a day for dyslipidemia. -Life vest in place DVT prophylaxis: Bilateral SCDs Discharge Planning Likely discharge 01/25/17 Floyd Willis MD Jan 24, 2017 10:53
--- NOTE | 2017-01-24 12:16 | HHI.GIFU ---
Subjective Remarks Sitting up in bed. On clear liquids. CT scan pending. No n/v. No abdominal pain. No further bleeding. (Winnie Estrada) Objective Vitals I&O Vital Signs Date Time Temp Pulse Resp B/P Pulse Ox O2 Delivery O2 Flow Rate FiO2 01/24/17 11:28 96.1 82 18 118/58 99 01/24/17 07:43 96.6 75 18 118/56 98 01/24/17 06:26 98.2 88 18 94/56 97 01/24/17 01:33 97.8 88 18 98/56 97 01/23/17 21:45 65 01/23/17 20:03 97.8 86 18 89/52 96 01/23/17 15:59 95.6 73 17 81/51 95 01/23/17 13:31 96.6 77 17 109/55 95 I/O 01/23/17 01/23/17 01/23/17 01/24/17 01/24/17 01/24/17 06:59 14:59 22:59 06:59 14:59 22:59 Intake Total 1000 ml Output Total 1000 ml 200 ml Balance -1000 ml 800 ml Intake Oral 1000 ml Output Urine Total 1000 ml 200 ml # Voids 0 # Bowel Movements 1 12 1 Laboratory Laboratory Tests Test 01/23/17 01/23/17 01/24/17 15:39 23:45 05:45 Hemoglobin 11.8 11.6 Hematocrit 36.7 34.5 Prothrombin Time 37.9 40.4 Prothromb Time International 3.3 3.5 Ratio Date/Time Procedure Status Source Growth 01/23/17 04:50 Stool Occult Blood (MA[facility]SA) - Final Complete Stool Stool HEMOCCULT POSITIVE Imaging Last Impressions Chest X-Ray 01/22/171901 Signed Impressions: Service Date/Time: Sunday, January 22, 2017 19:19 - CONCLUSION: Slight bibasilar atelectasis. Katherine Richard MD Physical Exam HEENT: Normocephalic; atraumatic; no jaundice. CHEST: CTA CARDIAC: Diminished. Shallow, even. ABDOMEN: Soft, nondistended, nontender; no hepatosplenomegaly; bowel sounds are present in all four quadrants. EXTREMITIES: BLE edema. SKIN: Multiple ecchymotic areas RN NIGHT: No focal deficits; alert and oriented times three (Winnie Estrada) Assessment and Plan Plan ASSESSMENT: - Hematochezia. Sent to ER for evaluation of acute on chronic renal failure. He was going to be d/c'd back to rehab but had a small amount of dark red blood mixed within his stool. He did not see this. The nurse today reports two small bowel movements, each with a very small amount of dark red blood. He is on coumadin and his INR was 4.0. This has not been rechecked. He was recently hospitalized for CAD/CHF, but not a candidate for [facility] because of his renal failure. A Life Vest was placed and is currently on patient. He reports that he has not had GI bleeding and his last colonoscopy was many years ago. He does have a hx of prostate cancer and was treated with radiation in the past. He is not stable for any endoscopies at this time. CT pending. No further bleeding today. HH stable. 11.6/34.5. Feeling well. Will advance diet after CT. - Anemia, blood loss. Stable 11.6/34.5. - Coagulopathy, Coumadin Toxicity. INR 3.5. - CAD/CHF. Recent hospitalization for CAD/CHF, but not a candidate for [facility] because of his renal failure. A Life Vest was placed and is currently on patient. - Acute on chronic renal failure. Creat 3.13. Per renal PLAN: - Clear liquids- okay to advance after CT - Await CT - PPI - Monitor HH - Transfuse as necessary - Supportive care - Pt not stable for any endoscopic procedures - If active bleeding, stat bleeding scan - Further recommendations to follow based on results of above - Pt seen and examined by Dr. modi and myself and this note is written on her behalf (Winnie Estrada) Physician Comments seen, examined agree with above (Mar Modi MD) Winnie Estrada Jan 24, 2017 12:15 Mar Modi MD Jan 24, 2017 16:59
[2017-01-24] MEDS: CAPTOPRIL 12.5 MG TAB PO SCH ×2 (12:22→21:20)
--- NOTE | 2017-01-24 15:48 | RADRPT ---
EXAM DATE/TIME: 01/24/2017 13:01 [place] COMPARISON: No previous studies available for comparison. INDICATIONS : GI bleeding. ORAL CONTRAST: Prescribed oral contrast ingested. RADIATION DOSE: 14.79 CTDIvol (mGy) MEDICAL HISTORY : Cardiovascular disease. Cerebrovascular disease. Carcinoma, prostate.HTN,chronic renal failure SURGICAL HISTORY : CABG AV shunt ENCOUNTER: Initial ACUITY: 1 day PAIN SCALE: 0/10 LOCATION: Abdomen TECHNIQUE: Volumetric scanning of the abdomen and pelvis was performed. Using automated exposure control and ad justment of the mA and/or kV according to patient size, radiation dose was kept as low as reasonably achievable to obtain optimal diagnostic quality images. FINDINGS: LOWER LUNGS: The visualized lower lungs are clear. LIVER: Homogeneous density without lesion. There is no dilation of the biliary tree. No calcified gallston es. SPLEEN: Normal size without lesion. PANCREAS: Within normal limits. KIDNEYS: Cyst involving the upper pole anterolateral cortex of the left kidney. Vascular calcifications presen t. No evidence of hydronephrosis or collecting system stone. ADRENAL GLANDS: Within normal limits. VASCULAR: There is no aortic aneurysm. BOWEL/MESENTERY: Occasional distal colonic diverticula. No abnormal dilatation, wall thickening or focal inflammatory change. ABDOMINAL WALL: Within normal limits. RETROPERITONEUM: There is no lymphadenopathy. BLADDER: Decompressed with Lopez catheter present. REPRODUCTIVE: Prostate fiducials. No pelvic mass or free fluid. INGUINAL: There is no lymphadenopathy or hernia. MUSCULOSKELETAL: Within normal limits for patient age. CONCLUSION: No acute CT findings in the abdomen or pelvis. Jose Lo MD on January 24, 2017 at 15:41 Board Certified Radiologist. This report was verified electronically.
--- NOTE | 2017-01-24 19:07 | HHI.NPPN ---
Subjective General Problems: Anemia, Hypertension Renal Failure: Chronic, Acute, Stage IV History of Present Illness 76-year-old male WHO was transferred here from the nursing facility because of elevated BUN and creatinine. The patient is not a very good historian and he does not know exactly why he was sent but he was sent mainly, according to the notes, because of abnormal BUN and creatinine and elevated INR. The patient was found to have a BUN of 120, creatinine of 3.6 and the INR was 4.0. Previously, looking back, it looks like the patient had a creatinine of 1.8 to 2.0 most of the time. Additional Remarks Patient is more alert, sitting on chair, no complain. Objective Data Data 01/23/17 01/24/17 19:00 07:00 Intake Total 1000 ml Output Total 200 ml Balance 800 ml Intake Oral 1000 ml Output Urine Total 200 ml # Bowel Movements 12 Vital Signs Date Time Temp Pulse Resp B/P Pulse Ox O2 Delivery O2 Flow Rate FiO2 01/24/17 15:45 96.7 69 18 105/52 95 01/24/17 11:28 96.1 82 18 118/58 99 01/24/17 09:30 69 01/24/17 07:43 96.6 75 18 118/56 98 01/24/17 06:26 98.2 88 18 94/56 97 01/24/17 01:33 97.8 88 18 98/56 97 01/23/17 21:45 65 01/23/17 20:03 97.8 86 18 89/52 96 -: 01/23/17 2345 01/23/17 0355 Physical Exam General Appearance: No Acute Distress, Comfortable Eyes Eye Exam: Pupils Equal Throat Throat Exam: Oral Mucosa [place] & Moist Pulmonary Resp Exam: Breath Sounds Equal, No Distress, Rhonchi, Decreased Bases Cardiology CV Exam: Regular, Normal Sinus Rhythm Gastrointestinal/Abdomen GI Exam: Soft, Non-Tender, Bowel Sounds Present Extremeties Extremities Exam: Trace Edema Neurologic Neuro Exam: Alert, Awake, Oriented Psychiatric Psych Exam: Appropriate Responses Assessment/Plan Assessment Summary: RAQUEL/Acute Renal Failure, Dehydration, CKD Stage IV Problem List: (1) Coronary artery disease (2) CHF (congestive heart failure) (3) Hypertension (4) Hyperlipidemia (5) Supratherapeutic INR (6) GI bleed (7) Urinary retention (8) Chronic kidney disease (CKD) (9) Acute on chronic renal failure Plan Patient has good urine out put. Creatinine started improving. Has chronic kidney disease, possibly related to Hypertensive or renovascular disease. Also develop RAQUEL, possibly pre renal, or obstructive uropathy. His baseline Creatinine was close to 2.0. If Creatinine continue to improve, possible D/C in AM. Problem Qualifiers (1) Chronic kidney disease (CKD): Qualified Code: N18.4 - Chronic kidney disease (CKD), stage 4 (severe) Ilya Knight MD Jan 24, 2017 19:07
[2017-01-24] MEDS: ATORVASTATIN 40 MG TAB PO SCH (21:20)
[2017-01-25 00:02] VITALS: BP 102/52; PULSE 71; RESP 20; TEMP 98.7; O2SAT 96
[2017-01-25 04:15] VITALS: BP 126/71; PULSE 86; RESP 20; TEMP 97.6; O2SAT 99
[2017-01-25 06:26] LABS: BICARBONATE 18.3 MEQ/L (21.0-32.0); POTASSIUM 4.6 MEQ/L (3.5-5.1)
[2017-01-25 07:13] LABS: AUTOMATED NEUTROPHIL # 6.3 TH/MM3 (1.8-7.7); BASOPHIL # 0.1 TH/MM3 (0-0.2); EOSINOPHIL # 0.1 TH/MM3 (0-0.4); EOSINOPHIL % 1.5 % (0.0-4.0); HEMATOCRIT 34.3 % (39.0-51.0); HEMO FLAGS DIFF FINAL; LYMPH % 10.6 % (9.0-44.0); LYMPHOCYTE # 0.9 TH/MM3 (1.0-4.8); MEAN CELL VOLUME 94.6 FL (80.0-100.0); MEAN CORPUSCULAR HEMOGLOBIN 31.3 PG (27.0-34.0); NEUT % 77.9 % (16.0-70.0); PLATELET COUNT 105 TH/MM3 (150-450); RED BLOOD COUNT 3.62 MIL/MM3 (4.50-5.90); RED CELL DISTRIBUTION WIDTH 15.5 % (11.6-17.2); WHITE BLOOD COUNT 8.1 TH/MM3 (4.0-11.0)
[2017-01-25 07:43] VITALS: BP 121/57; PULSE 88; RESP 19; TEMP 98; O2SAT 97
[2017-01-25] MEDS: PANTOPRAZOLE SOD 40 MG DELAYED RELEASE TAB PO SCH (09:37)
[2017-01-25] MEDS: DILTIAZEM-CD 120 MG CAP ER PO SCH (09:38)
[2017-01-25] MEDS: SODIUM CHLORIDE 0.9% FLUSH 10 ML FLUSH IV FLUSH SCH (09:38)
[2017-01-25] MEDS: CAPTOPRIL 12.5 MG TAB PO SCH (09:38)
[2017-01-25 10:59] LABS: INTERNATIONAL NORMALIZED RATIO 1.6 RATIO; PROTHROMBIN TIME - PATIENT 18.6 SEC (9.8-11.6)
--- NOTE | 2017-01-25 11:16 | HHI.PR ---
Subjective Remarks Follow-up coagulopathy/GI bleed /acute on chronic kidney disease stage IV 01/23/17-patient seen and examined and well known to me with discharge on with INR of 2.1 and Bun/Cr 92/1.87 grams with respectively INR 4.0 and BUn/ Cr 122/3.62 along with positive guaiac stool from a local nursing facility 01/24/17-patient seen and examined; INR 3.5 and patient reported some blood in his stool last night otherwise stable this morning. 01/25/17-patient seen and examined; INR 1.6, denies any GI bleed. Stable. Objective Vitals Vital Signs Date Time Temp Pulse Resp B/P Pulse Ox O2 Delivery O2 Flow Rate FiO2 01/25/17 07:43 98.0 88 19 121/57 97 01/25/17 04:15 97.6 86 20 126/71 99 01/25/17 00:02 98.7 71 20 102/52 96 01/24/17 20:00 76 01/24/17 19:29 98.1 76 20 87/51 95 01/24/17 15:45 96.7 69 18 105/52 95 01/24/17 11:28 96.1 82 18 118/58 99 I/O 01/24/17 01/24/17 01/24/17 01/25/17 01/25/17 01/25/17 07:00 15:00 23:00 07:00 15:00 23:00 Intake Total 1000 ml Output Total 200 ml 700 ml 300 ml Balance 800 ml -700 ml -300 ml Intake Oral 1000 ml Output Urine Total 200 ml 700 ml 300 ml Bladder Scan Volume Amount 650 ml 650 ml # Bowel Movements 12 1 1 Result Diagram: 01/25/17 0517 01/25/17 0517 Imaging Last Impressions Abdomen/Pelvis CT 01/23/17 0000 Signed Impressions: Service Date/Time: January 13:01 - CONCLUSION: No acute CT findings in the abdomen or pelvis. Jose Lo MD Chest X-Ray 01/22/17 1902 Signed Impressions: Service Date/Time: Sunday, January 22, 2017 19:19 - CONCLUSION: Slight bibasilar atelectasis. Katherine Richard MD Objective Remarks GENERAL: NAD SKIN: Warm and dry. HEAD: Normocephalic. EYES: No scleral icterus. No injection or drainage. NECK: Supple, trachea midline. No JVD or lymphadenopathy. CARDIOVASCULAR: Regular rate and rhythm without murmurs, gallops, or rubs. RESPIRATORY: Breath sounds equal bilaterally. No accessory muscle use. GASTROINTESTINAL: Abdomen soft, non-tender, nondistended. MUSCULOSKELETAL: No cyanosis, or edema. BACK: Nontender without obvious deformity. No CVA tenderness. Procedures none A/P Problem List: (1) GI bleed ICD Code: K92.2 Status: Acute (2) Urinary retention ICD Code: R33.9 Status: Acute (3) Supratherapeutic INR ICD Code: R79.1 Status: Acute (4) Acute on chronic renal failure ICD Code: N17.9 Status: Acute Assessment and Plan 76-year-old man with GI bleed: H&H appear to be stable. Appreciate input from GI however patient's not stable for any panendoscopy at this point. Continue with PPI and serial H& H monitoring. Supra therapeutic INR: Resolved as INR 1.6 today 01/25/17, will resume Coumadin tonight History of bilateral BLE DVT chronic Coumadin: Resume Coumadin and monitor INR Acute on chronic renal failure stage IV- related to urinary retention history of prostate cancer as well as nephrolithiasis: Appreciate input from Urology as well as nephrology. An 85 days and voiding trial. Continue Flomax. Patient with history of ischemic cardiomyopathy with LifeVest for which IV hydration appear to be contraindicated. Monitor BUN/creatinine and avoid all nephrotoxic drugs. Systolic heart failure/ischemic cardiopathy - EF 30% History of hypertension History dyslipidemia Coronary artery disease status post CABG 1999 History bilateral lower extremity since secondary DVT -Echocardiogram reveals EF 30-35%. Akinesis of the apical myocardium. EDEL 43 mmHg. Moderate TR. RV normal -Continue Coreg, Cardizem, valsartan and Lasix -Continue Lipitor at 40 mg daily and Lopid 60 mg twice a day for dyslipidemia. -Life vest in place DVT prophylaxis: Bilateral SCDs Discharge Planning discharge 01/25/17 Floyd Willis MD Jan 25, 2017 11:16
[2017-01-25] MEDS ORDERED: FURO1TAB60 PO (11:24)
[2017-01-25] MEDS ORDERED: CAPT12.52 PO (11:24)
[2017-01-25] MEDS ORDERED: TAMS5CAP PO (11:24)
--- NOTE | 2017-01-25 11:30 | HHI.DS ---
Discharge Summary Admission Date Jan 23, 2017 at 04:13 Discharge Date: Jan 25, 2017 Admitting Diagnosis Acute on Chronic Renal Failure, Supratherapeutic INR (1) GI bleed ICD Code: K92.2 (2) Urinary retention ICD Code: R33.9 (3) Supratherapeutic INR ICD Code: R79.1 (4) Acute on chronic renal failure ICD Code: N17.9 Procedures none Brief History - From Admission History from [facility] transfer notes, ER physician communication, and review of medical records. Patient initially came into the emergency room because he was sent by the [facility] physician for abnormal labs. Which reveals mild acute on chronic renal failure. Patient was recently discharged from our hospital a few days ago. When this admission was given to me for this reason, I had initially refused admission because the renal failure is likely from dehydration in this patient with EF of 35%. Therefore the plan was to hydrate patient orally, and to send him back to his [facility] hydration orally. However as per ER communication, [facility] physician recycling assistant feels that patient needed to be evaluated by a business support specialist in the hospital because they would take about 1 week to have a nephrology consultation as sent outpatient. They were uncomfortable to have patient waiting until a business support specialist evaluation for a creatinine of 3.19. Therefore I told ER provider at that time to check for the urinary retention as the cause of renal failure. I then ordered for a bladder scan. The bladder scan revealed more than 650 cc of urine. Therefore Lopez catheter was placed. I then discussed the case again with ER provider and the supervising physician that patient should be discharged back to the nursing facility and to the care of their doctor for management of acute urinary retention in a 76 years old gentleman with recent hospitalization and BPH causing mild renal failure. They have agreed for discharge same the patient for this matter. However a few hours later when the nurse was preparing to discharge the patient and clean in the patient up in the emergency room, she noted that patient was having small amount of bright red blood clots in his rectum. At that time they have plans to get history from the patient and patient revealed that he has been having blood clots in his stool. He states that his [facility] staff was aware of it. He stated this is probably a third time it happened. The nurse had saved these samples by his bedside. ER physician therefore called me back again before admission off rectal bleeding. Patient is on Coumadin at the nursing facility. INR is 4.0. I came to see patient at the bedside. The amount of blood clots in the specimen cup is quite minimal. Patient himself reports that he has been having trouble urinating and has been urinating less and less for the past 3-4 days. However he denies any fevers/nausea/vomiting/diarrhea. He denies any abdominal pains associated with this. denies any chest pain/ shortness of breath/focal weakness. Again, he himself noted that there was some blood clot in his stool for the past few days. CBC/BMP: 01/25/1717 01/25/1717 Significant Findings Laboratory Tests Test 01/22/17 01/23/17 01/23/17 01/23/17 20:05 03:55 15:39 23:45 Red Blood Count 3.96 MIL/MM3 3.70 MIL/MM3 (4.50-5.90) (4.50-5.90) Hemoglobin 12.3 GM/DL 11.5 GM/DL 11.8 GM/DL 11.6 GM/DL (13.0-17.0) (13.0-17.0) (13.0-17.0) (13.0-17.0) Hematocrit 36.6 % 34.4 % 36.7 % 34.5 % (39.0-51.0) (39.0-51.0) (39.0-51.0) (39.0-51.0) Platelet Count 137 TH/MM3 133 TH/MM3 (150-450) (150-450) Neutrophils (%) (Auto) 82.8 % 81.4 % (16.0-70.0) (16.0-70.0) Lymphocytes (%) (Auto) 6.8 % 7.8 % (9.0-44.0) (9.0-44.0) Lymphocytes # (Auto) 0.6 TH/MM3 0.7 TH/MM3 (1.0-4.8) (1.0-4.8) Prothrombin Time 47.4 SEC 37.9 SEC (9.8-11.6) (9.8-11.6) Activated Partial 47.7 SEC Thromboplast Time (24.3-30.1) Sodium Level 134 MEQ/L (136-145) Blood Urea Nitrogen 122 MG/DL 117 MG/DL (7-18) (7-18) Creatinine 3.62 MG/DL 3.13 MG/DL (0.60-1.30) (0.60-1.30) Estimat Glomerular Filtration 17 ML/MIN (>89) 20 ML/MIN (>89) Rate B-Type Natriuretic Peptide 323 PG/ML (0-100) Albumin 2.6 GM/DL (3.4-5.0) Monocytes (%) (Auto) 8.6 % (0.0-8.0) Test 01/24/17 01/25/17 01/25/17 05:45 05:17 10:31 Prothrombin Time 40.4 SEC 18.6 SEC (9.8-11.6) (9.8-11.6) Red Blood Count 3.62 MIL/MM3 (4.50-5.90) Hemoglobin 11.3 GM/DL (13.0-17.0) Hematocrit 34.3 % (39.0-51.0) Platelet Count 105 TH/MM3 (150-450) Neutrophils (%) (Auto) 77.9 % (16.0-70.0) Monocytes (%) (Auto) 9.0 % (0.0-8.0) Lymphocytes # (Auto) 0.9 TH/MM3 (1.0-4.8) Carbon Dioxide Level 18.3 MEQ/L (21.0-32.0) Blood Urea Nitrogen 91 MG/DL (7-18) Creatinine 2.47 MG/DL (0.60-1.30) Estimat Glomerular Filtration 26 ML/MIN (>89) Rate Imaging Last Impressions Abdomen/Pelvis CT 01/23/17 0000 Signed Impressions: Service Date/Time: January 13:01 - CONCLUSION: No acute CT findings in the abdomen or pelvis. Jose Lo MD Chest X-Ray 01/22/17 1902 Signed Impressions: Service Date/Time: Sunday, January 22, 2017 19:19 - CONCLUSION: Slight bibasilar atelectasis. Katherine Richard MD PE at Discharge GENERAL: NAD SKIN: Warm and dry. HEAD: Normocephalic. EYES: No scleral icterus. No injection or drainage. NECK: Supple, trachea midline. No JVD or lymphadenopathy. CARDIOVASCULAR: Regular rate and rhythm without murmurs, gallops, or rubs. RESPIRATORY: Breath sounds equal bilaterally. No accessory muscle use. GASTROINTESTINAL: Abdomen soft, non-tender, nondistended. MUSCULOSKELETAL: No cyanosis, or edema. BACK: Nontender without obvious deformity. No CVA tenderness. Hospital Course Patient was admitted secondary to supra therapeutic INR and GI bleed for which as well as worsening renal function for which gastroenterology was consulted however patient'sstay for any panendoscopy and was treated with Protonix with monitoring of H&H. Urology was also consulted and advised on continuing with Lopez x 5 days then voiding trial as well as treatment with Flomax. Nephrology was consulted and patient was started on captopril with monitoring of BUN/ creatinine. Prior to discharge INR 1.6 with improving renal indices. Patient was continued on his medication for other chronic medical conditions. GI and DVT prophylaxis were provided.. Patient will need daily INR monitoring; Recommend continuing the Lopez catheter for a minimum of five days and then can void trial outpatient Pt Condition on Discharge: Fair Discharge Disposition: Discharge to SNF Discharge Time: > 30 minutes Discharge Instructions DIET: Follow Instructions for: Heart Healthy Diet Activities you can perform: Regular-No Restrictions Follow up Referrals: PCP Follow-up - 2-3 Days Urology New Orders: PT/INR - Daily New Medications: Furosemide (Lasix) 40 Mg Tab 40 MG PO DAILY Prevent Heart Failure #30 Ref 0 TAB Tamsulosin (Flomax) 0.4 Mg Cap 0.4 MG PO HS Manage Prostate Problems #30 Ref 0 CAP Captopril (Captopril) 12.5 Mg Tab 6.25 MG PO BID Blood Pressure Management #60 TAB Continued Medications: Aspirin DR (David Aspirin EC Low Dose) 81 Mg Tabdr 81 MG PO DAILY CAD Atorvastatin (Atorvastatin) 40 Mg Tab 40 MG PO HS Cholesterol Management #30 Ref 0 TAB Carvedilol (Carvedilol) 25 Mg Tab 25 MG PO BID Hold if SBP <100 or DBP <60 #60 Ref 0 TAB Diltiazem CD 24 HR (Cardizem CD 24 HR) 120 Mg Caper 120 MG PO DAILY atrial fibrillation #30 Ref 0 CAP Gemfibrozil (Gemfibrozil) 600 Mg Tab 600 MG PO BIDAC Take 30 minutes prior to breakfast and dinner. #60 Ref 0 TAB Pantoprazole (Pantoprazole) 40 Mg Tab 40 MG PO DAILY gastritis #30 Ref 0 TAB Warfarin (Warfarin) 1 Mg Tab 1 MG PO DAILY recheck in 2-3 days. Goal INR 2-3. Blood Clot Prevention #3 Ref 0 TAB Discontinued Medications: Furosemide (Furosemide) 40 Mg Tab 40 MG PO BID@,18 CHF #60 Ref 0 TAB Gabapentin (Gabapentin) 100 Mg Cap 100 MG PO TID #90 Ref 0 CAP Levofloxacin (Levaquin) 750 Mg Tab 750 MG PO Q48H pneumonia #4 Ref 0 TAB Valsartan (Valsartan) 320 Mg Tab 320 MG PO DAILY #30 Ref 0 TAB Additional Information Daily INR PT monitoring Recommend continuing the Lopez catheter for a minimum of five days and then can void trial. Floyd Willis MD Jan 25, 2017 11:30
[2017-01-25 12:09] VITALS: BP 133/83; PULSE 87; RESP 19; O2SAT 95
[2017-01-25] MEDS ORDERED: WARFARIN SOD 1 MG TAB PO SCH (16:00)
== END 2017-01-25 13:11 | disposition home or self-care (01) ==
LOC: NEPC 16:24 → UNDOADMOB 21:21 → NEDA 21:21 → NEPC 01-23 00:36 → UNDODISOB 01-23 00:36 → NEPC 01-23 03:47 → NEDA 01-23 04:13 → NEPFCDU 01-23 08:03
PROVIDERS: ADMIT Hospitalist; ATTEND Hospitalist
DX: I13.0 Hypertensive heart and chronic kidney disease with heart failure and stage 1 through stage 4 chronic kidney disease, or unspecified chronic kidney disease (principal); I50.9 Heart failure, unspecified; N18.4 Chronic kidney disease, stage 4 (severe); K92.1 Melena; N17.9 Acute kidney failure, unspecified; T45.515A Adverse effect of anticoagulants, initial encounter; N13.9 Obstructive and reflux uropathy, unspecified; E78.5 Hyperlipidemia, unspecified; D68.32 Hemorrhagic disorder due to extrinsic circulating anticoagulants; D50.0 Iron deficiency anemia secondary to blood loss (chronic); I25.2 Old myocardial infarction; I25.10 Atherosclerotic heart disease of native coronary artery without angina pectoris; I48.91 Unspecified atrial fibrillation; J44.9 Chronic obstructive pulmonary disease, unspecified; F41.9 Anxiety disorder, unspecified; E78.00 Pure hypercholesterolemia, unspecified; H91.90 Unspecified hearing loss, unspecified ear; Z85.46 Personal history of malignant neoplasm of prostate; Z86.73 Personal history of transient ischemic attack (TIA), and cerebral infarction without residual deficits; Z95.1 Presence of aortocoronary bypass graft; Z79.82 Long term (current) use of aspirin; Z87.891 Personal history of nicotine dependence; Z92.3 Personal history of irradiation; Z79.01 Long term (current) use of anticoagulants
CPT/HCPCS: 51702; 71010; 74176; 80048; 80053; 82272; 83880; 85014; 85018; 85025; 85610; 85730; 86850; 86900; 86901; 93005; 99285; G0378; Q9963

== ENCOUNTER 2017-11-11 15:47 | Inpatient (IN) | payer MEDICARE ==
[~2017-11-11] VITALS: Ht 165.1 cm; Wt 79.5 kg
[2017-11-11] VITALS (7 sets, daily range): BP systolic 137–184; BP diastolic 80–106; PULSE 86–113; RESP 18–30; TEMP 97.2–98; O2SAT 91–99
[~2017-11-11 15:47] MED LIST changes: +CAPT12.52 PO; +FURO1TAB60 PO; -FURO40TA PO; -GABA100C4 PO; -LEVA750T PO; -PRED10 PO; +TAMS5CAP PO; -VALS1TAB70 PO
[2017-11-11] MEDS ORDERED: SODIUM CHLORIDE 0.9% FLUSH 10 ML FLUSH IVF PRN (16:00)
[2017-11-11] MEDS ORDERED: NITROGLYCERIN 0.4 MG SL 25 TABS/BTL SL ONE (16:01)
--- NOTE | 2017-11-11 16:25 | RADRPT ---
EXAM DATE/TIME: 11/11/2017 16:14 [facility] COMPARISON: CHEST SINGLE AP, January 22, 2017, 19:19. INDICATIONS : Short of breath. MEDICAL HISTORY : Myocardial infarction. Congestive heart failure. Hypertension. Stroke. SURGICAL HISTORY : Coronary artery stent. CABG. ENCOUNTER: [facility] ACUITY: 1 day PAIN SCORE: 0/10 LOCATION: Bilateral chest FINDINGS: There is cardiomegaly with interstitial prominence and mild basilar airspace disease. Small effusions . No pneumothorax. CONCLUSION: 1. Cardiomegaly with a mild edema pattern and small effusions most characteristic of mild congestive heart failure. Tommy Page MD on November 11, 2017 at 16:23 Board Certified Radiologist. This report was verified electronically.
[2017-11-11 17:09] LABS: AUTOMATED NEUTROPHIL # 5.4 TH/MM3 (1.8-7.7); BASOPHIL # 0.1 TH/MM3 (0-0.2); BASOPHIL % 0.9 % (0.0-2.0); EOSINOPHIL # 0.2 TH/MM3 (0-0.4); EOSINOPHIL % 2.7 % (0.0-4.0); HEMATOCRIT 41.6 % (39.0-51.0); LYMPH % 31.4 % (9.0-44.0); LYMPHOCYTE # 2.9 TH/MM3 (1.0-4.8); MEAN CELL VOLUME 99.8 FL (80.0-100.0); MEAN CORPUSCULAR HEMOGLOBIN 33.6 PG (27.0-34.0); MEAN CORPUSCULAR HGB CONC 33.6 % (32.0-36.0); MEAN PLATELET VOLUME 9.4 FL (7.0-11.0); MONO % 7.5 % (0.0-8.0); MONOCYTE # 0.7 TH/MM3 (0-0.9); NEUT % 57.5 % (16.0-70.0); PLATELET COUNT 207 TH/MM3 (150-450); RED BLOOD COUNT 4.16 MIL/MM3 (4.50-5.90); RED CELL DISTRIBUTION WIDTH 16.7 % (11.6-17.2); WHITE BLOOD COUNT 9.3 TH/MM3 (4.0-11.0)
[2017-11-11 17:19] LABS: INTERNATIONAL NORMALIZED RATIO 2.3 RATIO; PROTHROMBIN TIME - PATIENT 22.8 SEC (9.8-11.6)
[2017-11-11] MEDS ORDERED: DIGO0.127 PO (17:19)
[2017-11-11] MEDS ORDERED: ULOR80TA2 PO (17:19)
[2017-11-11] MEDS ORDERED: WARF4TAB51 PO (17:19)
[2017-11-11 17:27] LABS: ALBUMIN 3.7 GM/DL (3.4-5.0); ALT (GPT) 24 U/L (12-78); AST (GOT) 25 U/L (15-37); BICARBONATE 18.6 MEQ/L (21.0-32.0); BLOOD UREA NITROGEN 45 MG/DL (7-18); CALCIUM 9.4 MG/DL (8.5-10.1); CHLORIDE 104 MEQ/L (98-107); CREATININE 1.77 MG/DL (0.60-1.30); GLOMERULAR FILTRATION RATE 38 ML/MIN (>89); GLUCOSE,RANDOM 222 MG/DL (74-106); SODIUM (NA) 136 MEQ/L (136-145)
[2017-11-11 17:31] LABS: ALKALINE PHOSPHATASE 126 U/L (45-117); TOTAL BILIRUBIN ADULT 0.7 MG/DL (0.2-1.0); TROPONIN I 0.04 NG/ML (0.02-0.05)
--- NOTE | 2017-11-11 17:47 | PD ---
HPI Chief Complaint: Respiratory Distress Time Seen by Provider: 15:56 Travel History International Travel<30 days: No Contact w/Intl Traveler<30days: No Traveled to known affect area: No History of Present Illness HPI This is a 77-year-old gentleman with history of atrial fibrillation, hypertension, hyperlipidemia, who presents today via EMS for complaints of severe shortness of breath. When paramedics arrived, they found the patient severely tachypnea. They stated he had Rales in the upper and lower lung odom bilaterally. The patient denies any chest pain chest pressure. He states that over the last couple days he's had progressive shortness of breath. He denies any changes in his medication. Per medics report that they started him on CPAP and he started to feel nauseous and had an episode of vomiting. They report that they took him off BiPAP. The report giving him Lasix prior to arrival. There were no other medications given. PFSH Past Medical History Hx Anticoagulant Therapy: Yes Arthritis: No Asthma: No Atrial Fibrillation: Yes Autoimmune Disease: No Blood Disorders: No Anxiety: Yes (WITH SOB) Depression: No Heart Rhythm Problems: Yes Cancer: Yes (PROSTATE) Cardiac Catheterization: Yes Cardiovascular Problems: Yes ([place], CHF, HTN, CAD) High Cholesterol: Yes Chemotherapy: No Chest Pain: No Congestive Heart Failure: Yes COPD: Yes Cerebrovascular Accident: Yes (2013 - ) Diabetes: No Diminished Hearing: Yes ([place]) Endocrine: No Gastrointestinal Disorders: No GERD: No Genitourinary: Yes (PROSTATE [place]) Hepatitis: No Hiatal Hernia: No Heparin Induced Thrombocytopen: No Hypertension: Yes Immune Disorder: No Kidney Stones: Yes (1960) Medical other: Yes (CAD) Neurologic: Yes (DIZZY, STROKE) Psychiatric: No Reproductive: No Respiratory: Yes (COPD) Migraines: No Myocardial Infarction: Yes Radiation Therapy: Yes (prostate cancer 45 treatments) Renal Failure: No Seizures: No Sickle Cell Disease: No Sleep Apnea: No Thyroid Disease: No Ulcer: No Past Surgical History Abdominal Surgery: Yes AICD: No Arteriovenous Shunt: Yes (shunts placed in BLE for DVT) Cardiac Surgery: Yes (CABG 1999) Coronary Stent: Yes Ear Surgery: No Endocrine Surgery: No Eye Surgery: Yes (BILAT CATARACT SX) Genitourinary Surgery: Yes (PROSTATE SEED IMPLANTS) Gynecologic Surgery: No Insulin Pump: No Joint Replacement: No Neurologic Surgery: No Oral Surgery: Yes (TEETH EXTRACTED) Pacemaker: No Thoracic Surgery: No Other Surgery: Yes Social History Alcohol Use: Yes (DAILY ) Tobacco Use: No Substance Use: No Allergies-Medications (Allergen,Severity, Reaction): Coded Allergies: No Known Allergies (Verified , 01/07/17) Reported Meds & Prescriptions Reported Meds & Active Scripts Active Lasix (Furosemide) 40 Mg Tab 40 Mg PO DAILY Flomax (Tamsulosin HCl) 0.4 Mg Cap 0.4 Mg PO HS Captopril 12.5 Mg Tab 6.25 Mg PO BID Pantoprazole (Pantoprazole Sodium) 40 Mg Tab 40 Mg PO DAILY Cardizem CD 24 HR (Diltiazem CD 24 HR) 120 Mg Caper 120 Mg PO DAILY Reported Digox (Digoxin) 0.125 Mg Tab 0.125 Mg PO DAILY Uloric (Febuxostat) 80 Mg Tab 80 Mg PO DAILY Warfarin 2 Mg Tab 2 Mg PO DAILY David Aspirin EC Low Dose (Aspirin) 81 Mg Tabdr 81 Mg PO DAILY Carvedilol 25 Mg Tab 25 Mg PO BID Hold if SBP <100 or DBP <60 Gemfibrozil 600 Mg Tab 600 Mg PO BIDAC Take 30 minutes prior to breakfast and dinner. Atorvastatin (Atorvastatin Calcium) 40 Mg Tab 40 Mg PO HS Review of Systems Except as stated in HPI: all other systems reviewed are Neg General / Constitutional: No: Fever, Chills HENT: No: Headaches, Neck Pain Cardiovascular: Positive: Irregular Rhythm, No: Chest Pain or Discomfort, Palpitations Respiratory: Positive: Shortness of Breath, No: Cough (history of A. fib), Wheezing Gastrointestinal: Positive: Nausea, Vomiting, No: Diarrhea, Abdominal Pain Genitourinary: No: Dysuria, Decreased Urinary Output Musculoskeletal: No: Weakness, Pain Neurologic: No: Weakness, Dizziness Physical Exam Narrative GENERAL: Well-developed well-nourished male in moderate to severe rest her distress. SKIN: Cool and diaphoretic. HEAD: Atraumatic. Normocephalic. EYES: No injection or drainage. ENT: No nasal bleeding or discharge. Mucous membranes pink and moist. NECK: Trachea midline. Supple. No JVD CARDIOVASCULAR: Irregularly irregular with a rate of 104. No murmur appreciated. RESPIRATORY: No sensory muscle use. The patient did have bilateral Rales at the bases. GASTROINTESTINAL: Abdomen soft, non-tender, nondistended. Hepatic and splenic margins not palpable. MUSCULOSKELETAL: No obvious deformities. No clubbing. No cyanosis. No edema. NEUROLOGICAL: Awake and alert. No obvious cranial nerve deficits. Motor grossly within normal limits. Normal speech. Data Data Last Documented VS Vital Signs Date Time Temp Pulse Resp B/P (MAP) Pulse Ox O2 Delivery O2 Flow Rate FiO2 11/11/17 18:42 98 Venturi Mask 50 11/11/17 18:22 86 24 178/90 (119) 11/11/17 16:03 15.00 11/11/17 15:56 97.2 Orders Orders Complete Blood Count With Diff (11/11/17 15:56) Comprehensive Metabolic Panel (11/11/17 15:56) B-Type Natriuretic Peptide (11/11/17 15:56) Act Partial Throm Time (Ptt) (11/11/17 15:56) Prothrombin Time / Inr (Pt) (11/11/17 15:56) Ckmb (Isoenzyme) Profile (11/11/17 15:56) Troponin I (11/11/17 15:56) Urinalysis - C+S If Indicated (11/11/17 15:56) Iv Access Insert/Monitor (11/11/17 15:56) Electrocardiogram (11/11/17 15:56) Ecg Monitoring (11/11/17 15:56) Oximetry (11/11/17 15:56) Oxygen Administration (11/11/17 15:56) Chest, Single Ap (11/11/17 15:56) Sodium Chloride 0.9% Flush (Ns Flush) (11/11/17 16:00) Resp Bipap / Cpap Non Invas Vt (11/11/17 15:56) Nitroglycerin Sl (Nitrostat Sl) (11/11/17 16:01) Digoxin (11/11/17 17:34) Admit To Inpatient (11/11/17 ) Vital Signs (Adult) Q4H (11/11/17 18:33) Store Standards Associate / Telemetry .CONTINUOUS (11/11/17 18:33) Diet Heart Healthy (11/11/17 Dinner) Sodium Chloride 0.9% Flush (Ns Flush) (11/11/17 18:45) Sodium Chloride 0.9% Flush (Ns Flush) (11/11/17 21:00) Acetaminophen (Tylenol) (11/11/17 18:45) Basic Metabolic Panel (Bmp) (11/12/17 06:00) Complete Blood Count With Diff (11/12/17 06:00) Resp Oxygen Beni C Titrat 1-4 L (11/11/17 ) Naloxone Inj (Narcan Inj) (11/11/17 18:45) Magnesium Hydroxide Liq (Milk Of Magnesi (11/11/17 18:45) Sennosides (Senokot) (11/11/17 18:45) Bisacodyl Supp (Dulcolax Supp) (11/11/17 18:45) Lactulose Liq (Lactulose Liq) (11/11/17 18:45) Inpatient Certification (11/11/17 ) Admit Order (Ed Use Only) (11/11/17 18:53) Labs Laboratory Tests Test 11/11/17 16:08 11/11/17 17:53 White Blood Count 9.3 TH/MM3 Red Blood Count 4.16 MIL/MM3 Hemoglobin 14.0 GM/DL Hematocrit 41.6 % Mean Corpuscular Volume 99.8 FL Mean Corpuscular Hemoglobin 33.6 PG Mean Corpuscular Hemoglobin Concent 33.6 % Red Cell Distribution Width 16.7 % Platelet Count 207 TH/MM3 Mean Platelet Volume 9.4 FL Neutrophils (%) (Auto) 57.5 % Lymphocytes (%) (Auto) 31.4 % Monocytes (%) (Auto) 7.5 % Eosinophils (%) (Auto) 2.7 % Basophils (%) (Auto) 0.9 % Neutrophils # (Auto) 5.4 TH/MM3 Lymphocytes # (Auto) 2.9 TH/MM3 Monocytes # (Auto) 0.7 TH/MM3 Eosinophils # (Auto) 0.2 TH/MM3 Basophils # (Auto) 0.1 TH/MM3 CBC Comment DIFF FINAL Differential Comment Prothrombin Time 22.8 SEC Prothromb Time International Ratio 2.3 RATIO Activated Partial Thromboplast Time 34.5 SEC Blood Urea Nitrogen 45 MG/DL Creatinine 1.77 MG/DL Random Glucose 222 MG/DL Total Protein 9.0 GM/DL Albumin 3.7 GM/DL Calcium Level 9.4 MG/DL Alkaline Phosphatase 126 U/L Aspartate Amino Transf (AST/SGOT) 25 U/L Alanine Aminotransferase (ALT/SGPT) 24 U/L Total Bilirubin 0.7 MG/DL Sodium Level 136 MEQ/L Potassium Level 4.7 MEQ/L Chloride Level 104 MEQ/L Carbon Dioxide Level 18.6 MEQ/L Anion Gap 13 MEQ/L Estimat Glomerular Filtration Rate 38 ML/MIN Total Creatine Kinase 91 U/L Troponin I 0.04 NG/ML B-Type Natriuretic Peptide 639 PG/ML Urine Color YELLOW Urine Turbidity CLEAR Urine pH 6.0 Urine Specific [place] 1.011 Urine Protein 100 mg/dL Urine Glucose (UA) NEG mg/dL Urine Ketones NEG mg/dL Urine Occult Blood NEG Urine Nitrite NEG Urine Bilirubin NEG Urine Urobilinogen LESS THAN 2.0 MG/DL Urine Leukocyte Esterase NEG Urine RBC LESS THAN 1 /hpf Urine WBC 1 /hpf Urine Squamous Epithelial Cells <1 /hpf Urine Amorphous Sediment RARE Urine Mucus FEW /lpf Microscopic Urinalysis Comment CULT NOT INDICATED MDM Medical Decision Making Medical Screen Exam Complete: Yes Emergency Medical Condition: Yes Differential Diagnosis CHF versus ACS versus metabolic derangement Narrative Course 77-year-old male who presents today with shortness of breath. The patient was found to be in congestive heart failure by EMS. He was started on CPAP via EMS however started expressing nausea and vomiting and they had to remove it. The patient was given Lasix prior to arrival. He has diuresed some. X-ray shows CHF. The patient has a renal insufficiency and appears to have acute on chronic renal injury. BNP was elevated at 600. The patient was placed on BiPAP here however he is being weaned off to a Ventimask. He'll be admitted to the hospital for further diuresis. Case was discussed with Dr. Izquierdo, [facility], who agrees to the admission. Diagnosis Primary Impression: CHF exacerbation Additional Impressions: Acute on chronic renal failure Atrial fibrillation Admitting Information Admitting Physician Requests: Observation Domingo Dasilva MD Nov 11, 2017 17:47
[2017-11-11 18:14] LABS: AMORPHOUS SEDIMENT, URINE RARE; BILIRUBIN, URINE NEG (NEG); BLOOD, URINE NEG (NEG); GLUCOSE,URINE NEG (NEG); KETONE, URINE NEG (NEG); MUCUS URINE FEW /lpf (OCC); NITRITE,URINE NEG (NEG); SQUAMOUS EPITHELIAL CELL URINE <1 /hpf (0-5); URINE COLOR YELLOW (YELLW/STRAW); URINE LEUKOCYTE ESTERASE NEG (NEG)
[2017-11-11] MEDS ORDERED: ACETAMINOPHEN 325 MG TAB PO PRN (18:45)
[2017-11-11] MEDS ORDERED: MAGNESIUM HYDROXIDE SUSP 30 ML CUP PO PRN (18:45)
[2017-11-11] MEDS ORDERED: NALOXONE HCL 0.4 MG/ML AMP IV PUSH PRN (18:45)
[2017-11-11] MEDS ORDERED: BISACODYL 10 MG SUPP RECTAL PRN (18:45)
[2017-11-11] MEDS ORDERED: SENNOSIDES 8.6 MG TAB PO PRN (18:45)
[2017-11-11] MEDS ORDERED: SODIUM CHLORIDE 0.9% FLUSH 10 ML FLUSH IV FLUSH PRN (18:45)
[2017-11-11] MEDS ORDERED: LACTULOSE SYRUP 20 GM/30 ML CUP PO PRN (18:45)
--- NOTE | 2017-11-11 23:47 | HHI.HP ---
[facility] Peng Weir MD Admission Diagnosis CHF exacerbation, atrial fibrillation, acute on chronic kidney disea Diagnoses: Travel History International Travel<30 Days: No Contact w/Intl Traveler <30 Da: No Traveled to Known Affected Are: No History of Present Illness History from patient, ER notes, and review of medical records. could not breathe, started around 3p.m yesterday walked to the garage to get fresh air and became extremely short of breath family called ems - has hx of chf was given lasix 80mg iv arrived here by [facility] by ambulance denies peripheral edema but has not been sleeping well lately- denies PND, stated it is more because too much on his mind no chest pains or tightness no increased cough, just "normal" cough -quit smoking in 1999 not on home oxygen , pt thinks he needs it reports of nausea only today while coming here but never threw up no other symptoms no changes in medications per patient have been eating out lately, [facility] for steaks Review of Systems Except as stated in HPI: all other systems reviewed are Neg Past Family Social History Past Medical History Hypertension Hyperlipidemia CADstatus post CABG in 1999 Atrial fibrillation CHFEF of 30-35% on 01/08/17 COPD Chronic kidney disease History of CVA History of prostate CA . Past Surgical History Cataract surgery CABG Bilateral lower extremity stents Radiation seed implants for prostate cancer Allergies: Coded Allergies: No Known Allergies (Verified , 01/07/17) Family History 2 brothers from lung/throat cancer Social History Used to smoke cigarettes, quit in 1999. Denies any alcohol abuse or drug abuse. He does drink socially small glass of wine lives at home with now- was discharged from rehab facility around mid february 2017 Physical Exam Vital Signs Vital Signs Date Time Temp Pulse Resp B/P (MAP) Pulse Ox O2 Delivery O2 Flow Rate FiO2 11/11/17 21:19 98.0 100 18 137/80 (99) 97 11/11/17 20:14 11/11/17 18:42 98 Venturi Mask 50 11/11/17 18:22 86 24 178/90 (119) 92 Venturi Mask 11/11/17 17:36 99 70 11/11/17 17:20 98 80 11/11/17 17:15 92 Venturi Mask 11/11/17 16:35 99 BiPAP 100 11/11/17 16:34 99 100 11/11/17 16:03 97 Non-Rebreather 15.00 11/11/17 16:03 96 30 98 Non-Rebreather 15.00 11/11/17 15:57 116 30 91 Non-Rebreather 15.00 11/11/17 15:56 97.2 112 30 184/106 (132) 92 Non-Rebreather 15.00 11/11/17 15:55 92 Non-Rebreather 15.00 11/11/17 15:50 113 30 184/106 (132) 91 Physical Exam GENERAL: This is a well-nourished, well-developed patient, in moderate distress from dyspnea. However reported significantly better. Currently on 5 L nasal cannula saturating at 95%. SKIN: No rashes, ecchymoses or lesions. Cool and dry. HEAD: Atraumatic. Normocephalic. No temporal or scalp tenderness. EYES: No scleral icterus. No injection or drainage. ENT: Nose without bleeding, purulent drainage or septal hematoma. Airway patent. NECK: Trachea midline. No JVD Supple, nontender, no meningeal signs. CARDIOVASCULAR: Regular rate and rhythm without murmurs, gallops, or rubs. RESPIRATORY: Bilateral posterior basilar coarse crepitations. GASTROINTESTINAL: Abdomen soft, non-tender, nondistended. No guarding. MUSCULOSKELETAL: Extremities without clubbing, cyanosis, or edema. . No calf tenderness. NEUROLOGICAL: Awake and alert. Motor and sensory grossly within normal limits. Normal speech. Laboratory Laboratory Tests Test 11/11/17 16:08 11/11/17 17:53 White Blood Count 9.3 Red Blood Count 4.16 Hemoglobin 14.0 Hematocrit 41.6 Mean Corpuscular Volume 99.8 Mean Corpuscular Hemoglobin 33.6 Mean Corpuscular Hemoglobin Concent 33.6 Red Cell Distribution Width 16.7 Platelet Count 207 Mean Platelet Volume 9.4 Neutrophils (%) (Auto) 57.5 Lymphocytes (%) (Auto) 31.4 Monocytes (%) (Auto) 7.5 Eosinophils (%) (Auto) 2.7 Basophils (%) (Auto) 0.9 Neutrophils # (Auto) 5.4 Lymphocytes # (Auto) 2.9 Monocytes # (Auto) 0.7 Eosinophils # (Auto) 0.2 Basophils # (Auto) 0.1 CBC Comment DIFF FINAL Differential Comment Prothrombin Time 22.8 Prothromb Time International Ratio 2.3 Activated Partial Thromboplast Time 34.5 Blood Urea Nitrogen 45 Creatinine 1.77 Random Glucose 222 Total Protein 9.0 Albumin 3.7 Calcium Level 9.4 Alkaline Phosphatase 126 Aspartate Amino Transf (AST/SGOT) 25 Alanine Aminotransferase (ALT/SGPT) 24 Total Bilirubin 0.7 Sodium Level 136 Potassium Level 4.7 Chloride Level 104 Carbon Dioxide Level 18.6 Anion Gap 13 Estimat Glomerular Filtration Rate 38 Total Creatine Kinase 91 Troponin I 0.04 B-Type Natriuretic Peptide 639 Urine Color YELLOW Urine Turbidity CLEAR Urine pH 6.0 Urine Specific Ideal 1.011 Urine Protein 100 Urine Glucose (UA) NEG Urine Ketones NEG Urine Occult Blood NEG Urine Nitrite NEG Urine Bilirubin NEG Urine Urobilinogen LESS THAN 2.0 Urine Leukocyte Esterase NEG Urine RBC LESS THAN 1 Urine WBC 1 Urine Squamous Epithelial Cells <1 Urine Amorphous Sediment RARE Urine Mucus FEW Microscopic Urinalysis Comment CULT NOT INDICATED Result Diagram: 11/11/17 1608 11/11/17 1608 Imaging Last 48 hours Impressions Chest X-Ray 11/11/17 1556 Signed Impressions: Service Date/Time: Saturday, November 11, 2017 16:14 - CONCLUSION: 1. Cardiomegaly with a mild edema pattern and small effusions most characteristic of mild congestive heart failure. Tommy Page MD Caprini VTE Risk Assessment Caprini VTE Risk Assessment: Mod/High Risk (score >= 2) Caprini Risk Assessment Model Point Value = 1 Point Value = 2 Point Value = 3 Point Value = 5 Age 41-60 Minor surgery BMI > 25 kg/m2 Swollen legs Varicose veins or History of unexplained or recurrent spontaneous Oral contraceptives or hormone replacement Sepsis (< 1 month) Serious lung disease, including pneumonia (< 1 month) Abnormal pulmonary function Acute myocardial infarction Congestive heart failure (< 1 month) History of inflammatory bowel disease Medical patient at bed rest Age 61-74 Arthroscopic surgery Major open surgery (> 45 min) Laparoscopic surgery (> 45 min) Malignancy Confined to bed (> 72 hours) Immobilizing plaster cast Central venous access Age >= 75 History of VTE Family history of VTE Factor V Leiden Prothrombin [id number] Lupus anticoagulant Anticardiolipin antibodies Elevated serum homocysteine Heparin-induced thrombocytopenia Other congenital or acquired thrombophilia Stroke (< 1 month) Elective arthroplasty Hip, pelvis, or leg fracture Acute spinal cord injury (< 1 month) Prophylaxis Regimen Total Risk Factor Score Risk Level Prophylaxis Regimen 0-1 Low Early ambulation 2 Moderate Order ONE of the following: *Sequential Compression Device (SCD) *Heparin 5000 units SQ BID 3-4 Higher Order ONE of the following medications: *Heparin 5000 units SQ TID *Enoxaparin/Lovenox 40 mg SQ daily (WT < 150 kg, CrCl > 30 mL/min) *Enoxaparin/Lovenox 30 mg SQ daily (WT < 150 kg, CrCl > 10-29 mL/min) *Enoxaparin/Lovenox 30 mg SQ BID (WT < 150 kg, CrCl > 30 mL/min) AND/OR *Sequential Compression Device (SCD) 5 or more Highest Order ONE of the following medications: *Heparin 5000 units SQ TID (Preferred with Epidurals) *Enoxaparin/Lovenox 40 mg SQ daily (WT < 150 kg, CrCl > 30 mL/min) *Enoxaparin/Lovenox 30 mg SQ daily (WT < 150 kg, CrCl > 10-29 mL/min) *Enoxaparin/Lovenox 30 mg SQ BID (WT < 150 kg, CrCl > 30 mL/min) AND *Sequential Compression Device (SCD) Assessment and Plan Assessment and Plan Impression: Acute on chronic systolic heart failure. Likely secondary to diet noncompliance /high salt intake Hypoxia secondary to above Respiratory failure requiring BiPAP administration an initial presentation Hypertension Hyperlipidemia CADstatus post CABG in 1999 Atrial fibrillation CHFEF of 30-35% on 01/08/17 COPD Chronic kidney disease History of CVA History of prostate CA Plan: Lasix 40 mg IV every 12 hours. Oxygen supplementation. To taper off as tolerated. CHF education. Input/output. Patient is requesting for home oxygen. Possible that this patient is a candidate for home oxygen due to combination of his COPD and CHF. We'll have to arrange for walk test before discharge. Yet again, his last hospitalization was back in January 2017. He has been quite stable for several months. Resume home meds DVT prophylaxis with Coumadin Discussed Condition With patient, nursing staff Physician Certification 2 Midnight Certification Type: Admission for Inpatient Services Order for Inpatient Services The services are ordered in accordance with Medicare regulations or non- Medicare payer requirements, as applicable. In the case of services not specified as inpatient-only, they are appropriately provided as inpatient services in accordance with the 2-midnight benchmark. Estimated LOS (days): 2 days is the estimated time the patient will need to remain in the hospital, assuming treatment plan goals are met and no additional complications. Post-Hospital Plan: Home Whitney Barksdale MD Nov 11, 2017 23:47
[2017-11-12] VITALS (9 sets, daily range): BP systolic 117–160; BP diastolic 56–89; PULSE 59–93; RESP 18; TEMP 97.6–98.1; O2SAT 96–100
[2017-11-12] MEDS ORDERED: GEMFIBROZIL 600 MG TAB PO SCH (07:00)
[2017-11-12 07:15] LABS: AUTOMATED NEUTROPHIL # 6.1 TH/MM3 (1.8-7.7); BASOPHIL # 0.1 TH/MM3 (0-0.2); BASOPHIL % 0.7 % (0.0-2.0); EOSINOPHIL # 0.1 TH/MM3 (0-0.4); EOSINOPHIL % 1.1 % (0.0-4.0); HEMATOCRIT 40.6 % (39.0-51.0); HEMOGLOBIN 13.4 GM/DL (13.0-17.0); LYMPH % 19.9 % (9.0-44.0); LYMPHOCYTE # 1.8 TH/MM3 (1.0-4.8); MEAN CELL VOLUME 99.1 FL (80.0-100.0); MEAN CORPUSCULAR HEMOGLOBIN 32.7 PG (27.0-34.0); MEAN PLATELET VOLUME 8.8 FL (7.0-11.0); MONO % 10.2 % (0.0-8.0); MONOCYTE # 0.9 TH/MM3 (0-0.9); NEUT % 68.1 % (16.0-70.0); PLATELET COUNT 186 TH/MM3 (150-450); RED BLOOD COUNT 4.09 MIL/MM3 (4.50-5.90); RED CELL DISTRIBUTION WIDTH 16.6 % (11.6-17.2); WHITE BLOOD COUNT 8.9 TH/MM3 (4.0-11.0)
[2017-11-12 07:36] LABS: BICARBONATE 21.5 MEQ/L (21.0-32.0); CREATININE 1.86 MG/DL (0.60-1.30)
--- NOTE | 2017-11-12 08:26 | HHI.PR ---
Subjective Remarks in no acute distress. sob has improved. denies chest pain. Objective Vitals Vital Signs Date Time Temp Pulse Resp B/P (MAP) Pulse Ox O2 Delivery O2 Flow Rate FiO2 11/12/17 08:12 97.9 61 18 150/72 (98) 96 11/12/17 07:24 89 11/12/17 04:36 98.1 75 18 131/72 (91) 98 11/12/17 04:22 74 11/12/17 00:59 97.9 89 18 160/89 (112) 100 11/12/17 00:10 93 11/11/17 21:19 98.0 100 18 137/80 (99) 97 11/11/17 20:14 11/11/17 18:42 98 Venturi Mask 50 11/11/17 18:22 86 24 178/90 (119) 92 Venturi Mask 11/11/17 17:36 99 70 11/11/17 17:20 98 80 11/11/17 17:15 92 Venturi Mask 11/11/17 16:35 99 BiPAP 100 11/11/17 16:34 99 100 11/11/17 16:03 97 Non-Rebreather 15.00 11/11/17 16:03 96 30 98 Non-Rebreather 15.00 11/11/17 15:57 116 30 91 Non-Rebreather 15.00 11/11/17 15:56 97.2 112 30 184/106 (132) 92 Non-Rebreather 15.00 11/11/17 15:55 92 Non-Rebreather 15.00 11/11/17 15:50 113 30 184/106 (132) 91 I/O 11/11/17 11/11/17 11/11/17 11/12/17 11/12/17 11/12/17 06:59 14:59 22:59 06:59 14:59 22:59 Output Total 700 ml Balance -700 ml Output Urine Total 700 ml Result Diagram: 11/12/1722 11/12/1722 Imaging Last Impressions Chest X-Ray 11/11/17 1556 Signed Impressions: Service Date/Time: Saturday, November 11, 2017 16:14 - CONCLUSION: 1. Cardiomegaly with a mild edema pattern and small effusions most characteristic of mild congestive heart failure. Tommy Page MD Objective Remarks GENERAL: This is a well-nourished, well-developed patient, in no apparent distress. CARDIOVASCULAR: Regular rate and regular rhythm without murmurs, gallops, or rubs. RESPIRATORY: Clear to auscultation. Breath sounds equal bilaterally. No wheezes , rales, or rhonchi. GASTROINTESTINAL: Abdomen soft, non-tender, nondistended. Normal, active bowel sounds MUSCULOSKELETAL: Extremities without clubbing, cyanosis, or edema. NEURO: Alert & Oriented x4 to person, place, time, situation. Moves all ext x4 Medications and IVs Inpatient Medications Acetaminophen (Tylenol) 650 mg Q4H PRN PO Headache, fever, pain 1-4; Start 11/11 at 18:45 Aspirin (Ecotrin Ec) 81 mg DAILY PO ; Start 11/12/17 at 09:00 Atorvastatin Calcium (Lipitor) 40 mg HS PO ; Start 11/12/17 at 21:00 Bisacodyl (Dulcolax Supp) 10 mg DAILY PRN RECTAL SEVERE CONSITIPATION; Start at 18:45 Captopril (Capoten) 6.25 mg BID PO ; Start 11/12/17 at 09:00 Carvedilol (Coreg) 25 mg BID PO ; Start 11/12/17 at 09:00 Digoxin (Lanoxin) 0.125 mg DAILY PO ; Start 11/12/17 at 09:00 Diltiazem HCl (Cardizem Cd) 120 mg DAILY PO ; Start 11/12/17 at 09:00 Gemfibrozil (Lopid) 600 mg BIDAC PO ; Start 11/12/17 at 07:00 Lactulose (Lactulose Liq) 30 ml DAILY PRN PO SEVERE CONSITIPATION; Start at 18:45 Magnesium Hydroxide (Milk Of Magnesia Liq) 30 ml Q12H PRN PO Mild constipation ; Start 11/11/17 at 18:45 Naloxone HCl (Narcan Inj) 0.4 mg UNSCH PRN IV PUSH SEE LABEL COMMENTS; Start at 18:45 Pantoprazole Sodium (Protonix) 40 mg DAILY PO ; Start 11/12/17 at 09:00 Patient Own Medication PT OWN MED: ULORIC ... DAILY PO ; Start 11/12/17 at 09:00 Sennosides (Senokot) 17.2 mg Q12H PRN PO Moderate constipation; Start 11/11/17 at 18:45 Sodium Chloride (NS Flush) 2 ml BID IV FLUSH ; Start 11/11/17 at 21:00 Tamsulosin HCl (Flomax) 0.4 mg HS PO ; Start 11/12/17 at 21:00 Warfarin Sodium (Coumadin) 2 mg DAILY@1600 PO ; Start 11/12/17 at 16:00 A/P Assessment and Plan A/P - acute on chronic systolic CHF start on IV lasix- continue captopril and coreg- walk test today. -atrial fibrillation- HR controlled continue digoxin, BB and coumadin- PT/INR monitoring. -hypertension; continue home BP meds -CAD- continue aspirin, statin and BB Discharge Planning dc home within the next 24 hrs- pending walk test. Sangeeta Garrison MD Nov 12, 2017 08:26
[2017-11-12] MEDS ORDERED: CARVEDILOL 12.5 MG TAB PO SCH (09:00)
[2017-11-12] MEDS ORDERED: DIGOXIN 0.125 MG TAB PO SCH (09:00)
[2017-11-12] MEDS ORDERED: DILTIAZEM-CD 120 MG CAP ER PO SCH (09:00)
[2017-11-12] MEDS ORDERED: ASPIRIN EC 81 MG TABEC PO SCH (09:00)
[2017-11-12] MEDS ORDERED: ULORIC 80 MG PO SCH (09:00)
[2017-11-12] MEDS ORDERED: PANTOPRAZOLE SOD 40 MG DELAYED RELEASE TAB PO SCH (09:00)
[2017-11-12] MEDS ORDERED: FUROSEMIDE 40 MG/4 ML VIAL IV PUSH SCH (09:00)
[2017-11-12] MEDS ORDERED: CAPTOPRIL 12.5 MG TAB PO SCH (09:00)
--- NOTE | 2017-11-12 09:24 | HHI.DCPOC ---
Discharge Care Plan Diagnosis: (1) CHF exacerbation Goals to Promote Your Health * To prevent worsening of your condition and complications * To maintain your health at the optimal level Directions to Meet Your Goals Take your medications as prescribed Follow your dietary instruction Follow activity as directed Keep your appointments as scheduled Take your immunizations and boosters as scheduled If your symptoms worsen call your PCP, if no PCP go to Urgent Care Center or Emergency Room Smoking is Dangerous to Your Health. Avoid second hand smoke Call the 24-hour hour crisis hotline for domestic abuse at Mellisa Blackwell PA-C Nov 12, 2017 9:24 am
[2017-11-12] MEDS: SODIUM CHLORIDE 0.9% FLUSH 10 ML FLUSH IV FLUSH SCH ×2 (10:07→10:08)
--- NOTE | 2017-11-12 15:31 | EKG ---
Date Performed: 11/11/2017 Time Performed: 15:52:55 PTAGE: 77 years EKG: ATRIAL FIBRILLATION WITH RAPID VENTRICULAR RESPONSE WITH ABERRANT CONDUCTION OR VENTRICULAR PREMATURE COMPLEXES MARKED LEFT AXIS DEVIATION LEFT BUNDLE BRANCH BLOCK ABNORMAL ECG PREVIOUS TRACING : 01/22/2017 19.51 The rate has increased significantly since prior tracing. P ossible ventricular couplets. Clinical correlation is recommended. DOCTOR: Christopher Harris Interpretating Date/Time 11/12/2017 15:30:38
[2017-11-12] MEDS ORDERED: WARFARIN SOD 2 MG TAB PO SCH (16:00)
[2017-11-12] MEDS ORDERED: TAMSULOSIN HCL 0.4 MG CAP PO SCH (21:00)
[2017-11-12] MEDS ORDERED: ATORVASTATIN 40 MG TAB PO SCH (21:00)
== END 2017-11-12 15:19 | disposition home or self-care (01) | DRG 291 ==
LOC: NEPC 15:47 → NEDA 18:55 → NEPFCDU 20:11
PROVIDERS: ADMIT Internal Medicine; ATTEND Internal Medicine
PROC: 5A09357 Assistance with Respiratory Ventilation, Less than 24 Consecutive Hours, Continuous Positive Airway Pressure (ICD-10-PCS; principal; 2017-11-11)
DX: I13.0 Hypertensive heart and chronic kidney disease with heart failure and stage 1 through stage 4 chronic kidney disease, or unspecified chronic kidney disease (principal); I50.23 Acute on chronic systolic (congestive) heart failure; J96.91 Respiratory failure, unspecified with hypoxia; N17.9 Acute kidney failure, unspecified; I48.91 Unspecified atrial fibrillation; J44.9 Chronic obstructive pulmonary disease, unspecified; N18.9 Chronic kidney disease, unspecified; E78.5 Hyperlipidemia, unspecified; F41.9 Anxiety disorder, unspecified; H91.90 Unspecified hearing loss, unspecified ear; I25.10 Atherosclerotic heart disease of native coronary artery without angina pectoris; Z86.73 Personal history of transient ischemic attack (TIA), and cerebral infarction without residual deficits; Z85.46 Personal history of malignant neoplasm of prostate; Z92.3 Personal history of irradiation; Z87.891 Personal history of nicotine dependence; Z91.11 Patient's noncompliance with dietary regimen; Z95.1 Presence of aortocoronary bypass graft; Z95.5 Presence of coronary angioplasty implant and graft; I25.2 Old myocardial infarction
CPT/HCPCS: 71045; 80048; 80053; 80162; 81001; 82550; 83880; 84484; 85025; 85610; 85730; 93005; 94002; 94618; J1940